=== PATIENT | female | born 1950 | race African-American/Black ===

== ENCOUNTER 2018-02-19 16:21 | Inpatient (IN) | payer BC, OTHER ==
[2018-02-19 16:30] VITALS: BMI 31.3
--- NOTE | 2018-02-19 16:30 | PDOC ---
Rapid Medical Evaluation Time Seen by Provider: 02/19/18 16:24 Medical Evaluation: Allergies Allergy/AdvReac Type Severity Reaction Status Date / Time iodine [Iodine] Allergy Rash Verified 08/25/15 17:39 adhesive tape AdvReac Severe Verified 08/25/15 17:39 oxycodone HCl [From Percocet] AdvReac Severe Vomiting Verified 08/25/15 17:39 margarine AdvReac Severe Difficulty Uncoded 08/28/15 22:51 Breathing 02/19/18 16:24 Pt c/o: acute weight loss, no appetite x3 years worsening in last 6 months, white mucosy diarrhea, hx cancer Pt on brief exam: vss Pt ordered for: labs, ua, ekg, mag, cxr pt to proceed to the ED Discharge Disposition - Diagnosis Weakness - Referrals - Patient Instructions - Post Discharge Activity
--- NOTE | 2018-02-19 17:27 | PDOC ---
History of Present Illness - General Chief Complaint: Weakness Stated Complaint: PCP SENT Time Seen by Provider: 02/19/18 16:24 - History of Present Illness Initial Comments: 02/19/18 17:27 Ms. Avery is a 67 yo female w/ pmh of HTN, anemia colon and bladder cancer, chronic RLE pain, left nephrectomy who presents on direction from PCP (Ever Johnson) for evaluation of several month history of worsening appetite, loss of weight, and diarrhea consisting of white mucous. She reports she has not been eating much and has likewise had increasing weakness to where she has difficulty standing (was previously going to gym 2x / week). The patient denies chest pain, shortness of breath, headache and dizziness. Denies fever, chills, nausea, vomit, and constipation. Denies dysuria, frequency , urgency and hematuria. Allergies: Iodine, oxycodone Past History - Past Medical History Allergies/Adverse Reactions: Allergies Allergy/AdvReac Type Severity Reaction Status Date / Time iodine [Iodine] Allergy Rash Verified 02/19/18 16:25 adhesive tape AdvReac Severe Verified 02/19/18 16:25 oxycodone HCl [From Percocet] AdvReac Severe Vomiting Verified 02/19/18 16:25 margarine AdvReac Severe Difficulty Uncoded 02/19/18 16:25 Breathing Home Medications: Ambulatory Orders Amlodipine Bes/Olmesartan Med [Mindi 5-20 mg Tablet] 1 each PO DAILY 08/26/15 Anemia: Yes Asthma: No Cancer: Yes (COLON, bladder) Cardiac Disorders: No CVA: No COPD: No CHF: No DVT: No Dementia: No Diabetes: No GI Disorders: No Disorders: Yes (LEFT nephrectomy) HTN: Yes Hypercholesterolemia: No Liver Disease: No Seizures: No Thyroid Disease: Yes (recent thyroid nodules) - Surgical History Abdominal Surgery: Yes (colon resectionx 2) Appendectomy: No Cardiac Surgery: No Cholecystectomy: No Lung Surgery: No Neurologic Surgery: No Orthopedic Surgery: Yes (SHOULDER SX - LEFT,rt wrist,rt knee,jennifer in right leg) - Suicide/Smoking/Psychosocial Hx Smoking Status: Yes Smoking History: Former smoker Have you smoked in the past 12 months: No Number of Cigarettes Smoked Daily: 1 If you are a former smoker, when did you quit?: 2 YRS Information on smoking cessation initiated: No Hx Alcohol Use: Yes (RARE) Drug/Substance Use Hx: No Substance Use Type: None Hx Substance Use Treatment: No Review of Systems - Review of Systems Comments:: 02/19/18 18:19 GENERAL/CONSTITUTIONAL: +Weakness and weightloss as described. No fever or chills. HEAD, EYES, EARS, NOSE AND THROAT: No change in vision. No ear pain or discharge. No sore throat. CARDIOVASCULAR: No chest pain or shortness of breath RESPIRATORY: No cough, wheezing, or hemoptysis. GASTROINTESTINAL: +Chronic white mucous diarrhea. No nausea, vomiting, or constipation. GENITOURINARY: No dysuria, frequency, or change in urination. MUSCULOSKELETAL: +RLE chronic pain SKIN: No rash NEUROLOGIC: No headache, vertigo, loss of consciousness, or change in strength/ sensation. ENDOCRINE: No increased thirst. No abnormal weight change HEMATOLOGIC/LYMPHATIC: No easy bleeding, or history of blood clots. ALLERGIC/IMMUNOLOGIC: No hives or skin allergy. *Physical Exam - Vital Signs Last Vital Signs Temp Pulse Resp BP Pulse Ox 99.2 F 103 H 18 139/61 100 02/19/18 16:25 02/19/18 16:25 02/19/18 16:25 02/19/18 16:25 02/19/18 16:25 - Physical Exam Comments: 02/19/18 18:19 GENERAL: Awake, alert, and fully oriented, in no acute distress HEAD: +Mucous membranes pale c/w anemia. No signs of trauma, normocephalic, atraumatic EYES: PERRLA, EOMI, sclera anicteric, conjunctiva clear ENT: Auricles normal inspection, hearing grossly normal, nares patent, oropharynx clear without exudates. Moist mucosa NECK: Normal ROM, supple, no lymphadenopathy, JVD, or masses LUNGS: No distress, speaks full sentences, clear to auscultation bilaterally HEART: Regular rate and rhythm, normal S1 and S2, no murmurs, rubs or gallops, peripheral pulses normal and equal bilaterally. ABDOMEN: Soft, nontender, normoactive bowel sounds. No guarding, no rebound. No masses EXTREMITIES: Normal inspection, Normal range of motion, no edema. No clubbing or cyanosis. NEUROLOGICAL: Cranial nerves II through XII grossly intact. Normal speech, normal gait, no focal sensorimotor deficits SKIN: Warm, Dry, normal turgor, no rashes or lesions noted. ED Treatment Course - LABORATORY CBC & Chemistry Diagram: 02/19/18 17:23 02/19/18 17:23 Medical Decision Making - Medical Decision Making 02/19/18 18:21 Ms. Avery is a 67 yo female w/ pmh as described who presents for evaluation of weakness and diarrhea in the setting of metastatic cancer. Patient sent by PCP for admission. Discussed with Dr. Medina who will admit for further evaluation. Patient noted to be anemic as below. 2 units PRBC's ordered for treatment. Will bring in patient to hospital for further evaluation. Laboratory Results - last 24 hr 02/19/18 02/19/18 02/19/18 17:23 17:23 18:30 WBC 16.2 H RBC 3.91 Hgb 6.3 L* Hct 22.0 L D MCV 56.1 L MCH 16.2 L D MCHC 28.8 L RDW 20.3 H Plt Count 724 H D MPV 8.7 D Absolute Neuts (auto) 12.5 Neutrophils % 77.1 Lymphocytes % 15.1 Monocytes % 7.3 Eosinophils % 0.1 Basophils % 0.4 Nucleated RBC % 0 Hypochromia 3+ Platelet Estimate Increased Platelet Comment No clumping noted Polychromasia 1+ Basophilic Stippling 1+ Anisocytosis 2+ Microcytosis 3+ Target Cells 2+ Ovalocytes 1+ Sodium 139 Potassium 4.8 Chloride 102 Carbon Dioxide 28 Anion Gap 9 BUN 14 Creatinine 0.7 Creat Clearance w eGFR > 60 Random Glucose 85 Calcium 12.1 H Magnesium 1.8 Total Bilirubin 0.4 AST 39 H ALT 28 Alkaline Phosphatase 146 H Creatine Kinase 95 Troponin I 0.05 Total Protein 6.7 Albumin 2.5 L Lipase 73 Crossmatch See Detail *DC/Admit/Observation/Transfer Diagnosis at time of Disposition: Weakness - Discharge Dispostion Decision to Admit order: Yes - Referrals Referrals: Ever Johnson MD [Primary Care Provider] - - Patient Instructions - Post Discharge Activity
[2018-02-19 17:38] LABS: MEAN CELL VOLUME 56.1 fl (80-96)
[2018-02-19] MEDS ORDERED: SODIUM CHLORIDE 1,000 ML IV STA (17:48)
[2018-02-19 17:56] LABS: BASO % 0.4 % (0-2.0); EOS % 0.1 % (0-4.5); LYMPH % 15.1 % (8-40); MCHC 28.8 g/dl (32.0-36.0); MEAN PLT VOLUME 8.7 fl (7.5-11.1); MONO % 7.3 % (3.8-10.2); NEUT % 77.1 % (42.8-82.8); PLATELET COUNT 724 K/MM3 (134-434); RBC 3.91 M/mm3 (3.60-5.2); RDW 20.3 % (11.6-15.6); WHITE BLOOD COUNT 16.2 K/mm3 (4.0-10.0)
[2018-02-19 18:01] LABS: MCH 16.2 pg (25.7-33.7)
[2018-02-19 18:02] LABS: HEMOGLOBIN 6.3 GM/dL (10.7-15.3)
[2018-02-19 18:03] LABS: ADD RBC MORPHOLOGY YES
[2018-02-19 18:04] LABS: ALBUMIN 2.5 g/dl (3.4-5.0); ANION GAP 9 (8-16); BLOOD UREA NITROGEN 14 mg/dL (7-18); CALCIUM 12.1 mg/dL (8.5-10.1); CHLORIDE 102 mmol/L (98-107); CO2 28 mmol/L (21-32); CREATININE 0.7 mg/dL (0.55-1.02); GLUCOSE,RANDOM 85 mg/dL (74-106); LIPASE 73 U/L (73-393); MAGNESIUM 1.8 mg/dL (1.8-2.4); POTASSIUM 4.8 mmol/L (3.5-5.1); SGOT/AST 39 U/L (15-37); SGPT/ALT 28 U/L (12-78); SODIUM 139 mmol/L (136-145)
--- NOTE | 2018-02-19 18:04 | PDOC ---
Attending Attestation - HPI HPI: The patient is a 67 year old female with a significant past medical history of hypertension, anemia, chronic RLE pain, left nephrectomy, and colon and bladder cancer, who presents to the emergency department for evaluation of a several month history of worsening appetite, weight loss, and diarrhea. She reports difficulty standing secondary to generalized weakness. The patient notes the diarrhea is streaked with white mucous. The patient denies chest pain, shortness of breath, headache and dizziness. Denies fever, chills, nausea, vomit, and constipation. Denies dysuria, frequency , urgency and hematuria. Allergies: Iodine, oxycodone Social History: Former smoker. Rare alcohol use. No reported drug use. Surgical History: Colon resection. PCP: Dr. Ever Johnson - Physicial Exam PE: Vitals: Triage Vital signs reviewed General Appearance: no acute distress, well nourished well developed, Head: Atraumatic, normocephalic Eyes: Pupils equal reactive round, extraocular movement intact Neck: Supple Chest Wall: Nontender Cardiac: Regular rate and rhythm, no murmurs, no rubs, no gallops, Lungs: Clear to auscultation bilateral, good air movement bilaterally, Abdomen: Soft, nondistended, nontender to palpation Extremities: Full range of motion to all extremities, no cyanosis, clubbing, or edema Skin: Warm and dry, no rashes or lesions, no petechiae Psych: normal mood, normal affect - Medical Decision Making The patient is a 67 year old female with a significant past medical history of hypertension, anemia, chronic RLE pain, left nephrectomy, and colon and bladder cancer, who presents to the emergency department for evaluation of a several month history of worsening appetite, weight loss, and diarrhea. Plan: CT of Abdomen and Pelvis Chest X-ray EKG Labs UA <Lisa Melvin - Last Filed: 02/19/18 19:03> - Resident Resident Name: Sen Antoine - ED Attending Attestation I have performed the following: I have examined & evaluated the patient, The case was reviewed & discussed with the resident, I agree w/resident's findings & plan, Exceptions are as noted - HPI HPI: 02/19/18 18:04 agree with hpi - Physicial Exam PE: 02/19/18 18:04 agree with PE - Medical Decision Making Patient sensitive emergency Department for CT abdomen pelvis and evaluation of anemia Laboratory analysis notable for elevated white blood cell count Apparent source of fever appears to be urine patient cover broad-spectrum antibiotics we'll admit to medicine for further management. <Zachary Neves - Last Filed: 02/19/18 19:41> Attestations - Attestations Documentation prepared by Lisa Melvin, acting as medical care administrator for Zachary Neves MD. <Lisa Melvin - Last Filed: 02/19/18 19:03>
[2018-02-19 18:08] LABS: ALK PHOS 146 U/L (45-117); BILIRUBIN,TOTAL 0.4 mg/dL (0.2-1.0); TOT PROT 6.7 g/dl (6.4-8.2)
[2018-02-19 18:23] LABS: ANISOCYTOSIS 2+; OVALOCYTE 1+; PLATELET ESTIMATE INCREASED; TARGET CELLS 2+
[2018-02-19] MEDS ORDERED: VANCOMYCIN 1,000 MG in DEXTROSE 5%-WATER - 250 ML IVPB ONE (18:59)
[2018-02-19] MEDS ORDERED: PIPERACILLIN/TAZOB 3.375 GM 3.375 GM in DEXTROSE 5%-WATER - 50 ML IVPB ONE (18:59)
[2018-02-19 19:19] LABS: URINE APPEARANCE SLCLOUDY; URINE COLOR AMBER; URINE GLUCOSE (UA) NEGATIVE (NEGATIVE); URINE KETONE TRACE (NEGATIVE); URINE LEUK ESTERASE TRACE (NEGATIVE); URINE NITRITE NEGATIVE (NEGATIVE); URINE PROTEIN 2+ (NEGATIVE)
[2018-02-19 19:24] LABS: CALCIUM OXALATE CRYSTALS FEW /hpf (NONE SEEN); EPI CELLS RARE /HPF (FEW); URINE BACTERIA RARE /hpf (NONE SEEN); URINE HYALINE CAST 41 /lpf; URINE MUCUS MODERATE
[2018-02-19] MEDS ORDERED: VANCOMYCIN 1 GRAM (PRE-DOCKED) 1,000 MG/250 ML BAG IVPB ONE (19:34)
[2018-02-19] MEDS ORDERED: PIPERACILLIN/TAZOB 3.375 GM 3.375 GM/50 ML BAG IVPB ONE (23:31)
[2018-02-20] MEDS: ACETAMINOPHEN 325 MG TABLET (FP) PO PRN ×2 (01:26→15:01)
--- NOTE | 2018-02-20 12:42 | EKG ---
Test Reason : Blood Pressure : / mmHG Vent. Rate : 093 BPM Atrial Rate : 093 BPM P-R Int : 134 ms QRS Dur : 074 ms QT Int : 318 ms P-R-T Axes : 046 010 046 degrees QTc Int : 395 ms NORMAL SINUS RHYTHM POSSIBLE LEFT ATRIAL ENLARGEMENT BORDERLINE ECG WHEN COMPARED WITH ECG OF 25-AUG-2015 22:18, NONSPECIFIC T WAVE ABNORMALITY NO LONGER EVIDENT IN INFERIOR LEADS NONSPECIFIC T WAVE ABNORMALITY, IMPROVED IN LATERAL LEADS Confirmed by PRISCA SANTORO, CHIQUITA ([id number]) on 02/20/2018 12:41:48 PM Referred By: Confirmed By:CHIQUITA COPE MD
--- NOTE | 2018-02-20 20:05 | CONSULT ---
Consult Consult Specialty:: Oncology Referred by:: Medicine Reason for Consultation:: History of bladder cancer / severe anemia - History of Present Illness Chief Complaint: Patient admitted with several months history of worsening fatigue, anorexia, and loss of weight. Found to be severely anemic. History of Present Illness: As above. History of bladder carcinoma, with known metastatic spread ( pathological fracture femur, known adrenal mets), last seen by oncology approximately 18 months ago, when chemotherapy was offered, but was refused by the patient. Since then has been doing reasonably well, until development of symptoms described above in the last several months. Denies blood in stools, or change in color of stool. Reports watery, clear, mucoid diarrhea, for last several months. Long-standing hematuria - 'blood tinged urine'. - History Source History Provided By: Patient, Medical Record Limitations to Obtaining History: No Limitations - Past Medical History Cardio/Vascular: Yes: HTN Gastrointestinal: Yes: Cancer (colon cancer x 2 resections) Hepatobiliary: Yes: Cholelithiasis Renal/: Yes: Cancer ...: No Musculoskeletal: Yes: Other (le fracture) - Past Surgical History Past Surgical History: Yes: Nephrectomy (left) - Alcohol/Substance Use Hx Alcohol Use: Yes (RARE) - Smoking History Smoking history: Former smoker Have you smoked in the past 12 months: No Aproximately how many cigarettes per day: 1 If you are a former smoker, when did you quit?: 2 YRS - Social History ADL: Support Services History of Recent Travel: No Home Medications - Allergies Allergies/Adverse Reactions: Allergies Allergy/AdvReac Type Severity Reaction Status Date / Time iodine [Iodine] Allergy Rash Verified 02/19/18 16:25 adhesive tape AdvReac Severe Verified 02/19/18 16:25 oxycodone HCl [From Percocet] AdvReac Severe Vomiting Verified 02/19/18 16:25 margarine AdvReac Severe Difficulty Uncoded 02/19/18 16:25 Breathing - Home Medications Home Medications: Ambulatory Orders Amlodipine Bes/Olmesartan Med [Mindi 5-20 mg Tablet] 1 each PO DAILY 08/26/15 Physical Exam Vital Signs: Vital Signs Temperature 97.7 F 02/20/18 15:18 Pulse Rate 84 02/20/18 15:18 Respiratory Rate 20 02/20/18 16:00 Blood Pressure 134/62 02/20/18 15:18 O2 Sat by Pulse Oximetry (%) 96 02/20/18 16:00 Labs: CBC, BMP 02/19/18 17:23 02/19/18 17:23 Assessment/Plan Patient with history of metastatic bladder cancer (transitional cell carcinoma) , with prior pathological fracture R femur, and known adrenal metastasis, last seen by oncology here (Dr Mckinney) in August 2016. At that time refused systemic chemotherapy and thereafter lost to follow up here. In addition, reported history of 2 colon resections for colon masses, both of which she believes were benign. Returns with severe microcytic anemia. (Assumed to be iron deficiency - would check iron panel to confirm) Expected progression of disease (now with liver metastasis, and large retroperitoneal mass) seen on CT scan, albeit progression is slower than expected, indicative of relatively indolent disease. Elevated Ca and ALP suggests active bone metastases also. Unclear etiology of iron deficiency (hematuria vs occult GI loss) Agree with transfusion, and would likely also benefit from IV iron while admitted. Consult GI re. ongoing GI symptoms (watery, mucoid diarrhea, and rule out occult GI bleeding). At this time still adamant that she does not want systemic chemotherapy, but may be convinced otherwise. If patient interested in some palliative measures then will require completion of staging - which may include PET and/or bone scan. If chemotherapy is contemplated then tissue confirmation may be required - to confirm primary - likely transitional as before, but noted question in prior notes of possible ?colon cancer, ?remote history of breast cancer also. Will consider bisphosphonate or denosumab, noting prior history of pathological fracture and index of suspicion for bone involvement presently.
--- NOTE | 2018-02-20 21:49 | HP ---
Admitting History and Physical - Admission History of Present Illness: Pt is a 67 yo female w/ PMH significant for HTN, anemia, colon and bladder cancer(metastatic dz to femur/adrenal mets), and chronic RLE pain. Pt for the past 1 month has just been deteriorating w/ decreasing appetite, loss of weight , and diarrhea consisting of white mucous. Pt is also feeling weak w/ difficulty standing (was previously going to gym 2x / week). - Past Medical History Cardiovascular: Yes: HTN Gastrointestinal: Yes: Cancer (colon cancer x 2 resections Bladder cancer w/ mets to bone(pathologic femur fx)) Hepatobiliary: Yes: Cholelithiasis Renal/: Yes: Cancer ...: No Heme/Onc: Yes: Anemia (colon and bladder), Cancer Musculoskeletal: Yes: Other (le fracture) - Past Surgical History Past Surgical History: Yes: Colectomy, Nephrectomy (left) - Smoking History Smoking history: Former smoker Have you smoked in the past 12 months: No Aproximately how many cigarettes per day: 1 If you are a former smoker, when did you quit?: 2 YRS - Alcohol/Substance Use Hx Alcohol Use: Yes (RARE) - Social History ADL: Support Services History of Recent Travel: No Home Medications - Allergies Allergies/Adverse Reactions: Allergies Allergy/AdvReac Type Severity Reaction Status Date / Time iodine [Iodine] Allergy Rash Verified 02/19/18 16:25 adhesive tape AdvReac Severe Verified 02/19/18 16:25 oxycodone HCl [From Percocet] AdvReac Severe Vomiting Verified 02/19/18 16:25 margarine AdvReac Severe Difficulty Uncoded 02/19/18 16:25 Breathing - Home Medications Home Medications: Ambulatory Orders Amlodipine Bes/Olmesartan Med [Mindi 5-20 mg Tablet] 1 each PO DAILY 08/26/15 Family Disease History - Family Disease History Family History: Unremarkable Review of Systems - Review of Systems Constitutional: reports: Lethargy, Loss of Appetite, Malaise, Weakness Eyes: reports: No Symptoms HENT: reports: No Symptoms Neck: reports: No Symptoms Cardiovascular: reports: No Symptoms Gastrointestinal: reports: Diarrhea Genitourinary: reports: Hematuria Physical Examination Vital Signs: Vital Signs Temperature 97.7 F 02/20/18 15:18 Pulse Rate 84 02/20/18 15:18 Respiratory Rate 20 02/20/18 16:00 Blood Pressure 134/62 02/20/18 15:18 O2 Sat by Pulse Oximetry (%) 96 02/20/18 16:00 Constitutional: Yes: Well Nourished HENT: Yes: WNL Neck: Yes: WNL, Supple Cardiovascular: Yes: WNL, Regular Rate and Rhythm Respiratory: Yes: WNL, Regular, CTA Bilaterally Gastrointestinal: Yes: WNL Musculoskeletal: Yes: WNL Extremities: Yes: WNL Edema: No Neurological: Yes: WNL, Alert, Oriented ...Motor Strength: WNL Labs: CBC, BMP 02/19/18 17:23 02/19/18 17:23 Problem List - Problems (1) Diarrhea Assessment/Plan: Check stool studies GI consult Code(s): R19.7 - DIARRHEA, UNSPECIFIED (2) Anemia Assessment/Plan: S/P transfusion 2 units PRBC's ?active GI bleed vs anemia of malignancy Monitor H/H Onco consult noted GI consult Monitor H/H IV venofer Code(s): D64.9 - ANEMIA, UNSPECIFIED (3) Weakness Code(s): R53.1 - WEAKNESS (4) Bladder cancer Assessment/Plan: Bladder CA w/ mets ot liver/bone and retroperitoneal mass Pt has refused chemotx in past At this point will d/w pt again about possibility of further management ?Palliative care Code(s): C67.9 - MALIGNANT NEOPLASM OF BLADDER, UNSPECIFIED (5) Colon cancer Code(s): C18.9 - MALIGNANT NEOPLASM OF COLON, UNSPECIFIED (6) HTN (hypertension) Assessment/Plan: BP stable Cont antihypertensives Code(s): I10 - ESSENTIAL (PRIMARY) HYPERTENSION
[2018-02-21] MEDS: IRON SUCROSE INJECTION 100 MG in SODIUM CHLORIDE 95 ML IVPB SCH ×2 (06:10→09:57)
[2018-02-21] MEDS: SODIUM CHLORIDE 1,000 ML IV SCH ×2 (06:10→22:34)
[2018-02-21 07:09] LABS: BASO % 0.4 % (0-2.0); EOS % 0.3 % (0-4.5); HEMATOCRIT 25.9 % (32.4-45.2); HEMOGLOBIN 7.9 GM/dL (10.7-15.3); LYMPH % 17.4 % (8-40); MCHC 30.4 g/dl (32.0-36.0); MEAN PLT VOLUME 8.4 fl (7.5-11.1); MONO % 6.5 % (3.8-10.2); NEUT % 75.4 % (42.8-82.8); PLATELET COUNT 708 K/MM3 (134-434); RBC 4.25 M/mm3 (3.60-5.2); RDW 26.1 % (11.6-15.6); WHITE BLOOD COUNT 16.8 K/mm3 (4.0-10.0)
[2018-02-21 07:22] LABS: MCH 18.6 pg (25.7-33.7)
[2018-02-21 08:04] LABS: ALBUMIN 2.4 g/dl (3.4-5.0); ANION GAP 8 (8-16); BLOOD UREA NITROGEN 8 mg/dL (7-18); CALCIUM 12.1 mg/dL (8.5-10.1); CHLORIDE 102 mmol/L (98-107); CO2 26 mmol/L (21-32); CREATININE 0.5 mg/dL (0.55-1.02); GLUCOSE,RANDOM 74 mg/dL (74-106); POTASSIUM 4.7 mmol/L (3.5-5.1); SGOT/AST 37 U/L (15-37); SGPT/ALT 30 U/L (12-78); SODIUM 136 mmol/L (136-145)
[2018-02-21 08:06] LABS: ALK PHOS 153 U/L (45-117); BILIRUBIN,TOTAL 0.6 mg/dL (0.2-1.0); TOT PROT 6.5 g/dl (6.4-8.2)
[2018-02-21] MEDS: amLODIPine BESYLATE 5 MG TABLET (FP) PO SCH (09:57)
[2018-02-21] MEDS: VALSARTAN 160 MG TABLET (UD) PO SCH (09:57)
[2018-02-21] MEDS ORDERED: PATIENT'S OWN MEDICATION (NON-FORMULARY) (Amlodipine Bes/Olmesartan Med [Azor 5-20 Mg Tabl PO SCH (10:00)
--- NOTE | 2018-02-21 18:49 | PN ---
Progress Note (short form) - Note Progress Note: Patient seen and examined Reports mucus discharge per rectum. Reports weakness,poor appetite Last Vital Signs Temp Pulse Resp BP Pulse Ox 98.1 F 84 18 124/57 96 02/21/18 17:43 02/21/18 17:43 02/21/18 17:43 02/21/18 17:43 02/21/18 09:00 Cor: RSR, No murmurs, No gallops Lungs: Clear to P&A Abd: Soft, Normal bowel sounds, No organomegaly Ext:No significant edema Abnormal Lab Results 02/21/18 02/21/18 06:00 06:00 WBC 16.8 H Hgb 7.9 L Hct 25.9 L D MCV 61.0 L D MCH 18.6 L D MCHC 30.4 L RDW 26.1 H Plt Count 708 H Creatinine 0.5 L Calcium 12.1 H Alkaline Phosphatase 153 H Albumin 2.4 L Active Medications Generic Name Dose Route Start Last Admin Trade Name Freq PRN Reason Stop Dose Admin Acetaminophen 650 mg 02/20/18 01:22 02/20/18 15:01 Tylenol - PO 650 mg Q6H PRN Administration FEVER Amlodipine Besylate 5 mg 02/21/18 10:00 02/21/18 09:57 Norvasc - PO 5 mg DAILY RON Administration Sodium Chloride 1,000 mls @ 100 mls/hr 02/20/18 23:15 02/21/18 06:10 Normal Saline - IV 100 mls/hr ASDIR RON Administration Iron Sucrose 100 mg/ Sodium 100 mls @ 200 mls/hr 02/21/18 01:41 02/21/18 09: 57 Chloride IVPB 200 mls/hr DAILY RON Administration Valsartan 160 mg 02/21/18 10:00 02/21/18 09:57 Diovan - PO 160 mg DAILY RON Administration A/P 67 y/o patient with metastatic bladder cancer (transitional cell carcinoma), with prior pathological fracture R femur, and known adrenal metastasis, last seen by me in August 2016. At that time adamantly refused systemic therapy and has been lost to follow up. she last had scans in 01/20 per patient. She had been going to the gym upuntil 12/21 Now with 2 months of worsening appetitie, wt. loss, decline in functional status In addition, reported history of 2 colon resections for colon masses, both of which she believes were benign. Returns with severe microcytic anemia. Expected progression of disease (now with liver metastasis, and large retroperitoneal mass) seen on CT scan, Elevated Ca and ALP suggests active bone metastases also. will check bone scan Will dose zometa given hypercalcemia continue IV hydation ID consult Biopsy of liver lesion via IR
[2018-02-21] MEDS ORDERED: ZOLPIDEM TARTRATE 5 MG TABLET PO PRN (22:33)
--- NOTE | 2018-02-21 23:50 | PN ---
Progress Note, Physician - Current Medication List Current Medications: Active Medications Acetaminophen (Tylenol -) 650 mg PO Q6H PRN PRN Reason: FEVER Last Admin: 02/20/18 15:01 Dose: 650 mg Amlodipine Besylate (Norvasc -) 5 mg PO DAILY [facility] Last Admin: 02/21/18 09:57 Dose: 5 mg Sodium Chloride (Normal Saline -) 1,000 mls @ 100 mls/hr IV ASDIR RON Last Admin: 02/21/18 22:34 Dose: 100 mls/hr Iron Sucrose 100 mg/ Sodium (Chloride) 100 mls @ 200 mls/hr IVPB DAILY RON Last Admin: 02/21/18 09:57 Dose: 200 mls/hr Zoledronic Acid 4 mg/ Sodium (Chloride) 105 mls @ 100 mls/hr IVPB ONCE ONE Stop: 02/22/18 11:32 Valsartan (Diovan -) 160 mg PO DAILY [facility] Last Admin: 02/21/18 09:57 Dose: 160 mg Zolpidem Tartrate (Ambien -) 5 mg PO HS PRN PRN Reason: INSOMNIA Last Admin: 02/21/18 23:06 Dose: 5 mg - Objective Vital Signs: Vital Signs Temperature 98.1 F 02/21/18 17:43 Pulse Rate 84 02/21/18 17:43 Respiratory Rate 18 02/21/18 20:18 Blood Pressure 124/57 02/21/18 17:43 O2 Sat by Pulse Oximetry (%) 96 02/21/18 20:18 Labs: CBC, BMP 02/21/18 06:00 02/21/18 06:00 Problem List - Problems (1) Diarrhea Code(s): R19.7 - DIARRHEA, UNSPECIFIED (2) Anemia Code(s): D64.9 - ANEMIA, UNSPECIFIED (3) Weakness Code(s): R53.1 - WEAKNESS (4) Bladder cancer Code(s): C67.9 - MALIGNANT NEOPLASM OF BLADDER, UNSPECIFIED (5) Colon cancer Code(s): C18.9 - MALIGNANT NEOPLASM OF COLON, UNSPECIFIED (6) HTN (hypertension) Code(s): I10 - ESSENTIAL (PRIMARY) HYPERTENSION
[2018-02-22] MEDS: SODIUM CHLORIDE 1,000 ML IV SCH ×2 (06:46→22:00)
[2018-02-22 08:48] LABS: BASO % 0.4 % (0-2.0); EOS % 0.5 % (0-4.5); HEMATOCRIT 24.3 % (32.4-45.2); HEMOGLOBIN 7.4 GM/dL (10.7-15.3); LYMPH % 16.6 % (8-40); MCHC 30.5 g/dl (32.0-36.0); MEAN CELL VOLUME 61.1 fl (80-96); MONO % 7.3 % (3.8-10.2); NEUT % 75.2 % (42.8-82.8); PLATELET COUNT 636 K/MM3 (134-434); RBC 3.98 M/mm3 (3.60-5.2); RDW 25.7 % (11.6-15.6); WHITE BLOOD COUNT 14.4 K/mm3 (4.0-10.0)
[2018-02-22 08:51] LABS: MCH 18.6 pg (25.7-33.7)
[2018-02-22 09:19] LABS: ALBUMIN 2.2 g/dl (3.4-5.0); ALK PHOS 143 U/L (45-117); ANION GAP 7 (8-16); BILIRUBIN,TOTAL 0.5 mg/dL (0.2-1.0); BLOOD UREA NITROGEN 7 mg/dL (7-18); CALCIUM 11.6 mg/dL (8.5-10.1); CHLORIDE 103 mmol/L (98-107); CO2 27 mmol/L (21-32); CREATININE 0.5 mg/dL (0.55-1.02); GLUCOSE,RANDOM 75 mg/dL (74-106); POTASSIUM 4.7 mmol/L (3.5-5.1); SGOT/AST 34 U/L (15-37); SGPT/ALT 28 U/L (12-78); SODIUM 137 mmol/L (136-145); TOT PROT 6.1 g/dl (6.4-8.2)
[2018-02-22 09:37] LABS: INR 1.35 (0.82-1.09); PROTHROMBIN TIME (PATIENT) 15.3 SEC (9.7-13.0)
[2018-02-22 09:40] LABS: ACTIVATED PTT 25.5 SECONDS (25.2-36.5)
[2018-02-22] MEDS ORDERED: ZOLEDRONIC ACID 4 MG in SODIUM CHLORIDE 100 ML IVPB ONE (10:30)
[2018-02-22] MEDS: VALSARTAN 160 MG TABLET (UD) PO SCH (10:48)
[2018-02-22] MEDS: IRON SUCROSE INJECTION 100 MG in SODIUM CHLORIDE 95 ML IVPB SCH (10:48)
[2018-02-22] MEDS: amLODIPine BESYLATE 5 MG TABLET (FP) PO SCH (10:48)
--- NOTE | 2018-02-22 15:13 | PN ---
Progress Note (short form) - Note Progress Note: Patient seen and examined Reports mucus discharge per rectum. Reports weakness,poor appetite Last Vital Signs Temp Pulse Resp BP Pulse Ox 98.2 F 93 H 18 116/50 96 02/22/18 18:03 02/22/18 18:03 02/22/18 18:03 02/22/18 18:03 02/22/18 09:00 Cor: RSR, No murmurs, No gallops Lungs: Clear to P&A Abd: Soft, Normal bowel sounds, No organomegaly Ext:No significant edema Abnormal Lab Results 02/22/18 02/22/18 02/22/18 08:07 08:07 08:07 WBC 14.4 H Hgb 7.4 L Hct 24.3 L MCV 61.1 L MCH 18.6 L MCHC 30.5 L RDW 25.7 H Plt Count 636 H MPV 7.0 L D PT with INR 15.30 H INR 1.35 H PTT (Actin FS) 25.5 L Anion Gap 7 L Creatinine 0.5 L Calcium 11.6 H Alkaline Phosphatase 143 H D Total Protein 6.1 L Albumin 2.2 L Active Medications Generic Name Dose Route Start Last Admin Trade Name Freq PRN Reason Stop Dose Admin Acetaminophen 650 mg 02/20/18 01:22 02/22/18 19:41 Tylenol - PO 650 mg Q6H PRN Administration FEVER Amlodipine Besylate 5 mg 02/21/18 10:00 02/22/18 10:48 Norvasc - PO 5 mg DAILY RON Administration Sodium Chloride 1,000 mls @ 100 mls/hr 02/20/18 23:15 02/22/18 06:46 Normal Saline - IV 100 mls/hr ASDIR RON Administration Iron Sucrose 100 mg/ Sodium 100 mls @ 200 mls/hr 02/21/18 01:41 02/22/18 10: 48 Chloride IVPB 200 mls/hr DAILY RON Administration Valsartan 160 mg 02/21/18 10:00 02/22/18 10:48 Diovan - PO 160 mg DAILY RON Administration Zolpidem Tartrate 5 mg 02/21/18 22:33 02/21/18 23:06 Ambien - PO 5 mg HS PRN Administration INSOMNIA A/P 67 y/o patient with metastatic bladder cancer (transitional cell carcinoma), with prior pathological fracture R femur, and known adrenal metastasis, last seen by me in August 2016. At that time adamantly refused systemic therapy and has been lost to follow up.Also h/o colon resection x2 . She had been going to the gym upuntil 12/21 Now with 2 months of worsening appetitie, wt. loss, decline in functional status , LLE pain/weakness Returns with severe microcytic anemia. Expected progression of disease (now with liver metastasis, and large retroperitoneal mass) seen on CT scan, Elevated Ca and ALP suggests active bone metastases also. f/u bone scan s/p zometa given for hypercalcemia today --02/22/18 decrease IV hydration ID consult Biopsy of liver lesion via IR
--- NOTE | 2018-02-22 15:59 | CON.GI ---
Consult Consult Specialty:: GI Referred by:: Dr Medina/ Ever Johnson - History of Present Illness History of Present Illness: 67 y/o F was with PMH of urinary bladder ca with metastases and history of colon cancer. I was asked to see the paetient for possible gi bleeding. She denies dysphagia, epigastric pain, rectal bleeding, melena and abdominal pain. At present she received PRBC and IV iron. She has microscopic hematuria. Staging including liver biopsy by IR is pending. - Past Medical History Cardio/Vascular: Yes: HTN Gastrointestinal: Yes: Cancer (colon cancer x 2 resections Bladder cancer w/ mets to bone(pathologic femur fx)) Hepatobiliary: Yes: Cholelithiasis Renal/: Yes: Cancer ...: No Musculoskeletal: Yes: Other (le fracture) - Past Surgical History Past Surgical History: Yes: Colectomy, Nephrectomy (left) - Alcohol/Substance Use Hx Alcohol Use: Yes (RARE) - Smoking History Smoking history: Former smoker Have you smoked in the past 12 months: No Aproximately how many cigarettes per day: 1 If you are a former smoker, when did you quit?: 2 YRS - Social History ADL: Support Services History of Recent Travel: No Home Medications - Allergies Allergies/Adverse Reactions: Allergies Allergy/AdvReac Type Severity Reaction Status Date / Time iodine [Iodine] Allergy Rash Verified 02/19/18 16:25 adhesive tape AdvReac Severe Verified 02/19/18 16:25 oxycodone HCl [From Percocet] AdvReac Severe Vomiting Verified 02/19/18 16:25 margarine AdvReac Severe Difficulty Uncoded 02/19/18 16:25 Breathing - Home Medications Home Medications: Ambulatory Orders Amlodipine Bes/Olmesartan Med [Mindi 5-20 mg Tablet] 1 each PO DAILY 08/26/15 Physical Exam-GI Vital Signs: Vital Signs Temperature 98.2 F 02/22/18 15:01 Pulse Rate 87 02/22/18 15:01 Respiratory Rate 20 02/22/18 15:01 Blood Pressure 131/55 02/22/18 15:01 O2 Sat by Pulse Oximetry (%) 96 02/22/18 09:00 Constitutional: Yes: Well Nourished Eyes: Yes: Conjunctiva Clear HENT: Yes: Atraumatic Neck: Yes: Supple Cardiovascular: Yes: Regular Rate and Rhythm Respiratory: Yes: CTA Bilaterally ...Palpate: Yes: Soft. No: Firm/Rigid, Guarding, Hepatomegaly, Mass, Pulsatile Mass, Splenomegaly, Tenderness, Tenderness, Epigastium Labs: CBC, BMP 02/22/18 08:07 02/22/18 08:07 INR, PTT INR 1.35 (0.82-1.09) H 02/22/18 08:07 Fibrinogen 442.0 mg/dL (238-498) 02/22/18 08:07 Problem List - Problems (1) Anemia Assessment/Plan: multifactorial including hematuria R> will hold off gi w/u at this time, staging bladder tumor is on going stool guaiac Code(s): D64.9 - ANEMIA, UNSPECIFIED
[2018-02-22] MEDS: ACETAMINOPHEN 325 MG TABLET (FP) PO PRN (19:41)
--- NOTE | 2018-02-23 05:13 | PN ---
Progress Note, Physician - Current Medication List Current Medications: Active Medications Acetaminophen (Tylenol -) 650 mg PO Q6H PRN PRN Reason: FEVER Last Admin: 02/22/18 19:41 Dose: 650 mg Amlodipine Besylate (Norvasc -) 5 mg PO DAILY [facility] Last Admin: 02/22/18 10:48 Dose: 5 mg Iron Sucrose 100 mg/ Sodium (Chloride) 100 mls @ 200 mls/hr IVPB DAILY [facility] Last Admin: 02/22/18 10:48 Dose: 200 mls/hr Sodium Chloride (Normal Saline -) 1,000 mls @ 60 mls/hr IV ASDIR [facility] Last Admin: 02/22/18 22:00 Dose: Not Given Valsartan (Diovan -) 160 mg PO DAILY [facility] Last Admin: 02/22/18 10:48 Dose: 160 mg Zolpidem Tartrate (Ambien -) 5 mg PO HS PRN PRN Reason: INSOMNIA Last Admin: 02/21/18 23:06 Dose: 5 mg - Objective Vital Signs: Vital Signs Temperature 98.4 F 02/22/18 22:00 Pulse Rate 80 02/22/18 22:00 Respiratory Rate 18 02/22/18 22:00 Blood Pressure 119/53 02/22/18 22:00 O2 Sat by Pulse Oximetry (%) 99 02/22/18 21:00 Labs: CBC, BMP 02/22/18 08:07 02/22/18 08:07 INR, PTT INR 1.35 (0.82-1.09) H 02/22/18 08:07 Fibrinogen 442.0 mg/dL (238-498) 02/22/18 08:07 Problem List - Problems (1) Diarrhea Code(s): R19.7 - DIARRHEA, UNSPECIFIED (2) Anemia Code(s): D64.9 - ANEMIA, UNSPECIFIED (3) Weakness Code(s): R53.1 - WEAKNESS (4) Bladder cancer Code(s): C67.9 - MALIGNANT NEOPLASM OF BLADDER, UNSPECIFIED (5) Colon cancer Code(s): C18.9 - MALIGNANT NEOPLASM OF COLON, UNSPECIFIED (6) HTN (hypertension) Code(s): I10 - ESSENTIAL (PRIMARY) HYPERTENSION
[2018-02-23 07:56] LABS: BASO % 0.4 % (0-2.0); EOS % 0.3 % (0-4.5); HEMATOCRIT 24.3 % (32.4-45.2); HEMOGLOBIN 7.3 GM/dL (10.7-15.3); LYMPH % 14.5 % (8-40); MEAN CELL VOLUME 62.3 fl (80-96); MEAN PLT VOLUME 8.3 fl (7.5-11.1); MONO % 6.7 % (3.8-10.2); NEUT % 78.1 % (42.8-82.8); PLATELET COUNT 643 K/MM3 (134-434); RDW 26.1 % (11.6-15.6); WHITE BLOOD COUNT 14.5 K/mm3 (4.0-10.0)
[2018-02-23 08:08] LABS: MCH 18.7 pg (25.7-33.7)
[2018-02-23 08:32] LABS: INR 1.39 (0.82-1.09); PROTHROMBIN TIME (PATIENT) 15.7 SEC (9.7-13.0)
[2018-02-23 08:35] LABS: ACTIVATED PTT 28.1 SECONDS (25.2-36.5)
[2018-02-23 09:21] LABS: CHLORIDE 104 mmol/L (98-107); POTASSIUM 4.5 mmol/L (3.5-5.1); SODIUM 138 mmol/L (136-145); TOT PROT 5.8 g/dl (6.4-8.2)
[2018-02-23] MEDS ORDERED: PT OWN MED DRAWER 7, Y5N ONE (09:22)
[2018-02-23 09:28] LABS: ALBUMIN 2.1 g/dl (3.4-5.0); ALK PHOS 130 U/L (45-117); ANION GAP 7 (8-16); BILIRUBIN,TOTAL 0.6 mg/dL (0.2-1.0); BLOOD UREA NITROGEN 6 mg/dL (7-18); CALCIUM 10.7 mg/dL (8.5-10.1); CO2 27 mmol/L (21-32); CREATININE 0.5 mg/dL (0.55-1.02); GLUCOSE,RANDOM 67 mg/dL (74-106); SGOT/AST 31 U/L (15-37); SGPT/ALT 22 U/L (12-78)
[2018-02-23] MEDS: amLODIPine BESYLATE 5 MG TABLET (FP) PO SCH (10:06)
[2018-02-23] MEDS: VALSARTAN 160 MG TABLET (UD) PO SCH (10:07)
--- NOTE | 2018-02-23 11:10 | PN ---
Progress Note (short form) - Note Progress Note: ONCOLOGY CONSULT NTOE : Patient seen and examined Doing ok, has pain though on movement Vital Signs Period Temp Pulse Resp BP Sys/Igbbs Pulse Ox Last 24 Hr 98.2 F-99.6 F 80-101 18-20 116-144/50-64 99 Cor: RSR, No murmurs, No gallops Lungs: Clear to P&A Abd: Soft, Normal bowel sounds, No organomegaly Ext:No significant edema CBC, BMP 02/23/18 06:50 02/23/18 06:50 Active Medications Generic Name Dose Route Start Last Admin Trade Name Freq PRN Reason Stop Dose Admin Acetaminophen 650 mg 02/20/18 01:22 02/22/18 19:41 Tylenol - PO 650 mg Q6H PRN Administration FEVER Amlodipine Besylate 5 mg 02/21/18 10:00 02/23/18 10:06 Norvasc - PO 5 mg DAILY [facility] Administration Iron Sucrose 100 mg/ Sodium 100 mls @ 200 mls/hr 02/21/18 01:41 02/22/18 10: 48 Chloride IVPB 200 mls/hr DAILY RON Administration Sodium Chloride 1,000 mls @ 60 mls/hr 02/22/18 20:29 02/22/18 22:00 Normal Saline - IV Not Given ASDIR RON Valsartan 160 mg 02/21/18 10:00 02/23/18 10:07 Diovan - PO 160 mg DAILY [facility]ON Administration Zolpidem Tartrate 5 mg 02/21/18 22:33 02/21/18 23:06 Ambien - PO 5 mg HS PRN Administration INSOMNIA A/P 67 y/o patient with metastatic bladder cancer (transitional cell carcinoma), with prior pathological fracture R femur, and known adrenal metastasis, last seen by me in August 2016. At that time declined systemic therapy and has been lost to follow up.Also h/o colon resection x2 . She had been going to the gym up until 12/21. Now with 2 months of worsening appetitie, wt. loss, decline in functional status, LLE pain/weakness Returns with severe microcytic anemia. Expected progression of disease (now with liver metastasis, and large retroperitoneal mass) seen on CT scan, Elevated Ca and ALP suggests active bone metastases also. bone scan - small focus at the site of prior surgery s/p zometa given for hypercalcemia today --02/22/18 decrease IV hydration ID consult Biopsy of liver lesion via IR ? renal US as bone scan suggests outlet obstruction
[2018-02-23 11:20] LABS: ANISOCYTOSIS 3+; MACROCYTOSIS 0; OVALOCYTE 1+; PLATELET ESTIMATE INCREASED
[2018-02-23] MEDS: IRON SUCROSE INJECTION 100 MG in SODIUM CHLORIDE 95 ML IVPB SCH (11:50)
[2018-02-23] MEDS: ACETAMINOPHEN 325 MG TABLET (FP) PO PRN ×2 (16:46→22:14)
--- NOTE | 2018-02-23 18:15 | PN ---
Progress Note, Physician - Current Medication List Current Medications: Active Medications Acetaminophen (Tylenol -) 650 mg PO Q6H PRN PRN Reason: FEVER Last Admin: 02/23/18 16:46 Dose: 650 mg Amlodipine Besylate (Norvasc -) 5 mg PO DAILY [facility] Last Admin: 02/23/18 10:06 Dose: 5 mg Iron Sucrose 100 mg/ Sodium (Chloride) 100 mls @ 200 mls/hr IVPB DAILY [facility] Last Admin: 02/23/18 11:50 Dose: 200 mls/hr Sodium Chloride (Normal Saline -) 1,000 mls @ 60 mls/hr IV ASDIR [facility] Last Admin: 02/22/18 22:00 Dose: Not Given Piperacillin Sod/Tazobactam (Sod 3.375 gm/ Dextrose) 50 mls @ 100 mls/hr IVPB Q8H-IV RON; Protocol Losartan Potassium (Cozaar -) 50 mg PO DAILY [facility] Zolpidem Tartrate (Ambien -) 5 mg PO HS PRN PRN Reason: INSOMNIA Last Admin: 02/21/18 23:06 Dose: 5 mg - Objective Vital Signs: Vital Signs Temperature 99.8 F H 02/23/18 13:29 Pulse Rate 96 H 02/23/18 13:29 Respiratory Rate 18 02/23/18 13:29 Blood Pressure 130/62 02/23/18 13:29 O2 Sat by Pulse Oximetry (%) 94 L 02/23/18 09:00 Labs: CBC, BMP 02/23/18 06:50 02/23/18 06:50 INR, PTT INR 1.39 (0.82-1.09) H 02/23/18 06:50 Fibrinogen 442.0 mg/dL (238-498) 02/22/18 08:07 Problem List - Problems (1) Diarrhea Code(s): R19.7 - DIARRHEA, UNSPECIFIED (2) Anemia Code(s): D64.9 - ANEMIA, UNSPECIFIED (3) Weakness Code(s): R53.1 - WEAKNESS (4) Bladder cancer Code(s): C67.9 - MALIGNANT NEOPLASM OF BLADDER, UNSPECIFIED (5) Colon cancer Code(s): C18.9 - MALIGNANT NEOPLASM OF COLON, UNSPECIFIED (6) HTN (hypertension) Code(s): I10 - ESSENTIAL (PRIMARY) HYPERTENSION
[2018-02-23] MEDS ORDERED: PIPERACILLIN/TAZOBACTAM 3.375 GM VIAL IVPB ONE (18:33)
[2018-02-23] MEDS ORDERED: DEXTROSE 5%-WATER - 50 ML IVPB ONE (18:34)
[2018-02-23] MEDS: PIPERACILLIN/TAZOB 3.375 GM 3.375 GM in DEXTROSE 5%-WATER - 50 ML IVPB SCH (18:45)
[2018-02-23] MEDS: SODIUM CHLORIDE 1,000 ML IV SCH (20:29)
[2018-02-24] MEDS ORDERED: DEXTROSE 5%-WATER - 50 ML IVPB ONE ×3 (02:50→17:26)
[2018-02-24] MEDS ORDERED: PIPERACILLIN/TAZOBACTAM 3.375 GM VIAL IVPB ONE ×3 (02:50→17:26)
[2018-02-24] MEDS: PIPERACILLIN/TAZOB 3.375 GM 3.375 GM in DEXTROSE 5%-WATER - 50 ML IVPB SCH ×3 (03:00→17:36)
[2018-02-24] MEDS: IRON SUCROSE INJECTION 100 MG in SODIUM CHLORIDE 95 ML IVPB SCH (11:00)
[2018-02-24] MEDS: LOSARTAN POTASSIUM 50 MG TABLET (FP) PO SCH (11:21)
[2018-02-24] MEDS: amLODIPine BESYLATE 5 MG TABLET (FP) PO SCH (11:21)
--- NOTE | 2018-02-24 12:41 | PN ---
Progress Note (short form) - Note Progress Note: ONCOLOGY CONSULT NTOE : Patient seen and examined Doing ok, has pain though on movement Vital Signs Period Temp Pulse Resp BP Sys/Gibbs Pulse Ox Last 24 Hr 98.3 F-99.8 F 86-96 18-20 119-130/51-62 97 Cor: RSR, No murmurs, No gallops Lungs: Clear to P&A Abd: Soft, Normal bowel sounds, No organomegaly Ext:No significant edema CBC, BMP 02/23/18 06:50 02/23/18 06:50 Active Medications Generic Name Dose Route Start Last Admin Trade Name Freq PRN Reason Stop Dose Admin Acetaminophen 650 mg 02/20/18 01:22 02/23/18 22:14 Tylenol - PO 650 mg Q6H PRN Administration FEVER Amlodipine Besylate 5 mg 02/21/18 10:00 02/24/18 11:21 Norvasc - PO 5 mg DAILY [facility] Administration Iron Sucrose 100 mg/ Sodium 100 mls @ 200 mls/hr 02/21/18 01:41 02/24/18 11: 00 Chloride IVPB 200 mls/hr DAILY [facility] Administration Sodium Chloride 1,000 mls @ 60 mls/hr 02/22/18 20:29 02/23/18 20:29 Normal Saline - IV Not Given ASDIR RON Piperacillin Sod/Tazobactam 50 mls @ 100 mls/hr 02/23/18 18:15 02/24/18 11:20 Sod 3.375 gm/ Dextrose IVPB 100 mls/hr Q8H-IV RON Administration Protocol Losartan Potassium 50 mg 02/24/18 10:00 02/24/18 11:21 Cozaar - PO 50 mg DAILY [facility] Administration Zolpidem Tartrate 5 mg 02/21/18 22:33 02/21/18 23:06 Ambien - PO 5 mg HS PRN Administration INSOMNIA A/P 67 y/o patient with metastatic bladder cancer (transitional cell carcinoma), with prior pathological fracture R femur, and known adrenal metastasis, last seen by me in August 2016. At that time declined systemic therapy and has been lost to follow up.Also h/o colon resection x2 . She had been going to the gym up until 12/21. Now with 2 months of worsening appetitie, wt. loss, decline in functional status, LLE pain/weakness bone scan - small focus at the site of prior surgery- no further imaging req. at this time a/w liver biopsy in AM s/p zometa decrease IV hydration ID consult renal US shows no signs of obstruction
--- NOTE | 2018-02-24 13:19 | CON.ID ---
Consult - History of Present Illness History of Present Illness: Asked to evaluate this 67 y.o. female with PMH of metastatic bladder CA, history of colon mass s/p resection, Lt nephrectomy, adrenal mass, and pathologic femoral fracture who refused systemic therapy during follow up with Oncology. She states has been having mucoid clear stools (sometimes "caramel" colored) for the past 5 wks along with fever (relieved with tylenol). She has been losing weight and reports poor appetite only tolerating 2 protein shakes per day and vague abdominal discomfort. Also states she has some shortness of breath with exertion but no cough/sputum production. Denies chest pain, dysuria , hematuria, headache, focal deficits. During this hospitalization she has been having low grade fevers and leukocytosis and generalized pain with movement. - History Source History Provided By: Patient Limitations to Obtaining History: No Limitations - Past Medical History Cardio/Vascular: Yes: HTN Gastrointestinal: Yes: Cancer (colon cancer x 2 resections Bladder cancer w/ mets to bone(pathologic femur fx)) Hepatobiliary: Yes: Cholelithiasis Renal/: Yes: Cancer (met. bladder transitional cell CA) ...: No Heme/Onc: Yes: Anemia Musculoskeletal: Yes: Other (le fracture) - Past Surgical History Past Surgical History: Yes: Colectomy, Nephrectomy (left) - Alcohol/Substance Use Hx Alcohol Use: Yes (RARE) - Smoking History Smoking history: Former smoker Have you smoked in the past 12 months: No Aproximately how many cigarettes per day: 1 If you are a former smoker, when did you quit?: 2 YRS - Social History ADL: Support Services History of Recent Travel: No Home Medications - Allergies Allergies/Adverse Reactions: Allergies Allergy/AdvReac Type Severity Reaction Status Date / Time iodine [Iodine] Allergy Rash Verified 02/19/18 16:25 adhesive tape AdvReac Severe Verified 02/19/18 16:25 oxycodone HCl [From Percocet] AdvReac Severe Vomiting Verified 02/19/18 16:25 margarine AdvReac Severe Difficulty Uncoded 02/19/18 16:25 Breathing - Home Medications Home Medications: Ambulatory Orders Amlodipine Bes/Olmesartan Med [Mindi 5-20 mg Tablet] 1 each PO DAILY 08/26/15 Review of Systems - Review of Systems Constitutional: reports: Chills, Fever, Unintentional Wgt. Loss Eyes: reports: No Symptoms HENT: reports: No Symptoms Neck: reports: No Symptoms Cardiovascular: reports: No Symptoms Respiratory: reports: SOB on Exertion Gastrointestinal: reports: Abdominal Pain, Other (mucoid clear stools) Genitourinary: reports: No Symptoms Breasts: reports: No Symptoms Reported Integumentary: reports: No Symptoms Neurological: reports: No Symptoms Endocrine: reports: Unexplained Weight Loss Psychiatric: reports: No Symptoms Physical Exam Vital Signs: Vital Signs Temperature 98.9 F 02/24/18 10:00 Pulse Rate 90 02/24/18 10:00 Respiratory Rate 20 02/24/18 10:00 Blood Pressure 124/53 02/24/18 10:00 O2 Sat by Pulse Oximetry (%) 97 02/23/18 21:00 Constitutional: Yes: No Distress, Calm Eyes: Yes: WNL HENT: Yes: WNL Neck: Yes: Supple Cardiovascular: Yes: Regular Rate and Rhythm Respiratory: Yes: CTA Bilaterally Gastrointestinal: Yes: Normal Bowel Sounds, Soft, Tenderness (generalized) Renal/: Yes: WNL Breast(s): Yes: WNL Musculoskeletal: Yes: WNL Extremities: Yes: WNL Integumentary: Yes: WNL Neurological: Yes: Alert, Oriented Labs: CBC, BMP 02/23/18 06:50 02/23/18 06:50 Microbiology 02/19/18 18:30 Blood - Peripheral Venous Blood Culture - Preliminary NO GROWTH OBTAINED AFTER 96 HOURS, INCUBATION TO CONTINUE FOR 1 DAYS. 02/19/18 18:50 Blood - Peripheral Venous Blood Culture - Preliminary NO GROWTH OBTAINED AFTER 96 HOURS, INCUBATION TO CONTINUE FOR 1 DAYS. 02/21/18 23:21 Stool Clostridium difficile Antigen (TENA) - Final 02/21/18 23:21 Stool Clostridium difficile Toxin Assay - Final 02/19/18 18:30 Urine - Urine Clean Catch Urine Culture - Final NO GROWTH OBTAINED Imaging - Results Cat Scan: Report Reviewed (Abd/Pelvis : Lt retroperitoneal mass with tumor necrosis possibly communicating with sigmoid colon, colon wall thickening and questionable mass, adrenal mass, Lt nephrectomy, colon resection, liver masses) Ultrasound: Report Reviewed (Renal US: Lt nephrectomy, 10 cm contiguous with Rt lobe liver) Problem List - Problems (1) Anemia Code(s): D64.9 - ANEMIA, UNSPECIFIED (2) Weakness Code(s): R53.1 - WEAKNESS (3) Bladder cancer Code(s): C67.9 - MALIGNANT NEOPLASM OF BLADDER, UNSPECIFIED (4) Cholelithiasis Code(s): K80.20 - CALCULUS OF GALLBLADDER W/O CHOLECYSTITIS W/O OBSTRUCTION (5) Colon cancer Code(s): C18.9 - MALIGNANT NEOPLASM OF COLON, UNSPECIFIED (6) HTN (hypertension) Code(s): I10 - ESSENTIAL (PRIMARY) HYPERTENSION (7) Hypertensive heart disease Code(s): I11.9 - HYPERTENSIVE HEART DISEASE WITHOUT HEART FAILURE (8) Intractable abdominal pain Code(s): R10.9 - UNSPECIFIED ABDOMINAL PAIN Assessment/Plan 67 y.o. female with PMH of metastatic bladder CA, history of colon mass s/p resection (benign?), Lt nephrectomy, adrenal mass, and pathologic femoral fracture who refused systemic therapy during follow up with Oncology presenting with low grade fevers, leukocytosis, mucoid stools for over 1 month, weight loss , and poor appetite. Metastatic Bladder CA Fever/Leukocytosis - r/o infectious etiology Colon wall thickening/possible mass and colitis Lt peritoneal mass/tumor necrosis with possible communication with Sigmoid colon Anemia Pathologic femoral fracture -- continue Zosyn empirically -- monitor wbc/temperatures for improvement, may be due to carcinoma -- blood and urine cultures negative, CXR negative, send stool cultures, stool O +P -- Oncology following, liver biopsy will f/u Thank you
[2018-02-24] MEDS ORDERED: INSULIN (NOVOLOG) ASPART 100 UNITS/ML 10ML VIAL ONE (18:35)
--- NOTE | 2018-02-24 19:38 | PN ---
Progress Note, Physician History of Present Illness: No new complaints - Current Medication List Current Medications: Active Medications Acetaminophen (Tylenol -) 650 mg PO Q6H PRN PRN Reason: FEVER Last Admin: 02/23/18 22:14 Dose: 650 mg Amlodipine Besylate (Norvasc -) 5 mg PO DAILY [facility] Last Admin: 02/24/18 11:21 Dose: 5 mg Iron Sucrose 100 mg/ Sodium (Chloride) 100 mls @ 200 mls/hr IVPB DAILY [facility] Last Admin: 02/24/18 11:00 Dose: 200 mls/hr Sodium Chloride (Normal Saline -) 1,000 mls @ 60 mls/hr IV ASDIR [facility] Last Admin: 02/23/18 20:29 Dose: Not Given Piperacillin Sod/Tazobactam (Sod 3.375 gm/ Dextrose) 50 mls @ 100 mls/hr IVPB Q8H-IV [facility]; Protocol Last Admin: 02/24/18 17:36 Dose: 100 mls/hr Losartan Potassium (Cozaar -) 50 mg PO DAILY [facility] Last Admin: 02/24/18 11:21 Dose: 50 mg Zolpidem Tartrate (Ambien -) 5 mg PO HS PRN PRN Reason: INSOMNIA Last Admin: 02/21/18 23:06 Dose: 5 mg - Objective Vital Signs: Vital Signs Temperature 99.6 F 02/24/18 13:32 Pulse Rate 86 02/24/18 13:32 Respiratory Rate 18 02/24/18 13:32 Blood Pressure 106/56 02/24/18 13:32 O2 Sat by Pulse Oximetry (%) 97 02/24/18 09:00 Neck: Yes: WNL, Supple Cardiovascular: Yes: WNL, Regular Rate and Rhythm Respiratory: Yes: WNL, Regular, CTA Bilaterally Gastrointestinal: Yes: WNL, Normal Bowel Sounds, Soft Labs: CBC, BMP 02/23/18 06:50 02/23/18 06:50 INR, PTT INR 1.39 (0.82-1.09) H 02/23/18 06:50 Fibrinogen 442.0 mg/dL (238-498) 02/22/18 08:07 Problem List - Problems (1) Leukocytosis Assessment/Plan: Cont IV zosyn Check WBC Code(s): D72.829 - ELEVATED WHITE BLOOD CELL COUNT, UNSPECIFIED (2) Anemia Assessment/Plan: S/P transfusion 2 units PRBC's Monitor H/H H/H has been stable Cont IV venofer Code(s): D64.9 - ANEMIA, UNSPECIFIED (3) Bladder cancer Assessment/Plan: Bladder CA w/ mets ot liver/bone and retroperitoneal mass Pt has refused chemotx in past Renal US showed liver mass Liver bx in am Bone scan unremarkable Code(s): C67.9 - MALIGNANT NEOPLASM OF BLADDER, UNSPECIFIED (4) Weakness Code(s): R53.1 - WEAKNESS (5) Colon cancer Code(s): C18.9 - MALIGNANT NEOPLASM OF COLON, UNSPECIFIED (6) HTN (hypertension) Assessment/Plan: BP stable Cont antihypertensives Code(s): I10 - ESSENTIAL (PRIMARY) HYPERTENSION (7) Diarrhea Assessment/Plan: Stool cultures have been negative Code(s): R19.7 - DIARRHEA, UNSPECIFIED
[2018-02-24] MEDS: ACETAMINOPHEN 325 MG TABLET (FP) PO PRN (21:07)
[2018-02-24] MEDS: SODIUM CHLORIDE 1,000 ML IV SCH (22:53)
[2018-02-25] MEDS ORDERED: PIPERACILLIN/TAZOBACTAM 3.375 GM VIAL IVPB ONE ×3 (03:20→18:37)
[2018-02-25] MEDS ORDERED: DEXTROSE 5%-WATER - 50 ML IVPB ONE ×3 (03:21→18:37)
[2018-02-25] MEDS: PIPERACILLIN/TAZOB 3.375 GM 3.375 GM in DEXTROSE 5%-WATER - 50 ML IVPB SCH ×3 (03:28→18:43)
[2018-02-25 07:30] LABS: BASO % 0.5 % (0-2.0); EOS % 0.4 % (0-4.5); HEMATOCRIT 22.8 % (32.4-45.2); LYMPH % 19.4 % (8-40); MCHC 30.4 g/dl (32.0-36.0); MEAN CELL VOLUME 61.8 fl (80-96); MEAN PLT VOLUME 8.4 fl (7.5-11.1); MONO % 7.9 % (3.8-10.2); NEUT % 71.8 % (42.8-82.8); PLATELET COUNT 620 K/MM3 (134-434); RBC 3.69 M/mm3 (3.60-5.2); RDW 27.9 % (11.6-15.6); WHITE BLOOD COUNT 13.5 K/mm3 (4.0-10.0)
[2018-02-25 07:37] LABS: MCH 18.8 pg (25.7-33.7)
[2018-02-25 07:39] LABS: HEMOGLOBIN 6.9 GM/dL (10.7-15.3)
[2018-02-25 07:53] LABS: ANION GAP 7 (8-16); BILIRUBIN,TOTAL 0.3 mg/dL (0.2-1.0); BLOOD UREA NITROGEN 10 mg/dL (7-18); CALCIUM 8.9 mg/dL (8.5-10.1); CHLORIDE 101 mmol/L (98-107); CO2 27 mmol/L (21-32); CREATININE 0.5 mg/dL (0.55-1.02); GLUCOSE,RANDOM 65 mg/dL (74-106); POTASSIUM 3.9 mmol/L (3.5-5.1); SGOT/AST 34 U/L (15-37); SGPT/ALT 23 U/L (12-78); SODIUM 135 mmol/L (136-145); TOT PROT 5.6 g/dl (6.4-8.2)
[2018-02-25 07:54] LABS: ALK PHOS 133 U/L (45-117)
[2018-02-25] MEDS: LOSARTAN POTASSIUM 50 MG TABLET (FP) PO SCH (11:12)
[2018-02-25] MEDS: amLODIPine BESYLATE 5 MG TABLET (FP) PO SCH (11:12)
--- NOTE | 2018-02-25 12:56 | PN ---
Progress Note, Physician History of Present Illness: patient feeling tired coming back from biopsy - Current Medication List Current Medications: Active Medications Acetaminophen (Tylenol -) 650 mg PO Q6H PRN PRN Reason: FEVER Last Admin: 02/24/18 21:07 Dose: 650 mg Amlodipine Besylate (Norvasc -) 5 mg PO DAILY [facility] Last Admin: 02/25/18 11:12 Dose: 5 mg Iron Sucrose 100 mg/ Sodium (Chloride) 100 mls @ 200 mls/hr IVPB DAILY [facility] Last Admin: 02/24/18 11:00 Dose: 200 mls/hr Sodium Chloride (Normal Saline -) 1,000 mls @ 60 mls/hr IV ASDIR [facility] Last Admin: 02/24/18 22:53 Dose: Not Given Piperacillin Sod/Tazobactam (Sod 3.375 gm/ Dextrose) 50 mls @ 100 mls/hr IVPB Q8H-IV [facility]; Protocol Last Admin: 02/25/18 03:28 Dose: 100 mls/hr Losartan Potassium (Cozaar -) 50 mg PO DAILY [facility] Last Admin: 02/25/18 11:12 Dose: 50 mg - Objective Vital Signs: Vital Signs Temperature 99.5 F 02/25/18 06:00 Pulse Rate 88 02/25/18 06:00 Respiratory Rate 20 02/25/18 06:00 Blood Pressure 125/53 02/25/18 06:00 O2 Sat by Pulse Oximetry (%) 97 02/24/18 21:00 Constitutional: Yes: Calm, Mild Distress, Obese Cardiovascular: Yes: Regular Rate and Rhythm Respiratory: Yes: Regular, CTA Bilaterally Gastrointestinal: Yes: Normal Bowel Sounds, Soft Extremities: Yes: WNL Neurological: Yes: Alert, Oriented Psychiatric: Yes: Alert, Oriented Labs: CBC, BMP 02/25/18 06:00 02/25/18 06:00 INR, PTT INR 1.39 (0.82-1.09) H 02/23/18 06:50 Fibrinogen 442.0 mg/dL (238-498) 02/22/18 08:07 Assessment/Plan Problem List - Problems (1) Anemia Code(s): D64.9 - ANEMIA, UNSPECIFIED (2) Weakness Code(s): R53.1 - WEAKNESS (3) Bladder cancer Code(s): C67.9 - MALIGNANT NEOPLASM OF BLADDER, UNSPECIFIED (4) Cholelithiasis Code(s): K80.20 - CALCULUS OF GALLBLADDER W/O CHOLECYSTITIS W/O OBSTRUCTION (5) Colon cancer Code(s): C18.9 - MALIGNANT NEOPLASM OF COLON, UNSPECIFIED (6) HTN (hypertension) Code(s): I10 - ESSENTIAL (PRIMARY) HYPERTENSION (7) Hypertensive heart disease Code(s): I11.9 - HYPERTENSIVE HEART DISEASE WITHOUT HEART FAILURE (8) Intractable abdominal pain Code(s): R10.9 - UNSPECIFIED ABDOMINAL PAIN Assessment/Plan 67 y.o. female with PMH of metastatic bladder CA, history of colon mass s/p resection (benign?), Lt nephrectomy, adrenal mass, and pathologic femoral fracture who refused systemic therapy during follow up with Oncology presenting with low grade fevers, leukocytosis, mucoid stools for over 1 month, weight loss , and poor appetite. 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
[2018-02-25] MEDS: IRON SUCROSE INJECTION 100 MG in SODIUM CHLORIDE 95 ML IVPB SCH (16:04)
--- NOTE | 2018-02-25 16:41 | PN ---
Progress Note (short form) - Note Progress Note: Patient seen and examined s/p liver biopsy today feels weak, tired Last Vital Signs Temp Pulse Resp BP Pulse Ox 99.3 F 82 16 136/78 100 02/25/18 14:50 02/25/18 15:19 02/25/18 15:19 02/25/18 15:19 02/25/18 15:19 Cor: RSR, No murmurs, No gallops Lungs: Clear to P&A Abd: Soft, Normal bowel sounds, No organomegaly Ext:No significant edema Abnormal Lab Results 02/25/18 02/25/18 06:00 06:00 WBC 13.5 H Hgb 6.9 L* Hct 22.8 L MCV 61.8 L MCH 18.8 L MCHC 30.4 L RDW 27.9 H Plt Count 620 H Sodium 135 L Anion Gap 7 L Creatinine 0.5 L Random Glucose 65 L Alkaline Phosphatase 133 H Total Protein 5.6 L Albumin 2.0 L Active Medications Generic Name Dose Route Start Last Admin Trade Name Freq PRN Reason Stop Dose Admin Acetaminophen 650 mg 02/20/18 01:22 02/25/18 17:03 Tylenol - PO 650 mg Q6H PRN Administration FEVER Amlodipine Besylate 5 mg 02/21/18 10:00 02/25/18 11:12 Norvasc - PO 5 mg DAILY [facility] Administration Iron Sucrose 100 mg/ Sodium 100 mls @ 200 mls/hr 02/21/18 01:41 02/25/18 16: 04 Chloride IVPB 200 mls/hr DAILY [facility]ON Administration Sodium Chloride 1,000 mls @ 60 mls/hr 02/22/18 20:29 02/24/18 22:53 Normal Saline - IV Not Given ASDIR RON Piperacillin Sod/Tazobactam 50 mls @ 100 mls/hr 02/23/18 18:15 02/25/18 16:05 Sod 3.375 gm/ Dextrose IVPB Not Given Q8H-IV RON Protocol Losartan Potassium 50 mg 02/24/18 10:00 02/25/18 11:12 Cozaar - PO 50 mg DAILY [facility] Administration A/P 67 y/o patient with metastatic bladder cancer (transitional cell carcinoma), with prior pathological fracture R femur, and known adrenal metastasis, last seen by me in August 2016. At that time adamantly refused systemic therapy and has been lost to follow up.Also h/o colon resection x2 . Now with 2 months of worsening appetitie, wt. loss, decline in functional status , LLE pain/weakness Returns with severe microcytic anemia. Progression of disease (now with liver metastasis, and large retroperitoneal mass) seen on CT scan, Elevated Ca and ALKP s/p zometa given for hypercalcemia --02/22/18 On hydration/antibiotics Biopsy of liver lesion via IR done today For 2 units PRBC transfusion Await biopsy and to consider immunotherapy with pembrolizumab as outpatient
[2018-02-25] MEDS: ACETAMINOPHEN 325 MG TABLET (FP) PO PRN ×2 (17:03→23:32)
--- NOTE | 2018-02-25 19:27 | PN ---
Progress Note, Physician - Current Medication List Current Medications: Active Medications Acetaminophen (Tylenol -) 650 mg PO Q6H PRN PRN Reason: FEVER Last Admin: 02/25/18 17:03 Dose: 650 mg Amlodipine Besylate (Norvasc -) 5 mg PO DAILY RON Last Admin: 02/25/18 11:12 Dose: 5 mg Iron Sucrose 100 mg/ Sodium (Chloride) 100 mls @ 200 mls/hr IVPB DAILY RON Last Admin: 02/25/18 16:04 Dose: 200 mls/hr Sodium Chloride (Normal Saline -) 1,000 mls @ 60 mls/hr IV ASDIR RON Last Admin: 02/24/18 22:53 Dose: Not Given Piperacillin Sod/Tazobactam (Sod 3.375 gm/ Dextrose) 50 mls @ 100 mls/hr IVPB Q8H-IV RON; Protocol Last Admin: 02/25/18 18:43 Dose: 100 mls/hr Losartan Potassium (Cozaar -) 50 mg PO DAILY RON Last Admin: 02/25/18 11:12 Dose: 50 mg - Objective Vital Signs: Vital Signs Temperature 99.3 F 02/25/18 14:50 Pulse Rate 82 02/25/18 15:19 Respiratory Rate 16 02/25/18 15:19 Blood Pressure 136/78 02/25/18 15:19 O2 Sat by Pulse Oximetry (%) 100 02/25/18 15:19 Labs: CBC, BMP 02/25/18 06:00 02/25/18 06:00 INR, PTT INR 1.39 (0.82-1.09) H 02/23/18 06:50 Fibrinogen 442.0 mg/dL (238-498) 02/22/18 08:07 Problem List - Problems (1) Leukocytosis Code(s): D72.829 - ELEVATED WHITE BLOOD CELL COUNT, UNSPECIFIED (2) Anemia Code(s): D64.9 - ANEMIA, UNSPECIFIED (3) Bladder cancer Code(s): C67.9 - MALIGNANT NEOPLASM OF BLADDER, UNSPECIFIED (4) Weakness Code(s): R53.1 - WEAKNESS (5) Colon cancer Code(s): C18.9 - MALIGNANT NEOPLASM OF COLON, UNSPECIFIED (6) HTN (hypertension) Code(s): I10 - ESSENTIAL (PRIMARY) HYPERTENSION (7) Diarrhea Code(s): R19.7 - DIARRHEA, UNSPECIFIED
[2018-02-25] MEDS ORDERED: diphenhydrAMINE HCL 25 MG CAPSULE (FP) PO PRN (22:12)
[2018-02-25] MEDS: SODIUM CHLORIDE 1,000 ML IV SCH (22:38)
[2018-02-26] MEDS: PIPERACILLIN/TAZOB 3.375 GM 3.375 GM in DEXTROSE 5%-WATER - 50 ML IVPB SCH ×3 (01:00→18:31)
[2018-02-26] MEDS ORDERED: PIPERACILLIN/TAZOBACTAM 3.375 GM VIAL IVPB ONE ×3 (01:35→16:34)
[2018-02-26] MEDS ORDERED: DEXTROSE 5%-WATER - 50 ML IVPB ONE ×3 (01:35→16:35)
[2018-02-26] MEDS: ACETAMINOPHEN 325 MG TABLET (FP) PO PRN (06:35)
[2018-02-26] MEDS: SODIUM CHLORIDE 1,000 ML IV SCH (06:37)
[2018-02-26 08:57] LABS: ANION GAP 9 (8-16); BILIRUBIN,TOTAL 0.8 mg/dL (0.2-1.0); BLOOD UREA NITROGEN 8 mg/dL (7-18); CALCIUM 8.5 mg/dL (8.5-10.1); CHLORIDE 105 mmol/L (98-107); CO2 24 mmol/L (21-32); CREATININE 0.4 mg/dL (0.55-1.02); GLUCOSE,RANDOM 77 mg/dL (74-106); POTASSIUM 3.6 mmol/L (3.5-5.1); SGOT/AST 33 U/L (15-37); SGPT/ALT 19 U/L (12-78); SODIUM 138 mmol/L (136-145); TOT PROT 5.5 g/dl (6.4-8.2)
[2018-02-26 08:58] LABS: ALK PHOS 142 U/L (45-117)
[2018-02-26 08:59] LABS: BASO % 0.2 % (0-2.0); EOS % 0.4 % (0-4.5); HEMOGLOBIN 8.8 GM/dL (10.7-15.3); LYMPH % 17.1 % (8-40); MCH 20.6 pg (25.7-33.7); MCHC 31.3 g/dl (32.0-36.0); MEAN PLT VOLUME 8.3 fl (7.5-11.1); MONO % 8.7 % (3.8-10.2); NEUT % 73.6 % (42.8-82.8); PLATELET COUNT 603 K/MM3 (134-434); RBC 4.25 M/mm3 (3.60-5.2); RDW 31.1 % (11.6-15.6); WHITE BLOOD COUNT 14.3 K/mm3 (4.0-10.0)
[2018-02-26 09:39] LABS: ADD RBC MORPHOLOGY YES
[2018-02-26] MEDS: IRON SUCROSE INJECTION 100 MG in SODIUM CHLORIDE 95 ML IVPB SCH (10:16)
[2018-02-26] MEDS: LOSARTAN POTASSIUM 50 MG TABLET (FP) PO SCH (10:21)
[2018-02-26] MEDS: amLODIPine BESYLATE 5 MG TABLET (FP) PO SCH (10:21)
[2018-02-26 11:11] LABS: ANISOCYTOSIS 3+
[2018-02-26 11:12] LABS: OVALOCYTE 1+; PLATELET ESTIMATE INCREASED; TARGET CELLS 1+
--- NOTE | 2018-02-26 13:26 | PN ---
Progress Note, Physician History of Present Illness: stable doing well pain at the biopsy site awaiting for the reports - Current Medication List Current Medications: Active Medications Acetaminophen (Tylenol -) 650 mg PO Q6H PRN PRN Reason: FEVER Last Admin: 02/26/18 06:35 Dose: 650 mg Amlodipine Besylate (Norvasc -) 5 mg PO DAILY RON Last Admin: 02/26/18 10:21 Dose: 5 mg Diphenhydramine HCl (Benadryl -) 25 mg PO HS PRN PRN Reason: INSOMNIA Last Admin: 02/25/18 22:37 Dose: 25 mg Iron Sucrose 100 mg/ Sodium (Chloride) 100 mls @ 200 mls/hr IVPB DAILY RON Last Admin: 02/26/18 10:16 Dose: 200 mls/hr Sodium Chloride (Normal Saline -) 1,000 mls @ 60 mls/hr IV ASDIR RON Last Admin: 02/26/18 06:37 Dose: 60 mls/hr Piperacillin Sod/Tazobactam (Sod 3.375 gm/ Dextrose) 50 mls @ 100 mls/hr IVPB Q8H-IV RON; Protocol Last Admin: 02/26/18 10:21 Dose: 100 mls/hr Losartan Potassium (Cozaar -) 50 mg PO DAILY RON Last Admin: 02/26/18 10:21 Dose: 50 mg - Objective Vital Signs: Vital Signs Temperature 98.3 F 02/26/18 07:12 Pulse Rate 86 02/26/18 07:12 Respiratory Rate 20 02/26/18 07:12 Blood Pressure 129/59 02/26/18 07:12 O2 Sat by Pulse Oximetry (%) 98 02/25/18 21:00 Constitutional: Yes: Calm, Mild Distress, Obese Cardiovascular: Yes: Regular Rate and Rhythm Respiratory: Yes: Regular, CTA Bilaterally Gastrointestinal: Yes: Normal Bowel Sounds, Soft Musculoskeletal: Yes: WNL Extremities: Yes: WNL Wound/Incision: Yes: Clean/Dry Neurological: Yes: Alert, Oriented Psychiatric: Yes: Alert, Oriented Labs: CBC, BMP 02/26/18 08:21 02/26/18 08:21 INR, PTT INR 1.39 (0.82-1.09) H 02/23/18 06:50 Fibrinogen 442.0 mg/dL (238-498) 02/22/18 08:07 Assessment/Plan Problem List - Problems (1) Anemia Code(s): D64.9 - ANEMIA, UNSPECIFIED (2) Weakness Code(s): R53.1 - WEAKNESS (3) Bladder cancer Code(s): C67.9 - MALIGNANT NEOPLASM OF BLADDER, UNSPECIFIED (4) Cholelithiasis Code(s): K80.20 - CALCULUS OF GALLBLADDER W/O CHOLECYSTITIS W/O OBSTRUCTION (5) Colon cancer Code(s): C18.9 - MALIGNANT NEOPLASM OF COLON, UNSPECIFIED (6) HTN (hypertension) Code(s): I10 - ESSENTIAL (PRIMARY) HYPERTENSION (7) Hypertensive heart disease Code(s): I11.9 - HYPERTENSIVE HEART DISEASE WITHOUT HEART FAILURE (8) Intractable abdominal pain Code(s): R10.9 - UNSPECIFIED ABDOMINAL PAIN Assessment/Plan 67 y.o. female with PMH of metastatic bladder CA, history of colon mass s/p resection (benign?), Lt nephrectomy, adrenal mass, and pathologic femoral fracture who refused systemic therapy during follow up with Oncology presenting with low grade fevers, leukocytosis, mucoid stools for over 1 month, weight loss , and poor appetite. Metastatic Bladder CA Fever/Leukocytosis Colon wall thickening/possible mass and colitis Lt peritoneal mass/tumor necrosis with possible communication with Sigmoid colon Anemia Pathologic femoral fracture continue abx await for final cx report rest as per onco final plan needs to be made
--- NOTE | 2018-02-26 18:20 | PN ---
Progress Note (short form) - Note Progress Note: Patient seen and examined Complains of pain on deep inspiration s/p liver biopsy Complains of diarrhea Complains of pain s/p IV induced superficial thrombosis of cephalic vein Last Vital Signs Temp Pulse Resp BP Pulse Ox 98.2 F 89 20 127/61 98 02/26/18 15:09 02/26/18 15:09 02/26/18 15:09 02/26/18 15:09 02/26/18 09:00 Lungs- crackles and some diminished breath sounds Right base Cor- RSR Abdomen - soft- some tenderness RUQ ( patient states at site of sonogrma pressing), no masses, normal bowl sounds Ext- no significant edema CBC, BMP 02/26/18 08:21 02/26/18 08:21 Current Medications Generic Name Dose Route Start Last Admin Trade Name Freq PRN Reason Stop Dose Admin Acetaminophen 650 mg 02/20/18 01:22 02/26/18 06:35 Tylenol - PO 650 mg Q6H PRN Administration FEVER Amlodipine Besylate 5 mg 02/21/18 10:00 02/26/18 10:21 Norvasc - PO 5 mg DAILY RON Administration Diphenhydramine HCl 25 mg 02/25/18 22:12 02/25/18 22:37 Benadryl - PO 25 mg HS PRN Administration INSOMNIA Iron Sucrose 100 mg/ Sodium 100 mls @ 200 mls/hr 02/21/18 01:41 02/26/18 10: 16 Chloride IVPB 200 mls/hr DAILY RON Administration Sodium Chloride 1,000 mls @ 60 mls/hr 02/22/18 20:29 02/26/18 06:37 Normal Saline - IV 60 mls/hr ASDIR RON Administration Piperacillin Sod/Tazobactam 50 mls @ 100 mls/hr 02/23/18 18:15 02/26/18 10:21 Sod 3.375 gm/ Dextrose IVPB 100 mls/hr Q8H-IV RON Administration Protocol Losartan Potassium 50 mg 02/24/18 10:00 02/26/18 10:21 Cozaar - PO 50 mg DAILY RON Administration Microbiology 02/24/18 23:15 Stool Salmonella/Shigella Culture - Preliminary NO ENTERIC PATHOGENS, 24 HOURS, ON PRIMARY PLATES 02/24/18 23:15 Stool Yersinia Culture - Preliminary NO ENTERIC PATHOGENS, 24 HOURS, ON PRIMARY PLATES 02/24/18 23:15 Stool Vibrio Culture - Final NO GROWTH OF VIBRIO SPECIES OBTAINED 02/24/18 23:15 Stool Escherichia coli 0157 Culture - Final NO GROWTH OF E COLI 0157 OBTAINED Impression: S/P liver biopsy Diarrhea Anemia 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 To await biopsy results
--- NOTE | 2018-02-26 19:41 | PN ---
Progress Note, Physician History of Present Illness: Pt still having diarrhea Hospitalists will cover me from 02/27 until Sun03/04/18 - Current Medication List Current Medications: Active Medications Acetaminophen (Tylenol -) 650 mg PO Q6H PRN PRN Reason: FEVER Last Admin: 02/26/18 06:35 Dose: 650 mg Amlodipine Besylate (Norvasc -) 5 mg PO DAILY RON Last Admin: 02/26/18 10:21 Dose: 5 mg Diphenhydramine HCl (Benadryl -) 25 mg PO HS PRN PRN Reason: INSOMNIA Last Admin: 02/25/18 22:37 Dose: 25 mg Iron Sucrose 100 mg/ Sodium (Chloride) 100 mls @ 200 mls/hr IVPB DAILY RON Last Admin: 02/26/18 10:16 Dose: 200 mls/hr Sodium Chloride (Normal Saline -) 1,000 mls @ 60 mls/hr IV ASDIR RON Last Admin: 02/26/18 06:37 Dose: 60 mls/hr Piperacillin Sod/Tazobactam (Sod 3.375 gm/ Dextrose) 50 mls @ 100 mls/hr IVPB Q8H-IV RON; Protocol Last Admin: 02/26/18 18:31 Dose: 100 mls/hr Losartan Potassium (Cozaar -) 50 mg PO DAILY RON Last Admin: 02/26/18 10:21 Dose: 50 mg - Objective Vital Signs: Vital Signs Temperature 98.2 F 02/26/18 15:09 Pulse Rate 89 02/26/18 15:09 Respiratory Rate 20 02/26/18 15:09 Blood Pressure 127/61 02/26/18 15:09 O2 Sat by Pulse Oximetry (%) 98 02/26/18 09:00 HENT: Yes: WNL Neck: Yes: WNL, Supple Cardiovascular: Yes: WNL, Regular Rate and Rhythm Respiratory: Yes: WNL, Regular, CTA Bilaterally Gastrointestinal: Yes: WNL, Normal Bowel Sounds, Soft Labs: CBC, BMP 02/26/18 08:21 02/26/18 08:21 INR, PTT INR 1.39 (0.82-1.09) H 02/23/18 06:50 Fibrinogen 442.0 mg/dL (238-498) 02/22/18 08:07 Problem List - Problems (1) Leukocytosis Assessment/Plan: Cont IV zosyn Check WBC Code(s): D72.829 - ELEVATED WHITE BLOOD CELL COUNT, UNSPECIFIED (2) Anemia Assessment/Plan: S/P transfusion 3 units PRBC's Monitor H/H Code(s): D64.9 - ANEMIA, UNSPECIFIED (3) Bladder cancer Assessment/Plan: Bladder CA w/ mets ot liver/bone and retroperitoneal mass Pt has refused chemotx in past Renal US showed liver mass Liver bx Awaiting liver biopsy results Bone scan unremarkable Code(s): C67.9 - MALIGNANT NEOPLASM OF BLADDER, UNSPECIFIED (4) Weakness Code(s): R53.1 - WEAKNESS (5) Colon cancer Code(s): C18.9 - MALIGNANT NEOPLASM OF COLON, UNSPECIFIED (6) HTN (hypertension) Code(s): I10 - ESSENTIAL (PRIMARY) HYPERTENSION (7) Diarrhea Assessment/Plan: Stool cultures have been negative Repeat stool cultures Code(s): R19.7 - DIARRHEA, UNSPECIFIED
[2018-02-27] MEDS ORDERED: PIPERACILLIN/TAZOBACTAM 3.375 GM VIAL IVPB ONE ×3 (00:31→17:16)
[2018-02-27] MEDS ORDERED: DEXTROSE 5%-WATER - 50 ML IVPB ONE ×3 (00:32→17:16)
[2018-02-27] MEDS: PIPERACILLIN/TAZOB 3.375 GM 3.375 GM in DEXTROSE 5%-WATER - 50 ML IVPB SCH ×3 (02:09→17:35)
[2018-02-27] MEDS: SODIUM CHLORIDE 1,000 ML IV SCH ×2 (09:15→22:42)
[2018-02-27] MEDS ORDERED: PT OWN MED DRAWER 7, Y5N ONE (09:43)
[2018-02-27] MEDS: amLODIPine BESYLATE 5 MG TABLET (FP) PO SCH (09:49)
[2018-02-27] MEDS: IRON SUCROSE INJECTION 100 MG in SODIUM CHLORIDE 95 ML IVPB SCH (09:49)
[2018-02-27] MEDS: LOSARTAN POTASSIUM 50 MG TABLET (FP) PO SCH (09:49)
--- NOTE | 2018-02-27 11:59 | PN ---
Progress Note, Physician History of Present Illness: stable doing well pain at the biopsy site awaiting for the reports - Current Medication List Current Medications: Active Medications Acetaminophen (Tylenol -) 650 mg PO Q6H PRN PRN Reason: FEVER Last Admin: 02/26/18 06:35 Dose: 650 mg Amlodipine Besylate (Norvasc -) 5 mg PO DAILY RON Last Admin: 02/27/18 09:49 Dose: 5 mg Diphenhydramine HCl (Benadryl -) 25 mg PO HS PRN PRN Reason: INSOMNIA Last Admin: 02/25/18 22:37 Dose: 25 mg Iron Sucrose 100 mg/ Sodium (Chloride) 100 mls @ 200 mls/hr IVPB DAILY RON Last Admin: 02/27/18 09:49 Dose: 200 mls/hr Sodium Chloride (Normal Saline -) 1,000 mls @ 60 mls/hr IV ASDIR RON Last Admin: 02/27/18 09:15 Dose: 60 mls/hr Piperacillin Sod/Tazobactam (Sod 3.375 gm/ Dextrose) 50 mls @ 100 mls/hr IVPB Q8H-IV RON; Protocol Last Admin: 02/27/18 09:48 Dose: 100 mls/hr Losartan Potassium (Cozaar -) 50 mg PO DAILY RON Last Admin: 02/27/18 09:49 Dose: 50 mg - Objective Vital Signs: Vital Signs Temperature 98.5 F 02/27/18 06:00 Pulse Rate 86 02/27/18 06:00 Respiratory Rate 18 02/27/18 06:00 Blood Pressure 125/53 02/27/18 06:00 O2 Sat by Pulse Oximetry (%) 99 02/26/18 23:00 Constitutional: Yes: No Distress, Calm, Obese Cardiovascular: Yes: Regular Rate and Rhythm Respiratory: Yes: Regular, CTA Bilaterally Gastrointestinal: Yes: Normal Bowel Sounds, Soft Musculoskeletal: Yes: WNL Extremities: Yes: WNL Neurological: Yes: Alert, Oriented Psychiatric: Yes: Alert, Oriented Labs: CBC, BMP 02/26/18 08:21 02/26/18 08:21 INR, PTT INR 1.39 (0.82-1.09) H 02/23/18 06:50 Fibrinogen 442.0 mg/dL (238-498) 02/22/18 08:07 Assessment/Plan Problem List - Problems (1) Anemia Code(s): D64.9 - ANEMIA, UNSPECIFIED (2) Weakness Code(s): R53.1 - WEAKNESS (3) Bladder cancer Code(s): C67.9 - MALIGNANT NEOPLASM OF BLADDER, UNSPECIFIED (4) Cholelithiasis Code(s): K80.20 - CALCULUS OF GALLBLADDER W/O CHOLECYSTITIS W/O OBSTRUCTION (5) Colon cancer Code(s): C18.9 - MALIGNANT NEOPLASM OF COLON, UNSPECIFIED (6) HTN (hypertension) Code(s): I10 - ESSENTIAL (PRIMARY) HYPERTENSION (7) Hypertensive heart disease Code(s): I11.9 - HYPERTENSIVE HEART DISEASE WITHOUT HEART FAILURE (8) Intractable abdominal pain Code(s): R10.9 - UNSPECIFIED ABDOMINAL PAIN Assessment/Plan 67 y.o. female with PMH of metastatic bladder CA, history of colon mass s/p resection (benign?), Lt nephrectomy, adrenal mass, and pathologic femoral fracture who refused systemic therapy during follow up with Oncology presenting with low grade fevers, leukocytosis, mucoid stools for over 1 month, weight loss , and poor appetite. Metastatic Bladder CA Fever/Leukocytosis Colon wall thickening/possible mass and colitis Lt peritoneal mass/tumor necrosis with possible communication with Sigmoid colon Anemia Pathologic femoral fracture continue abx await for final cx report rest as per onco final plan needs to be made will consider switching to oral
--- NOTE | 2018-02-27 15:38 | PN ---
Physical Exam: SUBJECTIVE: Patient seen and examined. attempts to sit in bed and ambulate with cane around room. c.o pain around incision site and continued mucous diarrhea. appetite is poor. denies chest pain, abdominal pain, sob, fever. OBJECTIVE: Vital Signs Period Temp Pulse Resp BP Sys/Gibbs Pulse Ox Last 24 Hr 98.5 F-98.8 F 80-91 18-22 120-134/53-67 99 GENERAL: The patient is awake, alert, in no acute distress. HEAD: Normal with no signs of trauma. NECK: Trachea midline, goiter on right LUNGS: Breath sounds equal, clear to auscultation bilaterally, no wheezes, no crackles, no accessory muscle use. HEART: Regular rate and rhythm, S1, S2 with PILI ABDOMEN: Soft, nontender, nondistended, normoactive bowel sounds, no guarding, right lower back with CDI at incision site of biopsy without surrounding erythema, mild tenderness to palpation EXTREMITIES: 2+ dp and radial pulses, warm, well-perfused, no edema. NEUROLOGICAL: Normal speech, facial symmetry Active Medications Generic Name Dose Route Start Last Admin Trade Name Freq PRN Reason Stop Dose Admin Acetaminophen 650 mg 02/20/18 01:22 02/26/18 06:35 Tylenol - PO 650 mg Q6H PRN Administration FEVER Amlodipine Besylate 5 mg 02/21/18 10:00 02/27/18 09:49 Norvasc - PO 5 mg DAILY RON Administration Diphenhydramine HCl 25 mg 02/25/18 22:12 02/25/18 22:37 Benadryl - PO 25 mg HS PRN Administration INSOMNIA Iron Sucrose 100 mg/ Sodium 100 mls @ 200 mls/hr 02/21/18 01:41 02/27/18 09: 49 Chloride IVPB 200 mls/hr DAILY RON Administration Sodium Chloride 1,000 mls @ 60 mls/hr 02/22/18 20:29 02/27/18 09:15 Normal Saline - IV 60 mls/hr ASDIR RON Administration Piperacillin Sod/Tazobactam 50 mls @ 100 mls/hr 02/23/18 18:15 02/27/18 09:48 Sod 3.375 gm/ Dextrose IVPB 100 mls/hr Q8H-IV RON Administration Protocol Losartan Potassium 50 mg 02/24/18 10:00 02/27/18 09:49 Cozaar - PO 50 mg DAILY RON Administration ASSESSMENT/PLAN: 67 yr old woman with HTN, metastatic transitional cell bladder carcinoma ( pathological fracture femur, known adrenal mets), history of colon mass s/p resection, Lt nephrectomy admitted for evaluation of fatigue, fevers, weightloss , diarrhea and anemia. Found to have leucocytosis and severe microcytic anemia. #Metastatic carcinoma - Expected progression of disease (now with liver metastasis, and large retroperitoneal mass) seen on CT scan. Elevated Ca and ALP suggests active bone metastases also. - GOC to be discussed, as per chart review pt has declined systemic chemo in the past. Liver mass biopsy taken on Sunday, pending results to decide on treatment #Diarrhea - possible colitis vs colonic fistula - initial cultures negative, repeat cultures ordered - continue Zosyn 3.375gm q8hr - started 02/23 - GI consult: Dr. Alba #Anemia - improved with prbc's, h/h stable - iron sucrose ivb - started 02/21 #Hypercalcemia - improved with zometa, given--02/22/18 #HTN - Continue Keshav Barriga Visit type - Emergency Visit Emergency Visit: No - New Patient This patient is new to me today: Yes Date on this admission: 03/01/18 - Critical Care Critical Care patient: No
--- NOTE | 2018-02-27 16:21 | PN ---
Progress Note (short form) - Note Progress Note: Patient seen and examined No significant pains Minimal pain on deep inspiration Persistent diarrhea S/P biopsy Last Vital Signs Temp Pulse Resp BP Pulse Ox 98.8 F 80 18 120/65 93 L 02/27/18 13:43 02/27/18 13:43 02/27/18 13:43 02/27/18 13:43 02/27/18 09:00 HEENT: PINO, EOM Intact Oropharynx: No thrush, No mucositis Neck: Supple Cor: RSR, No murmurs, No gallops Lungs: Clear to P&A Abd: Soft, Normal bowel sounds, No organomegaly Ext:No significant edema Skin: No rashes, Integument intact CBC, BMP 02/26/18 08:21 02/26/18 08:21 Current Medications Generic Name Dose Route Start Last Admin Trade Name Freq PRN Reason Stop Dose Admin Acetaminophen 650 mg 02/20/18 01:22 02/26/18 06:35 Tylenol - PO 650 mg Q6H PRN Administration FEVER Amlodipine Besylate 5 mg 02/21/18 10:00 02/27/18 09:49 Norvasc - PO 5 mg DAILY RON Administration Diphenhydramine HCl 25 mg 02/25/18 22:12 02/25/18 22:37 Benadryl - PO 25 mg HS PRN Administration INSOMNIA Iron Sucrose 100 mg/ Sodium 100 mls @ 200 mls/hr 02/21/18 01:41 02/27/18 09: 49 Chloride IVPB 200 mls/hr DAILY RON Administration Sodium Chloride 1,000 mls @ 60 mls/hr 02/22/18 20:29 02/27/18 09:15 Normal Saline - IV 60 mls/hr ASDIR RON Administration Piperacillin Sod/Tazobactam 50 mls @ 100 mls/hr 02/23/18 18:15 02/27/18 09:48 Sod 3.375 gm/ Dextrose IVPB 100 mls/hr Q8H-IV RON Administration Protocol Losartan Potassium 50 mg 02/24/18 10:00 02/27/18 09:49 Cozaar - PO 50 mg DAILY RON Administration Microbiology 02/24/18 23:15 Stool Salmonella/Shigella Culture - Final NO GROWTH OF SALMONELLA OR SHIGELLA SPECIES OBTAINED 02/24/18 23:15 Stool Campylobacter Culture - Final NO GROWTH OF CAMPYLOBACTER SPECIES OBTAINED 02/24/18 23:15 Stool Yersinia Culture - Final NO GROWTH OF YERSINIA SPECIES OBTAINED 02/24/18 23:15 Stool Vibrio Culture - Final NO GROWTH OF VIBRIO SPECIES OBTAINED 02/24/18 23:15 Stool Escherichia coli 0157 Culture - Final NO GROWTH OF E COLI 0157 OBTAINED Impression: History of metastatic bladder ca Hx of colon ca Awaiting biopsy.
[2018-02-27] MEDS ORDERED: DIPHENOXYLATE 2.5/ATROPINE.025 1 COMBO TABLET PO ONE ×2 (17:30→18:45)
--- NOTE | 2018-02-27 18:26 | PN ---
Teaching Attending Note Name of Resident: Emory Tiwari ATTENDING PHYSICIAN STATEMENT I saw and evaluated the patient. I reviewed the resident's note and discussed the case with the resident. I agree with the resident's findings and plan as documented. SUBJECTIVE: Patient continues to have diarrhea. Appetite is poor. OBJECTIVE: Vital Signs Period Temp Pulse Resp BP Sys/Gibbs Pulse Ox Last 24 Hr 98.5 F-98.8 F 80-91 18-22 120-134/53-67 93-99 HEART: S1S2, RRR, (+) 2/6 SM LUNGS: Clear ABDOMEN: Soft, non-tender, non-distended, normal BS EXTREMITIES: No edema Current Medications Generic Name Dose Route Start Last Admin Trade Name Freq PRN Reason Stop Dose Admin Acetaminophen 650 mg 02/20/18 01:22 02/26/18 06:35 Tylenol - PO 650 mg Q6H PRN Administration FEVER Amlodipine Besylate 5 mg 02/21/18 10:00 02/27/18 09:49 Norvasc - PO 5 mg DAILY RON Administration Diphenhydramine HCl 25 mg 02/25/18 22:12 02/25/18 22:37 Benadryl - PO 25 mg HS PRN Administration INSOMNIA Iron Sucrose 100 mg/ Sodium 100 mls @ 200 mls/hr 02/21/18 01:41 02/27/18 09: 49 Chloride IVPB 200 mls/hr DAILY RON Administration Sodium Chloride 1,000 mls @ 60 mls/hr 02/22/18 20:29 02/27/18 09:15 Normal Saline - IV 60 mls/hr ASDIR RON Administration Piperacillin Sod/Tazobactam 50 mls @ 100 mls/hr 02/23/18 18:15 02/27/18 17:35 Sod 3.375 gm/ Dextrose IVPB 100 mls/hr Q8H-IV RON Administration Protocol Losartan Potassium 50 mg 02/24/18 10:00 02/27/18 09:49 Cozaar - PO 50 mg DAILY RON Administration Metronidazole 250 mg 02/27/18 22:00 Flagyl - PO TID RON ASSESSMENT AND PLAN: 1. Diarrhea, possible colitis - Continue Zosyn, Flagyl 2. Possible colonic fistula 3. Anemia - Transfused 2 units PRBCs - Currently receiving iron sucrose 4. Hypercalcemia - Improved with Zometa, IV fluid 5. Metastatic bladder cancer - s/p biopsy of liver lesion 02/25 - pathology pending 6. History of colon cancer 7. HTN - Continue Keshav Barriga
[2018-02-27] MEDS: metroNIDAZOLE 250 MG TABLET PO SCH (22:42)
[2018-02-28] MEDS: SODIUM CHLORIDE 1,000 ML IV SCH ×2 (04:31→22:27)
[2018-02-28] MEDS: metroNIDAZOLE 250 MG TABLET PO SCH ×3 (06:20→22:27)
[2018-02-28] MEDS: LOSARTAN POTASSIUM 50 MG TABLET (FP) PO SCH (10:18)
[2018-02-28] MEDS: IRON SUCROSE INJECTION 100 MG in SODIUM CHLORIDE 95 ML IVPB SCH (10:18)
[2018-02-28] MEDS: amLODIPine BESYLATE 5 MG TABLET (FP) PO SCH (10:18)
[2018-02-28 13:30] LABS: INR 1.35 (0.82-1.09); PROTHROMBIN TIME (PATIENT) 15.3 SEC (9.7-13.0)
[2018-02-28 13:32] LABS: ACTIVATED PTT 34.2 SECONDS (25.2-36.5)
--- NOTE | 2018-02-28 14:50 | PN ---
Progress Note, Physician History of Present Illness: patient feeling tired no new issues says she is doing well pain still at the biopsy site gi started on flagyl - Current Medication List Current Medications: Active Medications Acetaminophen (Tylenol -) 650 mg PO Q6H PRN PRN Reason: FEVER Last Admin: 02/26/18 06:35 Dose: 650 mg Amlodipine Besylate (Norvasc -) 5 mg PO DAILY [facility] Last Admin: 02/28/18 10:18 Dose: 5 mg Diphenhydramine HCl (Benadryl -) 25 mg PO HS PRN PRN Reason: INSOMNIA Last Admin: 02/25/18 22:37 Dose: 25 mg Iron Sucrose 100 mg/ Sodium (Chloride) 100 mls @ 200 mls/hr IVPB DAILY [facility] Last Admin: 02/28/18 10:18 Dose: 200 mls/hr Sodium Chloride (Normal Saline -) 1,000 mls @ 60 mls/hr IV ASDIR [facility] Last Admin: 02/28/18 04:31 Dose: 60 mls/hr Losartan Potassium (Cozaar -) 50 mg PO DAILY [facility] Last Admin: 02/28/18 10:18 Dose: 50 mg Metronidazole (Flagyl -) 250 mg PO TID [facility] Last Admin: 02/28/18 14:21 Dose: 250 mg - Objective Vital Signs: Vital Signs Temperature 98.3 F 02/28/18 13:08 Pulse Rate 78 02/28/18 13:08 Respiratory Rate 16 02/28/18 13:08 Blood Pressure 114/75 02/28/18 13:08 O2 Sat by Pulse Oximetry (%) 98 02/28/18 09:00 Constitutional: Yes: No Distress, Calm Cardiovascular: Yes: Regular Rate and Rhythm Respiratory: Yes: Regular, CTA Bilaterally Gastrointestinal: Yes: Normal Bowel Sounds, Soft Musculoskeletal: Yes: WNL Extremities: Yes: WNL Neurological: Yes: Alert, Oriented Psychiatric: Yes: Alert, Oriented Labs: CBC, BMP 02/26/18 08:21 02/26/18 08:21 INR, PTT INR 1.35 (0.82-1.09) H 02/28/18 13:10 Fibrinogen 442.0 mg/dL (238-498) 02/22/18 08:07 Assessment/Plan Problem List - Problems (1) Anemia Code(s): D64.9 - ANEMIA, UNSPECIFIED (2) Weakness Code(s): R53.1 - WEAKNESS (3) Bladder cancer Code(s): C67.9 - MALIGNANT NEOPLASM OF BLADDER, UNSPECIFIED (4) Cholelithiasis Code(s): K80.20 - CALCULUS OF GALLBLADDER W/O CHOLECYSTITIS W/O OBSTRUCTION (5) Colon cancer Code(s): C18.9 - MALIGNANT NEOPLASM OF COLON, UNSPECIFIED (6) HTN (hypertension) Code(s): I10 - ESSENTIAL (PRIMARY) HYPERTENSION (7) Hypertensive heart disease Code(s): I11.9 - HYPERTENSIVE HEART DISEASE WITHOUT HEART FAILURE (8) Intractable abdominal pain Code(s): R10.9 - UNSPECIFIED ABDOMINAL PAIN Assessment/Plan 67 y.o. female with PMH of metastatic bladder CA, history of colon mass s/p resection (benign?), Lt nephrectomy, adrenal mass, and pathologic femoral fracture who refused systemic therapy during follow up with Oncology presenting with low grade fevers, leukocytosis, mucoid stools for over 1 month, weight loss , and poor appetite. Metastatic Bladder CA Fever/Leukocytosis Colon wall thickening/possible mass and colitis Lt peritoneal mass/tumor necrosis with possible communication with Sigmoid colon Anemia Pathologic femoral fracture continue abx will have to decide what to do down the line rest as per the team await for final reports
--- NOTE | 2018-02-28 15:56 | PN ---
Teaching Attending Note Name of Resident: Emory Tiwari ATTENDING PHYSICIAN STATEMENT I saw and evaluated the patient. I reviewed the resident's note and discussed the case with the resident. I agree with the resident's findings and plan as documented. SUBJECTIVE: Diarrhea is improved with Lomotil. No new complaints. OBJECTIVE: Vital Signs Period Temp Pulse Resp BP Sys/Gibbs Pulse Ox Last 24 Hr 98.1 F-99.4 F 78-96 16-20 114-133/56-75 96-98 HEART: S1S2, RRR, (+) 2/6 SM LUNGS: Clear ABDOMEN: Soft, non-tender, non-distended, normal BS EXTREMITIES: No edema Laboratory Results - last 24 hr 02/28/18 13:10 PT with INR 15.30 H* INR 1.35 H PTT (Actin FS) 34.2 Current Medications Generic Name Dose Route Start Last Admin Trade Name Freq PRN Reason Stop Dose Admin Acetaminophen 650 mg 02/20/18 01:22 02/26/18 06:35 Tylenol - PO 650 mg Q6H PRN Administration FEVER Amlodipine Besylate 5 mg 02/21/18 10:00 02/28/18 10:18 Norvasc - PO 5 mg DAILY RON Administration Diphenhydramine HCl 25 mg 02/25/18 22:12 02/25/18 22:37 Benadryl - PO 25 mg HS PRN Administration INSOMNIA Iron Sucrose 100 mg/ Sodium 100 mls @ 200 mls/hr 02/21/18 01:41 02/28/18 10: 18 Chloride IVPB 200 mls/hr DAILY RON Administration Sodium Chloride 1,000 mls @ 60 mls/hr 02/22/18 20:29 02/28/18 04:31 Normal Saline - IV 60 mls/hr ASDIR RON Administration Losartan Potassium 50 mg 02/24/18 10:00 02/28/18 10:18 Cozaar - PO 50 mg DAILY RON Administration Metronidazole 250 mg 02/27/18 22:00 02/28/18 14:21 Flagyl - PO 250 mg TID RON Administration ASSESSMENT AND PLAN: 1. Diarrhea, possible colitis - Continue Zosyn, Flagyl - Given Lomotil with resolution of diarrhea 2. Possible colonic fistula 3. Right cephalic vein thrombosis 4. Anemia, microcytic - Transfused 2 units PRBCs - Continue iron sucrose 5. Hypercalcemia - Improved with Zometa, IV fluid 6. Metastatic bladder cancer - s/p biopsy of liver lesion 02/25 - pathology pending 7. History of colon cancer 8. HTN - Continue Keshav Barriga
--- NOTE | 2018-02-28 16:58 | PN ---
Physical Exam: SUBJECTIVE: Patient seen and examined was given lomital last night and started on flagyl last night diarrhea improved with lomital OBJECTIVE: Vital Signs Period Temp Pulse Resp BP Sys/Gibbs Pulse Ox Last 24 Hr 98.1 F-99.4 F 78-96 16-20 114-133/56-75 96-98 GENERAL: The patient is awake, alert, in no acute distress. NECK: Trachea midline, goiter on right LUNGS: Breath sounds equal, clear to auscultation bilaterally, no wheezes, no crackles, no accessory muscle use. HEART: Regular rate and rhythm, S1, S2 with PILI ABDOMEN: Soft, nontender, nondistended, normoactive bowel sounds, no guarding, EXTREMITIES: 2+ dp and radial pulses, warm, well-perfused, no edema. NEUROLOGICAL: Normal speech, facial symmetry Laboratory Results - last 24 hr 02/28/18 13:10 PT with INR 15.30 H* INR 1.35 H PTT (Actin FS) 34.2 Active Medications Generic Name Dose Route Start Last Admin Trade Name Freq PRN Reason Stop Dose Admin Acetaminophen 650 mg 02/20/18 01:22 02/26/18 06:35 Tylenol - PO 650 mg Q6H PRN Administration FEVER Amlodipine Besylate 5 mg 02/21/18 10:00 02/28/18 10:18 Norvasc - PO 5 mg DAILY RON Administration Diphenhydramine HCl 25 mg 02/25/18 22:12 02/25/18 22:37 Benadryl - PO 25 mg HS PRN Administration INSOMNIA Iron Sucrose 100 mg/ Sodium 100 mls @ 200 mls/hr 02/21/18 01:41 02/28/18 10: 18 Chloride IVPB 200 mls/hr DAILY RON Administration Sodium Chloride 1,000 mls @ 60 mls/hr 02/22/18 20:29 02/28/18 04:31 Normal Saline - IV 60 mls/hr ASDIR RON Administration Losartan Potassium 50 mg 02/24/18 10:00 02/28/18 10:18 Cozaar - PO 50 mg DAILY RON Administration Metronidazole 250 mg 02/27/18 22:00 02/28/18 14:21 Flagyl - PO 250 mg TID RON Administration ASSESSMENT/PLAN: 67 yr old woman with HTN, metastatic transitional cell bladder carcinoma ( pathological fracture femur, known adrenal mets), history of colon mass s/p resection, Lt nephrectomy admitted for evaluation of fatigue, fevers, weightloss , diarrhea and anemia. Found to have leucocytosis and severe microcytic anemia. #Metastatic carcinoma - Expected progression of disease (now with liver metastasis, and large retroperitoneal mass) seen on CT scan. Elevated Ca and ALP suggests active bone metastases also. - GOC to be discussed, as per chart review pt has declined systemic chemo in the past. Liver mass biopsy taken on Sunday, pending results to decide on treatment #Diarrhea - possible colitis vs colonic fistula - initial cultures negative, repeat cultures ordered - will start banatrol to help with diarrhea - flagyl q8hr iv started 02/27 - continue Zosyn 3.375gm q8hr - started 02/23 - GI consult: Dr. Alba #right arm cephalic vein thrombosis - will discuss with hematology about coagulation #Anemia - improved with prbc's, h/h stable - iron sucrose ivb - started 02/21 - stopped 02/28 #Hypercalcemia - improved with zometa, given--02/22/18 #HTN - Continue Keshav Barriga Visit type - Emergency Visit Emergency Visit: No - New Patient This patient is new to me today: No - Critical Care Critical Care patient: No
--- NOTE | 2018-02-28 17:00 | PATH ---
Surgical Pathology Report Patient Name: CK MUSTAFA Med. Rec. #: [id number] /Age/Gender: 1950 (Age: 67) / F Account: [id number] Location: [facility] MED/SURG Taken: 02/25/2018 Received: 02/26/2018 Reported: 02/28/2018 Physicians: Deepak Alfred M.D. Jonnathan Cleaning M.D. Specimen(s) Received LIVER BIOPSY Clinical History 67-year-old female with history of bladder and colon cancer, now with large left pelvic mass Final Diagnosis LIVER, BIOPSY: CARCINOMA WITH EXTENSIVE NECROSIS. SEE COMMENT. Comment: Immunohistochemical stains performed and interpreted at [facility] show the tumor is positive for AE1/3, CK-7, CK-20 (patchy), and P63. Additional immunohistochemical stains performed at [place], [place] ([id number]) and interpreted at [facility] show the tumor is positive THOM-3, thrombomodulin (CD141, weak patchy); while negative for SATB2, CDX-2, and uroplakin. Histomorphology and immunophenotype is consistent with known history of urothelial carcinoma (bladder origin). Prior materials are noted. Findings discussed with Dr. Allison. Electronically Signed Clemencia Chandler M.D. Gross Description Received in formalin labeled "liver tissue," are 3 noonan, cylindrical portions of soft tissue ranging from 0.6-1.4 cm in length and averaging 0.1 cm diameter. The specimens are submitted in toto in one cassette. 02/26/201802/26/2018
--- NOTE | 2018-02-28 21:30 | PN ---
Progress Note (short form) - Note Progress Note: Patient seen and examined s/p liver biopsy today feels weak, tired Last Vital Signs Temp Pulse Resp BP Pulse Ox 98.3 F 87 18 138/55 98 02/28/18 18:00 02/28/18 18:00 02/28/18 18:00 02/28/18 18:00 02/28/18 09:00 Cor: RSR, No murmurs, No gallops Lungs: Clear to P&A Abd: Soft, Normal bowel sounds, No organomegaly Ext:No significant edema Abnormal Lab Results 02/25/18 02/28/18 17:20 13:10 PT with INR 15.30 H* INR 1.35 H Crossmatch See Detail Active Medications Generic Name Dose Route Start Last Admin Trade Name Freq PRN Reason Stop Dose Admin Acetaminophen 650 mg 02/20/18 01:22 02/26/18 06:35 Tylenol - PO 650 mg Q6H PRN Administration FEVER Amlodipine Besylate 5 mg 02/21/18 10:00 02/28/18 10:18 Norvasc - PO 5 mg DAILY RON Administration Diphenhydramine HCl 25 mg 02/25/18 22:12 02/25/18 22:37 Benadryl - PO 25 mg HS PRN Administration INSOMNIA Iron Sucrose 100 mg/ Sodium 100 mls @ 200 mls/hr 02/21/18 01:41 02/28/18 10: 18 Chloride IVPB 200 mls/hr DAILY RNO Administration Sodium Chloride 1,000 mls @ 60 mls/hr 02/22/18 20:29 02/28/18 04:31 Normal Saline - IV 60 mls/hr ASDIR RON Administration Losartan Potassium 50 mg 02/24/18 10:00 02/28/18 10:18 Cozaar - PO 50 mg DAILY RON Administration Metronidazole 250 mg 02/27/18 22:00 02/28/18 14:21 Flagyl - PO 250 mg TID RON Administration A/P 67 y/o patient with metastatic bladder cancer (transitional cell carcinoma), with prior pathological fracture R femur, and known adrenal metastasis, last seen by me in August 2016. At that time adamantly refused systemic therapy and has been lost to follow up.Also h/o colon resection x2 . Now with 2 months of worsening appetitie, wt. loss, decline in functional status , LLE pain/weakness Returns with severe microcytic anemia. Progression of disease (now with liver metastasis, and large retroperitoneal mass) seen on CT scan, Elevated Ca and ALKP s/p zometa given for hypercalcemia --02/22/18 On hydration/antibiotics Biopsy of liver lesion c/w poorly differentiated carcinoma immunostains s/o bladder primary To consider Keytruda as outpatient. Discussed indications/complications superficial thrombosis of right cephalic vein -- supportive care plus eliquis 2.5mg bid ( as patietn hypercoagulable form cancer) for 45 days She is refusing lovenox injections 40mg SC daily
[2018-02-28] MEDS: BANATROL PLUS POWDER PACKET PO SCH ×2 (22:27→23:25)
[2018-02-28] MEDS: APIXABAN 2.5 MG TABLET PO SCH (23:24)
[2018-03-01] MEDS: metroNIDAZOLE 250 MG TABLET PO SCH ×3 (05:56→22:47)
--- NOTE | 2018-03-01 08:52 | PN ---
Physical Exam: SUBJECTIVE: Patient seen and examined. feels that her stools have more form to them, 4 BM's yesterday, improved from admission. did not like the banatrol. does not want the recommended lactose free low residue diet, requests regular diet to help with her appetite ambulating with physical therapy able to walk 50ft with cane. OBJECTIVE: Vital Signs Period Temp Pulse Resp BP Sys/Igbbs Pulse Ox Last 24 Hr 98.1 F-99.2 F 78-96 16-20 114-138/55-75 98-98 GENERAL: The patient is awake, alert, in no acute distress. NECK: Trachea midline, goiter on right LUNGS: Breath sounds equal, clear to auscultation bilaterally, no wheezes, no crackles, no accessory muscle use. HEART: Regular rate and rhythm, S1, S2 with PILI ABDOMEN: Soft, nontender, nondistended, normoactive bowel sounds, no guarding, EXTREMITIES: 2+ dp and radial pulses, warm, well-perfused, no edema. NEUROLOGICAL: Normal speech, facial symmetry Laboratory Results - last 24 hr 02/25/18 02/28/18 17:20 13:10 PT with INR 15.30 H* INR 1.35 H PTT (Actin FS) 34.2 Blood Type B POSITIVE Antibody Screen Negative Crossmatch See Detail Active Medications Generic Name Dose Route Start Last Admin Trade Name Freq PRN Reason Stop Dose Admin Acetaminophen 650 mg 02/20/18 01:22 02/26/18 06:35 Tylenol - PO 650 mg Q6H PRN Administration FEVER Amlodipine Besylate 5 mg 02/21/18 10:00 02/28/18 10:18 Norvasc - PO 5 mg DAILY RON Administration Apixaban 2.5 mg 02/28/18 22:30 02/28/18 23:24 Eliquis - PO 2.5 mg BID RON Administration Diphenhydramine HCl 25 mg 02/25/18 22:12 02/25/18 22:37 Benadryl - PO 25 mg HS PRN Administration INSOMNIA Sodium Chloride 1,000 mls @ 60 mls/hr 02/22/18 20:29 02/28/18 22:27 Normal Saline - IV Not Given ASDIR RON Lactobacillus Acidophilus 1 tab 03/01/18 10:00 Bacid - PO DAILY RON Losartan Potassium 50 mg 02/24/18 10:00 02/28/18 10:18 Cozaar - PO 50 mg DAILY RON Administration Metronidazole 250 mg 02/27/18 22:00 03/01/18 05:56 Flagyl - PO 250 mg TID RON Administration ASSESSMENT/PLAN: 67 yr old woman with HTN, metastatic transitional cell bladder carcinoma ( pathological fracture femur, known adrenal mets), history of colon mass s/p resection, Lt nephrectomy admitted for evaluation of fatigue, fevers, weightloss , diarrhea and anemia. Found to have leucocytosis and severe microcytic anemia. #Metastatic carcinoma - Expected progression of disease (now with liver metastasis, and large retroperitoneal mass) seen on CT scan. Elevated Ca and ALP suggests active bone metastases also. - GOC to be discussed, as per chart review pt has declined systemic chemo in the past. - Liver mass biopsy pathology consistent with metastatic urothelial carcinoma, heme/onc has provided pt with information about treatment, pt is considering her options #Diarrhea - possible colitis vs colonic fistula - initial cultures negative, repeat cultures ordered - will start banatrol to help with diarrhea, pt did not like banatrol. will add bacid to see it will provide some help - flagyl q8hr iv started 02/27 - continue Zosyn 3.375gm q8hr - started 02/23 - GI consult: Dr. Alba - pt can be discharged with augmentin and flagyl for 5 days po to complete abx course #right arm cephalic vein thrombosis - started on eliquis 2.5mg po bid for 45 days, started 02/28 pm to end Sunday #Anemia - improved with prbc's, h/h stable - iron sucrose ivb - started 02/21 - stopped 02/28 #Hypercalcemia - improved with zometa, given--02/22/18 #HTN - Continue Norvasc Cozaar Visit type - Emergency Visit Emergency Visit: No - New Patient This patient is new to me today: No - Critical Care Critical Care patient: No - Discharge Referral Referred to [facility] Med P.C.: No
[2018-03-01 09:15] LABS: BASO % 0.3 % (0-2.0); EOS % 0.4 % (0-4.5); HEMATOCRIT 28.3 % (32.4-45.2); HEMOGLOBIN 8.7 GM/dL (10.7-15.3); LYMPH % 14.8 % (8-40); MCH 20.1 pg (25.7-33.7); MCHC 30.6 g/dl (32.0-36.0); MEAN CELL VOLUME 65.8 fl (80-96); MEAN PLT VOLUME 8.4 fl (7.5-11.1); MONO % 8.3 % (3.8-10.2); NEUT % 76.2 % (42.8-82.8); PLATELET COUNT 709 K/MM3 (134-434); RDW 31.9 % (11.6-15.6); WHITE BLOOD COUNT 13.3 K/mm3 (4.0-10.0)
[2018-03-01] MEDS ORDERED: PT OWN MED DRAWER 7, Y5N ONE ×3 (09:38→20:53)
[2018-03-01] MEDS: amLODIPine BESYLATE 5 MG TABLET (FP) PO SCH (09:53)
[2018-03-01] MEDS: LOSARTAN POTASSIUM 50 MG TABLET (FP) PO SCH (09:53)
[2018-03-01] MEDS: APIXABAN 2.5 MG TABLET PO SCH ×2 (09:53→22:47)
[2018-03-01] MEDS: BANATROL PLUS POWDER PACKET PO SCH ×2 (09:54→22:47)
[2018-03-01 10:05] LABS: ANION GAP 10 (8-16); BILIRUBIN,TOTAL 0.4 mg/dL (0.2-1.0); BLOOD UREA NITROGEN 6 mg/dL (7-18); CALCIUM 8.2 mg/dL (8.5-10.1); CHLORIDE 106 mmol/L (98-107); CO2 25 mmol/L (21-32); CREATININE 0.4 mg/dL (0.55-1.02); GLUCOSE,RANDOM 82 mg/dL (74-106); POTASSIUM 3.8 mmol/L (3.5-5.1); SGOT/AST 25 U/L (15-37); SGPT/ALT 16 U/L (12-78); SODIUM 141 mmol/L (136-145); TOT PROT 5.4 g/dl (6.4-8.2)
[2018-03-01 10:06] LABS: ALK PHOS 136 U/L (45-117)
[2018-03-01] MEDS: LACTOBACILLUS ACIDOPHILUS 1 TABLET PO SCH (11:28)
--- NOTE | 2018-03-01 11:28 | PN ---
Progress Note, Physician History of Present Illness: stable doing well pain at the biopsy site reports noted malignant cells - Current Medication List Current Medications: Active Medications Acetaminophen (Tylenol -) 650 mg PO Q6H PRN PRN Reason: FEVER Last Admin: 02/26/18 06:35 Dose: 650 mg Amlodipine Besylate (Norvasc -) 5 mg PO DAILY [facility] Last Admin: 03/01/18 09:53 Dose: 5 mg Apixaban (Eliquis -) 2.5 mg PO BID [facility] Last Admin: 03/01/18 09:53 Dose: 2.5 mg Diphenhydramine HCl (Benadryl -) 25 mg PO HS PRN PRN Reason: INSOMNIA Last Admin: 02/25/18 22:37 Dose: 25 mg Sodium Chloride (Normal Saline -) 1,000 mls @ 60 mls/hr IV ASDIR [facility] Last Admin: 02/28/18 22:27 Dose: Not Given Lactobacillus Acidophilus (Bacid -) 1 tab PO DAILY [facility] Losartan Potassium (Cozaar -) 50 mg PO DAILY [facility] Last Admin: 03/01/18 09:53 Dose: 50 mg Metronidazole (Flagyl -) 250 mg PO TID [facility] Last Admin: 03/01/18 05:56 Dose: 250 mg - Objective Vital Signs: Vital Signs Temperature 98.9 F 03/01/18 06:00 Pulse Rate 90 03/01/18 06:00 Respiratory Rate 20 03/01/18 09:00 Blood Pressure 127/71 03/01/18 06:00 O2 Sat by Pulse Oximetry (%) 94 L 03/01/18 09:00 Constitutional: Yes: No Distress, Calm Cardiovascular: Yes: Regular Rate and Rhythm Respiratory: Yes: Regular, CTA Bilaterally Gastrointestinal: Yes: Normal Bowel Sounds Musculoskeletal: Yes: WNL Extremities: Yes: WNL Neurological: Yes: Alert, Oriented Psychiatric: Yes: Alert, Oriented Labs: CBC, BMP 03/01/18 08:55 03/01/18 08:55 INR, PTT INR 1.35 (0.82-1.09) H 02/28/18 13:10 Fibrinogen 442.0 mg/dL (238-498) 02/22/18 08:07 Assessment/Plan Problem List - Problems (1) Anemia Code(s): D64.9 - ANEMIA, UNSPECIFIED (2) Weakness Code(s): R53.1 - WEAKNESS (3) Bladder cancer Code(s): C67.9 - MALIGNANT NEOPLASM OF BLADDER, UNSPECIFIED (4) Cholelithiasis Code(s): K80.20 - CALCULUS OF GALLBLADDER W/O CHOLECYSTITIS W/O OBSTRUCTION (5) Colon cancer Code(s): C18.9 - MALIGNANT NEOPLASM OF COLON, UNSPECIFIED (6) HTN (hypertension) Code(s): I10 - ESSENTIAL (PRIMARY) HYPERTENSION (7) Hypertensive heart disease Code(s): I11.9 - HYPERTENSIVE HEART DISEASE WITHOUT HEART FAILURE (8) Intractable abdominal pain Code(s): R10.9 - UNSPECIFIED ABDOMINAL PAIN Assessment/Plan 67 y.o. female with PMH of metastatic bladder CA, history of colon mass s/p resection (benign?), Lt nephrectomy, adrenal mass, and pathologic femoral fracture who refused systemic therapy during follow up with Oncology presenting with low grade fevers, leukocytosis, mucoid stools for over 1 month, weight loss , and poor appetite. Metastatic Bladder CA Fever/Leukocytosis Colon wall thickening/possible mass and colitis Lt peritoneal mass/tumor necrosis with possible communication with Sigmoid colon Anemia Pathologic femoral fracture continue abx if patient is discharged then send patient on oral augmentin and flagyl for another 5 days monitor for fevers close watch
[2018-03-01 14:01] LABS: ANISOCYTOSIS 1+; PLATELET ESTIMATE INCREASED
--- NOTE | 2018-03-01 15:23 | PN ---
Teaching Attending Note Name of Resident: Emory Tiwari ATTENDING PHYSICIAN STATEMENT I saw and evaluated the patient. I reviewed the resident's note and discussed the case with the resident. I agree with the resident's findings and plan as documented. SUBJECTIVE: No complaints. OBJECTIVE: Vital Signs Period Temp Pulse Resp BP Sys/Gibbs Pulse Ox Last 24 Hr 98.1 F-99.2 F 84-96 18-20 115-138/55-71 94-98 HEART: S1S2, RRR, (+) 2/6 SM LUNGS: Clear ABDOMEN: Soft, non-tender, non-distended, normal BS EXTREMITIES: No edema Laboratory Results - last 24 hr 02/25/18 02/26/18 03/01/18 17:20 19:00 08:55 WBC 13.3 H RBC 4.30 Hgb 8.7 L Hct 28.3 L MCV 65.8 L MCH 20.1 L MCHC 30.6 L RDW 31.9 H Plt Count 709 H MPV 8.4 Absolute Neuts (auto) 10.1 Neutrophils % 76.2 Lymphocytes % 14.8 Monocytes % 8.3 Eosinophils % 0.4 Basophils % 0.3 Nucleated RBC % 0 Hypochromia 2+ Platelet Estimate Increased Anisocytosis 1+ Microcytosis 1+ Sodium Potassium Chloride Carbon Dioxide Anion Gap BUN Creatinine Creat Clearance w eGFR Random Glucose Calcium Total Bilirubin AST ALT Alkaline Phosphatase Total Protein Albumin Stool O & P Wet Mount Cancelled O & P Permanent Slide Cancelled Blood Type B POSITIVE Antibody Screen Negative Crossmatch See Detail 03/01/18 08:55 WBC RBC Hgb Hct MCV MCH MCHC RDW Plt Count MPV Absolute Neuts (auto) Neutrophils % Lymphocytes % Monocytes % Eosinophils % Basophils % Nucleated RBC % Hypochromia Platelet Estimate Anisocytosis Microcytosis Sodium 141 Potassium 3.8 Chloride 106 Carbon Dioxide 25 Anion Gap 10 BUN 6 L Creatinine 0.4 L Creat Clearance w eGFR > 60 Random Glucose 82 Calcium 8.2 L Total Bilirubin 0.4 AST 25 ALT 16 Alkaline Phosphatase 136 H Total Protein 5.4 L Albumin 2.0 L Stool O & P Wet [place] O & P Permanent Slide Blood Type Antibody Screen Crossmatch Current Medications Generic Name Dose Route Start Last Admin Trade Name Freq PRN Reason Stop Dose Admin Acetaminophen 650 mg 02/20/18 01:22 02/26/18 06:35 Tylenol - PO 650 mg Q6H PRN Administration FEVER Amlodipine Besylate 5 mg 02/21/18 10:00 03/01/18 09:53 Norvasc - PO 5 mg DAILY RON Administration Apixaban 2.5 mg 02/28/18 22:30 03/01/18 09:53 Eliquis - PO 2.5 mg BID RON Administration Diphenhydramine HCl 25 mg 02/25/18 22:12 02/25/18 22:37 Benadryl - PO 25 mg HS PRN Administration INSOMNIA Sodium Chloride 1,000 mls @ 60 mls/hr 02/22/18 20:29 02/28/18 22:27 Normal Saline - IV Not Given ASDIR RON Lactobacillus Acidophilus 1 tab 03/01/18 11:15 03/01/18 11:28 Bacid - PO 1 tab DAILY RON Administration Losartan Potassium 50 mg 02/24/18 10:00 03/01/18 09:53 Cozaar - PO 50 mg DAILY RON Administration Metronidazole 250 mg 02/27/18 22:00 03/01/18 13:52 Flagyl - PO 250 mg TID RON Administration ASSESSMENT AND PLAN: 1. Diarrhea, possible colitis - Continue Zosyn, Flagyl - if discharged today/tomorrow, will discharge on Augmentin and Flagyl x 5 more days - Given Lomotil with resolution of diarrhea 2. Left retroperitoneal mass with possible necrosis and possible colonic fistula 3. Right cephalic vein thrombosis - Elevate arm - Warm compresses - Patient refused Lovenox - Eliquis started 4. Anemia, microcytic - Transfused 2 units PRBCs - Completed course of iron sucrose 5. Hypercalcemia - Improved with Zometa, IV fluid 6. Metastatic bladder cancer - s/p biopsy of liver lesion 02/25 - pathology consistent with metastatic urothelial carcinoma 7. History of colon cancer 8. HTN - Continue Norvasc, Cozaar
[2018-03-01] MEDS: SODIUM CHLORIDE 1,000 ML IV SCH (22:49)
[2018-03-02] MEDS: metroNIDAZOLE 250 MG TABLET PO SCH ×3 (06:25→21:44)
[2018-03-02 08:35] LABS: BASO % 0.3 % (0-2.0); EOS % 0.5 % (0-4.5); HEMATOCRIT 29.4 % (32.4-45.2); HEMOGLOBIN 9.3 GM/dL (10.7-15.3); MCH 20.9 pg (25.7-33.7); MCHC 31.6 g/dl (32.0-36.0); MEAN CELL VOLUME 66.1 fl (80-96); MEAN PLT VOLUME 6.1 fl (7.5-11.1); MONO % 6.6 % (3.8-10.2); NEUT % 76.6 % (42.8-82.8); PLATELET COUNT 726 K/MM3 (134-434); RBC 4.45 M/mm3 (3.60-5.2); RDW 32.4 % (11.6-15.6); WHITE BLOOD COUNT 14.7 K/mm3 (4.0-10.0)
[2018-03-02] MEDS: BANATROL PLUS POWDER PACKET PO SCH ×2 (09:38→21:47)
[2018-03-02] MEDS: LACTOBACILLUS ACIDOPHILUS 1 TABLET PO SCH (09:38)
[2018-03-02] MEDS: APIXABAN 2.5 MG TABLET PO SCH ×2 (09:38→21:44)
[2018-03-02] MEDS: amLODIPine BESYLATE 5 MG TABLET (FP) PO SCH (09:38)
[2018-03-02] MEDS: LOSARTAN POTASSIUM 50 MG TABLET (FP) PO SCH (09:38)
--- NOTE | 2018-03-02 10:31 | PN ---
Physical Exam: SUBJECTIVE: Patient seen and examined at the bedside. Denies any pain or discomfort. OBJECTIVE: Vital Signs Period Temp Pulse Resp BP Sys/Gibbs Pulse Ox Last 24 Hr 98.8 F-99.6 F 84-97 20-20 113-127/50-66 96 GENERAL: The patient is awake, alert, and fully oriented, in no acute distress. HEAD: Normal with no signs of trauma. EYES: PERRL, extraocular movements intact, sclera anicteric, conjunctiva clear. No ptosis. ENT: Ears normal, nares patent, oropharynx clear without exudates, moist mucous membranes. NECK: Trachea midline, full range of motion, supple. LUNGS: Breath sounds equal, clear to auscultation bilaterally, no wheezes HEART: Regular rate and rhythm ABDOMEN: Soft, nontender, nondistended, normoactive bowel sounds, no guarding EXTREMITIES: no edema. NEUROLOGICAL: Normal speech, gait not observed. PSYCH: Normal mood, normal affect. SKIN: Warm, dry, normal turgor, no rashes or lesions noted Laboratory Results - last 24 hr 03/01/18 03/02/18 08:55 08:24 WBC 14.7 H RBC 4.45 Hgb 9.3 L Hct 29.4 L MCV 66.1 L MCH 20.9 L MCHC 31.6 L RDW 32.4 H Plt Count 726 H MPV 6.1 L D Absolute Neuts (auto) 11.3 Neutrophils % 76.6 Lymphocytes % 16.0 Monocytes % 6.6 Eosinophils % 0.5 Basophils % 0.3 Nucleated RBC % 0 Hypochromia 2+ Platelet Estimate Increased Anisocytosis 1+ Microcytosis 1+ Active Medications Generic Name Dose Route Start Last Admin Trade Name Alexandruq PRN Reason Stop Dose Admin Acetaminophen 650 mg 02/20/18 01:22 02/26/18 06:35 Tylenol - PO 650 mg Q6H PRN Administration FEVER Amlodipine Besylate 5 mg 02/21/18 10:00 03/02/18 09:38 Norvasc - PO 5 mg DAILY RON Administration Apixaban 2.5 mg 02/28/18 22:30 03/02/18 09:38 Eliquis - PO 2.5 mg BID RON Administration Diphenhydramine HCl 25 mg 02/25/18 22:12 02/25/18 22:37 Benadryl - PO 25 mg HS PRN Administration INSOMNIA Sodium Chloride 1,000 mls @ 60 mls/hr 02/22/18 20:29 03/01/18 22:49 Normal Saline - IV 60 mls/hr ASDIR RON Administration Lactobacillus Acidophilus 1 tab 03/01/18 11:15 03/02/18 09:38 Bacid - PO 1 tab DAILY RON Administration Losartan Potassium 50 mg 02/24/18 10:00 03/02/18 09:38 Cozaar - PO 50 mg DAILY RON Administration Metronidazole 250 mg 02/27/18 22:00 03/02/18 06:25 Flagyl - PO 250 mg TID RON Administration ASSESSMENT/PLAN: Patient is a 67 year old female with a significant past medical history of hypertension, anemia, transitional cell bladder cancer, colon mass s/p resection and left nephrectomy. Patient presents to the ED on 02/19/2018 for 1 month of decreasing appetite, weight loss, weakness, diarrhea and anemia. She was found to have leukocytosis on admission. GI: Diarrhea: possible colitis: stool studies negative for c diff. On Bacid, as pt refused Banatrol. On Flagyl and Augmentin x 5 more days per ID. Hematology/Oncology: Anemia/microcytic anemia Colon Cancer history s/p resection Bladder cancer with mets to liver, bone and retroperitoneal mass. s/p liver biopsy on 02/26 which is consistent with carcinoma with extensive necrosis. Patient to start on Keytruda per oncology. s/p 2 units of prbcs and venofer. Leukocytosis: trending down since admission. monitor vitals signs. blood and urine cultures negative. ID following: On Augmentin and Flagyl. Vascular Right arm cephalic vein thrombosis: on Eliquis 2.5mg BID x 45 days (started ) MS Weakness, improving Ambulated 150 feet with PT. Patient has assistive devices at home. Continue daily PT. fall risk. Card: Hypertension, chronic/controlled: On Norvasc and Cozaar Other: Decreasing appetite/weight loss/weakness: likely secondary to metastatic cancer. Dietary following. Oral intake improving since hospitalization. fen tolerating PO/on NS @ 60cc/hr monitor electrolytes: given zometa on 02/22/18 for hypercalcemia dietary following prophy: eliquis 2.5 mg BID full code Visit type - Emergency Visit Emergency Visit: Yes ED Registration Date: 02/19/18 Care time: The patient presented to the Emergency Department on the above date and was hospitalized for further evaluation of their emergent condition. - New Patient This patient is new to me today: Yes Date on this admission: 03/02/18 - Critical Care Critical Care patient: No - Discharge Referral Referred to [facility] No
--- NOTE | 2018-03-02 15:23 | PN ---
Progress Note, Physician History of Present Illness: stable doing well pain better at the biopsy site - Current Medication List Current Medications: Active Medications Acetaminophen (Tylenol -) 650 mg PO Q6H PRN PRN Reason: FEVER Last Admin: 02/26/18 06:35 Dose: 650 mg Amlodipine Besylate (Norvasc -) 5 mg PO DAILY [facility] Last Admin: 03/02/18 09:38 Dose: 5 mg Amoxicillin/Clavulanate Potassium (Augmentin - 500mg Tablet) 1 tab PO BID@0800, 1730 [facility] Apixaban (Eliquis -) 2.5 mg PO BID [facility] Last Admin: 03/02/18 09:38 Dose: 2.5 mg Diphenhydramine HCl (Benadryl -) 25 mg PO HS PRN PRN Reason: INSOMNIA Last Admin: 02/25/18 22:37 Dose: 25 mg Sodium Chloride (Normal Saline -) 1,000 mls @ 60 mls/hr IV ASDIR [facility] Last Admin: 03/01/18 22:49 Dose: 60 mls/hr Lactobacillus Acidophilus (Bacid -) 1 tab PO DAILY [facility] Last Admin: 03/02/18 09:38 Dose: 1 tab Losartan Potassium (Cozaar -) 50 mg PO DAILY [facility] Last Admin: 03/02/18 09:38 Dose: 50 mg Metronidazole (Flagyl -) 250 mg PO TID [facility] Last Admin: 03/02/18 14:44 Dose: 250 mg - Objective Vital Signs: Vital Signs Temperature 98.1 F 03/02/18 14:14 Pulse Rate 85 03/02/18 14:14 Respiratory Rate 20 03/02/18 14:14 Blood Pressure 124/63 03/02/18 14:14 O2 Sat by Pulse Oximetry (%) 96 03/01/18 21:00 Constitutional: Yes: No Distress, Calm, Obese Cardiovascular: Yes: Regular Rate and Rhythm Respiratory: Yes: Regular, CTA Bilaterally Gastrointestinal: Yes: Normal Bowel Sounds, Soft Musculoskeletal: Yes: WNL Extremities: Yes: WNL Neurological: Yes: Alert, Oriented Psychiatric: Yes: Alert, Oriented Labs: CBC, BMP 03/02/18 08:24 03/01/18 08:55 INR, PTT INR 1.35 (0.82-1.09) H 02/28/18 13:10 Fibrinogen 442.0 mg/dL (238-498) 02/22/18 08:07 Assessment/Plan Problem List - Problems (1) Anemia Code(s): D64.9 - ANEMIA, UNSPECIFIED (2) Weakness Code(s): R53.1 - WEAKNESS (3) Bladder cancer Code(s): C67.9 - MALIGNANT NEOPLASM OF BLADDER, UNSPECIFIED (4) Cholelithiasis Code(s): K80.20 - CALCULUS OF GALLBLADDER W/O CHOLECYSTITIS W/O OBSTRUCTION (5) Colon cancer Code(s): C18.9 - MALIGNANT NEOPLASM OF COLON, UNSPECIFIED (6) HTN (hypertension) Code(s): I10 - ESSENTIAL (PRIMARY) HYPERTENSION (7) Hypertensive heart disease Code(s): I11.9 - HYPERTENSIVE HEART DISEASE WITHOUT HEART FAILURE (8) Intractable abdominal pain Code(s): R10.9 - UNSPECIFIED ABDOMINAL PAIN Assessment/Plan 67 y.o. female with PMH of metastatic bladder CA, history of colon mass s/p resection (benign?), Lt nephrectomy, adrenal mass, and pathologic femoral fracture who refused systemic therapy during follow up with Oncology presenting with low grade fevers, leukocytosis, mucoid stools for over 1 month, weight loss , and poor appetite. Metastatic Bladder CA Fever/Leukocytosis Colon wall thickening/possible mass and colitis Lt peritoneal mass/tumor necrosis with possible communication with Sigmoid colon Anemia Pathologic femoral fracture continue abx final cx report noted rest as per onco final plan needs to be made oral abx started
[2018-03-02] MEDS: AMOX TR/POT CLAV 500MG/125MG TABLETS (FP) PO SCH (17:38)
--- NOTE | 2018-03-02 19:30 | PN ---
Progress Note (short form) - Note Progress Note: Patient seen and examined 03/01 and 03/02/18 s/p liver biopsy today feels weak, tired Last Vital Signs Temp Pulse Resp BP Pulse Ox 98.7 F 80 20 125/58 96 03/02/18 19:17 03/02/18 19:17 03/02/18 19:17 03/02/18 19:17 03/02/18 09:00 Cor: RSR, No murmurs, No gallops Lungs: Clear to P&A Abd: Soft, Normal bowel sounds, No organomegaly Ext:No significant edema Abnormal Lab Results 03/02/18 08:24 WBC 14.7 H Hgb 9.3 L Hct 29.4 L MCV 66.1 L MCH 20.9 L MCHC 31.6 L RDW 32.4 H Plt Count 726 H MPV 6.1 L D Active Medications Generic Name Dose Route Start Last Admin Trade Name Freq PRN Reason Stop Dose Admin Acetaminophen 650 mg 02/20/18 01:22 02/26/18 06:35 Tylenol - PO 650 mg Q6H PRN Administration FEVER Amlodipine Besylate 5 mg 02/21/18 10:00 03/02/18 09:38 Norvasc - PO 5 mg DAILY RON Administration Amoxicillin/Clavulanate Potassium 1 tab 03/02/18 17:30 03/02/18 17:38 Augmentin - 500mg Tablet PO 1 tab BID@0800,1730 RON Administration Apixaban 2.5 mg 02/28/18 22:30 03/02/18 09:38 Eliquis - PO 2.5 mg BID RON Administration Diphenhydramine HCl 25 mg 02/25/18 22:12 02/25/18 22:37 Benadryl - PO 25 mg HS PRN Administration INSOMNIA Sodium Chloride 1,000 mls @ 60 mls/hr 02/22/18 20:29 03/01/18 22:49 Normal Saline - IV 60 mls/hr ASDIR RON Administration Lactobacillus Acidophilus 1 tab 03/01/18 11:15 03/02/18 09:38 Bacid - PO 1 tab DAILY RON Administration Losartan Potassium 50 mg 02/24/18 10:00 03/02/18 09:38 Cozaar - PO 50 mg DAILY RON Administration Metronidazole 250 mg 02/27/18 22:00 03/02/18 14:44 Flagyl - PO 250 mg TID RON Administration A/P 67 y/o patient with metastatic bladder cancer (transitional cell carcinoma), with prior pathological fracture R femur, and known adrenal metastasis, last seen by me in August 2016. At that time adamantly refused systemic therapy and has been lost to follow up.Also h/o colon resection x2 . Now with 2 months of worsening appetitie, wt. loss, decline in functional status , LLE pain/weakness Returns with severe microcytic anemia. Progression of disease (now with liver metastasis, and large retroperitoneal mass) seen on CT scan, Elevated Ca and ALKP s/p zometa given for hypercalcemia --02/22/18 On hydration/antibiotics Biopsy of liver lesion c/w poorly differentiated carcinoma immunostains s/o bladder primary To consider Keytruda as outpatient. Discussed indications/complications-- inflammation --dermatitis, colitis, hepatitis, pneumonitis , hypophysitis superficial thrombosis of right cephalic vein -- supportive care plus eliquis 2.5mg bid ( as patient hypercoagulable form cancer) for 45 days She is refusing lovenox injections 40mg SC daily d/c planning---home with services on sunday. social media assistant consult for wheel chair, supples, etc. PT recommendations prior to d/c To /u on to start immunotherpay Rediscussed side effects of immunotherapy
[2018-03-02] MEDS ORDERED: PT OWN MED DRAWER 7, Y5N ONE (21:08)
[2018-03-02] MEDS: SODIUM CHLORIDE 1,000 ML IV SCH (21:47)
[2018-03-03] MEDS: metroNIDAZOLE 250 MG TABLET PO SCH ×3 (06:38→21:14)
[2018-03-03 07:28] LABS: BASO % 0.4 % (0-2.0); EOS % 0.4 % (0-4.5); HEMATOCRIT 27.7 % (32.4-45.2); HEMOGLOBIN 8.8 GM/dL (10.7-15.3); LYMPH % 17.3 % (8-40); MCHC 31.7 g/dl (32.0-36.0); MEAN CELL VOLUME 66.2 fl (80-96); MEAN PLT VOLUME 6.8 fl (7.5-11.1); MONO % 6.7 % (3.8-10.2); NEUT % 75.2 % (42.8-82.8); PLATELET COUNT 695 K/MM3 (134-434); RBC 4.18 M/mm3 (3.60-5.2); RDW 32.3 % (11.6-15.6)
[2018-03-03 07:43] LABS: ADD RBC MORPHOLOGY YES
[2018-03-03 07:55] LABS: ANION GAP 6 (8-16); BLOOD UREA NITROGEN 5 mg/dL (7-18); CALCIUM 8.4 mg/dL (8.5-10.1); CHLORIDE 103 mmol/L (98-107); CO2 27 mmol/L (21-32); GLUCOSE,RANDOM 77 mg/dL (74-106); MAGNESIUM 1.9 mg/dL (1.8-2.4); SODIUM 136 mmol/L (136-145)
[2018-03-03 08:00] LABS: ALK PHOS 122 U/L (45-117); BILIRUBIN,TOTAL 0.4 mg/dL (0.2-1.0); CREATININE 0.4 mg/dL (0.55-1.02); SGOT/AST 26 U/L (15-37); SGPT/ALT 17 U/L (12-78); TOT PROT 5.6 g/dl (6.4-8.2)
[2018-03-03] MEDS ORDERED: PT OWN MED DRAWER 7, Y5N ONE ×2 (08:53→20:50)
[2018-03-03] MEDS: AMOX TR/POT CLAV 500MG/125MG TABLETS (FP) PO SCH (09:14)
[2018-03-03] MEDS: LACTOBACILLUS ACIDOPHILUS 1 TABLET PO SCH (09:14)
[2018-03-03] MEDS: amLODIPine BESYLATE 5 MG TABLET (FP) PO SCH (09:14)
[2018-03-03] MEDS: BANATROL PLUS POWDER PACKET PO SCH ×2 (09:14→21:17)
[2018-03-03] MEDS: APIXABAN 2.5 MG TABLET PO SCH ×2 (09:14→21:14)
[2018-03-03] MEDS: LOSARTAN POTASSIUM 50 MG TABLET (FP) PO SCH (09:14)
--- NOTE | 2018-03-03 09:59 | PN ---
Progress Note, Physician History of Present Illness: doing well says she could not tolerate augmentin - Current Medication List Current Medications: Active Medications Acetaminophen (Tylenol -) 650 mg PO Q6H PRN PRN Reason: FEVER Last Admin: 02/26/18 06:35 Dose: 650 mg Amlodipine Besylate (Norvasc -) 5 mg PO DAILY [facility] Last Admin: 03/03/18 09:14 Dose: 5 mg Apixaban (Eliquis -) 2.5 mg PO BID [facility] Last Admin: 03/03/18 09:14 Dose: 2.5 mg Diphenhydramine HCl (Benadryl -) 25 mg PO HS PRN PRN Reason: INSOMNIA Last Admin: 02/25/18 22:37 Dose: 25 mg Sodium Chloride (Normal Saline -) 1,000 mls @ 60 mls/hr IV ASDIR [facility] Last Admin: 03/02/18 21:47 Dose: Not Given Lactobacillus Acidophilus (Bacid -) 1 tab PO DAILY [facility] Last Admin: 03/03/18 09:14 Dose: 1 tab Levofloxacin (Levaquin) 750 mg PO DAILY [facility] Losartan Potassium (Cozaar -) 50 mg PO DAILY [facility] Last Admin: 03/03/18 09:14 Dose: 50 mg Metronidazole (Flagyl -) 250 mg PO TID [facility] Last Admin: 03/03/18 06:38 Dose: 250 mg - Objective Vital Signs: Vital Signs Temperature 99.4 F 03/03/18 06:00 Pulse Rate 95 H 03/03/18 06:00 Respiratory Rate 18 03/03/18 06:00 Blood Pressure 132/74 03/03/18 06:00 O2 Sat by Pulse Oximetry (%) 96 03/02/18 21:00 Constitutional: Yes: No Distress, Calm Cardiovascular: Yes: Regular Rate and Rhythm Respiratory: Yes: Regular, CTA Bilaterally Gastrointestinal: Yes: Normal Bowel Sounds, Soft Musculoskeletal: Yes: WNL Extremities: Yes: WNL Neurological: Yes: Alert, Oriented Psychiatric: Yes: Alert, Oriented Labs: CBC, BMP 03/03/18 06:00 03/03/18 06:00 INR, PTT INR 1.35 (0.82-1.09) H 02/28/18 13:10 Fibrinogen 442.0 mg/dL (238-498) 02/22/18 08:07 Assessment/Plan Problem List - Problems (1) Anemia Code(s): D64.9 - ANEMIA, UNSPECIFIED (2) Weakness Code(s): R53.1 - WEAKNESS (3) Bladder cancer Code(s): C67.9 - MALIGNANT NEOPLASM OF BLADDER, UNSPECIFIED (4) Cholelithiasis Code(s): K80.20 - CALCULUS OF GALLBLADDER W/O CHOLECYSTITIS W/O OBSTRUCTION (5) Colon cancer Code(s): C18.9 - MALIGNANT NEOPLASM OF COLON, UNSPECIFIED (6) HTN (hypertension) Code(s): I10 - ESSENTIAL (PRIMARY) HYPERTENSION (7) Hypertensive heart disease Code(s): I11.9 - HYPERTENSIVE HEART DISEASE WITHOUT HEART FAILURE (8) Intractable abdominal pain Code(s): R10.9 - UNSPECIFIED ABDOMINAL PAIN Assessment/Plan 67 y.o. female with PMH of metastatic bladder CA, history of colon mass s/p resection (benign?), Lt nephrectomy, adrenal mass, and pathologic femoral fracture who refused systemic therapy during follow up with Oncology presenting with low grade fevers, leukocytosis, mucoid stools for over 1 month, weight loss , and poor appetite. Metastatic Bladder CA Fever/Leukocytosis Colon wall thickening/possible mass and colitis Lt peritoneal mass/tumor necrosis with possible communication with Sigmoid colon Anemia Pathologic femoral fracture will change abx to oral levaquin to take for another 5 days with flagyl then stop them rest continue current mgmt
--- NOTE | 2018-03-03 12:08 | PN ---
Physical Exam: SUBJECTIVE: Patient seen and examined. Feels well, in no acute distress. States her appetite is improving. Denies pain. OBJECTIVE: Vital Signs Period Temp Pulse Resp BP Sys/Gibbs Pulse Ox Last 24 Hr 98.1 F-99.4 F 80-96 18-20 124-137/58-74 96 GENERAL: The patient is awake, alert, and fully oriented, in no acute distress. HEAD: Normal with no signs of trauma. EYES: PERRL, extraocular movements intact, sclera anicteric, conjunctiva clear. No ptosis. ENT: Ears normal, nares patent, oropharynx clear without exudates, moist mucous membranes. NECK: Trachea midline, full range of motion, supple. LUNGS: Breath sounds equal, clear to auscultation bilaterally, no wheezes HEART: Regular rate and rhythm ABDOMEN: Soft, nontender, nondistended, normoactive bowel sounds, no guarding EXTREMITIES: no edema. NEUROLOGICAL: Normal speech, gait not observed. PSYCH: Normal mood, normal affect. SKIN: Warm, dry, normal turgor, no rashes or lesions noted Laboratory Results - last 24 hr 03/03/18 03/03/18 06:00 06:00 WBC 14.0 H RBC 4.18 Hgb 8.8 L Hct 27.7 L MCV 66.2 L MCH 21.0 L MCHC 31.7 L RDW 32.3 H Plt Count 695 H MPV 6.8 L D Absolute Neuts (auto) 10.5 Neutrophils % 75.2 Lymphocytes % 17.3 Monocytes % 6.7 Eosinophils % 0.4 Basophils % 0.4 Nucleated RBC % 0 Sodium 136 Potassium 4.0 Chloride 103 Carbon Dioxide 27 Anion Gap 6 L BUN 5 L Creatinine 0.4 L Creat Clearance w eGFR > 60 Random Glucose 77 Calcium 8.4 L Magnesium 1.9 Total Bilirubin 0.4 AST 26 ALT 17 Alkaline Phosphatase 122 H D Total Protein 5.6 L Albumin 2.0 L Active Medications Generic Name Dose Route Start Last Admin Trade Name Freq PRN Reason Stop Dose Admin Acetaminophen 650 mg 02/20/18 01:22 02/26/18 06:35 Tylenol - PO 650 mg Q6H PRN Administration FEVER Amlodipine Besylate 5 mg 02/21/18 10:00 03/03/18 09:14 Norvasc - PO 5 mg DAILY RON Administration Apixaban 2.5 mg 07/26/18 22:30 03/03/18 09:14 Eliquis - PO 2.5 mg BID RON Administration Diphenhydramine HCl 25 mg 02/25/18 22:12 02/25/18 22:37 Benadryl - PO 25 mg HS PRN Administration INSOMNIA Sodium Chloride 1,000 mls @ 60 mls/hr 02/22/18 20:29 03/02/18 21:47 Normal Saline - IV Not Given ASDIR RON Lactobacillus Acidophilus 1 tab 03/01/18 11:15 03/03/18 09:14 Bacid - PO 1 tab DAILY RON Administration Levofloxacin 750 mg 03/03/18 10:00 Levaquin - PO DAILY RON Losartan Potassium 50 mg 02/24/18 10:00 03/03/18 09:14 Cozaar - PO 50 mg DAILY RON Administration Metronidazole 250 mg 02/27/18 22:00 03/03/18 06:38 Flagyl - PO 250 mg TID RON Administration ASSESSMENT/PLAN: Patient is a 67 year old female with a significant past medical history of hypertension, anemia, transitional cell bladder cancer, colon mass s/p resection and left nephrectomy. Patient presents to the ED on 02/19/2018 for 1 month of decreasing appetite, weight loss, weakness, diarrhea and anemia. She was found to have leukocytosis on admission. GI: Diarrhea: possible colitis: stool studies negative for c diff. On Bacid, as pt refused Banatrol. On Flagyl and Levaquin x 5 more days per ID. Hematology/Oncology: Anemia/microcytic anemia Colon Cancer history s/p resection Bladder cancer with mets to liver, bone and retroperitoneal mass. s/p liver biopsy on 02/26 which is consistent with carcinoma with extensive necrosis. Patient to start on Keytruda per oncology. s/p 2 units of prbcs and venofer. Leukocytosis: trending down since admission. monitor vitals signs. blood and urine cultures negative. ID following Vascular Right arm cephalic vein thrombosis: on Eliquis 2.5mg BID x 45 days (started ) MS Weakness, improving Ambulated 150 feet with PT. Patient has assistive devices at home. Continue daily PT. fall risk. Card: Hypertension, chronic/controlled: On Norvasc and Cozaar Other: Decreasing appetite/weight loss/weakness: likely secondary to metastatic cancer. Dietary following. Oral intake improving since hospitalization. fen tolerating PO monitor electrolytes: given zometa on 02/22/18 for hypercalcemia dietary following prophy: eliquis 2.5 mg BID full code Visit type - Emergency Visit Emergency Visit: Yes ED Registration Date: 02/19/18 Care time: The patient presented to the Emergency Department on the above date and was hospitalized for further evaluation of their emergent condition. - New Patient This patient is new to me today: No - Critical Care Critical Care patient: No - Discharge Referral Referred to [facility] Med P.C.: No
[2018-03-03] MEDS: SODIUM CHLORIDE 1,000 ML IV SCH (21:16)
[2018-03-04] MEDS: metroNIDAZOLE 250 MG TABLET PO SCH ×2 (06:25→13:33)
[2018-03-04] MEDS: LACTOBACILLUS ACIDOPHILUS 1 TABLET PO SCH (09:22)
[2018-03-04] MEDS: amLODIPine BESYLATE 5 MG TABLET (FP) PO SCH (09:23)
[2018-03-04] MEDS: LOSARTAN POTASSIUM 50 MG TABLET (FP) PO SCH (09:23)
[2018-03-04] MEDS ORDERED: PT OWN MED DRAWER 7, Y5N ONE (09:26)
[2018-03-04] MEDS: APIXABAN 2.5 MG TABLET PO SCH (09:27)
[2018-03-04 09:33] VITALS: BP 113/57; PULSE 96; TEMP 98.9
[2018-03-04] MEDS: BANATROL PLUS POWDER PACKET PO SCH (11:00)
--- NOTE | 2018-03-04 11:19 | PN ---
Progress Note, Physician History of Present Illness: stable no issues - Current Medication List Current Medications: Active Medications Acetaminophen (Tylenol -) 650 mg PO Q6H PRN PRN Reason: FEVER Last Admin: 02/26/18 06:35 Dose: 650 mg Amlodipine Besylate (Norvasc -) 5 mg PO DAILY [facility] Last Admin: 03/04/18 09:23 Dose: 5 mg Apixaban (Eliquis -) 2.5 mg PO BID [facility] Last Admin: 03/04/18 09:27 Dose: 2.5 mg Diphenhydramine HCl (Benadryl -) 25 mg PO HS PRN PRN Reason: INSOMNIA Last Admin: 02/25/18 22:37 Dose: 25 mg Sodium Chloride (Normal Saline -) 1,000 mls @ 60 mls/hr IV ASDIR [facility] Last Admin: 03/03/18 21:16 Dose: Not Given Lactobacillus Acidophilus (Bacid -) 1 tab PO DAILY [facility] Last Admin: 03/04/18 09:22 Dose: 1 tab Levofloxacin (Levaquin -) 750 mg PO DAILY [facility] Last Admin: 03/04/18 09:22 Dose: 750 mg Losartan Potassium (Cozaar -) 50 mg PO DAILY [facility] Last Admin: 03/04/18 09:23 Dose: 50 mg Metronidazole (Flagyl -) 250 mg PO TID [facility] Last Admin: 03/04/18 06:25 Dose: 250 mg - Objective Vital Signs: Vital Signs Temperature 98.9 F 03/04/18 09:32 Pulse Rate 96 H 03/04/18 09:32 Respiratory Rate 18 03/04/18 09:32 Blood Pressure 113/57 03/04/18 09:32 O2 Sat by Pulse Oximetry (%) 96 03/03/18 09:00 Constitutional: Yes: No Distress, Calm, Obese Cardiovascular: Yes: Regular Rate and Rhythm Respiratory: Yes: Regular, CTA Bilaterally Gastrointestinal: Yes: Normal Bowel Sounds, Soft Musculoskeletal: Yes: WNL Extremities: Yes: WNL Neurological: Yes: Alert, Oriented Psychiatric: Yes: Alert, Oriented Labs: CBC, BMP 03/03/18 06:00 03/03/18 06:00 INR, PTT INR 1.35 (0.82-1.09) H 02/28/18 13:10 Fibrinogen 442.0 mg/dL (238-498) 02/22/18 08:07 Assessment/Plan Problem List - Problems (1) Anemia Code(s): D64.9 - ANEMIA, UNSPECIFIED (2) Weakness Code(s): R53.1 - WEAKNESS (3) Bladder cancer Code(s): C67.9 - MALIGNANT NEOPLASM OF BLADDER, UNSPECIFIED (4) Cholelithiasis Code(s): K80.20 - CALCULUS OF GALLBLADDER W/O CHOLECYSTITIS W/O OBSTRUCTION (5) Colon cancer Code(s): C18.9 - MALIGNANT NEOPLASM OF COLON, UNSPECIFIED (6) HTN (hypertension) Code(s): I10 - ESSENTIAL (PRIMARY) HYPERTENSION (7) Hypertensive heart disease Code(s): I11.9 - HYPERTENSIVE HEART DISEASE WITHOUT HEART FAILURE (8) Intractable abdominal pain Code(s): R10.9 - UNSPECIFIED ABDOMINAL PAIN Assessment/Plan 67 y.o. female with PMH of metastatic bladder CA, history of colon mass s/p resection (benign?), Lt nephrectomy, adrenal mass, and pathologic femoral fracture who refused systemic therapy during follow up with Oncology presenting with low grade fevers, leukocytosis, mucoid stools for over 1 month, weight loss , and poor appetite. Metastatic Bladder CA Fever/Leukocytosis Colon wall thickening/possible mass and colitis Lt peritoneal mass/tumor necrosis with possible communication with Sigmoid colon Anemia Pathologic femoral fracture continue current oral abx as planned stop all abx after another 4 days
--- NOTE | 2018-03-04 16:32 | DS ---
Physical Examination Vital Signs: Vital Signs Temperature 98.9 F 03/04/18 09:32 Pulse Rate 96 H 03/04/18 09:32 Respiratory Rate 18 03/04/18 09:32 Blood Pressure 113/57 03/04/18 09:32 O2 Sat by Pulse Oximetry (%) 99 03/04/18 09:00 Labs: CBC, BMP 03/03/18 06:00 03/03/18 06:00 Discharge Summary Reason For Visit: MALIGNANT NEOPLASOM OF COLON/WEAKNESS Current Active Problems Anemia (Acute) Bladder carcinoma metastatic to liver (Acute) Diarrhea (Acute) Leukocytosis (Acute) Weakness (Acute) Condition: Stable - Instructions Diet, Activity, Other Instructions: You were evaluated for your diarrhea, weakness and fevers and found to have metastatic disease of your cancer. You were also found to have a clot in one of the veins in your right arm. Please follow-up with Dr. Campos in her office within one week to discuss your treatment plan for your cancer. Please follow-up with Dr. Alba and Dr. Gallego within one week for post- hospital evaluation. See Dr Ever Johnson in 1 week You are being started on a blood thinner, Eliquis 2.5mg 1 tablet twice daily, for 45 days total as treatment for the blood clot. The last dose will be taken on April 14. Do not miss any doses of this medication. Complete your antibiotics: Flagyl 1 tablet every 8 hours for 5 days and Augmentin 1 tablet twice daily for 5 days. If you develop chest pain, high fevers, worsening swelling in your right arm, trouble breathing, note blood in your stools, or any other new symptom please return to the hospital. Referrals: Kailey Gallego MD [Staff Physician] - Ervin Alba MD [Staff Physician] - Faye Allison MD [Staff Physician] - Ever Johnson MD [Primary Care Provider] - Disposition: HOME - Home Medications Comprehensive Discharge Medication List: Ambulatory Orders Amlodipine Bes/Olmesartan Med [Mindi 5-20 mg Tablet] 1 each PO DAILY 08/26/15 Amox-Tr/K Cl [Augmentin 500-125mg Tablet -] 1 tab PO BID@0800,1730 #10 tablet Apixaban [Eliquis -] 2.5 mg PO BID tablet 03/04/18 Lactobacillus Acidophilus [Bacid -] 1 tab PO DAILY #5 tab 03/04/18 metroNIDAZOLE [Flagyl -] 250 mg PO TID #15 tablet 03/04/18
--- NOTE | 2018-03-04 17:21 | PN ---
Progress Note (short form) - Note Progress Note: Patient seen and examined feels better anxious to go home Last Vital Signs Temp Pulse Resp BP Pulse Ox 98.9 F 96 H 18 113/57 99 03/04/18 09:32 03/04/18 09:32 03/04/18 09:32 03/04/18 09:32 03/04/18 09:00 Cor: RSR, No murmurs, No gallops Lungs: Clear to P&A Abd: Soft, Normal bowel sounds, No organomegaly Ext:No significant edema Active Medications Generic Name Dose Route Start Last Admin Trade Name Freq PRN Reason Stop Dose Admin Acetaminophen 650 mg 02/20/18 01:22 02/26/18 06:35 Tylenol - PO 650 mg Q6H PRN Administration FEVER Amlodipine Besylate 5 mg 02/21/18 10:00 03/04/18 09:23 Norvasc - PO 5 mg DAILY RON Administration Apixaban 2.5 mg 02/28/18 22:30 03/04/18 09:27 Eliquis - PO 2.5 mg BID RON Administration Diphenhydramine HCl 25 mg 02/25/18 22:12 02/25/18 22:37 Benadryl - PO 25 mg HS PRN Administration INSOMNIA Sodium Chloride 1,000 mls @ 60 mls/hr 02/22/18 20:29 03/03/18 21:16 Normal Saline - IV Not Given ASDIR RON Lactobacillus Acidophilus 1 tab 03/01/18 11:15 03/04/18 09:22 Bacid - PO 1 tab DAILY RON Administration Levofloxacin 750 mg 03/03/18 10:00 03/04/18 09:22 Levaquin - PO 750 mg DAILY RON Administration Losartan Potassium 50 mg 02/24/18 10:00 03/04/18 09:23 Cozaar - PO 50 mg DAILY RON Administration Metronidazole 250 mg 02/27/18 22:00 03/04/18 13:33 Flagyl - PO 250 mg TID RON Administration A/P 67 y/o patient with metastatic bladder cancer (transitional cell carcinoma), with prior pathological fracture R femur, and known adrenal metastasis, last seen by me in August 2016. At that time adamantly refused systemic therapy and has been lost to follow up.Also h/o colon resection x2 . Now with 2 months of worsening appetitie, wt. loss, decline in functional status , LLE pain/weakness Returns with severe microcytic anemia. Progression of disease (now with liver metastasis, and large retroperitoneal mass) seen on CT scan, Elevated Ca and ALKP s/p zometa given for hypercalcemia --02/22/18 Biopsy of liver lesion c/w poorly differentiated carcinoma immunostains s/o bladder primary To consider Keytruda on 03/07. Discussed indications/complications--inflammation - -dermatitis, colitis, hepatitis, pneumonitis , hypophysitis Patient with no h/o autoimmune disease discussed with patient and family superficial thrombosis of right cephalic vein -- supportive care plus eliquis 2.5mg bid ( as patient hypercoagulable form cancer) for 45 days d/c planning---home with services. aids social worker consult for wheel chair, supples, etc. PT recommendations prior to d/c To /u on to start immunotherpay Rediscussed side effects of immunotherapy disharged on flagyl/cipro/diflucan/eliquis and home meds
== END 2018-03-04 18:27 | disposition home or self-care (01) | DRG 436 ==
LOC: JER 16:21 → JERBED 17:57 → J7W 02-20 00:42
PROVIDERS: ADMIT Internal Medicine; ATTEND Internal Medicine
PROC: 30233N1 Transfusion of Nonautologous Red Blood Cells into Peripheral Vein, Percutaneous Approach (ICD-10-PCS; 2018-02-20)
PROC: 0F903ZX Drainage of Liver, Percutaneous Approach, Diagnostic (ICD-10-PCS; principal; 2018-02-25)
DX: C78.7 Secondary malignant neoplasm of liver and intrahepatic bile duct (principal); K63.2 Fistula of intestine; C79.51 Secondary malignant neoplasm of bone; C79.70 Secondary malignant neoplasm of unspecified adrenal gland; I82.611 Acute embolism and thrombosis of superficial veins of right upper extremity; D48.3 Neoplasm of uncertain behavior of retroperitoneum; K52.9 Noninfective gastroenteritis and colitis, unspecified; D48.4 Neoplasm of uncertain behavior of peritoneum; C67.9 Malignant neoplasm of bladder, unspecified; D63.8 Anemia in other chronic diseases classified elsewhere; D50.0 Iron deficiency anemia secondary to blood loss (chronic); R19.7 Diarrhea, unspecified; R31.9 Hematuria, unspecified; R53.1 Weakness; E83.52 Hypercalcemia; D72.829 Elevated white blood cell count, unspecified; I10 Essential (primary) hypertension
CPT/HCPCS: 36415; 36430; 36511; 71045-TC-FY; 74176-TC; 76775-TC; 76942-TC; 78306-TC; 80053; 81003; 81015; 82272; 82550; 83605; 83690; 83735; 84484; 85025; 85384; 85610; 85730; 86850; 86900; 86901; 86922; 87040; 87045; 87046; 87086; 87177; 87205; 87209; 87324; 87449; 87899; 88305-TC; 88341-TC; 93005; 93010; 93971; 97116-GP; 97161-GP; 99284-25; A9503; J1756; J3489; J7030; P9038; P9058

== ENCOUNTER 2018-03-28 07:26 | Day surgery (SDC) | payer BC ==
[2018-03-28] MEDS ORDERED: ACETAMINOPHEN 325 MG TABLET (FP) PO ONE (10:00)
[2018-03-28] MEDS ORDERED: DIPHENHYDRAMINE 25 MG, DEXAMETHASONE INJECTION 20 MG in SODIUM CHLORIDE 100 ML IVPB ONE (10:00)
[2018-03-28] MEDS ORDERED: PEMBROLIZUMAB 200 MG in SODIUM CHLORIDE 50 ML IV ONE (10:30)
[2018-03-28] MEDS ORDERED: SODIUM CHLORIDE 500 ML IV ONE (11:00)
[2018-03-28 11:27] LABS: ALBUMIN 2.3 g/dl (3.4-5.0); ANION GAP 9 MMOL/L (8-16); BILIRUBIN,DIRECT 0.2 mg/dL (0.0-0.2); BLOOD UREA NITROGEN 13 mg/dL (7-18); CALCIUM 9.1 mg/dL (8.5-10.1); CHLORIDE 111 mmol/L (98-107); CO2 23 mmol/L (21-32); GLUCOSE,RANDOM 70 mg/dL (74-106); MAGNESIUM 2.2 mg/dL (1.8-2.4); POTASSIUM 4.5 mmol/L (3.5-5.1); SODIUM 143 mmol/L (136-145)
[2018-03-28 11:30] LABS: ALK PHOS 224 U/L (45-117); BILIRUBIN,TOTAL 0.5 mg/dL (0.2-1.0); CREATININE 0.5 mg/dL (0.55-1.02); SGOT/AST 29 U/L (15-37); SGPT/ALT 25 U/L (12-78); TOT PROT 6.4 g/dl (6.4-8.2)
[2018-03-28 12:09] LABS: BASO % 0.7 % (0-2.0); EOS % 0.8 % (0-4.5); HEMATOCRIT 23.4 % (32.4-45.2); HEMOGLOBIN 7.4 GM/dL (10.7-15.3); MCH 20.8 pg (25.7-33.7); MCHC 31.6 g/dl (32.0-36.0); MEAN CELL VOLUME 65.9 fl (80-96); MEAN PLT VOLUME 6.7 fl (7.5-11.1); MONO % 10.2 % (3.8-10.2); NEUT % 61.3 % (42.8-82.8); PLATELET COUNT 711 K/MM3 (134-434); RBC 3.55 M/mm3 (3.60-5.2); RDW 30.1 % (11.6-15.6); WHITE BLOOD COUNT 7.9 K/mm3 (4.0-10.0)
[2018-03-28 14:48] LABS: ANISOCYTOSIS 2+; MACROCYTOSIS 0; OVALOCYTE 1+; PLATELET ESTIMATE INCREASED; TARGET CELLS 1+
[2018-03-28 16:22] VITALS: TEMP 98.1
[2018-03-28] MEDS ORDERED: SODIUM CHLORIDE 250 ML IV ONE (17:00)
[2018-03-28 18:25] VITALS: BP 124/72; PULSE 82
== END 2018-03-28 18:26 | disposition home or self-care (01) ==
LOC: JONCCHEMO 07:26 → J7W 12:00 → JONCCHEMO 18:26
PROVIDERS: ATTEND Internal Medicine Hematology & Oncology
DX: Z51.11 Encounter for antineoplastic chemotherapy (principal); C67.5 Malignant neoplasm of bladder neck; C79.51 Secondary malignant neoplasm of bone; C78.7 Secondary malignant neoplasm of liver and intrahepatic bile duct
CPT/HCPCS: 36415; 80048; 80053; 80076; 83735; 85025; 96361; 96367; 96375; 96413; J1100; J9271

== ENCOUNTER 2018-03-29 09:51 | Day surgery (SDC) | payer BC ==
--- NOTE | 2018-03-29 13:36 | HP ---
Satellite H - Chief Complaint Chief Complaint: Here for elective blood transfusion. Denies any complaints History Source: Patient - Past Medical History Allergies/Adverse Reactions: Allergies Allergy/AdvReac Type Severity Reaction Status Date / Time iodine [Iodine] Allergy Rash Verified 02/19/18 16:25 adhesive tape AdvReac Severe Verified 02/19/18 16:25 oxycodone HCl [From Percocet] AdvReac Severe Vomiting Verified 02/19/18 16:25 margarine AdvReac Severe Difficulty Uncoded 02/19/18 16:25 Breathing Cardiovascular: Yes: HTN Gastrointestinal: Yes: Cancer (colon cancer x 2 resections Bladder cancer w/ mets to bone(pathologic femur fx)) Hepatobiliary: Yes: Cholelithiasis Renal/: Yes: Cancer (met. bladder transitional cell CA) Heme/Onc: Yes: Anemia Musculoskeletal: Yes: Other (le fracture) - Current Medications Current Medications: Home Medications Medication Instructions Recorded Amlodipine Bes/Olmesartan Med 1 each PO DAILY 08/26/15 [Mindi 5-20 mg Tablet] Amox-Tr/K Cl [Augmentin 500-125mg 1 tab PO BID@0800,1730 #10 tablet 03/04/18 Tablet -] Apixaban [Eliquis -] 2.5 mg PO BID tablet 03/04/18 Lactobacillus Acidophilus [Bacid -] 1 tab PO DAILY #5 tab 03/04/18 metroNIDAZOLE [Flagyl -] 250 mg PO TID #15 tablet 03/04/18 Satellite Physical Exam - Physical Examination General Appearance: Alert & Oriented x3 Lung: Clear to auscultation, Normal air movement Heart: Regular rate & rhythm, Normal S1, Normal S2 Abdomen: Soft, No tenderness, Normal bowel sounds Extremities: No edema Neurological: Intact Satellite Impression/Plan - Impression/Plan Impression: 67 y/o patient with metastatic bladder cancer, here for elective blood transfusion
[2018-03-29 17:34] VITALS: BP 135/66; PULSE 85; TEMP 98.1
== END 2018-03-29 22:39 | disposition home or self-care (01) ==
LOC: JONCBLOOD 09:51 → J7W 10:20 → JONCBLOOD 22:39
PROVIDERS: ATTEND Internal Medicine Hematology & Oncology
PROC: 30243N1 Transfusion of Nonautologous Red Blood Cells into Central Vein, Percutaneous Approach (ICD-10-PCS; principal; 2018-03-29)
DX: D64.9 Anemia, unspecified (principal); C67.5 Malignant neoplasm of bladder neck; C79.51 Secondary malignant neoplasm of bone; C78.7 Secondary malignant neoplasm of liver and intrahepatic bile duct
CPT/HCPCS: 36430; 86850; 86900; 86901; 86922; P9038; P9058

== ENCOUNTER 2018-04-16 10:09 | Day surgery (SDC) | payer BC ==
[2018-04-15 10:28] VITALS: BMI 30.2
[2018-04-16] MEDS ORDERED: PORTA CATH FLUSH 10 ML IVPUSH PRN (11:09)
[2018-04-16 12:27] LABS: BASO % 0.9 % (0-2.0); EOS % 0.9 % (0-4.5); HEMATOCRIT 33.2 % (32.4-45.2); HEMOGLOBIN 9.9 GM/dL (10.7-15.3); LYMPH % 29.5 % (8-40); MCH 21.8 pg (25.7-33.7); MCHC 29.9 g/dl (32.0-36.0); MEAN CELL VOLUME 72.9 fl (80-96); MEAN PLT VOLUME 8.3 fl (7.5-11.1); MONO % 8.1 % (3.8-10.2); NEUT % 60.6 % (42.8-82.8); PLATELET COUNT 522 K/MM3 (134-434); RBC 4.55 M/mm3 (3.60-5.2); RDW 30.8 % (11.6-15.6); WHITE BLOOD COUNT 7.5 K/mm3 (4.0-10.0)
[2018-04-16 12:35] LABS: INR 1.06 (0.83-1.09)
[2018-04-16 13:40] LABS: ANISOCYTOSIS 1+; MACROCYTOSIS 1+
[2018-04-16] MEDS: MIDAZOLAM HCL 2 MG/2 ML SINGLE DOSE VIAL IVPUSH SCH ×2 (14:20→14:30)
[2018-04-16] MEDS ORDERED: ACETAMINOPHEN 325 MG TABLET (FP) ONE (15:49)
[2018-04-16] MEDS ORDERED: ACETAMINOPHEN 325 MG TABLET (FP) PO ONE (15:50)
[2018-04-16 17:10] VITALS: BP 140/69; PULSE 88; TEMP 98.4
== END 2018-04-16 17:30 | disposition home or self-care (01) ==
LOC: JRADIR 10:09
PROVIDERS: ATTEND Internal Medicine Hematology & Oncology
PROC: 05HM33Z Insertion of Infusion Device into Right Internal Jugular Vein, Percutaneous Approach (ICD-10-PCS; principal; 2018-04-16)
PROC: B513ZZA Fluoroscopy of Right Jugular Veins, Guidance (ICD-10-PCS; 2018-04-16)
DX: C67.9 Malignant neoplasm of bladder, unspecified (principal)
CPT/HCPCS: 36561; C1751; 36415; 77001-TC-FY; 85025; 85610; C1788

== ENCOUNTER 2018-04-18 07:33 | Day surgery (SDC) | payer BC ==
[2018-04-18] MEDS ORDERED: ACETAMINOPHEN 325 MG TABLET (FP) PO ONE (08:00)
[2018-04-18] MEDS ORDERED: DEXAMETHASONE INJECTION 20 MG, DIPHENHYDRAMINE 25 MG in SODIUM CHLORIDE 100 ML IVPB ONE (08:00)
[2018-04-18] MEDS ORDERED: PEMBROLIZUMAB 200 MG in SODIUM CHLORIDE 50 ML IV ONE (08:30)
[2018-04-18] MEDS ORDERED: SODIUM CHLORIDE 500 ML IV ONE (09:00)
[2018-04-18 11:29] LABS: BASO % 0.8 % (0-2.0); EOS % 1.3 % (0-4.5); HEMATOCRIT 32.6 % (32.4-45.2); HEMOGLOBIN 9.9 GM/dL (10.7-15.3); MCH 22.4 pg (25.7-33.7); MCHC 30.4 g/dl (32.0-36.0); MEAN CELL VOLUME 73.6 fl (80-96); MEAN PLT VOLUME 8.6 fl (7.5-11.1); MONO % 8.5 % (3.8-10.2); NEUT % 56.4 % (42.8-82.8); PLATELET COUNT 496 K/MM3 (134-434); RBC 4.43 M/mm3 (3.60-5.2); WHITE BLOOD COUNT 6.2 K/mm3 (4.0-10.0)
[2018-04-18 12:02] LABS: ALBUMIN 3.2 g/dl (3.4-5.0); BILIRUBIN,DIRECT < 0.2 mg/dL (0.0-0.2); BILIRUBIN,TOTAL 0.4 mg/dL (0.2-1.0); MAGNESIUM 2.2 mg/dL (1.8-2.4); SGOT/AST 17 U/L (15-37); SGPT/ALT 17 U/L (13-61)
[2018-04-18 12:03] LABS: ALBUMIN 3.2 g/dl (3.4-5.0); ANION GAP 8 MMOL/L (8-16); BLOOD UREA NITROGEN 14 mg/dL (7-18); CALCIUM 9.7 mg/dL (8.5-10.1); CHLORIDE 113 mmol/L (98-107); CO2 22 mmol/L (21-32); GLUCOSE,RANDOM 91 mg/dL (74-106); POTASSIUM 4.8 mmol/L (3.5-5.1); SODIUM 143 mmol/L (136-145)
[2018-04-18 12:04] LABS: ALK PHOS 178 U/L (45-117)
[2018-04-18 12:07] LABS: ALK PHOS 175 U/L (45-117); BILIRUBIN,TOTAL 0.4 mg/dL (0.2-1.0); CREATININE 0.6 mg/dL (0.55-1.02); SGOT/AST 19 U/L (15-37); SGPT/ALT 17 U/L (13-61)
[2018-04-18] MEDS ORDERED: amLODIPine BESYLATE 5 MG TABLET (FP) PO ONE ×2 (13:30→14:15)
[2018-04-18 17:01] VITALS: TEMP 97.9
[2018-04-18 17:35] VITALS: BP 159/85; PULSE 87
[2018-04-18] MEDS ORDERED: PORTA CATH FLUSH 10 ML IVPUSH ONE (17:35)
== END 2018-04-18 16:45 | disposition home or self-care (01) ==
LOC: JONCCHEMO 07:33 → J7W 12:44 → JONCCHEMO 16:45
PROVIDERS: ATTEND Internal Medicine Hematology & Oncology
DX: Z51.11 Encounter for antineoplastic chemotherapy (principal); C67.9 Malignant neoplasm of bladder, unspecified
CPT/HCPCS: 36415; 80053; 80076; 83735; 85025; 96361; 96367; 96375; 96413; J1100; J9271

== ENCOUNTER 2018-05-09 07:33 | Day surgery (SDC) | payer BC ==
[2018-05-09] MEDS ORDERED: DIPHENHYDRAMINE 25 MG, DEXAMETHASONE INJECTION 20 MG in SODIUM CHLORIDE 100 ML IVPB ONE (10:00)
[2018-05-09] MEDS ORDERED: ACETAMINOPHEN 325 MG TABLET (FP) PO ONE ×2 (10:00→13:00)
[2018-05-09] MEDS ORDERED: SODIUM CHLORIDE 500 ML IV ONE (10:00)
[2018-05-09] MEDS ORDERED: PEMBROLIZUMAB 200 MG in SODIUM CHLORIDE 50 ML IV ONE (10:30)
[2018-05-09 11:40] LABS: BASO % 1.1 % (0-2.0); EOS % 2.4 % (0-4.5); HEMATOCRIT 36.9 % (32.4-45.2); HEMOGLOBIN 11.3 GM/dL (10.7-15.3); LYMPH % 32.5 % (8-40); MCH 23.9 pg (25.7-33.7); MCHC 30.6 g/dl (32.0-36.0); MEAN CELL VOLUME 78.2 fl (80-96); MONO % 8.7 % (3.8-10.2); NEUT % 55.3 % (42.8-82.8); PLATELET COUNT 337 K/MM3 (134-434); RBC 4.71 M/mm3 (3.60-5.2); RDW 20.9 % (11.6-15.6); WHITE BLOOD COUNT 5.5 K/mm3 (4.0-10.0)
[2018-05-09 12:00] LABS: ALBUMIN 3.3 g/dl (3.4-5.0); ALK PHOS 124 U/L (45-117); BILIRUBIN,DIRECT < 0.2 mg/dL (0.0-0.2); BILIRUBIN,TOTAL 0.3 mg/dL (0.2-1); MAGNESIUM 2.1 mg/dL (1.8-2.4); SGOT/AST 24 U/L (15-37); SGPT/ALT 18 U/L (13-61); TOT PROT 6.9 g/dl (6.4-8.2)
[2018-05-09 12:01] LABS: ALBUMIN 3.3 g/dl (3.4-5.0); ALK PHOS 123 U/L (45-117); ANION GAP 6 MMOL/L (8-16); BILIRUBIN,TOTAL 0.2 mg/dL (0.2-1); BLOOD UREA NITROGEN 13 mg/dL (7-18); CALCIUM 9.5 mg/dL (8.5-10.1); CHLORIDE 109 mmol/L (98-107); CO2 27 mmol/L (21-32); CREATININE 0.6 mg/dL (0.55-1.3); GLUCOSE,RANDOM 84 mg/dL (74-106); POTASSIUM 4.2 mmol/L (3.5-5.1); SGOT/AST 24 U/L (15-37); SGPT/ALT 18 U/L (13-61); SODIUM 142 mmol/L (136-145)
[2018-05-09] MEDS ORDERED: DEXAMETHASONE SOD PHOSPHATE 20 MG/5 ML VIAL IVPB ONE (12:01)
[2018-05-09] MEDS ORDERED: DEXAMETHASONE SOD PHOSPHATE 10 MG/1 ML VIAL ONE (13:22)
[2018-05-09 16:28] VITALS: TEMP 98.3
[2018-05-09] MEDS ORDERED: PORTA CATH FLUSH 10 ML IVPUSH ONE (16:28)
[2018-05-09 17:33] VITALS: BP 142/70; PULSE 78
== END 2018-05-09 17:15 | disposition home or self-care (01) ==
LOC: JONCCHEMO 07:33 → J7W 12:41 → JONCCHEMO 17:15
PROVIDERS: ATTEND Internal Medicine Hematology & Oncology
DX: Z51.11 Encounter for antineoplastic chemotherapy (principal); C67.9 Malignant neoplasm of bladder, unspecified
CPT/HCPCS: 36415; 80053; 80076; 83735; 85025; 96361; 96367; 96375; 96413; J1100; J9271

== ENCOUNTER 2018-05-30 07:19 | Day surgery (SDC) | payer BC ==
[2018-05-30] MEDS ORDERED: DEXAMETHASONE INJECTION 20 MG, DIPHENHYDRAMINE 25 MG in SODIUM CHLORIDE 100 ML IVPB ONE (10:00)
[2018-05-30] MEDS ORDERED: ACETAMINOPHEN 325 MG TABLET (FP) PO ONE (10:00)
[2018-05-30] MEDS ORDERED: PEMBROLIZUMAB 200 MG in SODIUM CHLORIDE 50 ML IV ONE (10:30)
[2018-05-30] MEDS ORDERED: SODIUM CHLORIDE 500 ML IV ONE (11:00)
[2018-05-30 11:21] LABS: BASO % 0.7 % (0-2.0); EOS % 1.4 % (0-4.5); HEMATOCRIT 40.2 % (32.4-45.2); HEMOGLOBIN 12.5 GM/dL (10.7-15.3); LYMPH % 33.9 % (8-40); MCH 24.5 pg (25.7-33.7); MCHC 31.1 g/dl (32.0-36.0); MEAN CELL VOLUME 78.7 fl (80-96); MEAN PLT VOLUME 7.1 fl (7.5-11.1); MONO % 7.7 % (3.8-10.2); NEUT % 56.3 % (42.8-82.8); PLATELET COUNT 294 K/MM3 (134-434); RBC 5.11 M/mm3 (3.60-5.2); RDW 16.7 % (11.6-15.6)
[2018-05-30 11:55] LABS: ALBUMIN 3.6 g/dl (3.4-5.0); ALK PHOS 129 U/L (45-117); ANION GAP 9 MMOL/L (8-16); BILIRUBIN,DIRECT 0.1 mg/dL (0.0-0.2); BILIRUBIN,TOTAL 0.3 mg/dL (0.2-1); BLOOD UREA NITROGEN 17 mg/dL (7-18); CALCIUM 9.5 mg/dL (8.5-10.1); CHLORIDE 108 mmol/L (98-107); CO2 27 mmol/L (21-32); CREATININE 0.5 mg/dL (0.55-1.3); GLUCOSE,RANDOM 83 mg/dL (74-106); MAGNESIUM 2.1 mg/dL (1.8-2.4); POTASSIUM 4.4 mmol/L (3.5-5.1); SGOT/AST 35 U/L (15-37); SGPT/ALT 28 U/L (13-61); SODIUM 143 mmol/L (136-145); TOT PROT 7.3 g/dl (6.4-8.2)
[2018-05-30] MEDS ORDERED: DEXAMETHASONE SOD PHOSPHATE 4 MG/1 ML VIAL IVPB ONE (13:00)
[2018-05-30 15:22] VITALS: TEMP 98.1
[2018-05-30 17:29] VITALS: BP 161/81; PULSE 80
[2018-05-30] MEDS ORDERED: DEXAMETHASONE SOD PHOSPHATE 4 MG/1 ML VIAL IVPUSH SCH (18:00)
== END 2018-05-30 17:30 | disposition home or self-care (01) ==
LOC: JONCCHEMO 07:19 → J7W 13:29 → JONCCHEMO 17:30
PROVIDERS: ATTEND Internal Medicine Hematology & Oncology
DX: Z51.11 Encounter for antineoplastic chemotherapy (principal); C67.9 Malignant neoplasm of bladder, unspecified
CPT/HCPCS: 36415; 80053; 80076; 83735; 84439; 84443; 85025; 96361; 96367; 96375; 96413; J9271

== ENCOUNTER 2018-06-20 07:17 | Day surgery (SDC) | payer BC ==
[2018-06-20] MEDS ORDERED: DEXAMETHASONE INJECTION 20 MG, DIPHENHYDRAMINE 25 MG in SODIUM CHLORIDE 100 ML IVPB ONE (08:00)
[2018-06-20] MEDS ORDERED: ACETAMINOPHEN 325 MG TABLET (FP) PO ONE (08:00)
[2018-06-20] MEDS ORDERED: PEMBROLIZUMAB 200 MG in SODIUM CHLORIDE 50 ML IV ONE (08:30)
[2018-06-20] MEDS ORDERED: SODIUM CHLORIDE 500 ML IV ONE (09:00)
[2018-06-20 10:38] VITALS: TEMP 98.4
[2018-06-20 11:20] LABS: BASO % 0.9 % (0-2.0); EOS % 1.5 % (0-4.5); HEMATOCRIT 40.6 % (32.4-45.2); HEMOGLOBIN 12.6 GM/dL (10.7-15.3); LYMPH % 30.3 % (8-40); MCH 24.4 pg (25.7-33.7); MCHC 30.9 g/dl (32.0-36.0); MEAN PLT VOLUME 7.2 fl (7.5-11.1); MONO % 8.4 % (3.8-10.2); NEUT % 58.9 % (42.8-82.8); PLATELET COUNT 287 K/MM3 (134-434); RBC 5.14 M/mm3 (3.60-5.2); RDW 15.1 % (11.6-15.6); WHITE BLOOD COUNT 6.1 K/mm3 (4.0-10.0)
[2018-06-20 12:05] LABS: ALBUMIN 3.5 g/dl (3.4-5.0); BILIRUBIN,DIRECT 0.1 mg/dL (0.0-0.2); BILIRUBIN,TOTAL 0.3 mg/dL (0.2-1); MAGNESIUM 2.1 mg/dL (1.8-2.4); TOT PROT 6.9 g/dl (6.4-8.2)
[2018-06-20 12:14] LABS: ALBUMIN 3.4 g/dl (3.4-5.0); ALK PHOS 115 U/L (45-117); ANION GAP 3 MMOL/L (8-16); BILIRUBIN,TOTAL 0.2 mg/dL (0.2-1); BLOOD UREA NITROGEN 14 mg/dL (7-18); CALCIUM 9.5 mg/dL (8.5-10.1); CHLORIDE 106 mmol/L (98-107); CO2 30 mmol/L (21-32); CREATININE 0.5 mg/dL (0.55-1.3); GLUCOSE,RANDOM 78 mg/dL (74-106); POTASSIUM 4.8 mmol/L (3.5-5.1); SGOT/AST 59 U/L (15-37); SGPT/ALT 46 U/L (13-61); SODIUM 140 mmol/L (136-145); TOT PROT 6.8 g/dl (6.4-8.2); URIC ACID 6.5 mg/dL (2.6-7.2)
[2018-06-20 17:59] VITALS: BP 149/69; PULSE 70
[2018-06-20] MEDS ORDERED: PORTA CATH FLUSH 10 ML IVPUSH ONE (17:59)
== END 2018-06-20 17:30 | disposition home or self-care (01) ==
LOC: JONCCHEMO 07:17 → J7W 13:19 → JONCCHEMO 17:30
PROVIDERS: ATTEND Internal Medicine Hematology & Oncology
DX: Z51.11 Encounter for antineoplastic chemotherapy (principal); C67.9 Malignant neoplasm of bladder, unspecified
CPT/HCPCS: 36415; 80053; 80076; 83735; 84439; 84443; 84550; 85025; 96361; 96367; 96375; 96413; J9271

== ENCOUNTER 2018-07-11 07:30 | Day surgery (SDC) | payer BC ==
[2018-07-11] MEDS ORDERED: DIPHENHYDRAMINE 25 MG in SODIUM CHLORIDE 50 ML IVPB ONE (10:00)
[2018-07-11] MEDS ORDERED: PEMBROLIZUMAB 200 MG in SODIUM CHLORIDE 50 ML IV ONE (10:30)
[2018-07-11] MEDS ORDERED: SODIUM CHLORIDE 500 ML IV ONE (11:00)
[2018-07-11 11:16] LABS: BASO % 0.6 % (0-2.0); EOS % 1.2 % (0-4.5); HEMATOCRIT 41.4 % (32.4-45.2); HEMOGLOBIN 13.6 GM/dL (10.7-15.3); LYMPH % 26.9 % (8-40); MCH 25.4 pg (25.7-33.7); MCHC 32.9 g/dl (32.0-36.0); MEAN CELL VOLUME 77.3 fl (80-96); MEAN PLT VOLUME 7.5 fl (7.5-11.1); MONO % 7.6 % (3.8-10.2); NEUT % 63.7 % (42.8-82.8); PLATELET COUNT 336 K/MM3 (134-434); RBC 5.36 M/mm3 (3.60-5.2); RDW 14.5 % (11.6-15.6); WHITE BLOOD COUNT 7.7 K/mm3 (4.0-10.0)
[2018-07-11 12:08] LABS: ALBUMIN 3.8 g/dl (3.4-5.0); ALK PHOS 114 U/L (45-117); ANION GAP 8 MMOL/L (8-16); BILIRUBIN,DIRECT 0.1 mg/dL (0.0-0.2); BILIRUBIN,TOTAL 0.3 mg/dL (0.2-1); BLOOD UREA NITROGEN 15 mg/dL (7-18); CALCIUM 10.1 mg/dL (8.5-10.1); CHLORIDE 104 mmol/L (98-107); CO2 30 mmol/L (21-32); CREATININE 0.7 mg/dL (0.55-1.3); GLUCOSE,RANDOM 109 mg/dL (74-106); MAGNESIUM 2.1 mg/dL (1.8-2.4); POTASSIUM 4.9 mmol/L (3.5-5.1); SGOT/AST 88 U/L (15-37); SGPT/ALT 76 U/L (13-61); SODIUM 141 mmol/L (136-145); TOT PROT 7.3 g/dl (6.4-8.2)
[2018-07-11] MEDS ORDERED: DEXAMETHASONE SOD PHOSPHATE 20 MG/5 ML VIAL IVPB ONE (12:27)
[2018-07-11] MEDS ORDERED: SODIUM CHLORIDE 1,000 ML IV ONE (13:15)
[2018-07-11] MEDS ORDERED: DEXAMETHASONE SOD PHOSPHATE 10 MG/1 ML VIAL ONE (13:30)
[2018-07-11 18:07] VITALS: BP 157/81; PULSE 86; TEMP 98.3
[2018-07-11] MEDS ORDERED: PORTA CATH FLUSH 10 ML IVPUSH ONE (18:07)
== END 2018-07-11 18:12 | disposition home or self-care (01) ==
LOC: JONCCHEMO 07:30 → J7W 12:57 → JONCCHEMO 18:12
PROVIDERS: ATTEND Internal Medicine Hematology & Oncology
DX: Z51.11 Encounter for antineoplastic chemotherapy (principal); C67.9 Malignant neoplasm of bladder, unspecified
CPT/HCPCS: 36415; 80053; 80076; 83735; 85025; 96361; 96367; 96375; 96413; J1100; J7030; J9271

== ENCOUNTER 2018-08-02 10:15 | Inpatient (IN) | payer BC ==
--- NOTE | 2018-08-02 10:25 | PDOC ---
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 HEAD: Normal EYES: PERRLA, EOMI, sclera anicteric, conjunctiva clear. ENT: Ears normal, nares patent, oropharynx clear without exudates. Moist mucous membranes. NECK: Normal range of motion, supple LUNGS: Breath sounds equal, clear to auscultation bilaterally. No wheezes, and no crackles. HEART:Regular rate and rhythm, normal S1 and S2 without murmur . ABDOMEN: Soft, nontender, normoactive bowel sounds. No guarding, no rebound. EXTREMITIES: Normal range of motion, no edema. NEUROLOGICAL: Cranial nerves II through XII grossly intact. Normal speech. No focal neurological deficits. SKIN: Warm, Dry, normal turgor, no rashes or lesions noted. 08/02/18 11:41 - Medical Decision Making 08/02/18 11:29 Laboratory Tests 08/02/18 10:54 Influenza A (Rapid) Negative Influenza B (Rapid) Negative Labs have hemolyzed Laboratory Tests 08/02/18 13:00 WBC 13.0 H Hgb 12.7 Hct 41.9 Plt Count 282 08/02/18 11:42 EKG - NSR rate of 102 bpm, axis nml, intervals nml, no st elevation or depression Labs repeatedly hemolyzed Dr Mckinney requesting pt be sent upstairs CMP not completed Tech again sent to the ER to bring patient upstairs Call placed to Dr Medina Case reviewed by Dr Saenz with Dr Medina *DC/Admit/Observation/Transfer Diagnosis at time of Disposition: Weakness - Discharge Dispostion Condition at time of disposition: Fair Decision to Admit order: Yes - Referrals - Patient Instructions - Post Discharge Activity
--- NOTE | 2018-08-02 10:29 | PDOC ---
History of Present Illness - General Chief Complaint: Weakness Stated Complaint: Weakness Time Seen by Provider: 08/02/18 10:23 - History of Present Illness Initial Comments: 08/02/18 10:29 68 y.o. female with PMH of metastatic bladder CA, history of colon mass s/p resection, Lt nephrectomy, adrenal mass, and pathologic femoral fracture currently on immunotherapy, overseen by Dr. Mckinney. She is presenting with worsening weakness over the past week, as well as shortness of breath. She hasn't been eating or drinking much due to the weakness. Is scheduled to received her therapy in room [address] Mckinney Past History - Past Medical History Allergies/Adverse Reactions: Allergies Allergy/AdvReac Type Severity Reaction Status Date / Time iodine [Iodine] Allergy Rash Verified 08/02/18 10:50 adhesive tape AdvReac Severe Verified 08/02/18 10:50 oxycodone HCl [From Percocet] AdvReac Severe Vomiting Verified 08/02/18 10:50 margarine AdvReac Severe Difficulty Uncoded 08/02/18 10:50 Breathing Home Medications: Ambulatory Orders Amlodipine Besylate 2.5 mg PO DAILY 04/15/18 Losartan Potassium 25 mg PO DAILY 04/15/18 Anemia: Yes Asthma: No Cancer: Yes (COLON, bladder) Cardiac Disorders: No CVA: No COPD: No CHF: No DVT: No Dementia: No Diabetes: No GI Disorders: No Disorders: Yes (LEFT nephrectomy) HTN: Yes Hypercholesterolemia: No Liver Disease: No Seizures: No Thyroid Disease: Yes (recent thyroid nodules) - Surgical History Abdominal Surgery: Yes (colon resectionx 2) Appendectomy: No Cardiac Surgery: No Cholecystectomy: No Lung Surgery: No Neurologic Surgery: No Orthopedic Surgery: Yes (SHOULDER SX - LEFT,rt wrist,rt knee,jennifer in right leg) - Suicide/Smoking/Psychosocial Hx Smoking Status: Yes Smoking History: Former smoker Have you smoked in the past 12 months: No Number of Cigarettes Smoked Daily: 1 If you are a former smoker, when did you quit?: 2 YRS Hx Alcohol Use: Yes (RARE) Drug/Substance Use Hx: No Substance Use Type: None Hx Substance Use Treatment: No *Physical Exam - Physical Exam General Appearance: Yes: Nourished, Appropriately Dressed, Mild Distress HEENT: positive: EOMI, KATINA, Normal ENT Inspection Respiratory/Chest: positive: Lungs Clear, Normal Breath Sounds. negative: Chest Tender, Respiratory Distress Cardiovascular: positive: Regular Rhythm, Regular Rate, S1, S2 Gastrointestinal/Abdominal: positive: Normal Bowel Sounds, Flat, Soft. negative : Tender Musculoskeletal: positive: Normal Inspection. negative: CVA Tenderness Extremity: positive: Normal Capillary Refill, Normal Inspection, Normal Range of Motion Integumentary: positive: Normal Color, Dry, Warm Neurologic: positive: Fully Oriented, Alert, Depressed Affect ED Treatment Course - LABORATORY CBC & Chemistry Diagram: 08/02/18 10:42 08/02/18 10:42 Medical Decision Making - Medical Decision Making 08/02/18 13:20 Infection (flu, pna, UA) vs anemia vs failure to thrive due to cancer. Spoke to Dr. Mckinney who will see the patient upstairs for her treatment room 718. All labs sent for workup, Multiple redraws necessary as blood deemd "contaminated" by the lab) Spoke to Dr. Medina who accepted the patient's admission to [facility] *DC/Admit/Observation/Transfer Diagnosis at time of Disposition: Weakness - Discharge Dispostion Condition at time of disposition: Fair Decision to Admit order: Yes - Referrals - Patient Instructions - Post Discharge Activity
[2018-08-02] MEDS ORDERED: SODIUM CHLORIDE 1,000 ML IV STA ×3 (10:46→15:20)
[2018-08-02 11:54] LABS: URINE APPEARANCE CLEAR; URINE BILIRUBIN NEGATIVE (<2.0 mg/dL); URINE COLOR STRAW; URINE GLUCOSE (UA) 3+ (NEGATIVE); URINE KETONE 2+ (NEGATIVE); URINE LEUK ESTERASE TRACE (NEGATIVE); URINE NITRITE NEGATIVE (NEGATIVE); URINE PROTEIN NEGATIVE (NEGATIVE); URINE UROBILINOGEN NEGATIVE mg/dL (0.2-1.0)
[2018-08-02 12:01] LABS: EPI CELLS RARE /HPF (FEW); URINE BACTERIA RARE /hpf (NONE SEEN); URINE MUCUS RARE
[2018-08-02 12:05] LABS: INR 0.88 (0.83-1.09); PROTHROMBIN TIME (PATIENT) 10.4 SEC (9.7-13.0)
[2018-08-02 13:16] LABS: BASO % 1.2 % (0-2.0); EOS % 0.1 % (0-4.5); HEMATOCRIT 41.9 % (32.4-45.2); HEMOGLOBIN 12.7 GM/dL (10.7-15.3); LYMPH % 12.2 % (8-40); MCHC 30.3 g/dl (32.0-36.0); MEAN CELL VOLUME 85.7 fl (80-96); MEAN PLT VOLUME 9.3 fl (7.5-11.1); MONO % 5.6 % (3.8-10.2); NEUT % 80.9 % (42.8-82.8); PLATELET COUNT 282 K/MM3 (134-434); RBC 4.88 M/mm3 (3.60-5.2); RDW 15.4 % (11.6-15.6)
[2018-08-02 14:27] LABS: ALBUMIN 3.6 g/dl (3.4-5.0); ALK PHOS 110 U/L (45-117); ANION GAP 30 MMOL/L (8-16); BILIRUBIN,TOTAL 0.5 mg/dL (0.2-1); BLOOD UREA NITROGEN 44 mg/dL (7-18); CALCIUM 10.1 mg/dL (8.5-10.1); CHLORIDE 92 mmol/L (98-107); CO2 6 mmol/L (21-32); CREATININE 1.9 mg/dL (0.55-1.3); POTASSIUM 5.9 mmol/L (3.5-5.1); SGOT/AST 28 U/L (15-37); SGPT/ALT 67 U/L (13-61); SODIUM 128 mmol/L (136-145); TOT PROT 6.6 g/dl (6.4-8.2)
[2018-08-02 14:30] LABS: GLUCOSE,RANDOM 990 mg/dL (74-106)
[2018-08-02] MEDS ORDERED: SODIUM CHLORIDE 1,000 ML IV SCH (15:00)
[2018-08-02] MEDS ORDERED: INSULIN REGULAR 100 UNITS in SODIUM CHLORIDE 99 ML IVPB SCH (15:00)
--- NOTE | 2018-08-02 15:27 | CONSULT ---
Consultation: REQUESTING PROVIDER: Gregoria Medina CONSULT REQUEST: We have been asked to medically evaluate this patient for diabetic ketoacidosis. HISTORY OF PRESENT ILLNESS: Patient is a 68 y/o F with PMHx bladder Ca w/ mets to bone and pathologic femur Fx, colon Ca s/p resection x 2, L nephrectomy, adrenal mass, p/w weakness, anorexia, SOB x 1 week, found to be in DKA w/ glucose 990, AG 30. REVIEW OF SYSTEMS: As per HPI PHYSICAL EXAMINATION Vital Signs - 24 hr 08/02/18 08/02/18 10:15 13:56 Temperature 98.7 F Pulse Rate 100 H Pulse Rate [ 101 H Apical] Respiratory 16 20 Rate Blood Pressure 164/67 Blood Pressure 139/62 [Right Arm] O2 Sat by Pulse 100 97 Oximetry (%) GENERAL: Lethargic, oriented x 3, in distress, giving off ketone odor HEAD: NC/AT EYES: PERRLA EARS, NOSE, THROAT: dry mucous membranes NECK: supple without lymphadenopathy LUNGS: CTA b/l HEART: tachycardic, harsh holosystolic murmur ABDOMEN: bs distant, soft, mild diffuse tenderness UPPER EXTREMITIES: 2+ pulses, warm, well-perfused. No cyanosis. No clubbing. Cap refill <2 seconds. No peripheral edema. LOWER EXTREMITIES: 2+ pulses, warm, well-perfused. No calf tenderness. No peripheral edema. NEUROLOGICAL: die designer, motor, sensory systems without focal deficit PSYCHIATRIC: Cooperative. Good eye contact. Appropriate mood and affect. SKIN: Warm, dry, normal turgor, no rashes or lesions noted. Laboratory Results - last 24 hr 08/02/18 08/02/18 08/02/18 10:42 10:42 10:42 WBC Cancelled Corrected WBC (auto) Cancelled RBC Cancelled Hgb Cancelled Hct Cancelled MCV Cancelled MCH Cancelled MCHC Cancelled RDW Cancelled Plt Count Cancelled MPV Cancelled Absolute Neuts (auto) Cancelled Absolute Lymphs (auto) Cancelled Absolute Monos (auto) Cancelled Absolute Eos (auto) Cancelled Absolute Basos (auto) Cancelled Add Manual Diff Cancelled Neutrophils % Cancelled Lymphocytes % Cancelled Monocytes % Cancelled Eosinophils % Cancelled Basophils % Cancelled Nucleated RBC % Cancelled Platelet Estimate Cancelled Platelet Comment Cancelled Normal RBC Morphology Cancelled PT with INR 10.40 INR 0.88 Sodium Cancelled Potassium Cancelled Chloride Cancelled Carbon Dioxide Cancelled Anion Gap Cancelled BUN Cancelled Creatinine Cancelled Creat Clearance w eGFR Cancelled Random Glucose Cancelled Calcium Cancelled Magnesium Cancelled Total Bilirubin Cancelled AST Cancelled ALT Cancelled Alkaline Phosphatase Cancelled Creatine Kinase Cancelled CK-MB (CK-2) Troponin I Cancelled Total Protein Cancelled Albumin Cancelled TSH Urine Color Urine Appearance Urine pH Ur Specific Renner Urine Protein Urine Glucose (UA) Urine Ketones Urine Blood Urine Nitrite Urine Bilirubin Urine Urobilinogen Ur Leukocyte Esterase Urine WBC (Auto) Urine RBC (Auto) Ur Epithelial Cells Urine Bacteria Urine Mucus Influenza A (Rapid) Influenza B (Rapid) 08/02/18 08/02/18 08/02/18 10:47 10:47 10:47 WBC Cancelled Corrected WBC (auto) Cancelled RBC Cancelled Hgb Cancelled Hct Cancelled MCV Cancelled MCH Cancelled MCHC Cancelled RDW Cancelled Plt Count Cancelled MPV Cancelled Absolute Neuts (auto) Cancelled Absolute Lymphs (auto) Absolute Monos (auto) Absolute Eos (auto) Absolute Basos (auto) Add Manual Diff Neutrophils % Cancelled Lymphocytes % Cancelled Monocytes % Cancelled Eosinophils % Cancelled Basophils % Cancelled Nucleated RBC % Cancelled Platelet Estimate Cancelled Platelet Comment Cancelled Normal RBC Morphology PT with INR INR Sodium Potassium Chloride Carbon Dioxide Anion Gap BUN Creatinine Creat Clearance w eGFR Random Glucose Calcium Magnesium Total Bilirubin AST ALT Alkaline Phosphatase Creatine Kinase CK-MB (CK-2) Troponin I Total Protein Albumin TSH 1.83 Urine Color Straw Urine Appearance Clear Urine pH 5.0 Ur Specific Renner 1.018 Urine Protein Negative Urine Glucose (UA) 3+ H Urine Ketones 2+ H Urine Blood 2+ H Urine Nitrite Negative Urine Bilirubin Negative Urine Urobilinogen Negative Ur Leukocyte Esterase Trace Urine WBC (Auto) 8 Urine RBC (Auto) 2 Ur Epithelial Cells Rare Urine Bacteria Rare Urine Mucus Rare Influenza A (Rapid) Influenza B (Rapid) 08/02/18 08/02/18 08/02/18 10:54 13:00 13:00 WBC 13.0 H Corrected WBC (auto) RBC 4.88 Hgb 12.7 Hct 41.9 MCV 85.7 D MCH 26.0 MCHC 30.3 L RDW 15.4 Plt Count 282 MPV 9.3 D Absolute Neuts (auto) 10.5 H Absolute Lymphs (auto) Absolute Monos (auto) Absolute Eos (auto) Absolute Basos (auto) Add Manual Diff Neutrophils % 80.9 D Lymphocytes % 12.2 D Monocytes % 5.6 Eosinophils % 0.1 D Basophils % 1.2 Nucleated RBC % 0 Platelet Estimate Platelet Comment Normal RBC Morphology PT with INR INR Sodium 128 L Potassium 5.9 H Chloride 92 L Carbon Dioxide 6 L Anion Gap 30 H BUN 44 H Creatinine 1.9 H Creat Clearance w eGFR 26.37 Random Glucose 990 H* Calcium 10.1 Magnesium Total Bilirubin 0.5 AST 28 ALT 67 H Alkaline Phosphatase 110 Creatine Kinase 933 H CK-MB (CK-2) 188.7 H Troponin I 0.05 Total Protein 6.6 Albumin 3.6 TSH Urine Color Urine Appearance Urine pH Ur Specific Renner Urine Protein Urine Glucose (UA) Urine Ketones Urine Blood Urine Nitrite Urine Bilirubin Urine Urobilinogen Ur Leukocyte Esterase Urine WBC (Auto) Urine RBC (Auto) Ur Epithelial Cells Urine Bacteria Urine Mucus Influenza A (Rapid) Negative Influenza B (Rapid) Negative Active Medications Generic Name Dose Route Start Last Admin Trade Name Freq PRN Reason Stop Dose Admin Chlorhexidine Gluconate 1 applic 08/02/18 22:00 Hibiclens For Decolonization - TP HS [facility] Heparin Sodium (Porcine) 5,000 unit 08/02/18 22:00 Heparin - SQ TID [facility] Insulin Human Regular 100 100 mls @ 8.84 mls/hr 08/02/18 15:00 units/ Sodium Chloride IVPB TITR [facility] Protocol 0.1 UNITS/KG/HR Sodium Chloride 1,000 mls @ 200 mls/hr 08/02/18 15:00 Normal Saline - IV ASDIR [facility] Mupirocin 1 applic 08/02/18 22:00 Bactroban Ointment (For Decolonization) - NS 08/07/18 21:59 BID [facility] ASSESSMENT/PLAN: 68 y/o F with PMHx metastatic bladder Ca, extensive oncologic Hx, in DKA -NS@200 -bolus 1L -insulin gtt per protocol -no need for K-containing IVF at this time as initial K is 5.9 -ABG stat -BGM q1h -BMP q4h -endocrinology consult -oncology consult -NPO at present -bridge to basal insulin and sliding scale when gap closes, restart PO -switch to D51/2NS when glucose <250 -add potassium to fluid if K<4.5 -DVT PPx w/ heparin subq -will consider infectious trigger, UA negative, UCx and BCx pending -likely etiology is undiagnosed DM -significant MATTEO (Cr 1.9 vs baseline 0.5), likely 2/2 volume depletion -WBC 13 likely reactive, no need for ABx at this time, will follow cultures Dispo: We will continue to follow the patient in the ICU. Thank you for this consultative opportunity. Visit type - Emergency Visit Emergency Visit: Yes ED Registration Date: 08/02/18 Care time: The patient presented to the Emergency Department on the above date and was hospitalized for further evaluation of their emergent condition. - New Patient This patient is new to me today: Yes Date on this admission: 08/02/18 - Critical Care Critical Care patient: Yes Total Critical Care Time (in minutes): 40 Critical Care Statement: The care of this patient involved high complexity decision making to prevent further life threatening deterioration of the patient 's condition and/or to evaluate & treat vital organ system(s) failure or risk of failure.
[2018-08-02 15:41] LABS: ARTERIAL BLD GAS O2 SATURATION 96.9 % (90-98.9); ARTERIAL BLOOD GAS BASE EXCESS -23.4 meq/l (-2-2)
[2018-08-02 15:43] LABS: ALLENS TEST POSITIVE
[2018-08-02 15:44] LABS: ARTERIAL BLOOD GAS PCO2 17.8 mmHg (35-45)
[2018-08-02 15:48] LABS: MAGNESIUM 2.5 mg/dL (1.8-2.4); PHOSPHOROUS 4.9 mg/dL (2.5-4.9)
--- NOTE | 2018-08-02 15:54 | CONSULT ---
Consult Consult Specialty:: HEMATOLOGY-ONCOLOGY Referred by:: ICU Reason for Consultation:: Active immunotherapy - History of Present Illness Chief Complaint: weakness, poor appetite History of Present Illness: 68 yr old woman with HTN, metastatic transitional cell bladder carcinoma ( pathological fracture femur, known adrenal mets), history of colon mass s/p resection, hx of Lt nephrectomy admitted for weakness, lethargy and immunotherapy found to have DKA. Pt was transferred to ICU for further management. - Past Medical History Cardio/Vascular: Yes: HTN Gastrointestinal: Yes: Cancer (colon cancer x 2 resections Bladder cancer w/ mets to bone(pathologic femur fx)) Hepatobiliary: Yes: Cholelithiasis Renal/: Yes: Cancer (met. bladder transitional cell CA) ...LMP: 04/15/05 ...: No Musculoskeletal: Yes: Other (le fracture) - Past Surgical History Past Surgical History: Yes: Colectomy, Nephrectomy (left) - Alcohol/Substance Use Hx Alcohol Use: Yes (RARE) - Smoking History Smoking history: Former smoker Have you smoked in the past 12 months: No Aproximately how many cigarettes per day: 1 If you are a former smoker, when did you quit?: 2 YRS - Social History ADL: Support Services History of Recent Travel: No Home Medications - Allergies Allergies/Adverse Reactions: Allergies Allergy/AdvReac Type Severity Reaction Status Date / Time iodine [Iodine] Allergy Rash Verified 08/02/18 10:50 adhesive tape AdvReac Severe Verified 08/02/18 10:50 oxycodone HCl [From Percocet] AdvReac Severe Vomiting Verified 08/02/18 10:50 margarine AdvReac Severe Difficulty Uncoded 08/02/18 10:50 Breathing - Home Medications Home Medications: Ambulatory Orders Amlodipine Besylate 2.5 mg PO DAILY 04/15/18 Losartan Potassium 25 mg PO DAILY 04/15/18 Review of Systems - Review of Systems Constitutional: reports: Loss of Appetite, Weakness HENT: denies: Difficult Swallowing, Throat Pain Respiratory: reports: SOB Gastrointestinal: reports: No Symptoms Neurological: reports: No Symptoms Hematology/Lymphatic: reports: No Symptoms Physical Exam Vital Signs: Vital Signs Temperature 97.5 F L 08/02/18 15:06 Pulse Rate 101 H 08/02/18 15:06 Respiratory Rate 20 08/02/18 15:06 Blood Pressure 141/78 08/02/18 15:06 O2 Sat by Pulse Oximetry (%) 97 08/02/18 15:06 Constitutional: Yes: Calm Eyes: Yes: PERRL HENT: Yes: Atraumatic, Normocephalic Neck: Yes: Supple, Trachea Midline Cardiovascular: Yes: Regular Rate and Rhythm, Murmur (PILI) Respiratory: Yes: Diminished Gastrointestinal: Yes: Normal Bowel Sounds, Soft Edema: No Peripheral Pulses WNL: Yes Integumentary: Yes: WNL Neurological: Yes: Alert, Oriented Labs: CBC, BMP 08/02/18 13:00 08/02/18 13:00 Assessment/Plan 68 yr old woman with HTN, metastatic transitional cell bladder carcinoma ( pathological fracture femur, known adrenal mets), history of colon mass s/p resection, Lft nephrectomy admitted to ICU for DKA. Problem List: DKA MATTEO metastatic transitional cell bladder carcinoma s/p left nephrectomy A/P DKA likely rare side effect of keytruda, DKA to be managed as per ICU team r/o infections in immunocompromised pt keytruda to be held
[2018-08-02 16:34] LABS: ANISOCYTOSIS 1+; MACROCYTOSIS 0; PLATELET ESTIMATE NORMAL
--- NOTE | 2018-08-02 19:07 | EKG ---
Test Reason : Blood Pressure : / mmHG Vent. Rate : 102 BPM Atrial Rate : 102 BPM P-R Int : 148 ms QRS Dur : 078 ms QT Int : 320 ms P-R-T Axes : 050 001 015 degrees QTc Int : 417 ms SINUS TACHYCARDIA MINIMAL VOLTAGE CRITERIA FOR LVH, MAY BE NORMAL VARIANT NONSPECIFIC T WAVE ABNORMALITY ABNORMAL ECG WHEN COMPARED WITH ECG OF 19-FEB-2018 18:38, NONSPECIFIC T WAVE ABNORMALITY NOW EVIDENT IN INFERIOR LEADS Confirmed by PRISCA SANTORO, CHIQUITA ([id number]) on 08/02/2018 7:06:42 PM Referred By: Confirmed By:CHIQUITA COPE MD
[2018-08-02] MEDS ORDERED: HEMOQUE TEST 1 EACH EACH ONE (19:23)
[2018-08-02 19:33] LABS: ANION GAP 24 MMOL/L (8-16); BLOOD UREA NITROGEN 45 mg/dL (7-18); CHLORIDE 97 mmol/L (98-107); CO2 9 mmol/L (21-32); CREATININE 1.9 mg/dL (0.55-1.3); POTASSIUM 4.9 mmol/L (3.5-5.1); SODIUM 131 mmol/L (136-145)
[2018-08-02 19:39] LABS: GLUCOSE,RANDOM 765 mg/dL (74-106)
[2018-08-02] MEDS: HEPARIN NA (PORCINE) 5,000 UNITS/ML 1ML VIAL SQ SCH (21:51)
[2018-08-02] MEDS: CHLORHEXIDINE GLUCONATE 4% CLEANSER FOR DECOLONIZATION TP SCH (21:51)
[2018-08-02] MEDS: MUPIROCIN 2% TOPICAL OINTMENT FOR DECOLONIZATION NS SCH (21:51)
--- NOTE | 2018-08-02 23:12 | PN ---
Teaching Attending Note Name of Resident: Emory Tiwari ATTENDING PHYSICIAN STATEMENT I saw and evaluated the patient. I reviewed the resident's note and discussed the case with the resident. I agree with the resident's findings and plan as documented. 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 , TMB high. Patienthad been on pembrolizumab. adamantly refused chemotherapy HAd been doing very well on pembrolizumab with stab;e CT scans Last spoke to patient on 07/29/18 when she reported thrush and wt. loss. She had an appointment for treatment on 08/02. Daughter called saying she was being brought to the ER for severe weakness, not able to ambulate. 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
[2018-08-02] MEDS ORDERED: SODIUM CHLORIDE 0.9%/KCL 20 MEQ/1,000 ML INFUS.BAG IV SCH (23:45)
[2018-08-02 23:50] LABS: ANION GAP 10 MMOL/L (8-16); BLOOD UREA NITROGEN 42 mg/dL (7-18); CALCIUM 9.7 mg/dL (8.5-10.1); CHLORIDE 103 mmol/L (98-107); CO2 20 mmol/L (21-32); CREATININE 1.8 mg/dL (0.55-1.3); POTASSIUM 4.4 mmol/L (3.5-5.1); SODIUM 133 mmol/L (136-145)
[2018-08-02 23:51] LABS: GLUCOSE,RANDOM 493 mg/dL (74-106)
[2018-08-03] MEDS ORDERED: INSULIN (LEVEMIR) 100 UNITS/ML UNITS SQ ONE ×2 (00:01→15:49)
[2018-08-03 02:41] LABS: ANION GAP 5 MMOL/L (8-16); BLOOD UREA NITROGEN 39 mg/dL (7-18); CALCIUM 9.7 mg/dL (8.5-10.1); CHLORIDE 108 mmol/L (98-107); CO2 23 mmol/L (21-32); CREATININE 1.6 mg/dL (0.55-1.3); POTASSIUM 4.4 mmol/L (3.5-5.1); SODIUM 137 mmol/L (136-145)
[2018-08-03 02:42] LABS: GLUCOSE,RANDOM 319 mg/dL (74-106)
[2018-08-03] MEDS: HEPARIN NA (PORCINE) 5,000 UNITS/ML 1ML VIAL SQ SCH ×3 (05:27→21:19)
[2018-08-03 06:21] LABS: ALBUMIN 2.9 g/dl (3.4-5.0); ALK PHOS 84 U/L (45-117); ANION GAP 7 MMOL/L (8-16); BILIRUBIN,TOTAL 0.4 mg/dL (0.2-1); BLOOD UREA NITROGEN 38 mg/dL (7-18); CALCIUM 9.7 mg/dL (8.5-10.1); CHLORIDE 108 mmol/L (98-107); CO2 23 mmol/L (21-32); CREATININE 1.3 mg/dL (0.55-1.3); GLUCOSE,RANDOM 217 mg/dL (74-106); MAGNESIUM 2.2 mg/dL (1.8-2.4); PHOSPHOROUS 1.7 mg/dL (2.5-4.9); POTASSIUM 4.8 mmol/L (3.5-5.1); SGOT/AST 17 U/L (15-37); SGPT/ALT 46 U/L (13-61); SODIUM 137 mmol/L (136-145); TOT PROT 5.4 g/dl (6.4-8.2)
[2018-08-03 06:50] LABS: BASO % 0.5 % (0-2.0); EOS % 2.9 % (0-4.5); HEMATOCRIT 34.7 % (32.4-45.2); HEMOGLOBIN 11.7 GM/dL (10.7-15.3); LYMPH % 21.9 % (8-40); MCH 25.9 pg (25.7-33.7); MCHC 33.7 g/dl (32.0-36.0); MEAN PLT VOLUME 9.3 fl (7.5-11.1); MONO % 10.8 % (3.8-10.2); NEUT % 63.9 % (42.8-82.8); PLATELET COUNT 250 K/MM3 (134-434); RBC 4.51 M/mm3 (3.60-5.2); RDW 14.3 % (11.6-15.6); WHITE BLOOD COUNT 7.8 K/mm3 (4.0-10.0)
[2018-08-03 06:57] LABS: MEAN CELL VOLUME 76.8 fl (80-96)
[2018-08-03] MEDS ORDERED: DEXTROSE 5%-0.45% SALINE 1,000 ML IV SCH (07:15)
[2018-08-03] MEDS: INSULIN SLIDING SCALE (NOVOLOG) 1 VIAL SQ SCH ×3 (08:30→17:23)
[2018-08-03] MEDS: MUPIROCIN 2% TOPICAL OINTMENT FOR DECOLONIZATION NS SCH ×2 (09:23→21:20)
--- NOTE | 2018-08-03 15:45 | HP ---
Admitting History and Physical - Past Medical History Cardiovascular: Yes: HTN Gastrointestinal: Yes: Cancer (colon cancer x 2 resections Bladder cancer w/ mets to bone(pathologic femur fx)) Hepatobiliary: Yes: Cholelithiasis Renal/: Yes: Cancer (met. bladder transitional cell CA) ...LMP: 04/15/05 ...: No Heme/Onc: Yes: Anemia Musculoskeletal: Yes: Other (le fracture) - Past Surgical History Past Surgical History: Yes: Colectomy, Nephrectomy (left) - Smoking History Smoking history: Former smoker Have you smoked in the past 12 months: No Aproximately how many cigarettes per day: 1 If you are a former smoker, when did you quit?: 2 YRS - Alcohol/Substance Use Hx Alcohol Use: Yes (RARE) - Social History ADL: Support Services History of Recent Travel: No Home Medications - Allergies Allergies/Adverse Reactions: Allergies Allergy/AdvReac Type Severity Reaction Status Date / Time iodine [Iodine] Allergy Rash Verified 08/02/18 10:50 adhesive tape AdvReac Severe Verified 08/02/18 10:50 oxycodone HCl [From Percocet] AdvReac Severe Vomiting Verified 08/02/18 10:50 margarine AdvReac Severe Difficulty Uncoded 08/02/18 10:50 Breathing - Home Medications Home Medications: Ambulatory Orders Amlodipine Besylate 2.5 mg PO DAILY 04/15/18 Losartan Potassium 25 mg PO DAILY 04/15/18 Physical Examination Vital Signs: Vital Signs Temperature 98 F 08/03/18 10:00 Pulse Rate 79 08/03/18 12:00 Respiratory Rate 18 08/03/18 12:00 Blood Pressure 143/71 08/03/18 12:00 O2 Sat by Pulse Oximetry (%) 97 08/03/18 09:00 Labs: CBC, BMP 08/03/18 05:30 08/03/18 05:30
--- NOTE | 2018-08-03 15:46 | CONSULT ---
Consult Consult Specialty:: Endocrinology Referred by:: Kareem Sneed MD Reason for Consultation:: DKA - History of Present Illness Chief Complaint: Nausea, weakness History of Present Illness: This is a 68 y/o F with metastatic bladder cancer with liver mets, h/o colon cancer , bx of liver mets c/w urothelial cancer, adrenal mets who had been on pembrolizumab who was admitted with c/o nausea and weakness for about a week and wt loss of about 10 lbs in last 4 weeks. Pt found to be in DKA and transferred to ICU and treated with IV hydration and IV Insulin with resolution of DKA. Pt currently off Insulin drip since 4 AM as per ICU staff. Pt c/o polyuria, polydipsia. No visual symptoms. No family h/o DM. Pt's apetite is still poor. Denies any personal or family h/o DM. - History Source History Provided By: Patient, Medical Record - Past Medical History Cardio/Vascular: Yes: HTN Gastrointestinal: Yes: Cancer (colon cancer x 2 resections Bladder cancer w/ mets to bone(pathologic femur fx)) Hepatobiliary: Yes: Cholelithiasis Renal/: Yes: Cancer (met. bladder transitional cell CA) ...LMP: 04/15/05 ...: No Musculoskeletal: Yes: Other (le fracture) - Past Surgical History Past Surgical History: Yes: Colectomy, Nephrectomy (left) - Alcohol/Substance Use Hx Alcohol Use: Yes (RARE) - Smoking History Smoking history: Former smoker Have you smoked in the past 12 months: No Aproximately how many cigarettes per day: 1 If you are a former smoker, when did you quit?: 2 YRS - Social History ADL: Support Services History of Recent Travel: No Home Medications - Allergies Allergies/Adverse Reactions: Allergies Allergy/AdvReac Type Severity Reaction Status Date / Time iodine [Iodine] Allergy Rash Verified 08/02/18 10:50 adhesive tape AdvReac Severe Verified 08/02/18 10:50 oxycodone HCl [From Percocet] AdvReac Severe Vomiting Verified 08/02/18 10:50 margarine AdvReac Severe Difficulty Uncoded 08/02/18 10:50 Breathing - Home Medications Home Medications: Ambulatory Orders Amlodipine Besylate 2.5 mg PO DAILY 04/15/18 Losartan Potassium 25 mg PO DAILY 04/15/18 Family Disease History - Family Disease History Other Family History: No family h/o DM Review of Systems - Review of Systems Constitutional: reports: Loss of Appetite, Malaise, Weakness Eyes: reports: No Symptoms HENT: reports: No Symptoms Neck: reports: No Symptoms Cardiovascular: reports: No Symptoms Respiratory: reports: No Symptoms Gastrointestinal: reports: Nausea Genitourinary: reports: Other (Polyuria, polydipsia) Musculoskeletal: reports: No Symptoms Neurological: reports: No Symptoms Endocrine: reports: No Symptoms Hematology/Lymphatic: reports: No Symptoms Physical Exam Vital Signs: Vital Signs Temperature 98 F 08/03/18 10:00 Pulse Rate 79 08/03/18 12:00 Respiratory Rate 18 08/03/18 12:00 Blood Pressure 143/71 08/03/18 12:00 O2 Sat by Pulse Oximetry (%) 97 08/03/18 09:00 Constitutional: Yes: No Distress, Calm Eyes: Yes: Conjunctiva Clear, EOM Intact HENT: Yes: Atraumatic, Normocephalic Neck: Yes: Supple, Trachea Midline Cardiovascular: Yes: Regular Rate and Rhythm Respiratory: Yes: Regular, CTA Bilaterally Gastrointestinal: Yes: Normal Bowel Sounds, Soft Musculoskeletal: Yes: WNL Extremities: Yes: WNL Edema: No Neurological: Yes: Alert, Oriented Labs: CBC, BMP 08/03/18 05:30 08/03/18 05:30 Assessment/Plan AP; 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 Aic 9.3 Levemir 10 units stat, got 10 units around midnight levemir 15 units daily in morning starting tomorrow BGM Q ACHS and 3 AM Novolog SS coverage Continue D5 1/2 NS at 75 ml/hr Electrolyte replacement as necessary Labs for c peptide, MIRYAM and Islet cell Ab, will try to get authorization or will do it as outpt. Diabtes education done All questions answered. Nutirtion consult Metastatic Bladder Ca Will f/u
--- NOTE | 2018-08-03 18:01 | PN ---
Progress Note (short form) - Note Progress Note: CCM Seen and examined in ICU 24HR; Gap closed, eating, on levamir Endocrine to see in for floor bed Vital Signs Temp 98 F 08/03/18 10:00 Pulse 75 08/03/18 16:00 Resp 22 H 08/03/18 16:00 BP 142/54 L 08/03/18 16:00 Pulse Ox 97 08/03/18 09:00 Intake & Output 08/02/18 08/03/18 08/03/18 23:59 11:59 23:59 Intake Total 2471.2 1444 Output Total 700 400 450 Balance 1771.2 1044 -450 Weight 90.889 kg 90.718 kg Intake: IV 2471.2 1444 NOVOLIN R VIAL *For 71.2 44 IVPUSH or IV DRIP Only* 100 UNITS In Normal Saline - 99 ml @ 0.1 UNITS/KG/HR 8.84 mls/hr IVPB TITR RON Rx#: [id number] NS+20 MEQ KCL - 20 meq In 1400 1,000 ml @ 200 mls/hr IV ASDIR RON Rx#: [id number] Normal Saline - 1,000 ml 1000 @ 1000 mls/hr IV ASDIR STA Rx#:[id number] Normal Saline - 1,000 ml 1400 @ 200 mls/hr IV ASDIR RON Rx#:[id number] Output: Urine 700 400 450 Mckoy 700 400 450 Other: Voiding Method Indwelling Catheter Indwelling Catheter Bowel Movement No No Height 5 ft 8 in 5 ft 8 in Body Mass Index (BMI) 30.4 Weight Measurement Method Built in [facility] CBC, BMP 08/03/18 05:30 08/03/18 05:30 Active Medications Chlorhexidine Gluconate (Hibiclens For Decolonization -) 1 applic TP HS RON Last Admin: 08/02/18 21:51 Dose: 1 applic Heparin Sodium (Porcine) (Heparin -) 5,000 unit SQ TID RON Last Admin: 08/03/18 13:57 Dose: 5,000 unit Dextrose/Sodium Chloride (D5-1/2ns -) 1,000 mls @ 75 mls/hr IV ASDIR RON Last Admin: 08/03/18 07:30 Dose: 75 mls/hr Insulin Aspart (Novolog Vial Sliding Scale -) 1 vial SQ HS RON; Protocol Insulin Aspart (Novolog Vial Sliding Scale -) 1 vial SQ TIDAC [facility]; Protocol Last Admin: 08/03/18 17:23 Dose: 10 units Insulin Detemir (Levemir Vial) 15 units SQ DAILY@0700 [facility] Mupirocin (Bactroban Ointment (For Decolonization) -) 1 applic NS BID RON Stop: 08/07/18 21:59 Last Admin: 08/03/18 09:23 Dose: 1 applic PE: Gen; non-toxic well appearin HEENT: NCAT PULM: clear CV: no m/r/g appreciated, normal s1s2 ABD: mildly distended, +BS EXT: w/w/p no edema Neuro: non focal A/ 68 y/o fem with new onset IDDM c/b DKA possibly drug related to keytruda, workup likely as outpt now with closed AGMA P/ -Low acting with sliding scale as per ENDO -OOB -diabetic diet -DVT proph SQH, no GI indication -ok for floor [place] ACNP
--- NOTE | 2018-08-03 18:29 | CONSULT ---
Consult Consult Specialty:: Nephrology Reason for Consultation:: MATTEO - History of Present Illness Chief Complaint: weakness History of Present Illness: Pt is a 68 year old female with pmhx of metastatic bladder cancer, left nephroctomy, CKD, and femoral fracture who presents with worsening weakness and fatigue. She was found to be in DKA. Pt was found to be in MATTEO and I was called to evaluate her. She denies having renal failure after the nephrectomy. She denies dysuria or hematuria. 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 She is on an insulin drip. Her renal function is improving. - History Source History Provided By: Medical Record, Caregiver - Past Medical History Cardio/Vascular: Yes: HTN Gastrointestinal: Yes: Cancer (colon cancer x 2 resections Bladder cancer w/ mets to bone(pathologic femur fx)) Hepatobiliary: Yes: Cholelithiasis Renal/: Yes: Cancer (met. bladder transitional cell CA) ...LMP: 04/15/05 ...: No Musculoskeletal: Yes: Other (le fracture) - Past Surgical History Past Surgical History: Yes: Colectomy, Nephrectomy (left) - Alcohol/Substance Use Hx Alcohol Use: Yes (RARE) - Smoking History Smoking history: Former smoker Have you smoked in the past 12 months: No Aproximately how many cigarettes per day: 1 If you are a former smoker, when did you quit?: 2 YRS - Social History ADL: Support Services History of Recent Travel: No Home Medications - Allergies Allergies/Adverse Reactions: Allergies Allergy/AdvReac Type Severity Reaction Status Date / Time iodine [Iodine] Allergy Rash Verified 08/02/18 10:50 adhesive tape AdvReac Severe Verified 08/02/18 10:50 oxycodone HCl [From Percocet] AdvReac Severe Vomiting Verified 08/02/18 10:50 margarine AdvReac Severe Difficulty Uncoded 08/02/18 10:50 Breathing - Home Medications Home Medications: Ambulatory Orders Amlodipine Besylate 2.5 mg PO DAILY 04/15/18 Losartan Potassium 25 mg PO DAILY 04/15/18 Family Disease History - Family Disease History Other Family History: No family h/o DM Review of Systems - Review of Systems Constitutional: reports: Malaise. denies: Chills, Fever Eyes: reports: No Symptoms HENT: reports: No Symptoms Neck: reports: No Symptoms Cardiovascular: reports: No Symptoms Respiratory: reports: No Symptoms Gastrointestinal: reports: No Symptoms Genitourinary: reports: No Symptoms Musculoskeletal: reports: Muscle Weakness Endocrine: reports: No Symptoms Psychiatric: reports: No Symptoms Physical Exam Vital Signs: Vital Signs Temperature 98.4 F 08/03/18 18:00 Pulse Rate 73 08/03/18 18:00 Respiratory Rate 18 08/03/18 18:00 Blood Pressure 159/73 08/03/18 18:00 O2 Sat by Pulse Oximetry (%) 97 08/03/18 09:00 Constitutional: Yes: Calm Eyes: Yes: Conjunctiva Clear HENT: Yes: Atraumatic Neck: Yes: Supple Cardiovascular: Yes: S1, S2 Respiratory: Yes: CTA Bilaterally Gastrointestinal: Yes: Soft Renal/: Yes: WNL Musculoskeletal: Yes: WNL Edema: No Neurological: Yes: Oriented Psychiatric: Yes: Oriented Labs: CBC, BMP 08/03/18 05:30 08/03/18 05:30 Laboratory Tests 06/20/18 07/11/18 08/02/18 10:40 10:52 10:47 BUN Creatinine 0.5 L 0.7 Urine Protein Negative Urine Ketones 2+ H Urine Blood 2+ H 08/02/18 08/02/18 08/02/18 13:00 18:00 22:30 BUN Creatinine 1.9 H 1.9 H 1.8 H Urine Protein Urine Ketones Urine Blood 08/03/18 08/03/18 01:45 05:30 BUN 38 H Creatinine 1.6 H 1.3 Urine Protein Urine Ketones Urine Blood Imaging - Results Chest X-ray: Report Reviewed Problem List - Problems (1) DKA (diabetic ketoacidoses) Code(s): E13.10 - OTH DIABETES MELLITUS WITH KETOACIDOSIS WITHOUT COMA (2) MATTEO (acute kidney injury) Code(s): N17.9 - ACUTE KIDNEY FAILURE, UNSPECIFIED (3) Weakness Code(s): R53.1 - WEAKNESS (4) Anemia Code(s): D64.9 - ANEMIA, UNSPECIFIED (5) Leukocytosis Code(s): D72.829 - ELEVATED WHITE BLOOD CELL COUNT, UNSPECIFIED (6) HTN (hypertension) Code(s): I10 - ESSENTIAL (PRIMARY) HYPERTENSION Assessment/Plan Current Medications Generic Name Dose Route Start Last Admin Trade Name Freq PRN Reason Stop Dose Admin Chlorhexidine Gluconate 1 applic 08/02/18 22:00 08/02/18 21:51 Hibiclens For Decolonization - TP 1 applic HS RON Administration Heparin Sodium (Porcine) 5,000 unit 08/02/18 22:00 08/03/18 13:57 Heparin - SQ 5,000 unit TID RON Administration Dextrose/Sodium Chloride 1,000 mls @ 75 mls/hr 08/03/18 07:15 08/03/18 07:30 D5-1/2ns - IV 75 mls/hr ASDIR RON Administration Insulin Aspart 1 vial 08/03/18 22:00 Novolog Vial Sliding Scale - SQ HS RON Protocol Insulin Aspart 1 vial 08/03/18 16:30 08/03/18 17:23 Novolog Vial Sliding Scale - SQ 10 units TIDAC RON Administration Protocol Insulin Detemir 15 units 08/04/18 07:00 Levemir Vial SQ DAILY@0700 RON Mupirocin 1 applic 08/02/18 22:00 08/03/18 09:23 Bactroban Ointment (For Decolonization) - NS 08/07/18 21:59 1 applic BID RON Administration Impression 1. MATTEO 2. dehydration 3. DKA 4. bladder cancer 5. hx of nephrectomy Plan - renal function is improving - matteo likely from dka causing dehydration - follow anion gap - cont fluids - replace lytes - repeat labs in am - keep in ICU Dr Conti
[2018-08-03 19:37] LABS: PHOSPHOROUS 1.9 mg/dL (2.5-4.9)
[2018-08-03] MEDS: CHLORHEXIDINE GLUCONATE 4% CLEANSER FOR DECOLONIZATION TP SCH (21:20)
[2018-08-03] MEDS ORDERED: INSULIN SLIDING SCALE (NOVOLOG) 1 VIAL SQ SCH ×3 (22:00→22:37)
--- NOTE | 2018-08-03 22:14 | PN ---
Progress Note (short form) - Note Progress Note: Patient seen in follow up. No new complaints. Inpatient Meds reviewed. Current Medications Generic Name Dose Route Start Last Admin Trade Name Sebastien PRN Reason Stop Dose Admin Chlorhexidine Gluconate 1 applic 08/02/18 22:00 08/03/18 21:20 Hibiclens For Decolonization - TP 1 applic HS RON Administration Heparin Sodium (Porcine) 5,000 unit 08/02/18 22:00 08/03/18 21:19 Heparin - SQ 5,000 unit TID RON Administration Dextrose/Sodium Chloride 1,000 mls @ 75 mls/hr 08/03/18 07:15 08/03/18 07:30 D5-1/2ns - IV 75 mls/hr ASDIR RON Administration Insulin Aspart 1 vial 08/03/18 22:00 Novolog Vial Sliding Scale - SQ HS RON Protocol Insulin Aspart 1 vial 08/03/18 16:30 08/03/18 17:23 Novolog Vial Sliding Scale - SQ 10 units TIDAC RON Administration Protocol Insulin Detemir 15 units 08/04/18 07:00 Levemir Vial SQ DAILY@0700 RON Mupirocin 1 applic 08/02/18 22:00 08/03/18 21:20 Bactroban Ointment (For Decolonization) - NS 08/07/18 21:59 1 applic BID RON Administration On Examination: Last Vital Signs Temp Pulse Resp BP Pulse Ox 98.4 F 80 18 158/70 97 08/03/18 18:00 08/03/18 19:00 08/03/18 19:00 08/03/18 19:00 08/03/18 19:00 General: In no acute distress, lying comfortably in bed. Extremities: No pallor or icterus. No pedal edema. No palpable lymphadenopathy. Chest: breathing comfortably Abdomen: Non-distended, non-tender, no palpable organomegaly. Neuro: alert and oriented, non-focal Labs: CBC, BMP 08/03/18 05:30 08/03/18 21:18 Assessment. Metastatic bladder cancer with liver mets, h/o colon cancer , bx of liver mets c /w urothelial cancer, MSI H, PDL1 neg. Managed presently with pembrolizumab, (refused chemotherapy), and now admitted with DKA, attributed to immunotherapy. Doing well now - gap closed, HCO3 normal. Hypergylcemic still - on D51/2NS (?) and insulin. Endocrine following Pembrolizumab held for now.
[2018-08-03 22:17] LABS: ANION GAP 9 MMOL/L (8-16); BLOOD UREA NITROGEN 25 mg/dL (7-18); CALCIUM 9.6 mg/dL (8.5-10.1); CHLORIDE 106 mmol/L (98-107); CO2 21 mmol/L (21-32); POTASSIUM 4.3 mmol/L (3.5-5.1); SODIUM 137 mmol/L (136-145)
[2018-08-03 22:20] LABS: GLUCOSE,RANDOM 438 mg/dL (74-106)
[2018-08-03] MEDS ORDERED: INSULIN (NOVOLOG) ASPART 100 UNITS/ML 10ML VIAL SQ ONE (22:26)
[2018-08-04] MEDS: HEPARIN NA (PORCINE) 5,000 UNITS/ML 1ML VIAL SQ SCH ×3 (05:38→22:10)
[2018-08-04 05:43] LABS: EOS % 3.6 % (0-4.5); HEMATOCRIT 36.1 % (32.4-45.2); HEMOGLOBIN 11.3 GM/dL (10.7-15.3); LYMPH % 30.3 % (8-40); MCH 24.5 pg (25.7-33.7); MCHC 31.4 g/dl (32.0-36.0); MEAN PLT VOLUME 8.5 fl (7.5-11.1); MONO % 6.7 % (3.8-10.2); NEUT % 58.4 % (42.8-82.8); PLATELET COUNT 203 K/MM3 (134-434); RBC 4.62 M/mm3 (3.60-5.2); RDW 14.4 % (11.6-15.6)
[2018-08-04] MEDS: INSULIN SLIDING SCALE (NOVOLOG) 1 VIAL SQ SCH ×3 (06:14→17:25)
[2018-08-04] MEDS ORDERED: INSULIN (LEVEMIR) 100 UNITS/ML UNITS SQ SCH (07:00)
[2018-08-04 07:26] LABS: ALBUMIN 2.6 g/dl (3.4-5.0); ALK PHOS 78 U/L (45-117); ANION GAP 7 MMOL/L (8-16); BILIRUBIN,TOTAL 0.5 mg/dL (0.2-1); BLOOD UREA NITROGEN 20 mg/dL (7-18); CHLORIDE 106 mmol/L (98-107); CO2 24 mmol/L (21-32); CREATININE 0.9 mg/dL (0.55-1.3); POTASSIUM 4.4 mmol/L (3.5-5.1); SGOT/AST 22 U/L (15-37); SGPT/ALT 46 U/L (13-61); SODIUM 137 mmol/L (136-145); TOT PROT 5.2 g/dl (6.4-8.2)
[2018-08-04 07:42] LABS: GLUCOSE,RANDOM 351 mg/dL (74-106)
--- NOTE | 2018-08-04 08:13 | PN ---
Progress Note (short form) - Note Progress Note: CCM Seen and examined in ICU 24HR; Gap remains closed seen by endocrine sugar remains high, will likely need more long acting Vital Signs Temp 98.4 F 08/04/18 07:28 Pulse 74 08/04/18 07:28 Resp 15 08/04/18 07:28 BP 152/72 08/04/18 07:28 Pulse Ox 97 08/03/18 19:00 Intake & Output 08/03/18 08/03/18 08/04/18 11:59 23:59 11:59 Intake Total 1444 900 100 Output Total 400 650 900 Balance 1044 250 -800 Weight 90.889 kg 90.718 kg 91.626 kg Intake: IV 1444 900 D5-1/2Ns - 1,000 ml @ 75 900 mls/hr IV ASDIR RON Rx#: [id number] NOVOLIN R VIAL *For 44 IVPUSH or IV DRIP Only* 100 UNITS In Normal Saline - 99 ml @ 0.1 UNITS/KG/HR 8.84 mls/hr IVPB TITR RON Rx#: [id number] NS+20 MEQ KCL - 20 meq In 1400 1,000 ml @ 200 mls/hr IV ASDIR RON Rx#: [id number] Oral 100 Output: Urine 400 650 900 Mckoy 400 650 900 Other: Voiding Method Indwelling Catheter Indwelling Catheter Bowel Movement No No Height 5 ft 8 in Body Mass Index (BMI) 30.4 Weight Measurement Method Built in [facility] Built in [facility] CBC, BMP 08/04/18 05:30 08/04/18 05:30 Active Medications Chlorhexidine Gluconate (Hibiclens For Decolonization -) 1 applic TP HS [facility] Last Admin: 08/03/18 21:20 Dose: 1 applic Heparin Sodium (Porcine) (Heparin -) 5,000 unit SQ TID [facility] Last Admin: 08/04/18 05:38 Dose: 5,000 unit Insulin Aspart (Novolog Vial Sliding Scale -) 1 vial SQ TIDAC RON; Protocol Last Admin: 08/04/18 06:14 Dose: 10 units Insulin Aspart (Novolog Vial Sliding Scale -) 1 vial SQ HS [facility]; Protocol Insulin Detemir (Levemir Vial) 15 units SQ DAILY@0700 [facility] Last Admin: 08/04/18 06:15 Dose: 15 units Mupirocin (Bactroban Ointment (For Decolonization) -) 1 applic NS BID RON Stop: 08/07/18 21:59 Last Admin: 08/03/18 21:20 Dose: 1 applic PE: Gen; non-toxic well appearing, eating breakfast HEENT: NCAT PULM: clear CV: no m/r/g appreciated, normal s1s2 ABD: mildly distended, +BS EXT: w/w/p no edema Neuro: non focal, Alert and oriented A/ 68 y/o fem with new onset IDDM c/b DKA possibly drug related to keytruda, workup likely as outpt now with closed AGMA P/ -Long acting insulin with sliding scale -DM workup as outpt -OOB -diabetic diet -DVT proph SQH, no GI indication -ok for floor [place] ACNP
[2018-08-04] MEDS: MUPIROCIN 2% TOPICAL OINTMENT FOR DECOLONIZATION NS SCH ×2 (09:33→22:10)
--- NOTE | 2018-08-04 13:12 | PN ---
Progress Note (short form) - Note Progress Note: Feels better Denies any complaints Vital Signs Period Temp Pulse Resp BP Sys/Gibbs Pulse Ox Last 24 Hr 98.2 F-98.6 F 71-94 15-22 111-159/54-79 97-99 PE: AOx3 Neck: supple, No JVD HEENT: EOMI Lungs: CTA CVS: S1S2 ABd: Benign EXt: No edema Neuro: No focal deficit CMP Sodium 137 mmol/L (136-145) 08/04/18 05:30 Potassium 4.4 mmol/L (3.5-5.1) 08/04/18 05:30 Chloride 106 mmol/L (98-107) 08/04/18 05:30 Carbon Dioxide 24 mmol/L (21-32) 08/04/18 05:30 Anion Gap 7 MMOL/L (8-16) L 08/04/18 05:30 BUN 20 mg/dL (7-18) H 08/04/18 05:30 Creatinine 0.9 mg/dL (0.55-1.3) 08/04/18 05:30 Creat Clearance w eGFR > 60 (>60) 08/04/18 05:30 POC Glucometer 380.58545 UNITS (80-120) 08/03/18 17:20 Random Glucose 351 mg/dL (74-106) H* 08/04/18 05:30 Hemoglobin A1c % 9.3 % (4.2-6.3) H 08/02/18 13:00 Calcium 10.0 mg/dL (8.5-10.1) 08/04/18 05:30 Phosphorus 1.9 mg/dL (2.5-4.9) L 08/03/18 17:50 Magnesium 2.0 mg/dL (1.8-2.4) 08/03/18 17:50 Total Bilirubin 0.5 mg/dL (0.2-1) 08/04/18 05:30 AST 22 U/L (15-37) 08/04/18 05:30 ALT 46 U/L (13-61) 08/04/18 05:30 Alkaline Phosphatase 78 U/L (45-117) 08/04/18 05:30 Creatine Kinase 404 IU/L (26-192) H 08/03/18 01:45 Creatine Kinase Index 18.9 % (0.0-5.0) H* 08/03/18 01:45 CK-MB (CK-2) 76.6 ng/mL (0.5-3.6) H 08/03/18 01:45 Troponin I 0.09 ng/ml (0.00-0.05) H 08/03/18 01:45 Total Protein 5.2 g/dl (6.4-8.2) L 08/04/18 05:30 Albumin 2.6 g/dl (3.4-5.0) L 08/04/18 05:30 TSH 1.83 uIU/ml (0.358-3.74) 08/02/18 10:47 Cortisol AM Sample 26.4 ug/dL (.) 08/02/18 10:47 Current Medications Generic Name Dose Route Start Last Admin Trade Name Freq PRN Reason Stop Dose Admin Chlorhexidine Gluconate 1 applic 08/02/18 22:00 08/03/18 21:20 Hibiclens For Decolonization - TP 1 applic HS RON Administration Heparin Sodium (Porcine) 5,000 unit 08/02/18 22:00 08/04/18 05:38 Heparin - SQ 5,000 unit TID RON Administration Insulin Aspart 1 vial 08/03/18 22:37 Novolog Vial Sliding Scale - SQ HS RON Protocol Insulin Aspart 1 vial 08/04/18 13:06 Novolog Vial Sliding Scale - SQ TIDAC RON Protocol Insulin Detemir 15 units 08/04/18 22:00 Levemir Vial SQ BID RON Mupirocin 1 applic 08/02/18 22:00 08/04/18 09:33 Bactroban Ointment (For Decolonization) - NS 08/07/18 21:59 1 applic BID RON Administration AP; 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 Aic 9.3 Levemir 15 BID BGM Q ACHS and 3 AM Increase Novolog SS coverage Off D5 1/2 NS at 75 ml/hr Electrolyte replacement as necessary Labs for c peptide, MIRYAM and Islet cell Ab, will try to get authorization or will do it as outpt. Diabtes education done All questions answered. Nutirtion consult Teach pt to self monitor blood sugar and self inject Insulin all questions answered Metastatic Bladder Ca Will f/u
--- NOTE | 2018-08-04 14:33 | PN ---
Progress Note, Physician History of Present Illness: Pt seen and examined at bedside. She is awake and alert. She denies dysuria. - Current Medication List Current Medications: Active Medications Chlorhexidine Gluconate (Hibiclens For Decolonization -) 1 applic TP HS RON Last Admin: 08/03/18 21:20 Dose: 1 applic Heparin Sodium (Porcine) (Heparin -) 5,000 unit SQ TID RON Last Admin: 08/04/18 05:38 Dose: 5,000 unit Insulin Aspart (Novolog Vial Sliding Scale -) 1 vial SQ HS RON; Protocol Insulin Aspart (Novolog Vial Sliding Scale -) 1 vial SQ TIDAC RON; Protocol Insulin Detemir (Levemir Vial) 15 units SQ BID RON Mupirocin (Bactroban Ointment (For Decolonization) -) 1 applic NS BID RON Stop: 08/07/18 21:59 Last Admin: 08/04/18 09:33 Dose: 1 applic - Objective Vital Signs: Vital Signs Temperature 98.6 F 08/04/18 13:00 Pulse Rate 86 08/04/18 13:00 Respiratory Rate 15 08/04/18 12:05 Blood Pressure 138/80 08/04/18 13:00 O2 Sat by Pulse Oximetry (%) 99 08/04/18 08:12 Constitutional: Yes: Calm Eyes: Yes: Conjunctiva Clear HENT: Yes: Atraumatic Neck: Yes: Supple Cardiovascular: Yes: S1, S2 Respiratory: Yes: CTA Bilaterally Gastrointestinal: Yes: Soft Genitourinary: Yes: WNL Musculoskeletal: Yes: WNL Edema: No Neurological: Yes: Oriented Psychiatric: Yes: Oriented Labs: CBC, BMP 08/04/18 05:30 08/04/18 05:30 INR, PTT INR 0.88 (0.83-1.09) 08/02/18 10:42 Problem List - Problems (1) DKA (diabetic ketoacidoses) Code(s): E13.10 - OTH DIABETES MELLITUS WITH KETOACIDOSIS WITHOUT COMA (2) MATTEO (acute kidney injury) Code(s): N17.9 - ACUTE KIDNEY FAILURE, UNSPECIFIED (3) Weakness Code(s): R53.1 - WEAKNESS (4) Anemia Code(s): D64.9 - ANEMIA, UNSPECIFIED (5) Leukocytosis Code(s): D72.829 - ELEVATED WHITE BLOOD CELL COUNT, UNSPECIFIED (6) HTN (hypertension) Code(s): I10 - ESSENTIAL (PRIMARY) HYPERTENSION Assessment/Plan Current Medications Generic Name Dose Route Start Last Admin Trade Name Sebastien PRN Reason Stop Dose Admin Chlorhexidine Gluconate 1 applic 08/02/18 22:00 08/03/18 21:20 Hibiclens For Decolonization - TP 1 applic HS RON Administration Heparin Sodium (Porcine) 5,000 unit 08/02/18 22:00 08/04/18 05:38 Heparin - SQ 5,000 unit TID RON Administration Insulin Aspart 1 vial 08/03/18 22:37 Novolog Vial Sliding Scale - SQ HS RON Protocol Insulin Aspart 1 vial 08/04/18 13:06 Novolog Vial Sliding Scale - SQ TIDAC RON Protocol Insulin Detemir 15 units 08/04/18 22:00 Levemir Vial SQ BID RON Mupirocin 1 applic 08/02/18 22:00 08/04/18 09:33 Bactroban Ointment (For Decolonization) - NS 08/07/18 21:59 1 applic BID RON Administration Impression 1. MATTEO 2. dehydration 3. DKA 4. bladder cancer 5. hx of nephrectomy Plan - cont to monitor renal function - follow up renal ultrasound - cont fluids - will follow - MATTEO likely from dehydration Dr Conti
[2018-08-04] MEDS ORDERED: amLODIPine BESYLATE 2.5 MG TABLET (FP) PO ONE (18:48)
--- NOTE | 2018-08-04 19:41 | PN ---
Progress Note, Physician - Current Medication List Current Medications: Active Medications Chlorhexidine Gluconate (Hibiclens For Decolonization -) 1 applic TP HS RON Last Admin: 08/03/18 21:20 Dose: 1 applic Heparin Sodium (Porcine) (Heparin -) 5,000 unit SQ TID RON Last Admin: 08/04/18 15:14 Dose: 5,000 unit Insulin Aspart (Novolog Vial Sliding Scale -) 1 vial SQ HS RON; Protocol Insulin Aspart (Novolog Vial Sliding Scale -) 1 vial SQ TIDAC RON; Protocol Last Admin: 08/04/18 17:25 Dose: 8 units Insulin Detemir (Levemir Vial) 15 units SQ 0700,2200 RON Losartan Potassium (Cozaar -) 25 mg PO DAILY RON Mupirocin (Bactroban Ointment (For Decolonization) -) 1 applic NS BID RON Stop: 08/07/18 21:59 Last Admin: 08/04/18 09:33 Dose: 1 applic - Objective Vital Signs: Vital Signs Temperature 98.6 F 08/04/18 18:00 Pulse Rate 72 08/04/18 18:00 Respiratory Rate 18 08/04/18 18:00 Blood Pressure 145/76 08/04/18 18:00 O2 Sat by Pulse Oximetry (%) 99 08/04/18 08:12 Constitutional: Yes: Well Nourished Neck: Yes: WNL, Supple Cardiovascular: Yes: WNL, Regular Rate and Rhythm Respiratory: Yes: WNL, Regular, CTA Bilaterally Gastrointestinal: Yes: WNL, Normal Bowel Sounds, Soft Labs: CBC, BMP 08/04/18 05:30 08/04/18 05:30 INR, PTT INR 0.88 (0.83-1.09) 08/02/18 10:42 Problem List - Problems (1) DKA (diabetic ketoacidoses) Assessment/Plan: Cont IVF Cont levemir Cont sliding scale w/ coverage Code(s): E13.10 - OTH DIABETES MELLITUS WITH KETOACIDOSIS WITHOUT COMA (2) MATTEO (acute kidney injury) Assessment/Plan: Cont IV hydration Code(s): N17.9 - ACUTE KIDNEY FAILURE, UNSPECIFIED (3) Bladder carcinoma metastatic to liver Assessment/Plan: As per onco Chemo as per onco Code(s): C67.9 - MALIGNANT NEOPLASM OF BLADDER, UNSPECIFIED; C78.7 - SECONDARY MALIG NEOPLASM OF LIVER AND INTRAHEPATIC BILE DUCT (4) HTN (hypertension) Assessment/Plan: Cont losartan Code(s): I10 - ESSENTIAL (PRIMARY) HYPERTENSION
[2018-08-04] MEDS: CHLORHEXIDINE GLUCONATE 4% CLEANSER FOR DECOLONIZATION TP SCH (22:10)
[2018-08-04] MEDS: INSULIN (LEVEMIR) 100 UNITS/ML UNITS SQ SCH (22:11)
[2018-08-05 05:35] LABS: BASO % 1.2 % (0-2.0); EOS % 5.6 % (0-4.5); HEMOGLOBIN 11.3 GM/dL (10.7-15.3); LYMPH % 37.8 % (8-40); MCH 24.5 pg (25.7-33.7); MCHC 31.4 g/dl (32.0-36.0); MEAN CELL VOLUME 78.3 fl (80-96); MEAN PLT VOLUME 8.1 fl (7.5-11.1); MONO % 7.2 % (3.8-10.2); NEUT % 48.2 % (42.8-82.8); PLATELET COUNT 200 K/MM3 (134-434); RDW 14.8 % (11.6-15.6); WHITE BLOOD COUNT 5.4 K/mm3 (4.0-10.0)
[2018-08-05] MEDS: INSULIN (LEVEMIR) 100 UNITS/ML UNITS SQ SCH ×2 (06:19→21:50)
[2018-08-05] MEDS: HEPARIN NA (PORCINE) 5,000 UNITS/ML 1ML VIAL SQ SCH ×3 (06:19→21:49)
[2018-08-05] MEDS: INSULIN SLIDING SCALE (NOVOLOG) 1 VIAL SQ SCH ×4 (06:20→21:50)
[2018-08-05 06:21] LABS: ALBUMIN 2.7 g/dl (3.4-5.0); ALK PHOS 81 U/L (45-117); ANION GAP 4 MMOL/L (8-16); BILIRUBIN,TOTAL 0.4 mg/dL (0.2-1); BLOOD UREA NITROGEN 13 mg/dL (7-18); CALCIUM 9.6 mg/dL (8.5-10.1); CHLORIDE 106 mmol/L (98-107); CO2 26 mmol/L (21-32); CREATININE 0.7 mg/dL (0.55-1.3); POTASSIUM 4.4 mmol/L (3.5-5.1); SGOT/AST 28 U/L (15-37); SGPT/ALT 44 U/L (13-61); SODIUM 136 mmol/L (136-145); TOT PROT 5.3 g/dl (6.4-8.2)
[2018-08-05 06:27] LABS: GLUCOSE,RANDOM 372 mg/dL (74-106)
[2018-08-05] MEDS ORDERED: LOSARTAN POTASSIUM 25 MG TABLET PO SCH (10:00)
[2018-08-05] MEDS ORDERED: PT OWN MED DRAWER 7, Y5N ONE ×3 (10:03→10:40)
[2018-08-05] MEDS: MUPIROCIN 2% TOPICAL OINTMENT FOR DECOLONIZATION NS SCH (10:38)
--- NOTE | 2018-08-05 11:47 | PN ---
Physical Exam: SUBJECTIVE: Patient seen and examined at bedside. No events overnight, no acute complaints. OBJECTIVE: Vital Signs Period Temp Pulse Resp BP Sys/Gibbs Pulse Ox Last 24 Hr 98.2 F-98.6 F 65-90 14-18 137-170/67-84 99-100 GENERAL: A&Ox3, NAD HEAD: NC/AT EYES: PERRLA, EOMI EARS, NOSE, THROAT: MMM NECK: supple without lymphadenopathy LUNGS: CTA b/l HEART: RRR, harsh holosystolic murmur ABDOMEN: +bs, soft, NT, ND UPPER EXTREMITIES: 2+ pulses, warm, well-perfused. No cyanosis. No clubbing. Cap refill <2 seconds. No peripheral edema. LOWER EXTREMITIES: 2+ pulses, warm, well-perfused. No calf tenderness. No peripheral edema. 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 Good eye contact. Appropriate mood and affect. SKIN: Warm, dry, normal turgor, no rashes or lesions noted. Laboratory Results - last 24 hr 08/02/18 08/02/18 08/02/18 14:33 16:25 17:31 WBC RBC Hgb Hct MCV MCH MCHC RDW Plt Count MPV Absolute Neuts (auto) Neutrophils % Lymphocytes % Monocytes % Eosinophils % Basophils % Nucleated RBC % Sodium Potassium Chloride Carbon Dioxide Anion Gap BUN Creatinine Creat Clearance w eGFR POC Glucometer > 600 > 400 > 400 Random Glucose Calcium Total Bilirubin AST ALT Alkaline Phosphatase Total Protein Albumin 08/02/18 08/02/18 08/02/18 22:19 22:31 23:21 WBC RBC Hgb Hct MCV MCH MCHC RDW Plt Count MPV Absolute Neuts (auto) Neutrophils % Lymphocytes % Monocytes % Eosinophils % Basophils % Nucleated RBC % Sodium Potassium Chloride Carbon Dioxide Anion Gap BUN Creatinine Creat Clearance w eGFR POC Glucometer > 400 > 400 > 400 Random Glucose Calcium Total Bilirubin AST ALT Alkaline Phosphatase Total Protein Albumin 08/03/18 08/04/18 08/04/18 20:55 02:02 05:20 WBC RBC Hgb Hct MCV MCH MCHC RDW Plt Count MPV Absolute Neuts (auto) Neutrophils % Lymphocytes % Monocytes % Eosinophils % Basophils % Nucleated RBC % Sodium Potassium Chloride Carbon Dioxide Anion Gap BUN Creatinine Creat Clearance w eGFR POC Glucometer > 400 273.30961 373.13091 Random Glucose Calcium Total Bilirubin AST ALT Alkaline Phosphatase Total Protein Albumin 08/04/18 08/04/18 08/04/18 07:52 11:38 17:21 WBC RBC Hgb Hct MCV MCH MCHC RDW Plt Count MPV Absolute Neuts (auto) Neutrophils % Lymphocytes % Monocytes % Eosinophils % Basophils % Nucleated RBC % Sodium Potassium Chloride Carbon Dioxide Anion Gap BUN Creatinine Creat Clearance w eGFR POC Glucometer 303.32585 373.67479 211.74003 Random Glucose Calcium Total Bilirubin AST ALT Alkaline Phosphatase Total Protein Albumin 08/05/18 08/05/18 06:00 06:00 WBC 5.4 RBC 4.60 Hgb 11.3 Hct 36.0 MCV 78.3 L MCH 24.5 L MCHC 31.4 L RDW 14.8 Plt Count 200 MPV 8.1 Absolute Neuts (auto) 2.6 Neutrophils % 48.2 Lymphocytes % 37.8 D Monocytes % 7.2 Eosinophils % 5.6 H Basophils % 1.2 Nucleated RBC % 0 Sodium 136 Potassium 4.4 Chloride 106 Carbon Dioxide 26 Anion Gap 4 L BUN 13 Creatinine 0.7 Creat Clearance w eGFR > 60 POC Glucometer Random Glucose 372 H* Calcium 9.6 Total Bilirubin 0.4 AST 28 ALT 44 Alkaline Phosphatase 81 Total Protein 5.3 L Albumin 2.7 L Active Medications Generic Name Dose Route Start Last Admin Trade Name Sebastien PRN Reason Stop Dose Admin Chlorhexidine Gluconate 1 applic 08/02/18 22:00 08/04/18 22:10 Hibiclens For Decolonization - TP 1 applic HS RON Administration Heparin Sodium (Porcine) 5,000 unit 08/02/18 22:00 08/05/18 06:19 Heparin - SQ 5,000 unit TID RON Administration Insulin Aspart 1 vial 08/03/18 22:37 08/04/18 22:10 Novolog Vial Sliding Scale - SQ Not Given HS RON Protocol Insulin Aspart 1 vial 08/04/18 16:30 08/05/18 06:20 Novolog Vial Sliding Scale - SQ 14 units TIDAC RON Administration Protocol Insulin Detemir 15 units 08/04/18 22:00 08/05/18 06:19 Levemir Vial SQ 15 units 0700,2200 RON Administration Losartan Potassium 25 mg 08/05/18 10:00 08/05/18 10:37 Cozaar - PO 25 mg DAILY RON Administration Mupirocin 1 applic 08/02/18 22:00 08/05/18 10:38 Bactroban Ointment (For Decolonization) - NS 08/07/18 21:59 1 applic BID RON Administration ASSESSMENT/PLAN: 68 y/o F with PMHx metastatic bladder Ca, extensive oncologic Hx, 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 -DKA resolved -oncology and endocrinology consulted -BGM, SSI with accelerated titration, basal insulin as per endocrinology -diabetic diet -no further IVF -MATTEO resolved -WBCs normalized -heparin DVT PPx -GI PPx not indicated -full code #dispo -transfer to oncology floor Visit type - Emergency Visit Emergency Visit: No - New Patient This patient is new to me today: No - Critical Care Critical Care patient: Yes Total Critical Care Time (in minutes): 40 Critical Care Statement: The care of this patient involved high complexity decision making to prevent further life threatening deterioration of the patient 's condition and/or to evaluate & treat vital organ system(s) failure or risk of failure.
--- NOTE | 2018-08-05 11:55 | PN ---
Teaching Attending Note Name of Resident: Kareem Sneed ATTENDING PHYSICIAN STATEMENT I saw and evaluated the patient. I reviewed the resident's note and discussed the case with the resident. I agree with the resident's findings and plan as documented. SUBJECTIVE: Patient seen and examined in the ICU. No events overnight. AG closed. Still with elevated blood sugars. OBJECTIVE: Intake & Output 08/02/18 08/03/18 08/04/18 08/05/18 23:59 23:59 23:59 23:59 Intake Total 2471.2 2344 300 100 Output Total 700 1050 1500 Balance 1771.2 1294 -1200 100 Weight 195 lb 200 lb 202 lb 202 lb Last Vital Signs Temp Pulse Resp BP Pulse Ox 98.6 F 82 14 146/76 100 08/05/18 08:00 08/05/18 10:00 08/05/18 10:00 08/05/18 10:00 08/05/18 09:00 Active Medications Chlorhexidine Gluconate (Hibiclens For Decolonization -) 1 applic TP HS [facility] Last Admin: 08/04/18 22:10 Dose: 1 applic Heparin Sodium (Porcine) (Heparin -) 5,000 unit SQ TID [facility] Last Admin: 08/05/18 06:19 Dose: 5,000 unit Insulin Aspart (Novolog Vial Sliding Scale -) 1 vial SQ HS [facility]; Protocol Last Admin: 08/04/18 22:10 Dose: Not Given Insulin Aspart (Novolog Vial Sliding Scale -) 1 vial SQ TIDAC [facility]; Protocol Last Admin: 08/05/18 06:20 Dose: 14 units Insulin Detemir (Levemir Vial) 15 units SQ 0700,2200 [facility] Last Admin: 08/05/18 06:19 Dose: 15 units Losartan Potassium (Cozaar -) 25 mg PO DAILY [facility] Last Admin: 08/05/18 10:37 Dose: 25 mg Mupirocin (Bactroban Ointment (For Decolonization) -) 1 applic NS BID [facility] Stop: 08/07/18 21:59 Last Admin: 08/05/18 10:38 Dose: 1 applic GENERAL: A&Ox3, NAD HEAD: NC/AT EYES: PERRLA, EOMI EARS, NOSE, THROAT: MMM NECK: supple without lymphadenopathy LUNGS: CTA b/l HEART: RRR, harsh holosystolic murmur ABDOMEN: +bs, soft, NT, ND UPPER EXTREMITIES: 2+ pulses, warm, well-perfused. No cyanosis. No clubbing. Cap refill <2 seconds. No peripheral edema. LOWER EXTREMITIES: 2+ pulses, warm, well-perfused. No calf tenderness. No peripheral edema. NEUROLOGICAL: Non-focal PSYCHIATRIC: Cooperative. Good eye contact. Appropriate mood and affect. SKIN: Warm, dry, normal turgor, no rashes or lesions noted. Laboratory Results - last 24 hr 08/02/18 08/02/18 08/02/18 14:33 16:25 17:31 WBC RBC Hgb Hct MCV MCH MCHC RDW Plt Count MPV Absolute Neuts (auto) Neutrophils % Lymphocytes % Monocytes % Eosinophils % Basophils % Nucleated RBC % Sodium Potassium Chloride Carbon Dioxide Anion Gap BUN Creatinine Creat Clearance w eGFR POC Glucometer > 600 > 400 > 400 Random Glucose Calcium Total Bilirubin AST ALT Alkaline Phosphatase Total Protein Albumin 08/02/18 08/02/18 08/02/18 22:19 22:31 23:21 WBC RBC Hgb Hct MCV MCH MCHC RDW Plt Count MPV Absolute Neuts (auto) Neutrophils % Lymphocytes % Monocytes % Eosinophils % Basophils % Nucleated RBC % Sodium Potassium Chloride Carbon Dioxide Anion Gap BUN Creatinine Creat Clearance w eGFR POC Glucometer > 400 > 400 > 400 Random Glucose Calcium Total Bilirubin AST ALT Alkaline Phosphatase Total Protein Albumin 08/03/18 08/04/18 08/04/18 20:55 02:02 05:20 WBC RBC Hgb Hct MCV MCH MCHC RDW Plt Count MPV Absolute Neuts (auto) Neutrophils % Lymphocytes % Monocytes % Eosinophils % Basophils % Nucleated RBC % Sodium Potassium Chloride Carbon Dioxide Anion Gap BUN Creatinine Creat Clearance w eGFR POC Glucometer > 400 273.57248 373.56854 Random Glucose Calcium Total Bilirubin AST ALT Alkaline Phosphatase Total Protein Albumin 08/04/18 08/04/18 08/04/18 07:52 11:38 17:21 WBC RBC Hgb Hct MCV MCH MCHC RDW Plt Count MPV Absolute Neuts (auto) Neutrophils % Lymphocytes % Monocytes % Eosinophils % Basophils % Nucleated RBC % Sodium Potassium Chloride Carbon Dioxide Anion Gap BUN Creatinine Creat Clearance w eGFR POC Glucometer 303.28862 373.34388 211.27070 Random Glucose Calcium Total Bilirubin AST ALT Alkaline Phosphatase Total Protein Albumin 08/05/18 08/05/18 06:00 06:00 WBC 5.4 RBC 4.60 Hgb 11.3 Hct 36.0 MCV 78.3 L MCH 24.5 L MCHC 31.4 L RDW 14.8 Plt Count 200 MPV 8.1 Absolute Neuts (auto) 2.6 Neutrophils % 48.2 Lymphocytes % 37.8 D Monocytes % 7.2 Eosinophils % 5.6 H Basophils % 1.2 Nucleated RBC % 0 Sodium 136 Potassium 4.4 Chloride 106 Carbon Dioxide 26 Anion Gap 4 L BUN 13 Creatinine 0.7 Creat Clearance w eGFR > 60 POC Glucometer Random Glucose 372 H* Calcium 9.6 Total Bilirubin 0.4 AST 28 ALT 44 Alkaline Phosphatase 81 Total Protein 5.3 L Albumin 2.7 L ASSESSMENT/PLAN: 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
--- NOTE | 2018-08-05 14:27 | PN ---
Progress Note (short form) - Note Progress Note: PROGRESS NOTE: HEMATOLOGY-ONCOLOGY feeling better today. eating well not yet ambulating, encouraged to oob, said she will work with PT today denies chest pain, sob, fevers, abdominal pain Last Vital Signs Temp Pulse Resp BP Pulse Ox 98.6 F 86 18 154/81 100 08/05/18 12:00 08/05/18 12:00 08/05/18 12:00 08/05/18 12:00 08/05/18 09:00 PE: NAD, resting comfortably in bed, awake, alert tenderness near left side of port insertion, site is clean, dry without erythema , skin is intact CTAB s1, s2, abd not distended LE: no edema CBCD WBC 5.4 K/mm3 (4.0-10.0) 08/05/18 06:00 RBC 4.60 M/mm3 (3.60-5.2) 08/05/18 06:00 Hgb 11.3 GM/dL (10.7-15.3) 08/05/18 06:00 Hct 36.0 % (32.4-45.2) 08/05/18 06:00 MCV 78.3 fl (80-96) L 08/05/18 06:00 MCHC 31.4 g/dl (32.0-36.0) L 08/05/18 06:00 RDW 14.8 % (11.6-15.6) 08/05/18 06:00 Plt Count 200 K/MM3 (134-434) 08/05/18 06:00 MPV 8.1 fl (7.5-11.1) 08/05/18 06:00 CMP Sodium 136 mmol/L (136-145) 08/05/18 06:00 Potassium 4.4 mmol/L (3.5-5.1) 08/05/18 06:00 Chloride 106 mmol/L (98-107) 08/05/18 06:00 Carbon Dioxide 26 mmol/L (21-32) 08/05/18 06:00 Anion Gap 4 MMOL/L (8-16) L 08/05/18 06:00 BUN 13 mg/dL (7-18) 08/05/18 06:00 Creatinine 0.7 mg/dL (0.55-1.3) 08/05/18 06:00 Creat Clearance w eGFR > 60 (>60) 08/05/18 06:00 Calcium 9.6 mg/dL (8.5-10.1) 08/05/18 06:00 Total Bilirubin 0.4 mg/dL (0.2-1) 08/05/18 06:00 AST 28 U/L (15-37) 08/05/18 06:00 ALT 44 U/L (13-61) 08/05/18 06:00 Alkaline Phosphatase 81 U/L (45-117) 08/05/18 06:00 Total Protein 5.3 g/dl (6.4-8.2) L 08/05/18 06:00 Albumin 2.7 g/dl (3.4-5.0) L 08/05/18 06:00 Active Medications Chlorhexidine Gluconate (Hibiclens For Decolonization -) 1 applic TP HS [facility] Last Admin: 08/04/18 22:10 Dose: 1 applic Heparin Sodium (Porcine) (Heparin -) 5,000 unit SQ TID [facility] Last Admin: 08/05/18 13:47 Dose: 5,000 unit Insulin Aspart (Novolog Vial Sliding Scale -) 1 vial SQ HS [facility]; Protocol Last Admin: 08/04/18 22:10 Dose: Not Given Insulin Aspart (Novolog Vial Sliding Scale -) 1 vial SQ TIDAC [facility]; Protocol Last Admin: 08/05/18 12:28 Dose: 8 units Insulin Detemir (Levemir Vial) 15 units SQ 0700,2200 [facility] Last Admin: 08/05/18 06:19 Dose: 15 units Losartan Potassium (Cozaar -) 25 mg PO DAILY [facility] Last Admin: 08/05/18 10:37 Dose: 25 mg Mupirocin (Bactroban Ointment (For Decolonization) -) 1 applic NS BID [facility] Stop: 08/07/18 21:59 Last Admin: 08/05/18 10:38 Dose: 1 applic 68 yr old woman with HTN, metastatic transitional cell bladder carcinoma (hx of pathological fracture femur- now stable, known adrenal mets), history of colon mass s/p resection, Lft nephrectomy admitted to ICU for DKA. Problem List: DKA - resolved MATTEO - resolved metastatic transitional cell bladder carcinoma s/p left nephrectomy A/P DKA likely rare side effect of keytruda, keytruda to be held until blood glucose is better managed. current A1c 9.3 outpatient f/u to further evaluate re-initiation of keytruda pending further diabetes eval by endo, recommend diabetic teaching recommend PT daily to mobilize patient
--- NOTE | 2018-08-05 15:51 | PN ---
Progress Note (short form) - Note Progress Note: Feels better Denies any complaints Blood sugar still suboptimal Denies eating during the night Vital Signs Period Temp Pulse Resp BP Sys/Gibbs Pulse Ox Last 24 Hr 98.2 F-98.6 F 65-90 14-18 143-170/70-84 99-100 PE: AOx3 Neck: supple, No JVD HEENT: EOMI Lungs: CTA CVS: S1S2 ABd: Benign EXt: No edema Neuro: No focal deficit CMP Sodium 136 mmol/L (136-145) 08/05/18 06:00 Potassium 4.4 mmol/L (3.5-5.1) 08/05/18 06:00 Chloride 106 mmol/L (98-107) 08/05/18 06:00 Carbon Dioxide 26 mmol/L (21-32) 08/05/18 06:00 Anion Gap 4 MMOL/L (8-16) L 08/05/18 06:00 BUN 13 mg/dL (7-18) 08/05/18 06:00 Creatinine 0.7 mg/dL (0.55-1.3) 08/05/18 06:00 Creat Clearance w eGFR > 60 (>60) 08/05/18 06:00 POC Glucometer 211.61462 UNITS (80-120) 08/05/18 12:06 Random Glucose 372 mg/dL (74-106) H* 08/05/18 06:00 Hemoglobin A1c % 9.3 % (4.2-6.3) H 08/02/18 13:00 Calcium 9.6 mg/dL (8.5-10.1) 08/05/18 06:00 Phosphorus 1.9 mg/dL (2.5-4.9) L 08/03/18 17:50 Magnesium 2.0 mg/dL (1.8-2.4) 08/03/18 17:50 Total Bilirubin 0.4 mg/dL (0.2-1) 08/05/18 06:00 AST 28 U/L (15-37) 08/05/18 06:00 ALT 44 U/L (13-61) 08/05/18 06:00 Alkaline Phosphatase 81 U/L (45-117) 08/05/18 06:00 Creatine Kinase 404 IU/L (26-192) H 08/03/18 01:45 Creatine Kinase Index 18.9 % (0.0-5.0) H* 08/03/18 01:45 CK-MB (CK-2) 76.6 ng/mL (0.5-3.6) H 08/03/18 01:45 Troponin I 0.09 ng/ml (0.00-0.05) H 08/03/18 01:45 Total Protein 5.3 g/dl (6.4-8.2) L 08/05/18 06:00 Albumin 2.7 g/dl (3.4-5.0) L 08/05/18 06:00 TSH 1.83 uIU/ml (0.358-3.74) 08/02/18 10:47 Cortisol AM Sample 26.4 ug/dL (.) 08/02/18 10:47 Current Medications Generic Name Dose Route Start Last Admin Trade Name Freq PRN Reason Stop Dose Admin Chlorhexidine Gluconate 1 applic 08/02/18 22:00 08/04/18 22:10 Hibiclens For Decolonization - TP 1 applic HS RON Administration Heparin Sodium (Porcine) 5,000 unit 08/02/18 22:00 08/05/18 13:47 Heparin - SQ 5,000 unit TID RON Administration Insulin Aspart 1 vial 08/03/18 22:37 08/04/18 22:10 Novolog Vial Sliding Scale - SQ Not Given HS RON Protocol Insulin Aspart 1 vial 08/04/18 16:30 08/05/18 12:28 Novolog Vial Sliding Scale - SQ 8 units TIDAC RON Administration Protocol Insulin Detemir 15 units 08/04/18 22:00 08/05/18 06:19 Levemir Vial SQ 15 units 0700,2200 RON Administration Losartan Potassium 25 mg 08/05/18 10:00 08/05/18 10:37 Cozaar - PO 25 mg DAILY RON Administration Mupirocin 1 applic 08/02/18 22:00 08/05/18 10:38 Bactroban Ointment (For Decolonization) - NS 08/07/18 21:59 1 applic BID RON Administration AP; 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 Aic 9.3 Increase Levemir 18 BID BGM Q ACHS and 3 AM Increase Novolog SS coverage S/s of hypoglycemia discussed with pt. To report any symptom to hospital staff. Electrolyte replacement as necessary Labs for c peptide, MIRYAM and Islet cell Ab,. MIRYAM Ab ordered. will get C peptide as outpt. Diabtes education done All questions answered. Nutirtion consult Teach pt to self monitor blood sugar and self inject Insulin all questions answered Metastatic Bladder Ca Will f/u
--- NOTE | 2018-08-05 16:49 | PN ---
Progress Note, Physician History of Present Illness: Pt seen and examined at bedside. She is awake and alert. She denies shortness of breath. - Current Medication List Current Medications: Active Medications Chlorhexidine Gluconate (Hibiclens For Decolonization -) 1 applic TP HS [facility] Last Admin: 08/04/18 22:10 Dose: 1 applic Heparin Sodium (Porcine) (Heparin -) 5,000 unit SQ TID [facility] Last Admin: 08/05/18 13:47 Dose: 5,000 unit Insulin Aspart (Novolog Vial Sliding Scale -) 1 vial SQ HS [facility]; Protocol Last Admin: 08/04/18 22:10 Dose: Not Given Insulin Aspart (Novolog Vial Sliding Scale -) 1 vial SQ TIDAC [facility]; Protocol Insulin Detemir (Levemir Vial) 18 units SQ DAILY@0700,2200 [facility] Losartan Potassium (Cozaar -) 25 mg PO DAILY [facility] Last Admin: 08/05/18 10:37 Dose: 25 mg Mupirocin (Bactroban Ointment (For Decolonization) -) 1 applic NS BID [facility] Stop: 08/07/18 21:59 Last Admin: 08/05/18 10:38 Dose: 1 applic - Objective Vital Signs: Vital Signs Temperature 98.2 F 08/05/18 14:00 Pulse Rate 78 08/05/18 16:00 Respiratory Rate 20 08/05/18 16:00 Blood Pressure 146/82 08/05/18 16:00 O2 Sat by Pulse Oximetry (%) 100 08/05/18 09:00 Constitutional: Yes: Calm Eyes: Yes: Conjunctiva Clear HENT: Yes: Atraumatic Cardiovascular: Yes: S1, S2 Respiratory: Yes: CTA Bilaterally Gastrointestinal: Yes: Soft Genitourinary: Yes: WNL Musculoskeletal: Yes: WNL Edema: No Neurological: Yes: Oriented Psychiatric: Yes: Oriented Labs: CBC, BMP 08/05/18 06:00 08/05/18 06:00 INR, PTT INR 0.88 (0.83-1.09) 08/02/18 10:42 Problem List - Problems (1) DKA (diabetic ketoacidoses) Code(s): E13.10 - OTH DIABETES MELLITUS WITH KETOACIDOSIS WITHOUT COMA (2) MATTEO (acute kidney injury) Code(s): N17.9 - ACUTE KIDNEY FAILURE, UNSPECIFIED (3) Weakness Code(s): R53.1 - WEAKNESS (4) Anemia Code(s): D64.9 - ANEMIA, UNSPECIFIED (5) Leukocytosis Code(s): D72.829 - ELEVATED WHITE BLOOD CELL COUNT, UNSPECIFIED (6) HTN (hypertension) Code(s): I10 - ESSENTIAL (PRIMARY) HYPERTENSION Assessment/Plan Current Medications Generic Name Dose Route Start Last Admin Trade Name Freq PRN Reason Stop Dose Admin Chlorhexidine Gluconate 1 applic 08/02/18 22:00 08/04/18 22:10 Hibiclens For Decolonization - TP 1 applic HS [facility]ON Administration Heparin Sodium (Porcine) 5,000 unit 08/02/18 22:00 08/05/18 13:47 Heparin - SQ 5,000 unit TID RON Administration Insulin Aspart 1 vial 08/03/18 22:37 08/04/18 22:10 Novolog Vial Sliding Scale - SQ Not Given HS [facility] Protocol Insulin Aspart 1 vial 08/05/18 15:49 Novolog Vial Sliding Scale - SQ TIDAC [facility] Protocol Insulin Detemir 18 units 08/05/18 22:00 Levemir Vial SQ DAILY@0700,2200 [facility] Losartan Potassium 25 mg 08/05/18 10:00 08/05/18 10:37 Cozaar - PO 25 mg DAILY [facility]ON Administration Mupirocin 1 applic 08/02/18 22:00 08/05/18 10:38 Bactroban Ointment (For Decolonization) - NS 08/07/18 21:59 1 applic BID RON Administration Impression 1. MATTEO 2. dehydration 3. DKA 4. bladder cancer 5. hx of nephrectomy Plan - renal function stable - follow kidney ultrasound - monitor blood sugar - will follow - MATTEO likely from dehydration Dr Conti
--- NOTE | 2018-08-05 18:05 | PN ---
Progress Note, Physician History of Present Illness: No new complaints - Current Medication List Current Medications: Active Medications Chlorhexidine Gluconate (Hibiclens For Decolonization -) 1 applic TP HS [facility] Last Admin: 08/04/18 22:10 Dose: 1 applic Heparin Sodium (Porcine) (Heparin -) 5,000 unit SQ TID [facility] Last Admin: 08/05/18 13:47 Dose: 5,000 unit Insulin Aspart (Novolog Vial Sliding Scale -) 1 vial SQ HS [facility]; Protocol Last Admin: 08/04/18 22:10 Dose: Not Given Insulin Aspart (Novolog Vial Sliding Scale -) 1 vial SQ TIDAC [facility]; Protocol Last Admin: 08/05/18 18:02 Dose: Not Given Insulin Detemir (Levemir Vial) 18 units SQ DAILY@0700,2200 [facility] Losartan Potassium (Cozaar -) 25 mg PO DAILY [facility] Last Admin: 08/05/18 10:37 Dose: 25 mg Mupirocin (Bactroban Ointment (For Decolonization) -) 1 applic NS BID [facility] Stop: 08/07/18 21:59 Last Admin: 08/05/18 10:38 Dose: 1 applic - Objective Vital Signs: Vital Signs Temperature 98.2 F 08/05/18 14:00 Pulse Rate 78 08/05/18 16:00 Respiratory Rate 20 08/05/18 16:00 Blood Pressure 146/82 08/05/18 16:00 O2 Sat by Pulse Oximetry (%) 100 08/05/18 09:00 Constitutional: Yes: Well Nourished Neck: Yes: WNL, Supple Cardiovascular: Yes: WNL, Regular Rate and Rhythm Respiratory: Yes: WNL, Regular, CTA Bilaterally Gastrointestinal: Yes: WNL, Normal Bowel Sounds, Soft Labs: CBC, BMP 08/05/18 06:00 08/05/18 06:00 INR, PTT INR 0.88 (0.83-1.09) 08/02/18 10:42 Problem List - Problems (1) MATTEO (acute kidney injury) Assessment/Plan: Cont IV hydration Code(s): N17.9 - ACUTE KIDNEY FAILURE, UNSPECIFIED (2) Anemia Assessment/Plan: Due to chronic dz/cancer/chemotx Code(s): D64.9 - ANEMIA, UNSPECIFIED (3) Bladder carcinoma metastatic to liver Assessment/Plan: As per onco Chemo as per onco Code(s): C67.9 - MALIGNANT NEOPLASM OF BLADDER, UNSPECIFIED; C78.7 - SECONDARY MALIG NEOPLASM OF LIVER AND INTRAHEPATIC BILE DUCT (4) DKA (diabetic ketoacidoses) Assessment/Plan: Cont IVF Cont levemir Cont sliding scale w/ coverage Code(s): E13.10 - OTH DIABETES MELLITUS WITH KETOACIDOSIS WITHOUT COMA (5) HTN (hypertension) Code(s): I10 - ESSENTIAL (PRIMARY) HYPERTENSION
--- NOTE | 2018-08-05 18:12 | PN ---
Teaching Attending Note Name of Resident: Emory Tiwari ATTENDING PHYSICIAN STATEMENT I saw and evaluated the patient. I reviewed the resident's note and discussed the case with the resident. I agree with the resident's findings and plan as documented. 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 , TMB high. Patienthad been on pembrolizumab. adamantly refused chemotherapy HAd been doing very well on pembrolizumab with stable CT scans Last spoke to patient on 07/29/18 when she reported thrush and wt. loss. She had an appointment for treatment on 08/02. Daughter called saying she was being brought to the ER for severe weakness, not able to ambulate. 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
--- NOTE | 2018-08-05 18:24 | PN ---
Progress Note (short form) - Note Progress Note: Patient seen in follow up. No new complaints. Inpatient Meds reviewed. On Examination: Vital Signs Period Temp Pulse Resp BP Sys/Gibbs Pulse Ox Last 24 Hr 98.2 F-98.6 F 71-94 15-22 111-159/54-79 97-99 General: In no acute distress, lying comfortably in bed. Extremities: No pallor or icterus. No pedal edema. No palpable lymphadenopathy. Chest: breathing comfortably Abdomen: Non-distended, non-tender, no palpable organomegaly. Neuro: alert and oriented, non-focal Labs: Reviewed - stable. Hyperglycemia - was still receiving D5. Assessment. Metastatic bladder cancer with liver mets, h/o colon cancer , bx of liver mets c /w urothelial cancer, MSI H, PDL1 neg. Managed presently with pembrolizumab, (refused chemotherapy), and now admitted with DKA, attributed to immunotherapy. Doing well now - gap closed, HCO3 normal. Hypergylcemic still - on D51/2NS (?) and insulin. Endocrine following Pembrolizumab held for now.
[2018-08-05] MEDS ORDERED: INSULIN (NOVOLOG) ASPART 100 UNITS/ML 10ML VIAL ONE (20:54)
[2018-08-05] MEDS ORDERED: MUPIROCIN 2% TOPICAL OINTMENT FOR DECOLONIZATION NS SCH (22:00)
[2018-08-05] MEDS ORDERED: CHLORHEXIDINE GLUCONATE 4% CLEANSER FOR DECOLONIZATION TP SCH (22:00)
[2018-08-06] MEDS ORDERED: PORTA CATH FLUSH 10 ML IVPUSH PRN (06:42)
[2018-08-06] MEDS: INSULIN SLIDING SCALE (NOVOLOG) 1 VIAL SQ SCH ×4 (06:46→22:03)
[2018-08-06] MEDS: INSULIN (LEVEMIR) 100 UNITS/ML UNITS SQ SCH ×2 (06:47→22:03)
[2018-08-06] MEDS: HEPARIN NA (PORCINE) 5,000 UNITS/ML 1ML VIAL SQ SCH ×3 (06:49→22:03)
[2018-08-06 07:25] LABS: BASO % 1.3 % (0-2.0); EOS % 6.7 % (0-4.5); HEMATOCRIT 36.7 % (32.4-45.2); HEMOGLOBIN 11.3 GM/dL (10.7-15.3); LYMPH % 36.6 % (8-40); MCH 24.2 pg (25.7-33.7); MCHC 30.8 g/dl (32.0-36.0); MEAN CELL VOLUME 78.5 fl (80-96); MEAN PLT VOLUME 8.7 fl (7.5-11.1); MONO % 8.2 % (3.8-10.2); NEUT % 47.2 % (42.8-82.8); PLATELET COUNT 216 K/MM3 (134-434); RBC 4.68 M/mm3 (3.60-5.2); RDW 14.4 % (11.6-15.6)
[2018-08-06 08:09] LABS: ANION GAP 6 MMOL/L (8-16); BLOOD UREA NITROGEN 13 mg/dL (7-18); CALCIUM 9.7 mg/dL (8.5-10.1); CHLORIDE 104 mmol/L (98-107); CO2 28 mmol/L (21-32); CREATININE 0.6 mg/dL (0.55-1.3); GLUCOSE,RANDOM 228 mg/dL (74-106); MAGNESIUM 1.7 mg/dL (1.8-2.4); PHOSPHOROUS 2.6 mg/dL (2.5-4.9); POTASSIUM 4.2 mmol/L (3.5-5.1); SODIUM 138 mmol/L (136-145)
[2018-08-06] MEDS: LOSARTAN POTASSIUM 25 MG TABLET PO SCH (10:03)
--- NOTE | 2018-08-06 11:58 | PN ---
Progress Note (short form) - Note Progress Note: Feels better Denies any complaints Blood sugar improving No Hypos Vital Signs Period Temp Pulse Resp BP Sys/Gibbs Pulse Ox Last 24 Hr 98.2 F-98.9 F 71-86 18-23 138-154/72-86 100 PE: AOx3 Neck: supple, No JVD HEENT: EOMI Lungs: CTA CVS: S1S2 ABd: Benign EXt: No edema Neuro: No focal deficit CMP Sodium 138 mmol/L (136-145) 08/06/18 06:35 Potassium 4.2 mmol/L (3.5-5.1) 08/06/18 06:35 Chloride 104 mmol/L (98-107) 08/06/18 06:35 Carbon Dioxide 28 mmol/L (21-32) 08/06/18 06:35 Anion Gap 6 MMOL/L (8-16) L 08/06/18 06:35 BUN 13 mg/dL (7-18) 08/06/18 06:35 Creatinine 0.6 mg/dL (0.55-1.3) 08/06/18 06:35 Creat Clearance w eGFR > 60 (>60) 08/06/18 06:35 POC Glucometer 223 UNITS (80-120) 08/06/18 06:43 Random Glucose 228 mg/dL (74-106) H 08/06/18 06:35 Hemoglobin A1c % 9.3 % (4.2-6.3) H 08/02/18 13:00 Calcium 9.7 mg/dL (8.5-10.1) 08/06/18 06:35 Phosphorus 2.6 mg/dL (2.5-4.9) 08/06/18 06:35 Magnesium 1.7 mg/dL (1.8-2.4) L 08/06/18 06:35 Total Bilirubin 0.4 mg/dL (0.2-1) 08/05/18 06:00 AST 28 U/L (15-37) 08/05/18 06:00 ALT 44 U/L (13-61) 08/05/18 06:00 Alkaline Phosphatase 81 U/L (45-117) 08/05/18 06:00 Creatine Kinase 404 IU/L (26-192) H 08/03/18 01:45 Creatine Kinase Index 18.9 % (0.0-5.0) H* 08/03/18 01:45 CK-MB (CK-2) 76.6 ng/mL (0.5-3.6) H 08/03/18 01:45 Troponin I 0.09 ng/ml (0.00-0.05) H 08/03/18 01:45 Total Protein 5.3 g/dl (6.4-8.2) L 08/05/18 06:00 Albumin 2.7 g/dl (3.4-5.0) L 08/05/18 06:00 TSH 1.83 uIU/ml (0.358-3.74) 08/02/18 10:47 Cortisol AM Sample 26.4 ug/dL (.) 08/02/18 10:47 Current Medications Generic Name Dose Route Start Last Admin Trade Name Freq PRN Reason Stop Dose Admin Heparin Sodium (Porcine) 5,000 unit 08/05/18 22:00 08/06/18 06:49 Heparin - SQ Not Given TID RON IV Flush 10 ml 08/06/18 06:42 Janis-Cath Flush IVPUSH PRN PRN maintain patency, protocol Insulin Aspart 1 vial 08/05/18 15:49 08/06/18 06:46 Novolog Vial Sliding Scale - SQ 10 units TIDAC RON Administration Protocol Insulin Aspart 1 vial 08/05/18 22:00 08/05/18 21:50 Novolog Vial Sliding Scale - SQ Not Given HS RON Protocol Insulin Detemir 18 units 08/05/18 22:00 08/06/18 06:47 Levemir Vial SQ 18 units DAILY@0700,2200 RON Administration Losartan Potassium 25 mg 08/06/18 10:00 08/06/18 10:03 Cozaar - PO 25 mg DAILY RON Administration AP; 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 Aic 9.3 Continue Levemir 18 BID BGM Q ACHS and 3 AM Novolog SS coverage S/s of hypoglycemia discussed with pt again. To report any symptom to hospital staff. Electrolyte replacement as necessary Labs for c peptide, MIRYAM and Islet cell Ab,. MIRYAM Ab ordered. will get C peptide as outpt. Diabtes education done All questions answered. Nutirtion consult Teach pt to self monitor blood sugar and self inject Insulin Metastatic Bladder Ca Will f/u
[2018-08-06] MEDS ORDERED: MAGNESIUM OXIDE 400 MG TABLET (FP) PO ONE (12:36)
[2018-08-06] MEDS ORDERED: FLUCONAZOLE 150 MG TABLET PO STA (12:37)
--- NOTE | 2018-08-06 12:38 | PN ---
Progress Note, Physician History of Present Illness: Pt seen and examined at bedside. She is now in the medical alonso. She denies shortness of breath. She is awake and alert. - Current Medication List Current Medications: Active Medications Fluconazole (Fluconazole) 150 mg PO ONCE STA Stop: 08/06/18 12:34 Heparin Sodium (Porcine) (Heparin -) 5,000 unit SQ TID [facility] Last Admin: 08/06/18 06:49 Dose: Not Given IV Flush (Janis-Cath Flush) 10 ml IVPUSH PRN PRN PRN Reason: maintain patency, protocol Insulin Aspart (Novolog Vial Sliding Scale -) 1 vial SQ TIDAC [facility]; Protocol Last Admin: 08/06/18 06:46 Dose: 10 units Insulin Aspart (Novolog Vial Sliding Scale -) 1 vial SQ HS [facility]; Protocol Last Admin: 08/05/18 21:50 Dose: Not Given Insulin Detemir (Levemir Vial) 18 units SQ DAILY@0700,2200 [facility] Last Admin: 08/06/18 06:47 Dose: 18 units Losartan Potassium (Cozaar -) 25 mg PO DAILY [facility] Last Admin: 08/06/18 10:03 Dose: 25 mg - Objective Vital Signs: Vital Signs Temperature 98.7 F 08/06/18 05:00 Pulse Rate 76 08/06/18 05:00 Respiratory Rate 20 08/06/18 05:00 Blood Pressure 142/81 08/06/18 05:00 O2 Sat by Pulse Oximetry (%) 100 08/05/18 21:00 Constitutional: Yes: Calm Eyes: Yes: Conjunctiva Clear HENT: Yes: Atraumatic Cardiovascular: Yes: S1, S2 Respiratory: Yes: CTA Bilaterally Gastrointestinal: Yes: Soft Genitourinary: Yes: Mckoy Present Musculoskeletal: Yes: WNL Edema: No Neurological: Yes: Oriented Psychiatric: Yes: Oriented Labs: CBC, BMP 08/06/18 06:35 08/06/18 06:35 INR, PTT INR 0.88 (0.83-1.09) 08/02/18 10:42 Problem List - Problems (1) DKA (diabetic ketoacidoses) Code(s): E13.10 - OTH DIABETES MELLITUS WITH KETOACIDOSIS WITHOUT COMA (2) MATTEO (acute kidney injury) Code(s): N17.9 - ACUTE KIDNEY FAILURE, UNSPECIFIED (3) Weakness Code(s): R53.1 - WEAKNESS (4) Anemia Code(s): D64.9 - ANEMIA, UNSPECIFIED (5) Leukocytosis Code(s): D72.829 - ELEVATED WHITE BLOOD CELL COUNT, UNSPECIFIED (6) HTN (hypertension) Code(s): I10 - ESSENTIAL (PRIMARY) HYPERTENSION Assessment/Plan Current Medications Generic Name Dose Route Start Last Admin Trade Name Freq PRN Reason Stop Dose Admin Fluconazole 150 mg 08/06/18 12:33 Fluconazole PO 08/06/18 12:34 ONCE STA Heparin Sodium (Porcine) 5,000 unit 08/05/18 22:00 08/06/18 06:49 Heparin - SQ Not Given TID RON IV Flush 10 ml 08/06/18 06:42 Janis-Cath Flush IVPUSH PRN PRN maintain patency, protocol Insulin Aspart 1 vial 08/05/18 15:49 08/06/18 06:46 Novolog Vial Sliding Scale - SQ 10 units TIDAC RON Administration Protocol Insulin Aspart 1 vial 08/05/18 22:00 08/05/18 21:50 Novolog Vial Sliding Scale - SQ Not Given HS RON Protocol Insulin Detemir 18 units 08/05/18 22:00 08/06/18 06:47 Levemir Vial SQ 18 units DAILY@0700,2200 RON Administration Losartan Potassium 25 mg 08/06/18 10:00 08/06/18 10:03 Cozaar - PO 25 mg DAILY RON Administration Magnesium Oxide 800 mg 08/06/18 12:36 Mag-Ox - PO 08/06/18 12:37 ONCE ONE Impression 1. MATTEO 2. dehydration 3. DKA 4. bladder cancer 5. hx of nephrectomy Plan - renal function improved - reviewed renal ultrasound - replace mag - monitor lytes - will follow PRN - MATTEO likely from dehydration Dr Conti
--- NOTE | 2018-08-06 18:04 | PN ---
Progress Note (short form) - Note Progress Note: Patient seen in follow up. Now on general medical floor. Complaining of white vaginal discharge with pruritus. Inpatient Meds reviewed. Current Medications Generic Name Dose Route Start Last Admin Trade Name Sebastien PRN Reason Stop Dose Admin Heparin Sodium (Porcine) 5,000 unit 08/05/18 22:00 08/06/18 14:22 Heparin - SQ 5,000 unit TID RON Administration IV Flush 10 ml 08/06/18 06:42 Janis-Cath Flush IVPUSH PRN PRN maintain patency, protocol Insulin Aspart 1 vial 08/05/18 15:49 08/06/18 16:56 Novolog Vial Sliding Scale - SQ 10 units TIDAC RON Administration Protocol Insulin Aspart 1 vial 08/05/18 22:00 08/05/18 21:50 Novolog Vial Sliding Scale - SQ Not Given HS RON Protocol Insulin Detemir 18 units 08/05/18 22:00 08/06/18 06:47 Levemir Vial SQ 18 units DAILY@0700,2200 RON Administration Losartan Potassium 25 mg 08/06/18 10:00 08/06/18 10:03 Cozaar - PO 25 mg DAILY RON Administration On Examination: Last Vital Signs Temp Pulse Resp BP Pulse Ox 98.6 F 83 20 137/74 99 08/06/18 14:54 08/06/18 14:54 08/06/18 14:54 08/06/18 14:54 08/06/18 09:00 General: In no acute distress, sitting up in bed. Extremities: No pallor or icterus. No pedal edema. No palpable lymphadenopathy. Chest: breathing comfortably Abdomen: Non-distended, non-tender, no palpable organomegaly. Neuro: alert and oriented, non-focal Labs: CBC, BMP 08/06/18 06:35 08/06/18 06:35 Assessment. Metastatic bladder cancer with liver mets, h/o colon cancer , bx of liver mets c /w urothelial cancer, MSI H, PDL1 neg. Managed presently with pembrolizumab, (refused chemotherapy), and now admitted with DKA, attributed to immunotherapy. Doing well now - glucose better controlled. Endocrine following. Likely vaginal candidiasis - dose of Diflucan ordered. Pembrolizumab held for now.
[2018-08-06] MEDS ORDERED: INSULIN (NOVOLOG) ASPART 100 UNITS/ML 10ML VIAL ONE (20:38)
--- NOTE | 2018-08-06 22:57 | PN ---
Progress Note, Physician - Current Medication List Current Medications: Active Medications Heparin Sodium (Porcine) (Heparin -) 5,000 unit SQ TID [facility] Last Admin: 08/06/18 22:03 Dose: 5,000 unit IV Flush (Janis-Cath Flush) 10 ml IVPUSH PRN PRN PRN Reason: maintain patency, protocol Insulin Aspart (Novolog Vial Sliding Scale -) 1 vial SQ TIDAC [facility]; Protocol Last Admin: 08/06/18 16:56 Dose: 10 units Insulin Aspart (Novolog Vial Sliding Scale -) 1 vial SQ HS [facility]; Protocol Last Admin: 08/06/18 22:03 Dose: Not Given Insulin Detemir (Levemir Vial) 18 units SQ DAILY@0700,2200 [facility] Last Admin: 08/06/18 22:03 Dose: 18 units Losartan Potassium (Cozaar -) 25 mg PO DAILY [facility] Last Admin: 08/06/18 10:03 Dose: 25 mg - Objective Vital Signs: Vital Signs Temperature 98.2 F 08/06/18 18:10 Pulse Rate 74 08/06/18 18:10 Respiratory Rate 18 08/06/18 18:10 Blood Pressure 143/73 08/06/18 18:10 O2 Sat by Pulse Oximetry (%) 99 08/06/18 09:00 Constitutional: Yes: Well Nourished Neck: Yes: WNL, Supple Cardiovascular: Yes: WNL, Regular Rate and Rhythm Respiratory: Yes: WNL, Regular, CTA Bilaterally Gastrointestinal: Yes: WNL, Normal Bowel Sounds, Soft Labs: CBC, BMP 08/06/18 06:35 08/06/18 06:35 INR, PTT INR 0.88 (0.83-1.09) 08/02/18 10:42
[2018-08-07] MEDS: INSULIN SLIDING SCALE (NOVOLOG) 1 VIAL SQ SCH ×4 (06:17→22:00)
[2018-08-07] MEDS: INSULIN (LEVEMIR) 100 UNITS/ML UNITS SQ SCH ×2 (06:17→21:59)
[2018-08-07] MEDS: HEPARIN NA (PORCINE) 5,000 UNITS/ML 1ML VIAL SQ SCH ×3 (06:23→21:59)
[2018-08-07] MEDS: LOSARTAN POTASSIUM 25 MG TABLET PO SCH (10:28)
[2018-08-07] MEDS ORDERED: INSULIN (NOVOLOG) ASPART 100 UNITS/ML 10ML VIAL ONE (11:57)
[2018-08-07 12:48] VITALS: BMI 30.7
--- NOTE | 2018-08-07 17:31 | PN ---
Progress Note (short form) - Note Progress Note: Feels better Denies any complaints Blood sugar improving No Hypos Vital Signs Period Temp Pulse Resp BP Sys/Gibbs Pulse Ox Last 24 Hr 98 F-98.8 F 67-79 18-20 128-158/73-87 99-99 PE: AOx3 Neck: supple, No JVD HEENT: EOMI Lungs: CTA CVS: S1S2 ABd: Benign EXt: No edema Neuro: No focal deficit CMP Sodium 138 mmol/L (136-145) 08/06/18 06:35 Potassium 4.2 mmol/L (3.5-5.1) 08/06/18 06:35 Chloride 104 mmol/L (98-107) 08/06/18 06:35 Carbon Dioxide 28 mmol/L (21-32) 08/06/18 06:35 Anion Gap 6 MMOL/L (8-16) L 08/06/18 06:35 BUN 13 mg/dL (7-18) 08/06/18 06:35 Creatinine 0.6 mg/dL (0.55-1.3) 08/06/18 06:35 Creat Clearance w eGFR > 60 (>60) 08/06/18 06:35 POC Glucometer 217 UNITS (80-120) 08/07/18 11:51 Random Glucose 228 mg/dL (74-106) H 08/06/18 06:35 Hemoglobin A1c % 9.3 % (4.2-6.3) H 08/02/18 13:00 Calcium 9.7 mg/dL (8.5-10.1) 08/06/18 06:35 Phosphorus 2.6 mg/dL (2.5-4.9) 08/06/18 06:35 Magnesium 1.7 mg/dL (1.8-2.4) L 08/06/18 06:35 Total Bilirubin 0.4 mg/dL (0.2-1) 08/05/18 06:00 AST 28 U/L (15-37) 08/05/18 06:00 ALT 44 U/L (13-61) 08/05/18 06:00 Alkaline Phosphatase 81 U/L (45-117) 08/05/18 06:00 Creatine Kinase 404 IU/L (26-192) H 08/03/18 01:45 Creatine Kinase Index 18.9 % (0.0-5.0) H* 08/03/18 01:45 CK-MB (CK-2) 76.6 ng/mL (0.5-3.6) H 08/03/18 01:45 Troponin I 0.09 ng/ml (0.00-0.05) H 08/03/18 01:45 Total Protein 5.3 g/dl (6.4-8.2) L 08/05/18 06:00 Albumin 2.7 g/dl (3.4-5.0) L 08/05/18 06:00 TSH 1.83 uIU/ml (0.358-3.74) 08/02/18 10:47 Cortisol AM Sample 26.4 ug/dL (.) 08/02/18 10:47 Current Medications Generic Name Dose Route Start Last Admin Trade Name Freq PRN Reason Stop Dose Admin Heparin Sodium (Porcine) 5,000 unit 08/05/18 22:00 08/07/18 06:23 Heparin - SQ Not Given TID RON IV Flush 10 ml 08/06/18 06:42 Janis-Cath Flush IVPUSH PRN PRN maintain patency, protocol Insulin Aspart 1 vial 08/05/18 15:49 08/07/18 11:58 Novolog Vial Sliding Scale - SQ 10 units TIDAC RON Administration Protocol Insulin Aspart 1 vial 08/05/18 22:00 08/06/18 22:03 Novolog Vial Sliding Scale - SQ Not Given HS RON Protocol Insulin Detemir 18 units 08/05/18 22:00 08/07/18 06:17 Levemir Vial SQ 18 units DAILY@0700,2200 RON Administration Losartan Potassium 25 mg 08/06/18 10:00 08/07/18 10:28 Cozaar - PO 25 mg DAILY RON Administration AP; 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 Aic 9.3 Continue Levemir 18 BID for today, will change dose tomorrow if necessary BGM Q ACHS and 3 AM Novolog SS coverage S/s of hypoglycemia discussed with pt again. To report any symptom to hospital staff. Electrolyte replacement as necessary Labs for c peptide, MIRYAM and Islet cell Ab,. MIRYAM Ab ordered. will get C peptide as outpt. Diabtes education done All questions answered. Nutirtion consult noted Teach pt to self monitor blood sugar and self inject Insulin Metastatic Bladder Ca Will f/u
--- NOTE | 2018-08-07 20:26 | PN ---
Progress Note (short form) - Note Progress Note: Patient seen and examined Blood sugars coming under control and patient learning insulin management Can consider Keytruda in future if blood sugars are tightly managed
--- NOTE | 2018-08-07 22:03 | PN ---
Progress Note, Physician - Current Medication List Current Medications: Active Medications Heparin Sodium (Porcine) (Heparin -) 5,000 unit SQ TID [facility] Last Admin: 08/07/18 17:51 Dose: Not Given IV Flush (Janis-Cath Flush) 10 ml IVPUSH PRN PRN PRN Reason: maintain patency, protocol Insulin Aspart (Novolog Vial Sliding Scale -) 1 vial SQ TIDAC [facility]; Protocol Last Admin: 08/07/18 17:52 Dose: 4 units Insulin Aspart (Novolog Vial Sliding Scale -) 1 vial SQ HS [facility]; Protocol Last Admin: 08/06/18 22:03 Dose: Not Given Insulin Detemir (Levemir Vial) 18 units SQ DAILY@0700,2200 [facility] Last Admin: 08/07/18 06:17 Dose: 18 units Losartan Potassium (Cozaar -) 25 mg PO DAILY [facility] Last Admin: 08/07/18 10:28 Dose: 25 mg - Objective Vital Signs: Vital Signs Temperature 98.2 F 08/07/18 17:00 Pulse Rate 71 08/07/18 17:00 Respiratory Rate 20 08/07/18 17:00 Blood Pressure 131/70 08/07/18 17:00 O2 Sat by Pulse Oximetry (%) 99 08/07/18 09:00 Constitutional: Yes: No Distress Neck: Yes: WNL, Supple Cardiovascular: Yes: WNL, Regular Rate and Rhythm Respiratory: Yes: WNL, Regular, CTA Bilaterally, Other ((+) janis cath ant chest wall) Gastrointestinal: Yes: WNL, Normal Bowel Sounds, Soft Labs: CBC, BMP 08/06/18 06:35 08/06/18 06:35 INR, PTT INR 0.88 (0.83-1.09) 08/02/18 10:42 Problem List - Problems (1) DKA (diabetic ketoacidoses) Assessment/Plan: Glucose better controlled Cont present regimen Pt to learn how to administer insulin Code(s): E13.10 - OTH DIABETES MELLITUS WITH KETOACIDOSIS WITHOUT COMA (2) MATTEO (acute kidney injury) Assessment/Plan: Resolved after IV hydration Code(s): N17.9 - ACUTE KIDNEY FAILURE, UNSPECIFIED (3) Anemia Assessment/Plan: Due to chronic dz/cancer/chemotx Code(s): D64.9 - ANEMIA, UNSPECIFIED (4) Bladder carcinoma metastatic to liver Assessment/Plan: As per onco Chemo as per onco Code(s): C67.9 - MALIGNANT NEOPLASM OF BLADDER, UNSPECIFIED; C78.7 - SECONDARY MALIG NEOPLASM OF LIVER AND INTRAHEPATIC BILE DUCT (5) HTN (hypertension) Assessment/Plan: Cont losartan Code(s): I10 - ESSENTIAL (PRIMARY) HYPERTENSION
[2018-08-08 06:29] LABS: BASO % 0.7 % (0-2.0); HEMATOCRIT 34.1 % (32.4-45.2); HEMOGLOBIN 10.7 GM/dL (10.7-15.3); LYMPH % 32.5 % (8-40); MCH 24.5 pg (25.7-33.7); MCHC 31.4 g/dl (32.0-36.0); MEAN CELL VOLUME 77.9 fl (80-96); MEAN PLT VOLUME 8.9 fl (7.5-11.1); MONO % 8.5 % (3.8-10.2); NEUT % 51.3 % (42.8-82.8); PLATELET COUNT 252 K/MM3 (134-434); RBC 4.38 M/mm3 (3.60-5.2); RDW 14.4 % (11.6-15.6); WHITE BLOOD COUNT 6.3 K/mm3 (4.0-10.0)
[2018-08-08] MEDS: HEPARIN NA (PORCINE) 5,000 UNITS/ML 1ML VIAL SQ SCH ×3 (06:34→21:50)
[2018-08-08] MEDS: INSULIN (LEVEMIR) 100 UNITS/ML UNITS SQ SCH ×2 (06:35→21:54)
[2018-08-08] MEDS: INSULIN SLIDING SCALE (NOVOLOG) 1 VIAL SQ SCH ×4 (06:35→21:55)
[2018-08-08 06:49] LABS: ALBUMIN 2.8 g/dl (3.4-5.0); ALK PHOS 71 U/L (45-117); ANION GAP 6 MMOL/L (8-16); BILIRUBIN,TOTAL 0.3 mg/dL (0.2-1); BLOOD UREA NITROGEN 12 mg/dL (7-18); CALCIUM 9.6 mg/dL (8.5-10.1); CHLORIDE 104 mmol/L (98-107); CO2 30 mmol/L (21-32); CREATININE 0.5 mg/dL (0.55-1.3); GLUCOSE,RANDOM 164 mg/dL (74-106); POTASSIUM 4.1 mmol/L (3.5-5.1); SGOT/AST 56 U/L (15-37); SGPT/ALT 51 U/L (13-61); SODIUM 140 mmol/L (136-145); TOT PROT 5.6 g/dl (6.4-8.2)
[2018-08-08] MEDS: LOSARTAN POTASSIUM 25 MG TABLET PO SCH (09:35)
--- NOTE | 2018-08-08 14:30 | PN ---
Progress Note (short form) - Note Progress Note: Feels better Denies any complaints Blood sugar improving No Hypos Vital Signs Period Temp Pulse Resp BP Sys/Gibbs Pulse Ox Last 24 Hr 98.0 F-98.6 F 69-78 18-20 129-148/66-77 97-99 PE: AOx3 Neck: supple, No JVD HEENT: EOMI Lungs: CTA CVS: S1S2 ABd: Benign EXt: No edema Neuro: No focal deficit CMP Sodium 140 mmol/L (136-145) 08/08/18 05:00 Potassium 4.1 mmol/L (3.5-5.1) 08/08/18 05:00 Chloride 104 mmol/L (98-107) 08/08/18 05:00 Carbon Dioxide 30 mmol/L (21-32) 08/08/18 05:00 Anion Gap 6 MMOL/L (8-16) L 08/08/18 05:00 BUN 12 mg/dL (7-18) 08/08/18 05:00 Creatinine 0.5 mg/dL (0.55-1.3) L 08/08/18 05:00 Creat Clearance w eGFR > 60 (>60) 08/08/18 05:00 POC Glucometer 103 UNITS (80-120) 08/08/18 11:42 Random Glucose 164 mg/dL (74-106) H 08/08/18 05:00 Hemoglobin A1c % 9.3 % (4.2-6.3) H 08/02/18 13:00 Calcium 9.6 mg/dL (8.5-10.1) 08/08/18 05:00 Phosphorus 2.6 mg/dL (2.5-4.9) 08/06/18 06:35 Magnesium 1.7 mg/dL (1.8-2.4) L 08/06/18 06:35 Total Bilirubin 0.3 mg/dL (0.2-1) 08/08/18 05:00 AST 56 U/L (15-37) H 08/08/18 05:00 ALT 51 U/L (13-61) 08/08/18 05:00 Alkaline Phosphatase 71 U/L (45-117) 08/08/18 05:00 Creatine Kinase 404 IU/L (26-192) H 08/03/18 01:45 Creatine Kinase Index 18.9 % (0.0-5.0) H* 08/03/18 01:45 CK-MB (CK-2) 76.6 ng/mL (0.5-3.6) H 08/03/18 01:45 Troponin I 0.09 ng/ml (0.00-0.05) H 08/03/18 01:45 Total Protein 5.6 g/dl (6.4-8.2) L 08/08/18 05:00 Albumin 2.8 g/dl (3.4-5.0) L 08/08/18 05:00 TSH 1.83 uIU/ml (0.358-3.74) 08/02/18 10:47 Cortisol AM Sample 26.4 ug/dL (.) 08/02/18 10:47 Current Medications Generic Name Dose Route Start Last Admin Trade Name Freq PRN Reason Stop Dose Admin Heparin Sodium (Porcine) 5,000 unit 08/05/18 22:00 08/08/18 13:41 Heparin - SQ Not Given TID RON IV Flush 10 ml 08/06/18 06:42 Janis-Cath Flush IVPUSH PRN PRN maintain patency, protocol Insulin Aspart 1 vial 08/05/18 15:49 08/08/18 11:46 Novolog Vial Sliding Scale - SQ 4 units TIDAC RON Administration Protocol Insulin Aspart 1 vial 08/05/18 22:00 08/07/18 22:00 Novolog Vial Sliding Scale - SQ 2 units HS RON Administration Protocol Insulin Detemir 18 units 08/05/18 22:00 08/08/18 06:35 Levemir Vial SQ 18 units DAILY@0700,2200 RON Administration Losartan Potassium 25 mg 08/06/18 10:00 08/08/18 09:35 Cozaar - PO 25 mg DAILY RON Administration AP; 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 Aic 9.3 , Blood sugar normal in the hospital a month ago Continue Levemir 18 BID BGM Q ACHS and 3 AM Novolog SS coverage Labs for c peptide, MIRYAM and Islet cell Ab,. MIRYAM Ab ordered. will get C peptide as outpt. Diabtes education done All questions answered. Teach pt to self monitor blood sugar and self inject Insulin Metastatic Bladder Ca Will f/u
[2018-08-08] MEDS ORDERED: INSULIN (NOVOLOG) ASPART 100 UNITS/ML 10ML VIAL ONE (16:56)
--- NOTE | 2018-08-08 19:12 | PN ---
Teaching Attending Note Name of Resident: Emory Tiwari ATTENDING PHYSICIAN STATEMENT I saw and evaluated the patient. I reviewed the resident's note and discussed the case with the resident. I agree with the resident's findings and plan as documented. ASSESSMENT AND PLAN: 68 y/o with metastatic renal cell cancer, on keytruda, now with DKA Clinically much improved Appreciate endocrine recommendations Diabetic teaching d/c planning
--- NOTE | 2018-08-08 23:41 | PN ---
Progress Note, Physician History of Present Illness: No new complaints - Current Medication List Current Medications: Active Medications Heparin Sodium (Porcine) (Heparin -) 5,000 unit SQ TID [facility] Last Admin: 08/08/18 21:50 Dose: Not Given IV Flush (Janis-Cath Flush) 10 ml IVPUSH PRN PRN PRN Reason: maintain patency, protocol Insulin Aspart (Novolog Vial Sliding Scale -) 1 vial SQ TIDAC [facility]; Protocol Last Admin: 08/08/18 17:12 Dose: 4 units Insulin Aspart (Novolog Vial Sliding Scale -) 1 vial SQ HS [facility]; Protocol Last Admin: 08/08/18 21:55 Dose: Not Given Insulin Detemir (Levemir Vial) 18 units SQ DAILY@0700,2200 [facility] Last Admin: 08/08/18 21:54 Dose: 18 units Losartan Potassium (Cozaar -) 25 mg PO DAILY [facility] Last Admin: 08/08/18 09:35 Dose: 25 mg - Objective Vital Signs: Vital Signs Temperature 97.3 F L 08/08/18 17:22 Pulse Rate 69 08/08/18 17:22 Respiratory Rate 20 08/08/18 17:22 Blood Pressure 160/87 08/08/18 17:22 O2 Sat by Pulse Oximetry (%) 97 08/08/18 09:00 Neck: Yes: WNL, Supple Cardiovascular: Yes: WNL, Regular Rate and Rhythm Respiratory: Yes: WNL, Regular, CTA Bilaterally Gastrointestinal: Yes: WNL, Normal Bowel Sounds Labs: CBC, BMP 08/08/18 05:00 08/08/18 05:00 INR, PTT INR 0.88 (0.83-1.09) 08/02/18 10:42 Problem List - Problems (1) DKA (diabetic ketoacidoses) Code(s): E13.10 - OTH DIABETES MELLITUS WITH KETOACIDOSIS WITHOUT COMA (2) MATTEO (acute kidney injury) Code(s): N17.9 - ACUTE KIDNEY FAILURE, UNSPECIFIED (3) Anemia Code(s): D64.9 - ANEMIA, UNSPECIFIED (4) Bladder carcinoma metastatic to liver Code(s): C67.9 - MALIGNANT NEOPLASM OF BLADDER, UNSPECIFIED; C78.7 - SECONDARY MALIG NEOPLASM OF LIVER AND INTRAHEPATIC BILE DUCT (5) HTN (hypertension) Code(s): I10 - ESSENTIAL (PRIMARY) HYPERTENSION
[2018-08-09] MEDS: HEPARIN NA (PORCINE) 5,000 UNITS/ML 1ML VIAL SQ SCH ×2 (05:31→13:09)
[2018-08-09] MEDS: INSULIN (LEVEMIR) 100 UNITS/ML UNITS SQ SCH (06:33)
[2018-08-09] MEDS: INSULIN SLIDING SCALE (NOVOLOG) 1 VIAL SQ SCH ×2 (06:33→11:53)
[2018-08-09] MEDS: LOSARTAN POTASSIUM 25 MG TABLET PO SCH (09:47)
[2018-08-09 10:07] VITALS: BP 155/73; PULSE 79; TEMP 99
--- NOTE | 2018-08-09 12:11 | PN ---
Progress Note (short form) - Note Progress Note: Feels good Denies any complaints Blood sugar acceptable No Hypos Vital Signs Period Temp Pulse Resp BP Sys/Gibbs Pulse Ox Last 24 Hr 97.3 F-99.0 F 68-79 20-20 126-160/53-87 95-96 PE: AOx3 Neck: supple, No JVD HEENT: EOMI Lungs: CTA CVS: S1S2 ABd: Benign EXt: No edema Neuro: No focal deficit CMP Sodium 140 mmol/L (136-145) 08/08/18 05:00 Potassium 4.1 mmol/L (3.5-5.1) 08/08/18 05:00 Chloride 104 mmol/L (98-107) 08/08/18 05:00 Carbon Dioxide 30 mmol/L (21-32) 08/08/18 05:00 Anion Gap 6 MMOL/L (8-16) L 08/08/18 05:00 BUN 12 mg/dL (7-18) 08/08/18 05:00 Creatinine 0.5 mg/dL (0.55-1.3) L 08/08/18 05:00 Creat Clearance w eGFR > 60 (>60) 08/08/18 05:00 POC Glucometer 178 UNITS (80-120) 08/09/18 11:33 Random Glucose 164 mg/dL (74-106) H 08/08/18 05:00 Hemoglobin A1c % 9.3 % (4.2-6.3) H 08/02/18 13:00 Calcium 9.6 mg/dL (8.5-10.1) 08/08/18 05:00 Phosphorus 2.6 mg/dL (2.5-4.9) 08/06/18 06:35 Magnesium 1.7 mg/dL (1.8-2.4) L 08/06/18 06:35 Total Bilirubin 0.3 mg/dL (0.2-1) 08/08/18 05:00 AST 56 U/L (15-37) H 08/08/18 05:00 ALT 51 U/L (13-61) 08/08/18 05:00 Alkaline Phosphatase 71 U/L (45-117) 08/08/18 05:00 Creatine Kinase 404 IU/L (26-192) H 08/03/18 01:45 Creatine Kinase Index 18.9 % (0.0-5.0) H* 08/03/18 01:45 CK-MB (CK-2) 76.6 ng/mL (0.5-3.6) H 08/03/18 01:45 Troponin I 0.09 ng/ml (0.00-0.05) H 08/03/18 01:45 Total Protein 5.6 g/dl (6.4-8.2) L 08/08/18 05:00 Albumin 2.8 g/dl (3.4-5.0) L 08/08/18 05:00 TSH 1.83 uIU/ml (0.358-3.74) 08/02/18 10:47 Cortisol AM Sample 26.4 ug/dL (.) 08/02/18 10:47 Current Medications Generic Name Dose Route Start Last Admin Trade Name Freq PRN Reason Stop Dose Admin Heparin Sodium (Porcine) 5,000 unit 08/05/18 22:00 08/09/18 05:31 Heparin - SQ Not Given TID RON IV Flush 10 ml 08/06/18 06:42 Janis-Cath Flush IVPUSH PRN PRN maintain patency, protocol Insulin Aspart 1 vial 08/05/18 15:49 08/09/18 11:53 Novolog Vial Sliding Scale - SQ 6 units TIDAC RON Administration Protocol Insulin Aspart 1 vial 08/05/18 22:00 08/08/18 21:55 Novolog Vial Sliding Scale - SQ Not Given HS RON Protocol Insulin Detemir 18 units 08/05/18 22:00 08/09/18 06:33 Levemir Vial SQ 18 units DAILY@0700,2200 RON Administration Losartan Potassium 25 mg 08/06/18 10:00 08/09/18 09:47 Cozaar - PO 25 mg DAILY RON Administration AP; 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 Aic 9.3 , Blood sugar normal in the hospital a month ago Continue Levemir 18 BID BGM Q ACHS and 3 AM Novolog SS coverage TID premeals at home as per sliding scale used in the hospital Pt to call me at [phone] with any questions or if FS starts to drop to less than 100 F/u in office in 2 weeks MIRYAM Ab negative. Will get C peptide and Islet cell Ab as outpt. All questions answered. Pt able to self monitor blood sugar and self inject Insulin Metastatic Bladder Ca Will f/u
--- NOTE | 2018-08-09 12:39 | PN ---
Progress Note (short form) - Note Progress Note: Patient seen Discussed with endocrinology Offers no complaints Last Vital Signs Temp Pulse Resp BP Pulse Ox 99.0 F 79 20 155/73 96 08/09/18 10:00 08/09/18 10:00 08/09/18 10:00 08/09/18 10:00 08/09/18 09:00 Lungs - clear Cor-RSR Abd- soft Ext-neg CBC, BMP 08/08/18 05:00 08/08/18 05:00 Current Medications Generic Name Dose Route Start Last Admin Trade Name Freq PRN Reason Stop Dose Admin Heparin Sodium (Porcine) 5,000 unit 08/05/18 22:00 08/09/18 05:31 Heparin - SQ Not Given TID RON IV Flush 10 ml 08/06/18 06:42 Janis-Cath Flush IVPUSH PRN PRN maintain patency, protocol Insulin Aspart 1 vial 08/05/18 15:49 08/09/18 11:53 Novolog Vial Sliding Scale - SQ 6 units TIDAC RON Administration Protocol Insulin Aspart 1 vial 08/05/18 22:00 08/08/18 21:55 Novolog Vial Sliding Scale - SQ Not Given HS RON Protocol Insulin Detemir 18 units 08/05/18 22:00 08/09/18 06:33 Levemir Vial SQ 18 units DAILY@0700,2200 RON Administration Losartan Potassium 25 mg 08/06/18 10:00 08/09/18 09:47 Cozaar - PO 25 mg DAILY RON Administration Impression: Bladder ca Mets DKA Pembrolizumab therapy Plan: Mild elevations in blood sugars Patient seems able to self administer insulin and will be discharged with follow up for outpatient Keytruda will be re-resumed with careful monitoring of blood sugars.
== END 2018-08-09 17:50 | disposition home health service (06) | DRG 638 ==
LOC: JER 10:15 → JERBED 12:22 → J7W 14:15 → JICU 15:27 → J7W 08-05 19:12
PROVIDERS: ADMIT Internal Medicine; ATTEND Internal Medicine
DX: E11.10 Type 2 diabetes mellitus with ketoacidosis without coma (principal); C78.7 Secondary malignant neoplasm of liver and intrahepatic bile duct; C79.70 Secondary malignant neoplasm of unspecified adrenal gland; C79.51 Secondary malignant neoplasm of bone; N17.9 Acute kidney failure, unspecified; C67.9 Malignant neoplasm of bladder, unspecified; E86.9 Volume depletion, unspecified; I10 Essential (primary) hypertension; Z85.038 Personal history of other malignant neoplasm of large intestine; D64.9 Anemia, unspecified; D72.829 Elevated white blood cell count, unspecified; L29.9 Pruritus, unspecified; N89.8 Other specified noninflammatory disorders of vagina; B37.3 Candidiasis of vulva and vagina
CPT/HCPCS: 36415; 36600; 71045-TC-FY; 76775-TC; 80048; 80053; 81003; 81015; 82533; 82550; 82553; 82803; 82962; 83036; 83735; 84100; 84443; 84484; 85025; 85610; 86341; 87040; 87086; 87804; 93005; 93010; 97116-GP; 97161-GP; 99283-25; J1644; J7030

== ENCOUNTER 2018-08-16 05:40 | Day surgery (SDC) | payer BC, OTHER ==
[2018-08-16] MEDS ORDERED: DIPHENHYDRAMINE 25 MG in SODIUM CHLORIDE 50 ML IVPB ONE (08:00)
[2018-08-16] MEDS ORDERED: PEMBROLIZUMAB 200 MG in SODIUM CHLORIDE 50 ML IV ONE (08:30)
[2018-08-16] MEDS ORDERED: SODIUM CHLORIDE 500 ML IV ONE (09:00)
[2018-08-16] MEDS ORDERED: SODIUM CHLORIDE 1,000 ML IV SCH (12:00)
[2018-08-16 12:32] LABS: HEMATOCRIT 35.2 % (32.4-45.2); HEMOGLOBIN 11.9 GM/dL (10.7-15.3); MCH 26.2 pg (25.7-33.7); MCHC 33.7 g/dl (32.0-36.0); MEAN CELL VOLUME 77.7 fl (80-96); MEAN PLT VOLUME 8.3 fl (7.5-11.1); PLATELET COUNT 348 K/MM3 (134-434); RBC 4.52 M/mm3 (3.60-5.2); RDW 15.3 % (11.6-15.6); WHITE BLOOD COUNT 8.9 K/mm3 (4.0-10.0)
[2018-08-16] MEDS ORDERED: ACETAMINOPHEN 325 MG TABLET (FP) PO ONE (13:00)
[2018-08-16 13:05] LABS: ALBUMIN 3.3 g/dl (3.4-5.0); ALK PHOS 87 U/L (45-117); ANION GAP 6 MMOL/L (8-16); BILIRUBIN,TOTAL 0.4 mg/dL (0.2-1); BLOOD UREA NITROGEN 8 mg/dL (7-18); CALCIUM 9.6 mg/dL (8.5-10.1); CHLORIDE 106 mmol/L (98-107); CO2 28 mmol/L (21-32); CREATININE 0.6 mg/dL (0.55-1.3); GLUCOSE,RANDOM 92 mg/dL (74-106); POTASSIUM 3.9 mmol/L (3.5-5.1); SGOT/AST 64 U/L (15-37); SGPT/ALT 63 U/L (13-61); SODIUM 140 mmol/L (136-145); TOT PROT 6.7 g/dl (6.4-8.2)
[2018-08-16 15:03] VITALS: TEMP 97.8
[2018-08-16] MEDS ORDERED: PORTA CATH FLUSH 10 ML IVPUSH ONE (15:09)
[2018-08-16 17:04] VITALS: BP 159/74; PULSE 73
[2018-08-16 19:58] LABS: PLATELET ESTIMATE ADEQUATE
== END 2018-08-16 16:00 | disposition home or self-care (01) ==
LOC: JONCCHEMO 05:40 → J7W 11:41 → JONCCHEMO 16:00
PROVIDERS: ATTEND Internal Medicine Hematology & Oncology
DX: Z51.11 Encounter for antineoplastic chemotherapy (principal); C67.9 Malignant neoplasm of bladder, unspecified
CPT/HCPCS: 36415; 80053; 82962; 85027; 86850; 86870; 86900; 86901; 86902; 96361; 96375; 96413; J9271

== ENCOUNTER 2018-09-06 07:15 | Day surgery (SDC) | payer BC ==
[2018-09-06] MEDS ORDERED: DIPHENHYDRAMINE 25 MG in SODIUM CHLORIDE 50 ML IVPB ONE (10:00)
[2018-09-06] MEDS ORDERED: PEMBROLIZUMAB 200 MG in SODIUM CHLORIDE 50 ML IV ONE (10:30)
[2018-09-06] MEDS ORDERED: SODIUM CHLORIDE 500 ML IV ONE (11:00)
[2018-09-06] MEDS ORDERED: ACETAMINOPHEN 325 MG TABLET (FP) PO ONE (12:15)
[2018-09-06 14:33] LABS: BASO % 0.7 % (0-2.0); EOS % 20.4 % (0-4.5); HEMATOCRIT 35.3 % (32.4-45.2); HEMOGLOBIN 11.7 GM/dL (10.7-15.3); LYMPH % 22.6 % (8-40); MCH 26.7 pg (25.7-33.7); MCHC 33.1 g/dl (32.0-36.0); MEAN CELL VOLUME 80.9 fl (80-96); MEAN PLT VOLUME 8.3 fl (7.5-11.1); MONO % 7.5 % (3.8-10.2); NEUT % 48.8 % (42.8-82.8); PLATELET COUNT 342 K/MM3 (134-434); RBC 4.37 M/mm3 (3.60-5.2); RDW 16.5 % (11.6-15.6); WHITE BLOOD COUNT 8.7 K/mm3 (4.0-10.0)
[2018-09-06 15:02] LABS: ANISOCYTOSIS 1+; PLATELET ESTIMATE ADEQUATE
[2018-09-06 15:20] LABS: ERYTHROCYTE SEDIMENTATION RATE 20 mm/hr (0-30)
[2018-09-06 15:21] LABS: ALBUMIN 3.5 g/dl (3.4-5.0); ALK PHOS 83 U/L (45-117); ANION GAP 6 MMOL/L (8-16); BILIRUBIN,TOTAL 0.3 mg/dL (0.2-1); BLOOD UREA NITROGEN 16 mg/dL (7-18); CALCIUM 9.8 mg/dL (8.5-10.1); CHLORIDE 105 mmol/L (98-107); CO2 29 mmol/L (21-32); CREATININE 0.6 mg/dL (0.55-1.3); GLUCOSE,RANDOM 188 mg/dL (74-106); LDH 567 U/L (84-246); MAGNESIUM 1.9 mg/dL (1.8-2.4); POTASSIUM 4.2 mmol/L (3.5-5.1); SGOT/AST 59 U/L (15-37); SGPT/ALT 50 U/L (13-61); SODIUM 140 mmol/L (136-145); TOT PROT 6.6 g/dl (6.4-8.2)
[2018-09-06] MEDS ORDERED: SODIUM CHLORIDE 500 ML IV STA (15:55)
[2018-09-06 17:29] VITALS: TEMP 97.9
[2018-09-06] MEDS ORDERED: PORTA CATH FLUSH 10 ML IVPUSH ONE (17:29)
[2018-09-06 18:45] VITALS: BP 171/69; PULSE 62
== END 2018-09-06 19:01 | disposition home or self-care (01) ==
LOC: JONCCHEMO 07:15 → J7W 13:14 → JONCCHEMO 19:01
PROVIDERS: ATTEND Internal Medicine Hematology & Oncology
DX: Z51.11 Encounter for antineoplastic chemotherapy (principal); C67.9 Malignant neoplasm of bladder, unspecified
CPT/HCPCS: 36415; 80053; 82550; 82553; 83615; 83735; 84439; 84443; 85025; 85651; 86140; 96361; 96367; 96375; 96413; J9271

== ENCOUNTER 2018-09-27 23:15 | Emergency (ER) | payer BC ==
[2018-09-27 23:21] VITALS: PULSE 82; TEMP 97.9; BMI 29.9
--- NOTE | 2018-09-27 23:41 | PDOC ---
Attending Attestation - HPI HPI: 09/27/18 23:58 The patient is a 68 year old female, with a significant PMH of medication induced DM, metastatic bladder CA, history of colon mass s/p resection, Lt nephrectomy, adrenal mass, and pathologic femoral fracture who presents to the emergency department with concern of high blood sugar. Patient states that she doesnt feel real and that she is in a dream. She is having a hard time keeping her eyes open. Patient notes when she was first diagnosed with DM she had this same feeling. Patient only has one kidney. The patient denies chest pain, shortness of breath, headache and dizziness. Denies fever, nausea, vomit, diarrhea and constipation. Denies dysuria, frequency, urgency and hematuria. Allergies: iodine, adhesive tape, oxycodone PCP: Dr. Johnson - Physicial Exam PE: 09/27/18 23:58 GENERAL: Awake, alert, and fully oriented, in no acute distress HEAD: No signs of trauma EYES: PERRLA, EOMI, sclera anicteric, conjunctiva clear ENT: Auricles normal inspection, hearing grossly normal, nares patent, oropharynx clear without exudates. Moist mucosa NECK: Normal ROM, supple, no lymphadenopathy, JVD, or masses LUNGS: Breath sounds equal, clear to auscultation bilaterally. No wheezes, and no crackles HEART: Regular rate and rhythm, normal S1 and S2, no murmurs, rubs or gallops ABDOMEN: Soft, nontender, normoactive bowel sounds. No guarding, no rebound. No masses EXTREMITIES: Normal range of motion, no edema. No clubbing or cyanosis. No cords, erythema, or tenderness NEUROLOGICAL: Cranial nerves II through XII grossly intact. Normal speech, normal gait SKIN: Warm, Dry, normal turgor, no rashes or lesions noted. <Jackie Tovar - Last Filed: 09/27/18 23:58> - Resident Resident Name: Bryce Pavon - ED Attending Attestation I have performed the following: The case was reviewed & discussed with the resident, I agree w/resident's findings & plan - Medical Decision Making 09/28/18 00:26 Pt comes with high blood glucose. She states that her sugars ran this high only once when she was initially diagnosed with diabetes (iatrogenic - chemo medication induced diabetes). Pt is careful with diet and is complaint with her meds. She is concerned that her blood glc is 490s. In the ER with NSS her blood sugar is 347. 09/28/18 03:29 Pt wants to sign AMA and she is unwilling to be worked up or to stay in the hospital. <Kenyatta Boucher - Last Filed: 09/28/18 05:30> Attestations - Attestations 09/27/18 23:59 Documentation prepared by Jackie Tovar, acting as biomedical technician for Kenyatta Boucher MD. <Jackie Tovar - Last Filed: 09/27/18 23:58>
--- NOTE | 2018-09-27 23:41 | PDOC ---
History of Present Illness - General Chief Complaint: Weakness Stated Complaint: HIGH BLOOD PRESURE Time Seen by Provider: 09/27/18 23:40 History Source: Patient Exam Limitations: No Limitations - History of Present Illness Initial Comments: 68 yo F w a pmh of HTN, colon cancer x 2 resections Bladder cancer w/ mets to bone (pathologic femur fx)(met. bladder transitional cell CA), anemia, cholelithiasis, new onset diabetes at age 68 secondary to her chemotherapy presents to the ER with an elevated blood glucose and extremely high blood pressure. She states she is not experiencing any pain, lightheadedness, chest pain, back pain, flank pain, shortness of breath or difficulty breathing. She does state that she feels like she is in a dream and things don't seem real. She says she has never felt this way in the past. She denies recent fevers, chills, or infections. Denies dysuria, frequency, or urgency. denieas having a headache, blurry vision, or neck pain. PSH: colectomy, nephrectomy Allergies: Iodine, adhesive tape, oxycodone PCP: Ever Ambrosio Hx: 15 year smoking history Past History - Past Medical History Allergies/Adverse Reactions: Allergies Allergy/AdvReac Type Severity Reaction Status Date / Time iodine [Iodine] Allergy Rash Verified 09/27/18 23:18 adhesive tape AdvReac Severe Verified 09/27/18 23:18 oxycodone HCl [From Percocet] AdvReac Severe Vomiting Verified 09/27/18 23:18 margarine AdvReac Severe Difficulty Uncoded 09/27/18 23:18 Breathing Home Medications: Ambulatory Orders Insulin (Levemir) [Levemir Vial] 18 units SQ DAILY@0700,2200 #1 pkg 08/08/18 Insulin Sliding Scale [Novolog Vial Sliding Scale -] 1 vial SQ TIDAC #1 vial 10/22 Losartan Potassium [Cozaar -] 25 mg PO DAILY tablet 08/08/18 Anemia: Yes Asthma: No Cancer: Yes (COLON, bladder) Cardiac Disorders: No CVA: No COPD: No CHF: No DVT: No Dementia: No Diabetes: Yes GI Disorders: No Disorders: Yes (LEFT nephrectomy) HTN: Yes Hypercholesterolemia: No Liver Disease: No Seizures: No Thyroid Disease: Yes (recent thyroid nodules) - Surgical History Abdominal Surgery: Yes (colon resectionx 2) Appendectomy: No Cardiac Surgery: No Cholecystectomy: No Lung Surgery: No Neurologic Surgery: No Orthopedic Surgery: Yes (SHOULDER SX - LEFT,rt wrist,rt knee,jennifer in right leg) - Suicide/Smoking/Psychosocial Hx Smoking Status: Yes Smoking History: Former smoker Have you smoked in the past 12 months: No Number of Cigarettes Smoked Daily: 1 If you are a former smoker, when did you quit?: 2 YRS Information on smoking cessation initiated: No Hx Alcohol Use: Yes (RARE) Drug/Substance Use Hx: No Substance Use Type: None Hx Substance Use Treatment: No Review of Systems - Review of Systems Able to Perform ROS?: Yes Comments:: CONSTITUTIONAL: Absent: fever, no chills, no fatigue EYES: Absent: visual changes ENT: Absent: ear pain, no sore throat CARDIOVASCULAR: Absent: chest pain, no palpitations RESPIRATORY: Absent: cough, no SOB GI: Absent: abdominal pain, no nausea, no vomiting, no constipation, no diarrhea GENITOURINARY: Absent: dysuria, no frequency, no hematuria MUSKULOSKELETAL: Absent: back pain, no arthralgia, no myalgia SKIN: Absent: rash NEURO: Absent: headache *Physical Exam - Vital Signs Last Vital Signs Temp Pulse Resp BP Pulse Ox 97.9 F 82 18 214/73 H 100 09/27/18 23:18 09/27/18 23:18 09/27/18 23:18 09/27/18 23:18 09/27/18 23:18 - Physical Exam Comments: GENERAL: Well-appearing, well-nourished. No apparent distress. HEENT: Normocephalic, atraumatic. PERRL, EOM intact. CARDIOVASCULAR: Normal S1, S2. Regular rate and rhythm. PULMONARY: No evidence of respiratory distress. Lungs clear to auscultation bilaterally. No wheezing, rales or rhonchi. ABDOMEN: Soft, non-distended, non-tender. EXTREMITIES: Limited ROM in right leg. No gross deformities. SKIN: Warm, dry. No rash NEUROLOGICAL: No focal neurological deficits. Moderate Sedation - Procedure Monitoring Vital Signs: Procedure Monitoring Vital Signs Temperature 97.9 F 09/27/18 23:18 Pulse Rate 82 09/27/18 23:18 Respiratory Rate 18 09/27/18 23:18 Blood Pressure 214/73 H 09/27/18 23:18 O2 Sat by Pulse Oximetry (%) 100 09/27/18 23:18 ED Treatment Course - LABORATORY CBC & Chemistry Diagram: 09/28/18 00:28 09/28/18 00:28 Medical Decision Making - Medical Decision Making 68 yo F w a pmh of HTN, colon cancer x 2 resections Bladder cancer w/ mets to bone (pathologic femur fx)(met. bladder transitional cell CA), anemia, cholelithiasis, new onset diabetes at age 68 secondary to her chemotherapy presents to the ER with an elevated blood glucose and extremely high blood pressure. She states she is not experiencing any pain, lightheadedness, chest pain, back pain, flank pain, shortness of breath or difficulty breathing. She does state that she feels like she is in a dream and things don't seem real. She says she has never felt this way in the past. VS: Hypertensive DDx IBNLT: Hypertensive emergency vs urgency, CVA/TIA, ACS/NH, brain bleed, HHNS vs DKA Plan: Labs, urine, EKG, CXR, Head CT, re-assess. Patient is not allowing us to place an IV and she refuses to allow us to give her a head CT. We told the patient she absolutely must be admitted to the hospital and she adamnatly refused saying she is signing out AMA. Lactic acid elevated, patient does not seem to care and says she is going home and there is nothing we can do to keep her here. - Patient has agreed to allow me to gently hydrate her before sending her home. Will give patient AMA forms. *DC/Admit/Observation/Transfer Diagnosis at time of Disposition: Hypertensive emergency, Hyperglycemia - Discharge Dispostion Disposition: AGAINST MEDICAL ADVICE Condition at time of disposition: Guarded Decision to Admit order: No - Referrals Referrals: Ever Johnson MD [Primary Care Provider] - - Patient Instructions Printed Discharge Instructions: Malignant Hypertension Additional Instructions: WE ADVISED YOU TO STAY IN THE HOSPITAL TO BE TREATED. YOU ARE DECIDING TO LEAVE AGAINST MEDICAL ADVICE. PLEASE FOLLOW UP WITH YOUR PRIMARY CARE DOCTOR IN THE NEXT 24 HOURS TO MAKE SURE YOU ARE GETTING BETTER AND BEING TAKEN CARE OF. COME BACK TO THE ER IF YOUR PAIN WORSENS OR IF YOU HAVE ANY OTHER NEW OR WORSENING CONCERNS. Print Language: JAMAICAN - Post Discharge Activity
[2018-09-27] MEDS ORDERED: NITROGLYCERIN SUBLINGUAL 1/150 0.4 MG TAB ONE (23:50)
[2018-09-27] MEDS ORDERED: NITROGLYCERIN SUBLINGUAL 1/150 0.4 MG TAB SL ONE (23:54)
[2018-09-27] MEDS ORDERED: LOSARTAN POTASSIUM 25 MG TABLET PO ONE (23:54)
[2018-09-28] MEDS ORDERED: INSULIN (LEVEMIR) 100 UNITS/ML UNITS SQ ONE ×2 (00:35→00:39)
[2018-09-28 00:44] LABS: URINE APPEARANCE CLEAR; URINE BILIRUBIN NEGATIVE (<2.0 mg/dL); URINE COLOR STRAW; URINE GLUCOSE (UA) 3+ (NEGATIVE); URINE KETONE NEGATIVE (NEGATIVE); URINE LEUK ESTERASE TRACE (NEGATIVE); URINE NITRITE NEGATIVE (NEGATIVE); URINE PROTEIN NEGATIVE (NEGATIVE); URINE UROBILINOGEN NEGATIVE mg/dL (0.2-1.0)
[2018-09-28 00:48] LABS: BASO % 1.2 % (0-2.0); EOS % 29.9 % (0-4.5); HEMATOCRIT 35.6 % (32.4-45.2); HEMOGLOBIN 11.9 GM/dL (10.7-15.3); LYMPH % 25.4 % (8-40); MCH 27.2 pg (25.7-33.7); MCHC 33.5 g/dl (32.0-36.0); MEAN CELL VOLUME 81.1 fl (80-96); MEAN PLT VOLUME 8.2 fl (7.5-11.1); MONO % 7.3 % (3.8-10.2); NEUT % 36.2 % (42.8-82.8); PLATELET COUNT 303 K/MM3 (134-434); RBC 4.39 M/mm3 (3.60-5.2); RDW 15.5 % (11.6-15.6)
[2018-09-28 00:54] LABS: EPI CELLS RARE /HPF (FEW)
[2018-09-28 01:02] LABS: INR 0.94 (0.83-1.09); PROTHROMBIN TIME (PATIENT) 11.1 SEC (9.7-13.0)
[2018-09-28 01:28] LABS: ALBUMIN 3.8 g/dl (3.4-5.0); ALK PHOS 120 U/L (45-117); ANION GAP 6 MMOL/L (8-16); BILIRUBIN,TOTAL 0.2 mg/dL (0.2-1); BLOOD UREA NITROGEN 18 mg/dL (7-18); CALCIUM 9.8 mg/dL (8.5-10.1); CHLORIDE 99 mmol/L (98-107); CHOLESTEROL 208 mg/dL (50-200); CO2 28 mmol/L (21-32); CREATININE 0.8 mg/dL (0.55-1.3); GLUCOSE,RANDOM 297 mg/dL (74-106); HDL CHOLESTEROL 38 mg/dL (40-60); POTASSIUM 4.5 mmol/L (3.5-5.1); SGOT/AST 60 U/L (15-37); SGPT/ALT 51 U/L (13-61); SODIUM 134 mmol/L (136-145); TOT PROT 7.3 g/dl (6.4-8.2); TRIGLYCERIDES 156 mg/dL (0-150)
[2018-09-28] MEDS ORDERED: SODIUM CHLORIDE 0.9% 500 ML INFUS.BAG IV ONE (01:35)
[2018-09-28 01:49] VITALS: BP 205/85
--- NOTE | 2018-09-28 22:02 | EKG ---
Test Reason : Blood Pressure : / mmHG Vent. Rate : 062 BPM Atrial Rate : 062 BPM P-R Int : 132 ms QRS Dur : 080 ms QT Int : 402 ms P-R-T Axes : 041 -06 027 degrees QTc Int : 408 ms NORMAL SINUS RHYTHM VOLTAGE CRITERIA FOR LEFT VENTRICULAR HYPERTROPHY NONSPECIFIC T WAVE ABNORMALITY ABNORMAL ECG WHEN COMPARED WITH ECG OF 02-AUG-2018 11:29, VENT. RATE HAS DECREASED BY 40 BPM Confirmed by VINCE SANTORO, PARTHA ([id number]) on 09/28/2018 10:02:08 PM Referred By: Confirmed By:PARTHA CLARKE MD
== END 2018-09-28 02:51 | disposition left against medical advice (07) ==
LOC: JER 23:15
DX: I16.9 Hypertensive crisis, unspecified (principal); E11.65 Type 2 diabetes mellitus with hyperglycemia; Z79.4 Long term (current) use of insulin; Z85.038 Personal history of other malignant neoplasm of large intestine; Z85.51 Personal history of malignant neoplasm of bladder; Z85.830 Personal history of malignant neoplasm of bone
CPT/HCPCS: 36415; 80053; 81003; 81015; 82465; 82550; 82553; 83605; 83718; 83721; 84478; 84484; 85025; 85610; 85730; 86850; 86870; 86900; 86901; 86902; 87086; 87186; 93005; 93010; 99285-25

== ENCOUNTER → 2021-08-03 | Day surgery (SDC) | payer BC ==
[2021-08-03 14:45] LABS: BASO % 0.5 % (0-2.0); EOS % 0.5 % (0-4.5); HEMATOCRIT 32.4 % (32.4-45.2); HEMOGLOBIN 10.2 GM/dL (10.7-15.3); LYMPH % 10.4 % (8-40); MCH 21.7 pg (25.7-33.7); MCHC 31.5 g/dl (32.0-36.0); MEAN CELL VOLUME 68.9 fl (80-96); MEAN PLT VOLUME 7.6 fl (7.5-11.1); MONO % 5.4 % (3.8-10.2); NEUT % 83.2 % (42.8-82.8); PLATELET COUNT 478 10^3/uL (134-434); RDW 16.5 % (11.6-15.6); WHITE BLOOD COUNT 10.6 K/mm3 (4.0-10.0)
[2021-08-03 14:49] LABS: INR 1.05 (0.83-1.09); PROTHROMBIN TIME (PATIENT) 11.8 SEC (9.7-13.0)
[2021-08-03 14:51] LABS: ACTIVATED PTT 29.1 SECONDS (25.2-36.5)
[2021-08-03 15:06] LABS: CALCIUM 9.9 mg/dL (8.5-10.1)
[2021-08-03 15:07] LABS: ALBUMIN 3.3 g/dl (3.4-5.0); BLOOD UREA NITROGEN 10.5 mg/dL (7-18)
[2021-08-03 15:10] LABS: CREATININE 0.6 mg/dL (0.55-1.3)
[2021-08-03 15:12] LABS: BILIRUBIN,TOTAL 0.3 mg/dL (0.2-1); TOT PROT 7.1 g/dl (6.4-8.2)
[2021-08-03 15:36] LABS: ANISOCYTOSIS 2+; MACROCYTOSIS 0; PLATELET ESTIMATE NORMAL
== END | disposition home or self-care (01) ==
LOC: JONCCHEMO 07:02
PROVIDERS: ATTEND Internal Medicine Hematology & Oncology
DX: Z53.8 Procedure and treatment not carried out for other reasons (principal)
CPT/HCPCS: 36415; 80053; 82378; 83615; 84439; 84443; 85025; 85610; 85730; 86704; 86705; 86708; 86803; 87517; 96365

== ENCOUNTER 2021-08-04 08:47 | Day surgery (SDC) | payer BC ==
[2021-08-04] MEDS ORDERED: SODIUM CHLORIDE 250 ML IV ONE (10:00)
[2021-08-04] MEDS ORDERED: FOSAPREPITANT DIMEGLUMINE 150 MG in SODIUM CHLORIDE 145 ML IVPB ONE (10:00)
[2021-08-04] MEDS ORDERED: GEMCITABINE HCL IV ONE (10:30)
[2021-08-04] MEDS ORDERED: SODIUM CHLORIDE IV ONE (10:30)
[2021-08-04] MEDS ORDERED: SODIUM CHLORIDE IVPB ONE ×2 (11:00→13:30)
[2021-08-04] MEDS ORDERED: CARBOPLATIN IVPB ONE ×2 (11:00→13:30)
[2021-08-04] MEDS ORDERED: DEXAMETHASONE SOD PHOSPHATE 20 MG/5 ML VIAL IVPB ONE ×2 (12:10)
[2021-08-04] MEDS ORDERED: PALONOSETRON HCL 0.25 MG/5 ML VIAL IVPUSH ONE (12:11)
[2021-08-04] MEDS ORDERED: traMADol HCL 50 MG TABLET PO ONE (12:14)
[2021-08-04] MEDS ORDERED: ACETAMINOPHEN 325 MG TABLET (FP) PO ONE (12:14)
[2021-08-04] MEDS ORDERED: ACETAMINOPHEN 1000 MG/100 ML BAG IVPB ONE (12:15)
[2021-08-04] MEDS ORDERED: DEXAMETHASONE SOD PHOSPHATE 10 MG/1 ML VIAL ONE ×2 (14:13→14:26)
[2021-08-04 17:07] VITALS: TEMP 97.9
[2021-08-04 17:09] VITALS: BP 180/90; PULSE 85
== END 2021-08-04 17:00 | disposition home or self-care (01) ==
LOC: JONCCHEMO 08:47
PROVIDERS: ATTEND Internal Medicine Hematology & Oncology
DX: Z51.11 Encounter for antineoplastic chemotherapy (principal); C67.5 Malignant neoplasm of bladder neck
CPT/HCPCS: 96361; 96367; 96375; 96413; 96417; J0131; J1100; J1453; J2469

== ENCOUNTER → 2021-09-14 | Day surgery (SDC) | payer BC ==
[~2021-09-14] MED LIST: CARBOPLATIN IVPB ONE; DEXAMETHASONE SODIUM PHOSPHATE 10 MG, DIPHENHYDRAMINE 25 MG in SODIUM CHLORIDE 100 ML IVPB ONE; FAMOTIDINE 20 MG/50 ML IVPB 20 MG/50 ML MG IVPB ONE; PACLITAXEL 96 MG in SODIUM CHLORIDE 250 ML IVPB ONE; PALONOSETRON HCL 0.25 MG/5 ML VIAL IVPUSH ONE; SODIUM CHLORIDE 250 ML IV ONE; SODIUM CHLORIDE IVPB ONE
[2021-09-14 14:43] LABS: BASO % 0.2 % (0-2.0); EOS % 0.2 % (0-4.5); HEMATOCRIT 31.3 % (32.4-45.2); HEMOGLOBIN 9.2 GM/dL (10.7-15.3); LYMPH % 8.5 % (8-40); MCH 20.3 pg (25.7-33.7); MCHC 29.4 g/dl (32.0-36.0); MEAN CELL VOLUME 69.3 fl (80-96); MEAN PLT VOLUME 7.3 fl (7.5-11.1); MONO % 10.8 % (3.8-10.2); NEUT % 80.3 % (42.8-82.8); PLATELET COUNT 497 10^3/uL (134-434); RBC 4.52 M/mm3 (3.60-5.2)
[2021-09-14 14:58] LABS: BLOOD UREA NITROGEN 22.5 mg/dL (7-18); CALCIUM 10.7 mg/dL (8.5-10.1)
[2021-09-14 15:01] LABS: CREATININE 0.7 mg/dL (0.55-1.3)
[2021-09-14 15:03] LABS: BILIRUBIN,TOTAL 0.3 mg/dL (0.2-1)
[2021-09-14 15:46] LABS: ANISOCYTOSIS 2+; PLATELET ESTIMATE INCREASED
== END | disposition home or self-care (01) ==
LOC: JONCCHEMO 09:09
PROVIDERS: ATTEND Internal Medicine Hematology & Oncology
DX: Z53.8 Procedure and treatment not carried out for other reasons (principal)
CPT/HCPCS: 36415; 80053; 83735; 84439; 84443; 85025

== ENCOUNTER 2021-10-12 07:42 | Day surgery (SDC) | payer BC ==
[2021-10-12] MEDS ORDERED: SODIUM CHLORIDE 250 ML IV ONE (09:00)
[2021-10-12] MEDS ORDERED: DEXAMETHASONE SODIUM PHOSPHATE 10 MG, DIPHENHYDRAMINE 25 MG in SODIUM CHLORIDE 100 ML IVPB ONE (10:00)
[2021-10-12] MEDS ORDERED: FAMOTIDINE 20 MG/50 ML IVPB 20 MG/50 ML MG IVPB ONE (10:00)
[2021-10-12] MEDS ORDERED: PALONOSETRON HCL 0.25 MG/5 ML VIAL IVPUSH ONE (10:00)
[2021-10-12] MEDS ORDERED: PACLITAXEL 96 MG in SODIUM CHLORIDE 250 ML IVPB ONE (10:30)
[2021-10-12] MEDS ORDERED: CARBOPLATIN IVPB ONE ×2 (11:30→14:30)
[2021-10-12] MEDS ORDERED: SODIUM CHLORIDE IVPB ONE ×2 (11:30→14:30)
[2021-10-12 11:53] LABS: BASO % 0.1 % (0-2.0); EOS % 0.1 % (0-4.5); HEMATOCRIT 32.5 % (32.4-45.2); LYMPH % 6.8 % (8-40); MCH 21.6 pg (25.7-33.7); MCHC 30.7 g/dl (32.0-36.0); MEAN CELL VOLUME 70.1 fl (80-96); MEAN PLT VOLUME 6.9 fl (7.5-11.1); MONO % 6.1 % (3.8-10.2); NEUT % 86.9 % (42.8-82.8); PLATELET COUNT 308 10^3/uL (134-434); RBC 4.64 M/mm3 (3.60-5.2); RDW 21.4 % (11.6-15.6); WHITE BLOOD COUNT 7.6 K/mm3 (4.0-10.0)
[2021-10-12 12:15] LABS: CALCIUM 9.5 mg/dL (8.5-10.1)
[2021-10-12 12:16] LABS: ALBUMIN 2.9 g/dl (3.4-5.0); BLOOD UREA NITROGEN 10.6 mg/dL (7-18)
[2021-10-12 12:20] LABS: TOT PROT 6.5 g/dl (6.4-8.2)
[2021-10-12 12:21] LABS: BILIRUBIN,TOTAL 0.3 mg/dL (0.2-1); CREATININE 0.9 mg/dL (0.55-1.3)
[2021-10-12 12:24] LABS: ANISOCYTOSIS 1+; MACROCYTOSIS 0; PLATELET ESTIMATE NORMAL
[2021-10-12] MEDS ORDERED: SODIUM CHLORIDE 500 ML IV ONE (13:15)
[2021-10-12] MEDS ORDERED: FOSAPREPITANT DIMEGLUMINE 150 MG in SODIUM CHLORIDE 145 ML IVPB ONE (13:30)
[2021-10-12] MEDS ORDERED: DEXAMETHASONE SODIUM PHOSPHATE 10 MG, ONDANSETRON INJECTION 8 MG in SODIUM CHLORIDE 100 ML IVPB ONE (13:30)
[2021-10-12] MEDS ORDERED: GEMCITABINE HCL IV ONE (14:00)
[2021-10-12] MEDS ORDERED: SODIUM CHLORIDE IV ONE (14:00)
[2021-10-12 18:27] VITALS: BP 182/86; PULSE 89; TEMP 98.4
[2021-10-12] MEDS ORDERED: PORTA CATH FLUSH 10 ML IVPUSH ONE (18:27)
== END 2021-10-12 17:15 | disposition home or self-care (01) ==
LOC: JONCCHEMO 07:42
PROVIDERS: ATTEND Internal Medicine Hematology & Oncology
PROC: 3E04305 Introduction of Other Antineoplastic into Central Vein, Percutaneous Approach (ICD-10-PCS; principal; 2021-10-12)
PROC: 3E043GC Introduction of Other Therapeutic Substance into Central Vein, Percutaneous Approach (ICD-10-PCS; 2021-10-12)
PROC: 3E0437Z Introduction of Electrolytic and Water Balance Substance into Central Vein, Percutaneous Approach (ICD-10-PCS; 2021-10-12)
DX: Z51.11 Encounter for antineoplastic chemotherapy (principal); C67.5 Malignant neoplasm of bladder neck
CPT/HCPCS: 36415; 80053; 84439; 84443; 85025; 96361; 96367; 96413; 96417; J1453

== ENCOUNTER 2021-10-19 07:48 | Day surgery (SDC) | payer BC ==
[2021-10-19] MEDS ORDERED: SODIUM CHLORIDE 250 ML IV ONE (10:00)
[2021-10-19] MEDS ORDERED: DEXAMETHASONE SODIUM PHOSPHATE 10 MG, ONDANSETRON INJECTION 8 MG in SODIUM CHLORIDE 100 ML IVPB ONE (10:30)
[2021-10-19] MEDS ORDERED: GEMCITABINE HCL IV ONE (11:00)
[2021-10-19] MEDS ORDERED: SODIUM CHLORIDE IV ONE (11:00)
[2021-10-19 11:31] LABS: EOS % 0.2 % (0-4.5); HEMATOCRIT 30.7 % (32.4-45.2); HEMOGLOBIN 9.6 GM/dL (10.7-15.3); LYMPH % 17.5 % (8-40); MCH 21.7 pg (25.7-33.7); MCHC 31.2 g/dl (32.0-36.0); MEAN CELL VOLUME 69.7 fl (80-96); MEAN PLT VOLUME 6.6 fl (7.5-11.1); MONO % 4.1 % (3.8-10.2); NEUT % 77.2 % (42.8-82.8); PLATELET COUNT 227 10^3/uL (134-434); RBC 4.41 M/mm3 (3.60-5.2); RDW 21.3 % (11.6-15.6)
[2021-10-19 11:57] LABS: BLOOD UREA NITROGEN 8.8 mg/dL (7-18); CALCIUM 9.5 mg/dL (8.5-10.1)
[2021-10-19 11:58] LABS: ALBUMIN 2.8 g/dl (3.4-5.0)
[2021-10-19 12:00] LABS: CREATININE 0.6 mg/dL (0.55-1.3)
[2021-10-19 12:02] LABS: BILIRUBIN,TOTAL 0.3 mg/dL (0.2-1); TOT PROT 6.2 g/dl (6.4-8.2)
[2021-10-19 14:49] LABS: ANISOCYTOSIS 1+
[2021-10-19] MEDS ORDERED: PEGFILGRASTIM (NEULASTA ONPRO) 6 MG/0.6 ML KIT SQ ONE (16:00)
[2021-10-19 17:13] VITALS: TEMP 98.7
[2021-10-19 17:15] VITALS: BP 144/70; PULSE 89
== END 2021-10-19 16:55 | disposition home or self-care (01) ==
LOC: JONCCHEMO 07:48
PROVIDERS: ATTEND Internal Medicine Hematology & Oncology
PROC: 3E04305 Introduction of Other Antineoplastic into Central Vein, Percutaneous Approach (ICD-10-PCS; principal; 2021-10-19)
PROC: 3E013GC Introduction of Other Therapeutic Substance into Subcutaneous Tissue, Percutaneous Approach (ICD-10-PCS; 2021-10-19)
DX: Z51.11 Encounter for antineoplastic chemotherapy (principal); C67.5 Malignant neoplasm of bladder neck
CPT/HCPCS: 36415; 80053; 83735; 84439; 84443; 85025; 96367; 96372; 96413; J2506

== ENCOUNTER 2021-11-02 07:07 | Day surgery (SDC) | payer BC ==
[2021-11-02] MEDS ORDERED: SODIUM CHLORIDE 500 ML IV ONE (10:00)
[2021-11-02] MEDS ORDERED: FOSAPREPITANT DIMEGLUMINE 150 MG in SODIUM CHLORIDE 145 ML IVPB ONE (10:30)
[2021-11-02] MEDS ORDERED: DEXAMETHASONE SODIUM PHOSPHATE 10 MG, ONDANSETRON INJECTION 8 MG in SODIUM CHLORIDE 100 ML IVPB ONE (10:30)
[2021-11-02] MEDS ORDERED: SODIUM CHLORIDE IV ONE (11:00)
[2021-11-02] MEDS ORDERED: GEMCITABINE HCL IV ONE (11:00)
[2021-11-02 11:19] LABS: BASO % 0.7 % (0-2.0); EOS % 0.1 % (0-4.5); HEMATOCRIT 30.6 % (32.4-45.2); HEMOGLOBIN 9.4 GM/dL (10.7-15.3); LYMPH % 11.4 % (8-40); MCHC 30.6 g/dl (32.0-36.0); MEAN CELL VOLUME 71.8 fl (80-96); MEAN PLT VOLUME 7.1 fl (7.5-11.1); MONO % 7.5 % (3.8-10.2); NEUT % 80.3 % (42.8-82.8); PLATELET COUNT 703 10^3/uL (134-434); RBC 4.27 M/mm3 (3.60-5.2); RDW 23.8 % (11.6-15.6); WHITE BLOOD COUNT 10.9 K/mm3 (4.0-10.0)
[2021-11-02] MEDS ORDERED: CARBOPLATIN IVPB ONE (11:30)
[2021-11-02] MEDS ORDERED: SODIUM CHLORIDE IVPB ONE (11:30)
[2021-11-02 11:41] LABS: BLOOD UREA NITROGEN 7.1 mg/dL (7-18); CALCIUM 9.6 mg/dL (8.5-10.1)
[2021-11-02 11:44] LABS: CREATININE 0.5 mg/dL (0.55-1.3)
[2021-11-02 11:46] LABS: ANISOCYTOSIS 2+; BILIRUBIN,TOTAL 0.2 mg/dL (0.2-1); MACROCYTOSIS 0; TOT PROT 6.5 g/dl (6.4-8.2)
[2021-11-02 17:26] VITALS: TEMP 98.4
[2021-11-02 17:45] VITALS: BP 137/68; PULSE 84
[2021-11-02] MEDS ORDERED: PORTA CATH FLUSH 10 ML IVPUSH ONE (17:45)
== END 2021-11-02 17:00 | disposition home or self-care (01) ==
LOC: JONCCHEMO 07:07
PROVIDERS: ATTEND Internal Medicine Hematology & Oncology
PROC: 3E04305 Introduction of Other Antineoplastic into Central Vein, Percutaneous Approach (ICD-10-PCS; principal; 2021-11-02)
PROC: 3E043GC Introduction of Other Therapeutic Substance into Central Vein, Percutaneous Approach (ICD-10-PCS; 2021-11-02)
PROC: 3E0437Z Introduction of Electrolytic and Water Balance Substance into Central Vein, Percutaneous Approach (ICD-10-PCS; 2021-11-02)
DX: Z51.11 Encounter for antineoplastic chemotherapy (principal); C67.5 Malignant neoplasm of bladder neck
CPT/HCPCS: 36415; 80053; 85025; 96367; 96413; 96417; J1453

== ENCOUNTER 2021-11-09 08:28 | Day surgery (SDC) | payer BC ==
[2021-11-09] MEDS ORDERED: SODIUM CHLORIDE 250 ML IV ONE (09:00)
[2021-11-09] MEDS ORDERED: DEXAMETHASONE SODIUM PHOSPHATE 10 MG, ONDANSETRON INJECTION 8 MG in SODIUM CHLORIDE 100 ML IVPB ONE (09:30)
[2021-11-09] MEDS ORDERED: GEMCITABINE HCL IV ONE (10:00)
[2021-11-09] MEDS ORDERED: SODIUM CHLORIDE IV ONE (10:00)
[2021-11-09] MEDS ORDERED: PEGFILGRASTIM (NEULASTA ONPRO) 6 MG/0.6 ML KIT SQ ONE (10:30)
[2021-11-09 11:13] LABS: BASO % 1.2 % (0-2.0); EOS % 0.1 % (0-4.5); HEMATOCRIT 27.6 % (32.4-45.2); HEMOGLOBIN 8.7 GM/dL (10.7-15.3); LYMPH % 14.4 % (8-40); MCH 22.4 pg (25.7-33.7); MCHC 31.4 g/dl (32.0-36.0); MEAN CELL VOLUME 71.3 fl (80-96); MEAN PLT VOLUME 6.9 fl (7.5-11.1); MONO % 8.8 % (3.8-10.2); NEUT % 75.5 % (42.8-82.8); PLATELET COUNT 617 10^3/uL (134-434); RBC 3.87 M/mm3 (3.60-5.2); RDW 22.3 % (11.6-15.6); WHITE BLOOD COUNT 4.2 K/mm3 (4.0-10.0)
[2021-11-09 11:31] LABS: CALCIUM 10.2 mg/dL (8.5-10.1)
[2021-11-09 11:32] LABS: BLOOD UREA NITROGEN 11.7 mg/dL (7-18)
[2021-11-09 11:35] LABS: CREATININE 0.7 mg/dL (0.55-1.3)
[2021-11-09 11:37] LABS: BILIRUBIN,TOTAL 0.2 mg/dL (0.2-1); TOT PROT 6.4 g/dl (6.4-8.2)
[2021-11-09] MEDS ORDERED: SODIUM CHLORIDE 250 ML IV STA (12:00)
[2021-11-09 12:22] LABS: ANISOCYTOSIS 0; MACROCYTOSIS 0; OVALOCYTE 1+
[2021-11-09 15:19] VITALS: BP 131/68; PULSE 89; TEMP 98.6
[2021-11-09] MEDS ORDERED: PORTA CATH FLUSH 10 ML IVPUSH PRN (15:19)
== END 2021-11-09 16:05 | disposition home or self-care (01) ==
LOC: JONCCHEMO 08:28
PROVIDERS: ATTEND Internal Medicine Hematology & Oncology
DX: Z51.11 Encounter for antineoplastic chemotherapy (principal); C67.5 Malignant neoplasm of bladder neck; C79.51 Secondary malignant neoplasm of bone
CPT/HCPCS: 36415; 80053; 83036; 85025; 96367; 96413

== ENCOUNTER → 2021-11-23 | Day surgery (SDC) | payer BC ==
[~2021-11-23] MED LIST changes: -DEXAMETHASONE SODIUM PHOSPHATE 10 MG, DIPHENHYDRAMINE 25 MG in SODIUM CHLORIDE 100 ML IVPB ONE; +DEXAMETHASONE SODIUM PHOSPHATE 10 MG, ONDANSETRON INJECTION 8 MG in SODIUM CHLORIDE 100 ML IVPB ONE; -FAMOTIDINE 20 MG/50 ML IVPB 20 MG/50 ML MG IVPB ONE; +FOSAPREPITANT DIMEGLUMINE 150 MG in SODIUM CHLORIDE 145 ML IVPB ONE; +GEMCITABINE HCL IV ONE; -PACLITAXEL 96 MG in SODIUM CHLORIDE 250 ML IVPB ONE; -PALONOSETRON HCL 0.25 MG/5 ML VIAL IVPUSH ONE; -SODIUM CHLORIDE 250 ML IV ONE; +SODIUM CHLORIDE 500 ML IV ONE; +SODIUM CHLORIDE IV ONE
[2021-11-23 11:37] LABS: BASO % 0.5 % (0-2.0); EOS % 0.3 % (0-4.5); HEMATOCRIT 26.7 % (32.4-45.2); HEMOGLOBIN 8.5 GM/dL (10.7-15.3); LYMPH % 9.5 % (8-40); MCH 23.3 pg (25.7-33.7); MCHC 31.9 g/dl (32.0-36.0); MEAN CELL VOLUME 72.8 fl (80-96); MEAN PLT VOLUME 6.9 fl (7.5-11.1); MONO % 11.7 % (3.8-10.2); PLATELET COUNT 481 10^3/uL (134-434); RBC 3.67 M/mm3 (3.60-5.2); RDW 22.4 % (11.6-15.6); WHITE BLOOD COUNT 6.2 K/mm3 (4.0-10.0)
[2021-11-23 11:49] LABS: ALBUMIN 2.8 g/dl (3.4-5.0); BLOOD UREA NITROGEN 11.5 mg/dL (7-18); CALCIUM 9.3 mg/dL (8.5-10.1)
[2021-11-23 11:52] LABS: CREATININE 0.6 mg/dL (0.55-1.3)
[2021-11-23 11:54] LABS: BILIRUBIN,TOTAL 0.3 mg/dL (0.2-1); TOT PROT 6.1 g/dl (6.4-8.2)
[2021-11-23 12:17] LABS: ANISOCYTOSIS 2+; MACROCYTOSIS 0
== END | disposition home or self-care (01) ==
LOC: JONCCHEMO 07:22
PROVIDERS: ATTEND Internal Medicine Hematology & Oncology
DX: Z53.8 Procedure and treatment not carried out for other reasons (principal)
CPT/HCPCS: 36415; 80053; 85025; 96365

== ENCOUNTER 2021-11-30 06:48 | Day surgery (SDC) | payer BC ==
[2021-11-30] MEDS ORDERED: SODIUM CHLORIDE 500 ML IV ONE (09:00)
[2021-11-30] MEDS ORDERED: DEXAMETHASONE SODIUM PHOSPHATE 10 MG, ONDANSETRON INJECTION 8 MG in SODIUM CHLORIDE 100 ML IVPB ONE (09:30)
[2021-11-30] MEDS ORDERED: FOSAPREPITANT DIMEGLUMINE 150 MG in SODIUM CHLORIDE 145 ML IVPB ONE (09:30)
[2021-11-30] MEDS ORDERED: GEMCITABINE HCL IV ONE (10:00)
[2021-11-30] MEDS ORDERED: SODIUM CHLORIDE IV ONE (10:00)
[2021-11-30] MEDS ORDERED: CARBOPLATIN IVPB ONE (10:30)
[2021-11-30] MEDS ORDERED: SODIUM CHLORIDE IVPB ONE (10:30)
[2021-11-30 12:26] LABS: BASO % 0.8 % (0-2.0); EOS % 0.6 % (0-4.5); HEMATOCRIT 31.3 % (32.4-45.2); HEMOGLOBIN 9.5 GM/dL (10.7-15.3); LYMPH % 8.8 % (8-40); MCH 22.1 pg (25.7-33.7); MCHC 30.3 g/dl (32.0-36.0); MONO % 12.2 % (3.8-10.2); NEUT % 77.6 % (42.8-82.8); PLATELET COUNT 693 10^3/uL (134-434); RBC 4.28 M/mm3 (3.60-5.2); RDW 21.5 % (11.6-15.6); WHITE BLOOD COUNT 9.4 K/mm3 (4.0-10.0)
[2021-11-30 12:41] LABS: BLOOD UREA NITROGEN 15.6 mg/dL (7-18)
[2021-11-30 12:44] LABS: CREATININE 0.8 mg/dL (0.55-1.3)
[2021-11-30 12:46] LABS: BILIRUBIN,TOTAL 0.2 mg/dL (0.2-1); TOT PROT 6.4 g/dl (6.4-8.2)
[2021-11-30] MEDS ORDERED: SODIUM CHLORIDE 500 ML IV STA (13:13)
[2021-11-30] MEDS ORDERED: PANTOPRAZOLE SODIUM 40 MG VIAL IVPB ONE (13:30)
[2021-11-30 18:43] VITALS: BP 167/80; PULSE 102; TEMP 98.6
== END 2021-11-30 17:45 | disposition home or self-care (01) ==
LOC: JONCCHEMO 06:48
PROVIDERS: ATTEND Internal Medicine Hematology & Oncology
DX: Z51.11 Encounter for antineoplastic chemotherapy (principal); C67.5 Malignant neoplasm of bladder neck; C79.51 Secondary malignant neoplasm of bone
CPT/HCPCS: 36415; 80053; 85025; 96361; 96367; 96413; 96417; J1453

== ENCOUNTER 2021-12-07 07:26 | Day surgery (SDC) | payer BC ==
[2021-12-07 11:33] LABS: BASO % 0.7 % (0-2.0); EOS % 0.2 % (0-4.5); HEMATOCRIT 27.2 % (32.4-45.2); HEMOGLOBIN 8.3 GM/dL (10.7-15.3); LYMPH % 14.7 % (8-40); MCH 22.6 pg (25.7-33.7); MCHC 30.7 g/dl (32.0-36.0); MEAN CELL VOLUME 73.7 fl (80-96); MEAN PLT VOLUME 7.2 fl (7.5-11.1); MONO % 10.5 % (3.8-10.2); NEUT % 73.9 % (42.8-82.8); PLATELET COUNT 307 10^3/uL (134-434); RBC 3.69 M/mm3 (3.60-5.2); WHITE BLOOD COUNT 4.6 K/mm3 (4.0-10.0)
[2021-12-07 11:40] LABS: CALCIUM 9.4 mg/dL (8.5-10.1)
[2021-12-07 11:41] LABS: ALBUMIN 2.7 g/dl (3.4-5.0); BLOOD UREA NITROGEN 8.8 mg/dL (7-18)
[2021-12-07 11:44] LABS: CREATININE 0.5 mg/dL (0.55-1.3)
[2021-12-07 11:46] LABS: BILIRUBIN,TOTAL 0.2 mg/dL (0.2-1); TOT PROT 6.2 g/dl (6.4-8.2)
[2021-12-07] MEDS ORDERED: SODIUM CHLORIDE 250 ML IV ONE (12:00)
[2021-12-07] MEDS ORDERED: DEXAMETHASONE SODIUM PHOSPHATE 8 MG, ONDANSETRON INJECTION 8 MG in SODIUM CHLORIDE 100 ML IVPB ONE (12:30)
[2021-12-07] MEDS ORDERED: GEMCITABINE HCL IV ONE (13:00)
[2021-12-07] MEDS ORDERED: SODIUM CHLORIDE IV ONE (13:00)
[2021-12-07 13:51] LABS: ANISOCYTOSIS 1+; MACROCYTOSIS 0; PLATELET ESTIMATE NORMAL
[2021-12-07 17:12] VITALS: BP 137/62; PULSE 78; TEMP 98.5
[2021-12-07] MEDS ORDERED: PORTA CATH FLUSH 10 ML IVPUSH PRN (17:12)
== END 2021-12-07 15:30 | disposition home or self-care (01) ==
LOC: JONCCHEMO 07:26
PROVIDERS: ATTEND Internal Medicine Hematology & Oncology
DX: Z51.11 Encounter for antineoplastic chemotherapy (principal); C67.5 Malignant neoplasm of bladder neck; C79.51 Secondary malignant neoplasm of bone
CPT/HCPCS: 36415; 80053; 82728; 83540; 83550; 85025; 96361; 96367; 96413

== ENCOUNTER 2021-12-12 06:30 | Day surgery (SDC) | payer BC ==
[2021-12-12] MEDS ORDERED: IRON SUCROSE INJECTION 200 MG in SODIUM CHLORIDE 100 ML IVPB ONE (10:00)
[2021-12-12 11:19] LABS: HEMATOCRIT 22.8 % (32.4-45.2); HEMOGLOBIN 7.2 GM/dL (10.7-15.3); MCH 23.4 pg (25.7-33.7); MCHC 31.7 g/dl (32.0-36.0); MEAN CELL VOLUME 73.7 fl (80-96); MEAN PLT VOLUME 6.7 fl (7.5-11.1); PLATELET COUNT 204 10^3/uL (134-434); RDW 20.4 % (11.6-15.6); WHITE BLOOD COUNT 5.6 K/mm3 (4.0-10.0)
[2021-12-12 12:19] LABS: ADD RBC MORPHOLOGY YES
[2021-12-12 12:56] LABS: ANISOCYTOSIS 2+; MACROCYTOSIS 0; TEAR DROP CELLS 1+
[2021-12-12 18:04] VITALS: TEMP 98.3
[2021-12-12] MEDS ORDERED: PORTA CATH FLUSH 10 ML IVPUSH PRN (18:07)
[2021-12-12 19:01] VITALS: BP 154/64; PULSE 84
== END 2021-12-12 18:30 | disposition home or self-care (01) ==
LOC: JONCBLOOD 06:30
PROVIDERS: ATTEND Internal Medicine Hematology & Oncology
PROC: 30233H1 Transfusion of Nonautologous Whole Blood into Peripheral Vein, Percutaneous Approach (ICD-10-PCS; principal; 2021-12-12)
DX: C67.5 Malignant neoplasm of bladder neck (principal); C79.51 Secondary malignant neoplasm of bone
CPT/HCPCS: 36415; 36430; 85025; 86850; 86900; 86901; 86922; P9058

== ENCOUNTER 2021-12-15 04:10 | Day surgery (SDC) | payer BC ==
[2021-12-13 15:56] VITALS: BMI 31.7
[2021-12-15] MEDS ORDERED: LIDOCAINE HCL/PF 2% SDV 5ML VIAL ONE (09:10)
[2021-12-15] MEDS ORDERED: PROPOFOL 20 ML ONE ×2 (09:10→09:12)
[2021-12-15] MEDS ORDERED: MIDAZOLAM HCL 2 MG/2 ML SINGLE DOSE VIAL ONE ×2 (09:10→09:21)
[2021-12-15] MEDS ORDERED: ceFAZolin SODIUM 1 GM VIAL ONE (09:26)
[2021-12-15] MEDS ORDERED: ceFAZolin SODIUM 1 GM VIAL IVPB ONE (09:27)
[2021-12-15] MEDS ORDERED: ONDANSETRON 4 MG/2 ML VIAL ONE (09:34)
[2021-12-15] MEDS ORDERED: LIDOCAINE HCL 1%, 10 MG/ML (20ML VIAL) NR ONE (09:39)
[2021-12-15] MEDS ORDERED: KETOROLAC TROMETHAMINE 30 MG/1 ML VIAL ONE (09:45)
[2021-12-15] MEDS ORDERED: ONDANSETRON 4 MG/2 ML VIAL IVPUSH PRN (10:10)
[2021-12-15] MEDS ORDERED: ACETAMINOPHEN 500 MG TABLET (FP) PO PRN (10:10)
[2021-12-15] MEDS ORDERED: LACTATED RINGERS SOLUTION 1,000 ML IV SCH (10:15)
[2021-12-15 12:27] VITALS: BP 114/54; PULSE 78; TEMP 97.7
== END 2021-12-15 12:43 | disposition home or self-care (01) ==
LOC: JASU-SURG 04:10
PROVIDERS: ATTEND Surgery Vascular Surgery
PROC: 0JPT0WZ Removal of Totally Implantable Vascular Access Device from Trunk Subcutaneous Tissue and Fascia, Open Approach (ICD-10-PCS; principal; 2021-12-15 09:00)
DX: I82.C11 Acute embolism and thrombosis of right internal jugular vein (principal); C67.9 Malignant neoplasm of bladder, unspecified; E11.9 Type 2 diabetes mellitus without complications; Z79.4 Long term (current) use of insulin
CPT/HCPCS: 82962; 94760

== ENCOUNTER 2021-12-23 06:18 | Day surgery (SDC) | payer BC ==
[2021-12-23 12:40] LABS: EOS % 0.5 % (0-4.5); HEMATOCRIT 29.4 % (32.4-45.2); HEMOGLOBIN 9.1 GM/dL (10.7-15.3); LYMPH % 16.4 % (8-40); MCH 23.3 pg (25.7-33.7); MCHC 30.9 g/dl (32.0-36.0); MEAN CELL VOLUME 75.3 fl (80-96); MEAN PLT VOLUME 6.5 fl (7.5-11.1); MONO % 14.2 % (3.8-10.2); NEUT % 67.9 % (42.8-82.8); PLATELET COUNT 1023 10^3/uL (134-434); RDW 21.4 % (11.6-15.6); WHITE BLOOD COUNT 4.3 K/mm3 (4.0-10.0)
[2021-12-23 13:02] LABS: CALCIUM 9.5 mg/dL (8.5-10.1)
[2021-12-23 13:03] LABS: ALBUMIN 3.2 g/dl (3.4-5.0); BLOOD UREA NITROGEN 5.7 mg/dL (7-18); MAGNESIUM 1.8 mg/dL (1.8-2.4)
[2021-12-23 13:06] LABS: CREATININE 0.6 mg/dL (0.55-1.3)
[2021-12-23 13:07] LABS: TOT PROT 6.6 g/dl (6.4-8.2)
[2021-12-23 13:08] LABS: BILIRUBIN,TOTAL 0.5 mg/dL (0.2-1)
[2021-12-23] MEDS ORDERED: FOSAPREPITANT DIMEGLUMINE 150 MG in SODIUM CHLORIDE 145 ML IVPB ONE (13:45)
[2021-12-23] MEDS ORDERED: DEXAMETHASONE INJECTION 8 MG, ONDANSETRON INJECTION 8 MG in SODIUM CHLORIDE 100 ML IVPB ONE (14:00)
[2021-12-23] MEDS ORDERED: SODIUM CHLORIDE 500 ML IV ONE (14:00)
[2021-12-23] MEDS ORDERED: SODIUM CHLORIDE 250 ML IV ONE (14:12)
[2021-12-23 14:30] LABS: ANISOCYTOSIS 1+; MACROCYTOSIS 1+; PLATELET ESTIMATE INCREASED
[2021-12-23] MEDS ORDERED: CARBOPLATIN IVPB ONE (14:30)
[2021-12-23] MEDS ORDERED: GEMCITABINE HCL IV ONE (14:30)
[2021-12-23] MEDS ORDERED: SODIUM CHLORIDE IV ONE (14:30)
[2021-12-23] MEDS ORDERED: SODIUM CHLORIDE IVPB ONE (14:30)
[2021-12-23 17:41] VITALS: PULSE 85; TEMP 98.4
[2021-12-23 17:46] VITALS: BP 140/66
== END 2021-12-23 17:46 | disposition home or self-care (01) ==
LOC: JONCCHEMO 06:18 → JONCNONCHE 06:18 → JONCCHEMO 17:46
PROVIDERS: ATTEND Internal Medicine Hematology & Oncology
DX: Z51.11 Encounter for antineoplastic chemotherapy (principal); C67.5 Malignant neoplasm of bladder neck; C79.51 Secondary malignant neoplasm of bone
CPT/HCPCS: 36415; 80053; 83735; 85025; 96367; 96413; 96417; J1100; J1453

== ENCOUNTER → 2021-12-30 | Day surgery (SDC) | payer BC ==
[~2021-12-30] MED LIST changes: -CARBOPLATIN IVPB ONE; +DEXAMETHASONE INJECTION 8 MG, ONDANSETRON INJECTION 8 MG in SODIUM CHLORIDE 100 ML IVPB ONE; -DEXAMETHASONE SODIUM PHOSPHATE 10 MG, ONDANSETRON INJECTION 8 MG in SODIUM CHLORIDE 100 ML IVPB ONE; -FOSAPREPITANT DIMEGLUMINE 150 MG in SODIUM CHLORIDE 145 ML IVPB ONE; +SODIUM CHLORIDE 250 ML IV ONE; -SODIUM CHLORIDE 500 ML IV ONE; -SODIUM CHLORIDE IVPB ONE
[2021-12-30 12:12] LABS: BASO % 1.1 % (0-2.0); EOS % 0.1 % (0-4.5); HEMATOCRIT 26.8 % (32.4-45.2); HEMOGLOBIN 8.4 GM/dL (10.7-15.3); LYMPH % 28.5 % (8-40); MCH 23.2 pg (25.7-33.7); MCHC 31.3 g/dl (32.0-36.0); MEAN CELL VOLUME 74.1 fl (80-96); MEAN PLT VOLUME 6.6 fl (7.5-11.1); MONO % 13.7 % (3.8-10.2); NEUT % 56.6 % (42.8-82.8); PLATELET COUNT 496 10^3/uL (134-434); RBC 3.62 M/mm3 (3.60-5.2); RDW 20.8 % (11.6-15.6)
[2021-12-30 12:17] LABS: WHITE BLOOD COUNT 1.9 K/mm3 (4.0-10.0)
[2021-12-30 12:39] LABS: CALCIUM 9.7 mg/dL (8.5-10.1)
[2021-12-30 12:40] LABS: ALBUMIN 3.1 g/dl (3.4-5.0); BLOOD UREA NITROGEN 3.7 mg/dL (7-18); MAGNESIUM 1.8 mg/dL (1.8-2.4)
[2021-12-30 12:43] LABS: CREATININE 0.5 mg/dL (0.55-1.3)
[2021-12-30 12:45] LABS: BILIRUBIN,TOTAL 0.2 mg/dL (0.2-1); TOT PROT 6.4 g/dl (6.4-8.2)
[2021-12-30 12:52] LABS: ANISOCYTOSIS 2+; MACROCYTOSIS 0
== END | disposition home or self-care (01) ==
LOC: JONCCHEMO 06:47
PROVIDERS: ATTEND Internal Medicine Hematology & Oncology
DX: Z53.8 Procedure and treatment not carried out for other reasons (principal)
CPT/HCPCS: 36415; 80053; 83735; 85025; 96365

== ENCOUNTER 2022-01-06 07:38 | Day surgery (SDC) | payer BC ==
[2022-01-06 12:20] LABS: BASO % 0.4 % (0-2.0); EOS % 0.3 % (0-4.5); HEMATOCRIT 27.7 % (32.4-45.2); HEMOGLOBIN 8.5 GM/dL (10.7-15.3); LYMPH % 11.4 % (8-40); MCH 22.7 pg (25.7-33.7); MCHC 30.6 g/dl (32.0-36.0); MEAN CELL VOLUME 74.4 fl (80-96); MEAN PLT VOLUME 7.1 fl (7.5-11.1); MONO % 12.5 % (3.8-10.2); NEUT % 75.4 % (42.8-82.8); PLATELET COUNT 247 10^3/uL (134-434); RBC 3.73 M/mm3 (3.60-5.2); RDW 21.1 % (11.6-15.6); WHITE BLOOD COUNT 4.9 K/mm3 (4.0-10.0)
[2022-01-06 12:37] LABS: CALCIUM 9.5 mg/dL (8.5-10.1)
[2022-01-06 12:38] LABS: ALBUMIN 3.1 g/dl (3.4-5.0); BLOOD UREA NITROGEN 7.6 mg/dL (7-18); MAGNESIUM 1.7 mg/dL (1.8-2.4)
[2022-01-06 12:40] LABS: CREATININE 0.6 mg/dL (0.55-1.3)
[2022-01-06 12:41] LABS: ANISOCYTOSIS 2+; MACROCYTOSIS 1+
[2022-01-06 12:42] LABS: BILIRUBIN,TOTAL 0.5 mg/dL (0.2-1); OVALOCYTE 1+; PLATELET ESTIMATE ADEQUATE; TOT PROT 6.3 g/dl (6.4-8.2)
[2022-01-06] MEDS ORDERED: MAGNESIUM SULF 50% (8.12 MEQ/2 ML-1 GM VIAL) IVPB ONE (12:44)
[2022-01-06] MEDS ORDERED: MAGNESIUM SULFATE IN WATER 2 GM/50 ML IVPB IVPB ONE (13:15)
[2022-01-06] MEDS ORDERED: SODIUM CHLORIDE 250 ML IV ONE (13:15)
[2022-01-06] MEDS ORDERED: DEXAMETHASONE INJECTION 8 MG, ONDANSETRON INJECTION 8 MG in SODIUM CHLORIDE 100 ML IVPB ONE (14:00)
[2022-01-06] MEDS ORDERED: SODIUM CHLORIDE IV ONE (14:30)
[2022-01-06] MEDS ORDERED: GEMCITABINE HCL IV ONE (14:30)
[2022-01-06 15:21] VITALS: TEMP 98.6
[2022-01-06 16:50] VITALS: BP 148/58; PULSE 87
== END 2022-01-06 16:50 | disposition home or self-care (01) ==
LOC: JONCCHEMO 07:38
PROVIDERS: ATTEND Internal Medicine Hematology & Oncology
DX: Z51.11 Encounter for antineoplastic chemotherapy (principal); C67.5 Malignant neoplasm of bladder neck; C79.51 Secondary malignant neoplasm of bone
CPT/HCPCS: 36415; 80053; 83735; 85025; 96367; 96413; J1100

== ENCOUNTER → 2022-01-20 | Day surgery (SDC) | payer BC ==
[~2022-01-20] MED LIST changes: +CARBOPLATIN IVPB ONE; -DEXAMETHASONE INJECTION 8 MG, ONDANSETRON INJECTION 8 MG in SODIUM CHLORIDE 100 ML IVPB ONE; +DEXAMETHASONE SODIUM PHOSPHATE 8 MG, ONDANSETRON INJECTION 8 MG in SODIUM CHLORIDE 100 ML IVPB ONE; +FOSAPREPITANT DIMEGLUMINE 150 MG in SODIUM CHLORIDE 145 ML IVPB ONE; -SODIUM CHLORIDE 250 ML IV ONE; +SODIUM CHLORIDE 500 ML IV ONE; +SODIUM CHLORIDE IVPB ONE
[2022-01-20 12:19] LABS: BASO % 0.9 % (0-2.0); EOS % 0.6 % (0-4.5); HEMATOCRIT 27.2 % (32.4-45.2); HEMOGLOBIN 8.3 GM/dL (10.7-15.3); LYMPH % 14.2 % (8-40); MCH 22.2 pg (25.7-33.7); MCHC 30.4 g/dl (32.0-36.0); MEAN PLT VOLUME 7.4 fl (7.5-11.1); MONO % 11.4 % (3.8-10.2); NEUT % 72.9 % (42.8-82.8); PLATELET COUNT 447 10^3/uL (134-434); RBC 3.72 M/mm3 (3.60-5.2); RDW 21.3 % (11.6-15.6); WHITE BLOOD COUNT 5.3 K/mm3 (4.0-10.0)
[2022-01-20 12:46] LABS: ALBUMIN 3.1 g/dl (3.4-5.0); CALCIUM 9.8 mg/dL (8.5-10.1)
[2022-01-20 12:47] LABS: BLOOD UREA NITROGEN 5.7 mg/dL (7-18)
[2022-01-20 12:50] LABS: CREATININE 0.6 mg/dL (0.55-1.3)
[2022-01-20 12:51] LABS: BILIRUBIN,TOTAL 0.4 mg/dL (0.2-1); TOT PROT 6.7 g/dl (6.4-8.2)
[2022-01-20 13:04] LABS: ANISOCYTOSIS 3+; MACROCYTOSIS 0
[2022-01-20 16:02] VITALS: BP 132/70; PULSE 81; TEMP 98.3
== END | disposition home or self-care (01) ==
LOC: JONCCHEMO 08:20
PROVIDERS: ATTEND Internal Medicine Hematology & Oncology
DX: Z51.11 Encounter for antineoplastic chemotherapy (principal); C67.5 Malignant neoplasm of bladder neck; C79.51 Secondary malignant neoplasm of bone
CPT/HCPCS: 36415; 80053; 85025; 96367; 96413; J1453; J2405

== ENCOUNTER 2022-02-03 07:02 | Day surgery (SDC) | payer BC ==
[2022-02-03] MEDS ORDERED: SODIUM CHLORIDE 250 ML IV ONE (10:00)
[2022-02-03] MEDS ORDERED: DEXAMETHASONE SODIUM PHOSPHATE 8 MG, ONDANSETRON INJECTION 8 MG in SODIUM CHLORIDE 100 ML IVPB ONE (10:00)
[2022-02-03] MEDS ORDERED: GEMCITABINE HCL IV ONE (10:30)
[2022-02-03] MEDS ORDERED: SODIUM CHLORIDE IV ONE (10:30)
[2022-02-03 12:17] LABS: BASO % 0.6 % (0-2.0); EOS % 0.6 % (0-4.5); HEMOGLOBIN 8.2 GM/dL (10.7-15.3); LYMPH % 13.9 % (8-40); MCH 21.6 pg (25.7-33.7); MCHC 30.5 g/dl (32.0-36.0); MEAN CELL VOLUME 70.7 fl (80-96); MONO % 12.6 % (3.8-10.2); NEUT % 72.3 % (42.8-82.8); PLATELET COUNT 300 10^3/uL (134-434); RBC 3.82 M/mm3 (3.60-5.2); RDW 20.2 % (11.6-15.6); WHITE BLOOD COUNT 3.7 K/mm3 (4.0-10.0)
[2022-02-03 12:36] LABS: CALCIUM 9.7 mg/dL (8.5-10.1)
[2022-02-03 12:37] LABS: ALBUMIN 3.3 g/dl (3.4-5.0); BLOOD UREA NITROGEN 6.5 mg/dL (7-18); MAGNESIUM 1.8 mg/dL (1.8-2.4)
[2022-02-03 12:40] LABS: CREATININE 0.5 mg/dL (0.55-1.3)
[2022-02-03 12:42] LABS: BILIRUBIN,TOTAL 0.2 mg/dL (0.2-1)
[2022-02-03 14:16] LABS: ANISOCYTOSIS 2+; MACROCYTOSIS 0; OVALOCYTE 2+; TEAR DROP CELLS 2+
[2022-02-03 17:14] VITALS: TEMP 98.2
[2022-02-03 17:28] VITALS: BP 165/65; PULSE 80
[2022-02-10] MEDS ORDERED: TBO-FILGRASTIM 300 MCG/0.5 ML DISP.SYRINGE SQ ONE (13:28)
== END 2022-02-03 17:15 | disposition home or self-care (01) ==
LOC: JONCCHEMO 07:02
PROVIDERS: ATTEND Internal Medicine Hematology & Oncology
PROC: 3E03305 Introduction of Other Antineoplastic into Peripheral Vein, Percutaneous Approach (ICD-10-PCS; principal; 2022-02-03)
PROC: 3E033GC Introduction of Other Therapeutic Substance into Peripheral Vein, Percutaneous Approach (ICD-10-PCS; 2022-02-03)
PROC: 3E0337Z Introduction of Electrolytic and Water Balance Substance into Peripheral Vein, Percutaneous Approach (ICD-10-PCS; 2022-02-03)
DX: Z51.11 Encounter for antineoplastic chemotherapy (principal); C67.5 Malignant neoplasm of bladder neck; C79.51 Secondary malignant neoplasm of bone
CPT/HCPCS: 36415; 80053; 83735; 85025; 96367; 96413

== ENCOUNTER 2022-02-10 07:22 | Day surgery (SDC) | payer BC ==
[2022-02-10 11:07] LABS: HEMOGLOBIN 8.1 GM/dL (10.7-15.3); MCHC 31.3 g/dl (32.0-36.0); MEAN CELL VOLUME 70.3 fl (80-96); MEAN PLT VOLUME 6.6 fl (7.5-11.1); PLATELET COUNT 378 10^3/uL (134-434); RDW 20.5 % (11.6-15.6)
[2022-02-10 11:20] LABS: WHITE BLOOD COUNT 1.5 K/mm3 (4.0-10.0)
[2022-02-10 11:21] LABS: ALBUMIN 3.4 g/dl (3.4-5.0); BLOOD UREA NITROGEN 6.8 mg/dL (7-18); CALCIUM 10.1 mg/dL (8.5-10.1)
[2022-02-10 11:24] LABS: CREATININE 0.6 mg/dL (0.55-1.3)
[2022-02-10 11:25] LABS: TOT PROT 6.9 g/dl (6.4-8.2)
[2022-02-10 11:26] LABS: BILIRUBIN,TOTAL 0.2 mg/dL (0.2-1)
[2022-02-10 12:38] LABS: ANISOCYTOSIS 0; MACROCYTOSIS 0
[2022-02-10] MEDS ORDERED: TBO-FILGRASTIM 300 MCG/0.5 ML DISP.SYRINGE SQ ONE (14:30)
[2022-02-10] MEDS ORDERED: TBO-FILGRASTIM 480 MCG/0.8 ML DISP.SYRIN SQ ONE (17:49)
[2022-02-10 19:11] VITALS: PULSE 73; TEMP 98.5
[2022-02-10 19:14] VITALS: BP 155/73
== END 2022-02-10 19:10 | disposition home or self-care (01) ==
LOC: JONCBLOOD 07:22
PROVIDERS: ATTEND Internal Medicine Hematology & Oncology
PROC: 3E013GC Introduction of Other Therapeutic Substance into Subcutaneous Tissue, Percutaneous Approach (ICD-10-PCS; principal; 2022-02-10)
PROC: 30233H1 Transfusion of Nonautologous Whole Blood into Peripheral Vein, Percutaneous Approach (ICD-10-PCS; 2022-02-10)
DX: D64.81 Anemia due to antineoplastic chemotherapy (principal); C67.5 Malignant neoplasm of bladder neck; C77.8 Secondary and unspecified malignant neoplasm of lymph nodes of multiple regions; C77.0 Secondary and unspecified malignant neoplasm of lymph nodes of head, face and neck; C79.51 Secondary malignant neoplasm of bone; D63.0 Anemia in neoplastic disease
CPT/HCPCS: 36415; 36430; 80053; 85025; 86850; 86900; 86901; 86922; 96372; J1447; P9058

== ENCOUNTER 2022-02-11 16:02 | Day surgery (SDC) | payer BC ==
[~2022-02-11 16:02] MED LIST changes: -CARBOPLATIN IVPB ONE; -DEXAMETHASONE SODIUM PHOSPHATE 8 MG, ONDANSETRON INJECTION 8 MG in SODIUM CHLORIDE 100 ML IVPB ONE; -FOSAPREPITANT DIMEGLUMINE 150 MG in SODIUM CHLORIDE 145 ML IVPB ONE; -GEMCITABINE HCL IV ONE; -SODIUM CHLORIDE 500 ML IV ONE; -SODIUM CHLORIDE IV ONE; -SODIUM CHLORIDE IVPB ONE; +TBO-FILGRASTIM 480 MCG/0.8 ML DISP.SYRIN SQ ONE
[2022-02-11 16:43] VITALS: BP 146/81; PULSE 69; TEMP 98.2
[2022-02-11 17:39] LABS: BASO % 0.3 % (0-2.0); EOS % 0.1 % (0-4.5); HEMATOCRIT 29.4 % (32.4-45.2); HEMOGLOBIN 9.4 GM/dL (10.7-15.3); LYMPH % 5.5 % (8-40); MCH 23.4 pg (25.7-33.7); MCHC 32.1 g/dl (32.0-36.0); MEAN CELL VOLUME 72.8 fl (80-96); MEAN PLT VOLUME 6.1 fl (7.5-11.1); MONO % 8.5 % (3.8-10.2); NEUT % 85.6 % (42.8-82.8); PLATELET COUNT 303 10^3/uL (134-434); RBC 4.03 M/mm3 (3.60-5.2); RDW 22.5 % (11.6-15.6); WHITE BLOOD COUNT 14.6 K/mm3 (4.0-10.0)
== END 2022-02-11 17:38 | disposition home or self-care (01) ==
LOC: JONCCHEMO 16:02 → J7W 16:03 → JONCCHEMO 17:38
PROVIDERS: ATTEND Internal Medicine Hematology & Oncology
PROC: 3E013GC Introduction of Other Therapeutic Substance into Subcutaneous Tissue, Percutaneous Approach (ICD-10-PCS; principal; 2022-02-11)
DX: C67.5 Malignant neoplasm of bladder neck (principal); D64.81 Anemia due to antineoplastic chemotherapy; C77.8 Secondary and unspecified malignant neoplasm of lymph nodes of multiple regions; C77.0 Secondary and unspecified malignant neoplasm of lymph nodes of head, face and neck; C79.51 Secondary malignant neoplasm of bone; D63.0 Anemia in neoplastic disease; Z76.89 Persons encountering health services in other specified circumstances
CPT/HCPCS: 36415; 85025; 96372; J1447

== ENCOUNTER 2022-02-24 07:22 | Day surgery (SDC) | payer BC ==
[2022-02-24 11:26] LABS: BASO % 1.1 % (0-2.0); EOS % 0.7 % (0-4.5); HEMATOCRIT 31.4 % (32.4-45.2); HEMOGLOBIN 9.8 GM/dL (10.7-15.3); LYMPH % 20.6 % (8-40); MCH 22.7 pg (25.7-33.7); MCHC 31.2 g/dl (32.0-36.0); MEAN CELL VOLUME 72.6 fl (80-96); MEAN PLT VOLUME 6.9 fl (7.5-11.1); MONO % 9.6 % (3.8-10.2); PLATELET COUNT 400 10^3/uL (134-434); RBC 4.33 M/mm3 (3.60-5.2); RDW 23.7 % (11.6-15.6); WHITE BLOOD COUNT 4.3 K/mm3 (4.0-10.0)
[2022-02-24] MEDS ORDERED: DEXAMETHASONE SODIUM PHOSPHATE 8 MG, ONDANSETRON INJECTION 8 MG in SODIUM CHLORIDE 100 ML IVPB ONE (11:30)
[2022-02-24] MEDS ORDERED: GEMCITABINE HCL IV ONE (11:30)
[2022-02-24] MEDS ORDERED: SODIUM CHLORIDE IV ONE (11:30)
[2022-02-24 11:50] LABS: CALCIUM 9.8 mg/dL (8.5-10.1)
[2022-02-24 11:51] LABS: ALBUMIN 3.3 g/dl (3.4-5.0); BLOOD UREA NITROGEN 12.2 mg/dL (7-18)
[2022-02-24 11:54] LABS: CREATININE 0.6 mg/dL (0.55-1.3)
[2022-02-24 11:55] LABS: BILIRUBIN,TOTAL 0.4 mg/dL (0.2-1)
[2022-02-24 11:56] LABS: TOT PROT 6.8 g/dl (6.4-8.2)
[2022-02-24 12:31] LABS: ANISOCYTOSIS 2+; MACROCYTOSIS 0; OVALOCYTE 2+; TEAR DROP CELLS 1+
[2022-02-24 15:49] VITALS: TEMP 98.5
[2022-02-24 16:36] VITALS: BP 155/73; PULSE 76; RESP 18
== END 2022-02-24 14:45 | disposition home or self-care (01) ==
LOC: JONCCHEMO 07:22
PROVIDERS: ATTEND Internal Medicine Hematology & Oncology
DX: Z51.11 Encounter for antineoplastic chemotherapy (principal); C67.5 Malignant neoplasm of bladder neck; C77.8 Secondary and unspecified malignant neoplasm of lymph nodes of multiple regions; C77.0 Secondary and unspecified malignant neoplasm of lymph nodes of head, face and neck; C79.51 Secondary malignant neoplasm of bone; D63.0 Anemia in neoplastic disease
CPT/HCPCS: 36415; 80053; 85025; 96367; 96413

== ENCOUNTER 2022-03-03 06:59 | Day surgery (SDC) | payer BC ==
[2022-03-03] MEDS ORDERED: SODIUM CHLORIDE 250 ML IV ONE (09:00)
[2022-03-03] MEDS ORDERED: DEXAMETHASONE SODIUM PHOSPHATE 8 MG, ONDANSETRON INJECTION 8 MG in SODIUM CHLORIDE 100 ML IVPB ONE (09:30)
[2022-03-03] MEDS ORDERED: GEMCITABINE HCL IV ONE (10:00)
[2022-03-03] MEDS ORDERED: SODIUM CHLORIDE IV ONE (10:00)
[2022-03-03 12:57] LABS: BASO % 0.9 % (0-2.0); EOS % 0.3 % (0-4.5); LYMPH % 14.9 % (8-40); MCH 22.5 pg (25.7-33.7); MEAN CELL VOLUME 72.6 fl (80-96); MEAN PLT VOLUME 7.6 fl (7.5-11.1); MONO % 11.6 % (3.8-10.2); NEUT % 72.3 % (42.8-82.8); PLATELET COUNT 306 10^3/uL (134-434); RDW 23.9 % (11.6-15.6); WHITE BLOOD COUNT 3.8 K/mm3 (4.0-10.0)
[2022-03-03 13:31] LABS: CALCIUM 9.8 mg/dL (8.5-10.1)
[2022-03-03 13:32] LABS: BLOOD UREA NITROGEN 9.6 mg/dL (7-18); MAGNESIUM 1.9 mg/dL (1.8-2.4)
[2022-03-03 13:35] LABS: CREATININE 0.6 mg/dL (0.55-1.3)
[2022-03-03 13:37] LABS: BILIRUBIN,TOTAL 0.4 mg/dL (0.2-1); TOT PROT 6.8 g/dl (6.4-8.2)
[2022-03-03 14:18] LABS: ANISOCYTOSIS 1+; TEAR DROP CELLS 1+
== END 2022-03-03 16:00 | disposition home or self-care (01) ==
LOC: JONCCHEMO 06:59
PROVIDERS: ATTEND Internal Medicine Hematology & Oncology
DX: Z53.8 Procedure and treatment not carried out for other reasons (principal)
CPT/HCPCS: 36415; 80053; 83735; 85025

== ENCOUNTER 2022-09-02 22:52 | Inpatient (IN) | payer BC, OTHER ==
[2022-09-02] MEDS ORDERED: MAGNESIUM SULF 50% (8.12 MEQ/2 ML-1 GM VIAL) IVPB ONE (23:11)
[2022-09-02] MEDS ORDERED: ALBUTEROL SO4 2.5/IPRATROPIUM 0.5 INH SOL 3 ML VIAL.NEB. NEB ONE ×2 (23:11→23:34)
[2022-09-02] MEDS ORDERED: methylPREDNISolone NA SUCC 125 MG/2 ML VIAL IVPB ONE (23:11)
[2022-09-02] MEDS ORDERED: LACTATED RINGERS SOLUTION 1000 ML INFUS.BAG IV ONE (23:15)
[2022-09-02] MEDS ORDERED: methylPREDNISolone NA SUCC 125 MG/2 ML VIAL ONE (23:38)
[2022-09-02] MEDS ORDERED: MAGNESIUM 1GM/D5W - 2 GM/200 ML IVPB IVPB ONE (23:38)
[2022-09-03] MEDS ORDERED: SODIUM CHLORIDE 0.9% 500 ML INFUS.BAG IV ONE (00:02)
[2022-09-03 00:54] LABS: POTASSIUM 4.1 mmol/L (3.5-5.1)
[2022-09-03 00:57] LABS: ALBUMIN 3.5 g/dl (3.4-5.0); BLOOD UREA NITROGEN 10.6 mg/dL (7-18); CALCIUM 10.2 mg/dL (8.5-10.1)
[2022-09-03 01:00] LABS: CREATININE 0.5 mg/dL (0.55-1.3)
[2022-09-03 01:03] LABS: BILIRUBIN,TOTAL 0.2 mg/dL (0.2-1); TOT PROT 8.3 g/dl (6.4-8.2)
[2022-09-03 01:41] LABS: BASO % 0.6 % (0-2.0); EOS % 0.1 % (0-4.5); HEMATOCRIT 28.8 % (32.4-45.2); HEMOGLOBIN 8.5 GM/dL (10.7-15.3); LYMPH % 11.5 % (8-40); MCHC 29.4 g/dl (32.0-36.0); MEAN PLT VOLUME 7.3 fl (7.5-11.1); MONO % 5.1 % (3.8-10.2); NEUT % 82.7 % (42.8-82.8); PLATELET COUNT 576 10^3/uL (134-434); RBC 4.64 M/mm3 (3.60-5.2); RDW 17.4 % (11.6-15.6); WHITE BLOOD COUNT 9.4 K/mm3 (4.0-10.0)
[2022-09-03 01:44] LABS: MCH 18.2 pg (25.7-33.7)
[2022-09-03 02:33] LABS: MAGNESIUM 1.7 mg/dL (1.8-2.4)
[2022-09-03] MEDS ORDERED: INSULIN REGULAR HUMAN 100 UNITS/ML *VIAL SQ ONE (03:23)
[2022-09-03] MEDS ORDERED: INSULIN (NOVOLOG) ASPART 100 UNITS/ML 10ML VIAL SQ ONE (03:44)
[2022-09-03] MEDS ORDERED: LABETALOL HCL 5 MG/1 ML (100MG/20 ML VIAL) IVPUSH PRN (04:37)
[2022-09-03] MEDS ORDERED: LABETALOL HCL 20 MG/4 ML VIAL ONE (04:45)
[2022-09-03] MEDS: INSULIN SLIDING SCALE (NOVOLOG) 1 VIAL SQ SCH ×5 (05:03→22:03)
[2022-09-03] MEDS: ALBUTEROL SO4 2.5/IPRATROPIUM 0.5 INH SOL 3 ML VIAL.NEB. NEB SCH ×4 (05:45→20:24)
[2022-09-03 06:22] LABS: ANISOCYTOSIS 2+; MACROCYTOSIS 1+; OVALOCYTE 2+; TARGET CELLS 2+; TEAR DROP CELLS 2+
[2022-09-03] MEDS: LEVOTHYROXINE SODIUM 100 MCG 5 ML VIAL IVPUSH SCH (08:00)
[2022-09-03] MEDS: PANTOPRAZOLE SODIUM 40 MG VIAL IVPUSH SCH (09:51)
[2022-09-03] MEDS: ENOXAPARIN NA (PORCINE) 40 MG/0.4 ML DISP.SYRIN SQ SCH (09:51)
[2022-09-03] MEDS: FUROSEMIDE 40 MG/4 ML INJECTABLE VIAL IVPUSH SCH (09:51)
[2022-09-03] MEDS: DEXAMETHASONE SOD PHOSPHATE 10 MG/1 ML VIAL IVPUSH SCH ×2 (09:51→22:02)
[2022-09-03] MEDS: MUPIROCIN 2% TOPICAL OINTMENT FOR DECOLONIZATION NS SCH ×2 (09:52→22:02)
[2022-09-03] MEDS: INSULIN (LEVEMIR) 100 UNITS/ML UNITS SQ SCH ×2 (10:04→22:02)
[2022-09-03] MEDS: LABETALOL HCL 20 MG/4 ML VIAL IVPUSH PRN ×2 (15:28→22:11)
[2022-09-03] MEDS ORDERED: CHLORHEXIDINE GLUCONATE 4% CLEANSER FOR DECOLONIZATION TP SCH (22:00)
[2022-09-04] MEDS: ALBUTEROL SO4 2.5/IPRATROPIUM 0.5 INH SOL 3 ML VIAL.NEB. NEB SCH ×8 (00:06→23:55)
[2022-09-04] MEDS: INSULIN SLIDING SCALE (NOVOLOG) 1 VIAL SQ SCH ×2 (06:05→10:24)
[2022-09-04] MEDS: LEVOTHYROXINE SODIUM 100 MCG 5 ML VIAL IVPUSH SCH (06:32)
[2022-09-04 07:35] LABS: BASO % 0.1 % (0-2.0); HEMATOCRIT 26.8 % (32.4-45.2); HEMOGLOBIN 7.8 GM/dL (10.7-15.3); LYMPH % 8.6 % (8-40); MCHC 29.3 g/dl (32.0-36.0); MEAN CELL VOLUME 61.9 fl (80-96); MEAN PLT VOLUME 7.2 fl (7.5-11.1); MONO % 3.6 % (3.8-10.2); NEUT % 87.7 % (42.8-82.8); PLATELET COUNT 489 10^3/uL (134-434); RBC 4.33 M/mm3 (3.60-5.2); RDW 17.2 % (11.6-15.6); WHITE BLOOD COUNT 6.7 K/mm3 (4.0-10.0)
[2022-09-04 07:37] LABS: MCH 18.1 pg (25.7-33.7)
[2022-09-04 07:38] LABS: INR 1.08 (0.83-1.09); PROTHROMBIN TIME (PATIENT) 12.4 SEC (9.7-13.0)
[2022-09-04 07:41] LABS: ACTIVATED PTT 31.6 SECONDS (25.2-36.5)
[2022-09-04 07:52] LABS: POTASSIUM 4.8 mmol/L (3.5-5.1)
[2022-09-04 08:05] LABS: CALCIUM 10.3 mg/dL (8.5-10.1)
[2022-09-04 08:06] LABS: ALBUMIN 2.9 g/dl (3.4-5.0); BLOOD UREA NITROGEN 28.4 mg/dL (7-18); MAGNESIUM 2.3 mg/dL (1.8-2.4)
[2022-09-04 08:07] LABS: CREATININE 0.8 mg/dL (0.55-1.3)
[2022-09-04 08:08] LABS: PHOSPHOROUS 3.6 mg/dL (2.5-4.9)
[2022-09-04 08:10] LABS: BILIRUBIN,TOTAL 0.2 mg/dL (0.2-1); TOT PROT 6.9 g/dl (6.4-8.2)
[2022-09-04] MEDS: FUROSEMIDE 40 MG/4 ML INJECTABLE VIAL IVPUSH SCH (10:14)
[2022-09-04] MEDS: PANTOPRAZOLE SODIUM 40 MG VIAL IVPUSH SCH (10:14)
[2022-09-04] MEDS: ENOXAPARIN NA (PORCINE) 40 MG/0.4 ML DISP.SYRIN SQ SCH (10:14)
[2022-09-04] MEDS: DEXAMETHASONE SOD PHOSPHATE 10 MG/1 ML VIAL IVPUSH SCH ×2 (10:14→21:41)
[2022-09-04] MEDS: INSULIN (LEVEMIR) 100 UNITS/ML UNITS SQ SCH ×2 (10:24→21:40)
[2022-09-04] MEDS: MUPIROCIN 2% TOPICAL OINTMENT FOR DECOLONIZATION NS SCH (10:33)
[2022-09-04] MEDS ORDERED: LEVOTHYROXINE NA 150 MCG TABLET PO SCH (11:45)
[2022-09-04] MEDS ORDERED: LOSARTAN POTASSIUM 50 MG TABLET PO SCH (11:45)
[2022-09-04] MEDS ORDERED: NIFEdipine E.R. 30 MG TABLET PO SCH (11:45)
[2022-09-04] MEDS ORDERED: LOPERAMIDE HCL 2 MG CAPSULE PO ONE (14:43)
[2022-09-04] MEDS ORDERED: INSULIN SLIDING SCALE (NOVOLOG) 1 VIAL SQ SCH (16:30)
[2022-09-04] MEDS ORDERED: ZOLPIDEM TARTRATE 5 MG TABLET PO PRN ×2 (17:39→22:00)
[2022-09-04] MEDS: LOSARTAN POTASSIUM 50 MG TABLET PO SCH (21:40)
[2022-09-04] MEDS ORDERED: INSULIN (LEVEMIR) 100 UNITS/ML UNITS SQ SCH (22:00)
[2022-09-04] MEDS ORDERED: CHLORHEXIDINE GLUCONATE 4% CLEANSER FOR DECOLONIZATION TP SCH (22:00)
[2022-09-04] MEDS ORDERED: MUPIROCIN 2% TOPICAL OINTMENT FOR DECOLONIZATION NS SCH (22:00)
[2022-09-05] MEDS: ALBUTEROL SO4 2.5/IPRATROPIUM 0.5 INH SOL 3 ML VIAL.NEB. NEB SCH ×5 (03:48→20:55)
[2022-09-05] MEDS: INSULIN SLIDING SCALE (NOVOLOG) 1 VIAL SQ SCH ×3 (06:20→15:59)
[2022-09-05] MEDS ORDERED: FUROSEMIDE 40 MG TABLET (FP) PO SCH (10:00)
[2022-09-05] MEDS: LOSARTAN POTASSIUM 50 MG TABLET PO SCH ×2 (10:51→22:56)
[2022-09-05] MEDS: FUROSEMIDE 40 MG TABLET (FP) PO SCH (10:51)
[2022-09-05] MEDS: NIFEdipine E.R. 30 MG TABLET PO SCH (10:51)
[2022-09-05] MEDS: LEVOTHYROXINE NA 150 MCG TABLET PO SCH (10:51)
[2022-09-05] MEDS: DEXAMETHASONE SOD PHOSPHATE 10 MG/1 ML VIAL IVPUSH SCH ×2 (10:52→22:56)
[2022-09-05] MEDS: ENOXAPARIN NA (PORCINE) 40 MG/0.4 ML DISP.SYRIN SQ SCH (10:59)
[2022-09-05 11:01] LABS: BASO % 0.1 % (0-2.0); EOS % 0.2 % (0-4.5); HEMATOCRIT 26.6 % (32.4-45.2); HEMOGLOBIN 8.1 GM/dL (10.7-15.3); LYMPH % 10.5 % (8-40); MCH 18.4 pg (25.7-33.7); MCHC 30.4 g/dl (32.0-36.0); MEAN CELL VOLUME 60.5 fl (80-96); MONO % 7.9 % (3.8-10.2); NEUT % 81.3 % (42.8-82.8); PLATELET COUNT 512 10^3/uL (134-434); RDW 17.4 % (11.6-15.6); WHITE BLOOD COUNT 8.9 K/mm3 (4.0-10.0)
[2022-09-05] MEDS: INSULIN (LEVEMIR) 100 UNITS/ML UNITS SQ SCH ×2 (11:04→22:56)
[2022-09-05] MEDS: PANTOPRAZOLE SODIUM 40 MG VIAL IVPUSH SCH (11:05)
[2022-09-05 11:19] LABS: POTASSIUM 4.5 mmol/L (3.5-5.1)
[2022-09-05 11:23] LABS: BLOOD UREA NITROGEN 28.7 mg/dL (7-18); CALCIUM 10.7 mg/dL (8.5-10.1)
[2022-09-05 11:24] LABS: ALBUMIN 3.1 g/dl (3.4-5.0); MAGNESIUM 2.3 mg/dL (1.8-2.4)
[2022-09-05 11:26] LABS: CREATININE 0.8 mg/dL (0.55-1.3); PHOSPHOROUS 2.8 mg/dL (2.5-4.9)
[2022-09-05 11:28] LABS: BILIRUBIN,TOTAL 0.2 mg/dL (0.2-1); TOT PROT 7.3 g/dl (6.4-8.2)
[2022-09-06] MEDS: ALBUTEROL SO4 2.5/IPRATROPIUM 0.5 INH SOL 3 ML VIAL.NEB. NEB SCH ×6 (04:10→20:00)
[2022-09-06] MEDS: INSULIN SLIDING SCALE (NOVOLOG) 1 VIAL SQ SCH ×3 (07:03→16:53)
[2022-09-06] MEDS: LEVOTHYROXINE NA 150 MCG TABLET PO SCH (10:33)
[2022-09-06] MEDS: LOSARTAN POTASSIUM 50 MG TABLET PO SCH ×2 (10:34→21:44)
[2022-09-06] MEDS: NIFEdipine E.R. 30 MG TABLET PO SCH (10:34)
[2022-09-06] MEDS: PANTOPRAZOLE SODIUM 40 MG VIAL IVPUSH SCH (10:34)
[2022-09-06] MEDS: FUROSEMIDE 40 MG TABLET (FP) PO SCH (10:34)
[2022-09-06] MEDS: DEXAMETHASONE SOD PHOSPHATE 10 MG/1 ML VIAL IVPUSH SCH ×3 (10:34→21:44)
[2022-09-06] MEDS: ENOXAPARIN NA (PORCINE) 40 MG/0.4 ML DISP.SYRIN SQ SCH (10:35)
[2022-09-06] MEDS: INSULIN (LEVEMIR) 100 UNITS/ML UNITS SQ SCH ×2 (10:53→21:45)
[2022-09-06] MEDS ORDERED: RACEPINEPHRINE IH SOL 2.25% 11.25 MG/0.5 ML VIAL NEB ONE (11:25)
[2022-09-07] MEDS: ALBUTEROL SO4 2.5/IPRATROPIUM 0.5 INH SOL 3 ML VIAL.NEB. NEB SCH ×4 (00:36→11:45)
[2022-09-07] MEDS: INSULIN SLIDING SCALE (NOVOLOG) 1 VIAL SQ SCH ×3 (06:04→18:21)
[2022-09-07] MEDS: DEXAMETHASONE SOD PHOSPHATE 10 MG/1 ML VIAL IVPUSH SCH ×3 (06:05→21:25)
[2022-09-07] MEDS: ENOXAPARIN NA (PORCINE) 40 MG/0.4 ML DISP.SYRIN SQ SCH (09:13)
[2022-09-07] MEDS: FUROSEMIDE 40 MG TABLET (FP) PO SCH (09:13)
[2022-09-07] MEDS: INSULIN (LEVEMIR) 100 UNITS/ML UNITS SQ SCH ×2 (09:13→21:25)
[2022-09-07] MEDS: LOSARTAN POTASSIUM 50 MG TABLET PO SCH ×2 (09:13→21:25)
[2022-09-07] MEDS: NIFEdipine E.R. 30 MG TABLET PO SCH (09:13)
[2022-09-07] MEDS: PANTOPRAZOLE SODIUM 40 MG VIAL IVPUSH SCH (09:13)
[2022-09-07] MEDS: LEVOTHYROXINE NA 150 MCG TABLET PO SCH (09:13)
[2022-09-07] MEDS ORDERED: DEXMEDETOMIDINE PREMIX 400 MCG/100 ML BAG IVPB SCH ×2 (13:45)
[2022-09-07] MEDS ORDERED: ALPRAZolam 0.25 MG TABLET PO ONE (14:28)
[2022-09-07] MEDS: RACEPINEPHRINE IH SOL 2.25% 11.25 MG/0.5 ML VIAL NEB PRN (20:42)
[2022-09-07] MEDS: ALBUTEROL SO4 2.5/IPRATROPIUM 0.5 INH SOL 3 ML VIAL.NEB. NEB PRN (20:43)
[2022-09-07] MEDS ORDERED: CHLORHEXIDINE GLUCONATE 4% CLEANSER FOR DECOLONIZATION TP SCH ×2 (22:00)
[2022-09-07] MEDS ORDERED: MUPIROCIN 2% TOPICAL OINTMENT FOR DECOLONIZATION NS SCH ×2 (22:00)
[2022-09-07] MEDS ORDERED: ZOLPIDEM TARTRATE 5 MG TABLET PO PRN (23:00)
[2022-09-08] MEDS: RACEPINEPHRINE IH SOL 2.25% 11.25 MG/0.5 ML VIAL NEB PRN ×3 (03:03→08:00)
[2022-09-08] MEDS: ALBUTEROL SO4 2.5/IPRATROPIUM 0.5 INH SOL 3 ML VIAL.NEB. NEB PRN ×2 (03:03→06:30)
[2022-09-08] MEDS: DEXAMETHASONE SOD PHOSPHATE 10 MG/1 ML VIAL IVPUSH SCH ×3 (06:46→21:52)
[2022-09-08] MEDS: INSULIN SLIDING SCALE (NOVOLOG) 1 VIAL SQ SCH ×3 (06:46→18:36)
[2022-09-08 07:44] LABS: POTASSIUM 4.3 mmol/L (3.5-5.1)
[2022-09-08 07:48] LABS: ALBUMIN 3.5 g/dl (3.4-5.0); CALCIUM 11.2 mg/dL (8.5-10.1)
[2022-09-08 07:49] LABS: BLOOD UREA NITROGEN 30.3 mg/dL (7-18); MAGNESIUM 2.1 mg/dL (1.8-2.4)
[2022-09-08 07:51] LABS: PHOSPHOROUS 4.3 mg/dL (2.5-4.9)
[2022-09-08 07:52] LABS: CREATININE 0.8 mg/dL (0.55-1.3)
[2022-09-08 07:53] LABS: BILIRUBIN,TOTAL 0.3 mg/dL (0.2-1); TOT PROT 8.2 g/dl (6.4-8.2)
[2022-09-08] MEDS ORDERED: ALPRAZolam 1 MG TABLET PO PRN (08:06)
[2022-09-08 08:21] LABS: HEMATOCRIT 31.7 % (32.4-45.2); HEMOGLOBIN 9.5 GM/dL (10.7-15.3); MCHC 30.1 g/dl (32.0-36.0); MEAN CELL VOLUME 61.1 fl (80-96); MEAN PLT VOLUME 8.4 fl (7.5-11.1); PLATELET COUNT 602 10^3/uL (134-434); RBC 5.19 M/mm3 (3.60-5.2); RDW 17.5 % (11.6-15.6)
[2022-09-08 08:31] LABS: MCH 18.4 pg (25.7-33.7)
[2022-09-08] MEDS ORDERED: FUROSEMIDE 40 MG TABLET (FP) PO SCH (10:00)
[2022-09-08] MEDS ORDERED: NIFEdipine E.R. 30 MG TABLET PO SCH (10:00)
[2022-09-08] MEDS ORDERED: RAPID SEQUENCE INTUBATION KIT NR ONE (10:17)
[2022-09-08] MEDS ORDERED: LORazepam 2 MG/ML SDV VIAL IVPUSH ONE (10:25)
[2022-09-08] MEDS ORDERED: PROPOFOL 1,000,000 MCG/100 ML VIAL ONE (10:29)
[2022-09-08] MEDS: PROPOFOL 1,000,000 MCG/100 ML VIAL IVPB SCH (10:30)
[2022-09-08] MEDS ORDERED: MIDAZOLAM IN 0.9 % SOD.CHLORID 1 MG/1 ML PLAST..BAG ONE (10:34)
[2022-09-08] MEDS ORDERED: MIDAZOLAM 100 MG in SODIUM CHLORIDE 100 ML IVPB SCH (10:45)
[2022-09-08] MEDS: MIDAZOLAM IN 0.9 % SOD.CHLORID 100 MG/100 ML PLAST..BAG IVPB SCH (11:00)
[2022-09-08] MEDS ORDERED: SODIUM CHLORIDE 1,000 ML IV STA (11:34)
[2022-09-08] MEDS ORDERED: LACTATED RINGERS SOLUTION 1,000 ML/1,000 ML INFUS.BAG IV STA (11:35)
[2022-09-08] MEDS: LOSARTAN POTASSIUM 50 MG TABLET PO SCH ×2 (13:03→21:52)
[2022-09-08] MEDS: MUPIROCIN 2% TOPICAL OINTMENT FOR DECOLONIZATION NS SCH ×2 (13:03→21:52)
[2022-09-08] MEDS: INSULIN (LEVEMIR) 100 UNITS/ML UNITS SQ SCH (13:04)
[2022-09-08] MEDS: ENOXAPARIN NA (PORCINE) 40 MG/0.4 ML DISP.SYRIN SQ SCH (13:05)
[2022-09-08] MEDS: LEVOTHYROXINE NA 150 MCG TABLET PO SCH (13:06)
[2022-09-08] MEDS: PANTOPRAZOLE SODIUM 40 MG VIAL IVPUSH SCH (13:06)
[2022-09-08] MEDS: NOREPINEPHRINE 0.9 % NACL 8 MG/250 ML BAG IVPB SCH (19:15)
[2022-09-08] MEDS: LACTATED RINGERS SOLUTION 1,000 ML/1,000 ML INFUS.BAG IV SCH (21:51)
[2022-09-08] MEDS: CHLORHEXIDINE GLUCONATE 4% CLEANSER FOR DECOLONIZATION TP SCH (21:52)
[2022-09-09] MEDS: DEXAMETHASONE SOD PHOSPHATE 10 MG/1 ML VIAL IVPUSH SCH ×3 (05:59→22:26)
[2022-09-09] MEDS: MIDAZOLAM IN 0.9 % SOD.CHLORID 100 MG/100 ML PLAST..BAG IVPB SCH (05:59)
[2022-09-09] MEDS: INSULIN SLIDING SCALE (NOVOLOG) 1 VIAL SQ SCH ×5 (06:28→23:23)
[2022-09-09 07:25] LABS: HEMATOCRIT 26.7 % (32.4-45.2); HEMOGLOBIN 8.1 GM/dL (10.7-15.3); MCHC 30.3 g/dl (32.0-36.0); MEAN CELL VOLUME 59.5 fl (80-96); MEAN PLT VOLUME 8.4 fl (7.5-11.1); PLATELET COUNT 389 10^3/uL (134-434); RBC 4.48 M/mm3 (3.60-5.2); RDW 17.4 % (11.6-15.6); WHITE BLOOD COUNT 15.8 K/mm3 (4.0-10.0)
[2022-09-09 08:00] LABS: POTASSIUM 3.4 mmol/L (3.5-5.1)
[2022-09-09 08:01] LABS: CALCIUM 9.7 mg/dL (8.5-10.1)
[2022-09-09 08:02] LABS: BLOOD UREA NITROGEN 34.1 mg/dL (7-18); MAGNESIUM 1.5 mg/dL (1.8-2.4)
[2022-09-09 08:05] LABS: CREATININE 0.8 mg/dL (0.55-1.3); PHOSPHOROUS 2.6 mg/dL (2.5-4.9)
[2022-09-09] MEDS ORDERED: methylPREDNISolone NA SUCC 40 MG/1 ML VIAL IVPUSH SCH (09:00)
[2022-09-09] MEDS ORDERED: POTASSIUM CHLORIDE 20 MEQ PREMIX IVPB 100 ML IVPB SCH (09:00)
[2022-09-09] MEDS: ENOXAPARIN NA (PORCINE) 40 MG/0.4 ML DISP.SYRIN SQ SCH (09:13)
[2022-09-09] MEDS: PANTOPRAZOLE SODIUM 40 MG VIAL IVPUSH SCH (09:13)
[2022-09-09] MEDS ORDERED: MAGNESIUM 1GM/D5W - 1 GM/100 ML IVPB IVPB ONE (09:15)
[2022-09-09] MEDS: FENTANYL NS IVPB 500 MCG/100 ML BAG IVPB SCH ×2 (09:23→23:14)
[2022-09-09] MEDS ORDERED: ACETAMINOPHEN 1000 MG/100 ML BAG IVPB PRN (10:00)
[2022-09-09] MEDS: LOSARTAN POTASSIUM 50 MG TABLET PO SCH ×2 (10:10→22:26)
[2022-09-09] MEDS: LEVOTHYROXINE NA 150 MCG TABLET PO SCH (10:10)
[2022-09-09] MEDS: KCL 20 MEQ PREMIX BAG 100 ML IVPB SCH ×3 (10:34→14:30)
[2022-09-09] MEDS: MUPIROCIN 2% TOPICAL OINTMENT FOR DECOLONIZATION NS SCH ×2 (13:30→22:26)
[2022-09-09] MEDS: LACTATED RINGERS SOLUTION 1,000 ML/1,000 ML INFUS.BAG IV SCH (22:25)
[2022-09-09] MEDS: CHLORHEXIDINE GLUCONATE 4% CLEANSER FOR DECOLONIZATION TP SCH (22:26)
[2022-09-09] MEDS: PROPOFOL 1,000,000 MCG/100 ML VIAL IVPB SCH (23:13)
[2022-09-10] MEDS: INSULIN SLIDING SCALE (NOVOLOG) 1 VIAL SQ SCH ×4 (05:54→22:59)
[2022-09-10] MEDS: DEXAMETHASONE SOD PHOSPHATE 10 MG/1 ML VIAL IVPUSH SCH ×3 (05:55→22:58)
[2022-09-10 07:28] LABS: HEMATOCRIT 25.5 % (32.4-45.2); HEMOGLOBIN 7.8 GM/dL (10.7-15.3); MCHC 30.5 g/dl (32.0-36.0); MEAN PLT VOLUME 8.2 fl (7.5-11.1); PLATELET COUNT 328 10^3/uL (134-434); RBC 4.25 M/mm3 (3.60-5.2); RDW 17.9 % (11.6-15.6); WHITE BLOOD COUNT 23.4 K/mm3 (4.0-10.0)
[2022-09-10 07:35] LABS: MCH 18.3 pg (25.7-33.7)
[2022-09-10 07:43] LABS: POTASSIUM 4.1 mmol/L (3.5-5.1)
[2022-09-10 07:49] LABS: CALCIUM 10.1 mg/dL (8.5-10.1)
[2022-09-10 07:50] LABS: BLOOD UREA NITROGEN 38.6 mg/dL (7-18); MAGNESIUM 1.9 mg/dL (1.8-2.4)
[2022-09-10] MEDS: NOREPINEPHRINE 0.9 % NACL 8 MG/250 ML BAG IVPB SCH (07:51)
[2022-09-10 07:52] LABS: PHOSPHOROUS 3.1 mg/dL (2.5-4.9)
[2022-09-10 07:53] LABS: CREATININE 0.8 mg/dL (0.55-1.3)
[2022-09-10 07:56] LABS: BILIRUBIN,TOTAL 0.5 mg/dL (0.2-1)
[2022-09-10 08:07] LABS: ALBUMIN 2.2 g/dl (3.4-5.0); TOT PROT 5.7 g/dl (6.4-8.2)
[2022-09-10] MEDS: PANTOPRAZOLE SODIUM 40 MG VIAL IVPUSH SCH (09:16)
[2022-09-10] MEDS: LOSARTAN POTASSIUM 50 MG TABLET PO SCH ×2 (09:16→23:01)
[2022-09-10] MEDS: ENOXAPARIN NA (PORCINE) 40 MG/0.4 ML DISP.SYRIN SQ SCH (09:16)
[2022-09-10] MEDS: LEVOTHYROXINE NA 150 MCG TABLET PO SCH (09:16)
[2022-09-10] MEDS: MUPIROCIN 2% TOPICAL OINTMENT FOR DECOLONIZATION NS SCH ×2 (09:17→22:58)
[2022-09-10 09:19] LABS: ANISOCYTOSIS 3+; MACROCYTOSIS 0
[2022-09-10] MEDS: PIPERACILLIN/TAZOB 3.375 GM 3.375 GM in DEXTROSE 5%-WATER - 50 ML IVPB SCH ×2 (12:57→17:49)
[2022-09-10] MEDS: PROPOFOL 1,000,000 MCG/100 ML VIAL IVPB SCH ×2 (16:49→20:47)
[2022-09-10] MEDS: FENTANYL NS IVPB 500 MCG/100 ML BAG IVPB SCH (20:46)
[2022-09-10] MEDS: LACTATED RINGERS SOLUTION 1,000 ML/1,000 ML INFUS.BAG IV SCH (22:57)
[2022-09-10] MEDS: CHLORHEXIDINE GLUCONATE 4% CLEANSER FOR DECOLONIZATION TP SCH (22:58)
[2022-09-11] MEDS: PIPERACILLIN/TAZOB 3.375 GM 3.375 GM in DEXTROSE 5%-WATER - 50 ML IVPB SCH ×3 (02:37→17:29)
[2022-09-11] MEDS: PROPOFOL 1,000,000 MCG/100 ML VIAL IVPB SCH ×4 (02:55→20:19)
[2022-09-11] MEDS: DEXAMETHASONE SOD PHOSPHATE 10 MG/1 ML VIAL IVPUSH SCH ×3 (06:02→21:56)
[2022-09-11] MEDS: INSULIN SLIDING SCALE (NOVOLOG) 1 VIAL SQ SCH ×4 (06:02→18:27)
[2022-09-11 07:18] LABS: HEMATOCRIT 24.4 % (32.4-45.2); HEMOGLOBIN 7.2 GM/dL (10.7-15.3); MCHC 29.6 g/dl (32.0-36.0); MEAN CELL VOLUME 60.9 fl (80-96); MEAN PLT VOLUME 8.2 fl (7.5-11.1); PLATELET COUNT 303 10^3/uL (134-434); RBC 4.01 M/mm3 (3.60-5.2); RDW 17.8 % (11.6-15.6); WHITE BLOOD COUNT 20.9 K/mm3 (4.0-10.0)
[2022-09-11 08:16] LABS: CHLORIDE 100 mmol/L (98-107); POTASSIUM 4.9 mmol/L (3.5-5.1); SODIUM 138 mmol/L (136-145)
[2022-09-11 08:24] LABS: ANION GAP 7 MMOL/L (8-16); CALCIUM 9.9 mg/dL (8.5-10.1); CO2 31 mmol/L (21-32)
[2022-09-11 08:25] LABS: BLOOD UREA NITROGEN 48.6 mg/dL (7-18); MAGNESIUM 2.3 mg/dL (1.8-2.4)
[2022-09-11 08:28] LABS: CREATININE 0.9 mg/dL (0.55-1.3); GLUCOSE,RANDOM 476 mg/dL (74-106); PHOSPHOROUS 2.8 mg/dL (2.5-4.9)
[2022-09-11] MEDS: MUPIROCIN 2% TOPICAL OINTMENT FOR DECOLONIZATION NS SCH (11:09)
[2022-09-11] MEDS: PANTOPRAZOLE SODIUM 40 MG VIAL IVPUSH SCH (11:09)
[2022-09-11] MEDS: ENOXAPARIN NA (PORCINE) 40 MG/0.4 ML DISP.SYRIN SQ SCH (11:11)
[2022-09-11] MEDS: LOSARTAN POTASSIUM 50 MG TABLET NGT SCH ×2 (11:12→21:55)
[2022-09-11] MEDS: LEVOTHYROXINE NA 150 MCG TABLET PO SCH ×2 (11:13→13:20)
[2022-09-11] MEDS: INSULIN (LEVEMIR) 100 UNITS/ML UNITS SQ SCH ×2 (11:13→23:31)
[2022-09-11] MEDS: MIDAZOLAM IN 0.9 % SOD.CHLORID 100 MG/100 ML PLAST..BAG IVPB SCH (14:21)
[2022-09-11] MEDS: LEVOTHYROXINE SODIUM 100 MCG 5 ML VIAL IVPUSH SCH ×2 (14:22→14:43)
[2022-09-11] MEDS: FENTANYL NS IVPB 500 MCG/100 ML BAG IVPB SCH (16:22)
[2022-09-11] MEDS: LACTATED RINGERS SOLUTION 1,000 ML/1,000 ML INFUS.BAG IV SCH ×2 (16:24→20:20)
[2022-09-11] MEDS ORDERED: INSULIN (NOVOLOG) ASPART 100 UNITS/ML 10ML VIAL SQ ONE (16:58)
[2022-09-11] MEDS ORDERED: INSULIN DRIP - PLEASE ORDER UNDER SETS NR ONE (19:15)
[2022-09-11] MEDS ORDERED: INSULIN REGULAR 100 UNITS in SODIUM CHLORIDE 99 ML IVPB SCH (19:45)
[2022-09-11] MEDS: CHLORHEXIDINE GLUCONATE 4% CLEANSER FOR DECOLONIZATION TP SCH (21:56)
[2022-09-11] MEDS ORDERED: LACTATED RINGERS SOLUTION 1000 ML INFUS.BAG IV ONE (23:56)
[2022-09-12 00:29] LABS: POTASSIUM 4.1 mmol/L (3.5-5.1)
[2022-09-12 00:30] LABS: CALCIUM 10.3 mg/dL (8.5-10.1)
[2022-09-12 00:31] LABS: BLOOD UREA NITROGEN 52.3 mg/dL (7-18); MAGNESIUM 2.4 mg/dL (1.8-2.4)
[2022-09-12 00:34] LABS: PHOSPHOROUS 2.4 mg/dL (2.5-4.9)
[2022-09-12] MEDS: PIPERACILLIN/TAZOB 3.375 GM 3.375 GM in DEXTROSE 5%-WATER - 50 ML IVPB SCH ×3 (02:00→18:03)
[2022-09-12] MEDS: INSULIN (LEVEMIR) 100 UNITS/ML UNITS SQ SCH ×2 (06:53→21:27)
[2022-09-12] MEDS: DEXAMETHASONE SOD PHOSPHATE 10 MG/1 ML VIAL IVPUSH SCH ×3 (06:53→21:25)
[2022-09-12] MEDS: MIDAZOLAM IN 0.9 % SOD.CHLORID 100 MG/100 ML PLAST..BAG IVPB SCH (06:54)
[2022-09-12 07:25] LABS: HEMATOCRIT 23.7 % (32.4-45.2); MCHC 29.3 g/dl (32.0-36.0); MEAN CELL VOLUME 60.6 fl (80-96); MEAN PLT VOLUME 8.8 fl (7.5-11.1); PLATELET COUNT 312 10^3/uL (134-434); RBC 3.91 M/mm3 (3.60-5.2); RDW 17.4 % (11.6-15.6); WHITE BLOOD COUNT 18.1 K/mm3 (4.0-10.0)
[2022-09-12 07:33] LABS: MCH 17.8 pg (25.7-33.7)
[2022-09-12 07:34] LABS: HEMOGLOBIN 6.9 GM/dL (10.7-15.3)
[2022-09-12 07:38] LABS: POTASSIUM 4.6 mmol/L (3.5-5.1)
[2022-09-12 07:40] LABS: CALCIUM 10.3 mg/dL (8.5-10.1)
[2022-09-12 07:42] LABS: BLOOD UREA NITROGEN 58.3 mg/dL (7-18)
[2022-09-12 07:43] LABS: CREATININE 0.9 mg/dL (0.55-1.3)
[2022-09-12] MEDS: ENOXAPARIN NA (PORCINE) 40 MG/0.4 ML DISP.SYRIN SQ SCH (10:29)
[2022-09-12] MEDS: PANTOPRAZOLE SODIUM 40 MG VIAL IVPUSH SCH (10:29)
[2022-09-12] MEDS: LEVOTHYROXINE SODIUM IVPUSH SCH (10:30)
[2022-09-12] MEDS: AMINO ACIDS/PROTEIN HYDROLYS 30 ML LIQUID.PKT PO SCH (10:43)
[2022-09-12] MEDS: FENTANYL NS IVPB 500 MCG/100 ML BAG IVPB SCH ×2 (10:43→22:00)
[2022-09-12 15:43] VITALS: BMI 32.0
[2022-09-12] MEDS: LOSARTAN POTASSIUM 50 MG TABLET NGT SCH (18:03)
[2022-09-12] MEDS: LACTATED RINGERS SOLUTION 1,000 ML/1,000 ML INFUS.BAG IV SCH (20:24)
[2022-09-12] MEDS: CHLORHEXIDINE GLUCONATE 4% CLEANSER FOR DECOLONIZATION TP SCH (21:25)
[2022-09-12] MEDS: INSULIN SLIDING SCALE (NOVOLOG) 1 VIAL SQ SCH (23:30)
[2022-09-12] MEDS: DEXTROSE 5%-0.45% SALINE 1,000 ML IV SCH (23:30)
[2022-09-13] MEDS: PIPERACILLIN/TAZOB 3.375 GM 3.375 GM in DEXTROSE 5%-WATER - 50 ML IVPB SCH ×3 (01:36→18:06)
[2022-09-13 04:57] LABS: HEMATOCRIT 23.2 % (32.4-45.2); MCHC 29.8 g/dl (32.0-36.0); MEAN CELL VOLUME 60.7 fl (80-96); MEAN PLT VOLUME 8.2 fl (7.5-11.1); PLATELET COUNT 307 10^3/uL (134-434); RBC 3.83 M/mm3 (3.60-5.2); RDW 17.8 % (11.6-15.6); WHITE BLOOD COUNT 11.7 K/mm3 (4.0-10.0)
[2022-09-13 05:01] LABS: MCH 18.1 pg (25.7-33.7)
[2022-09-13 05:02] LABS: HEMOGLOBIN 6.9 GM/dL (10.7-15.3)
[2022-09-13 05:07] LABS: INR 0.93 (0.83-1.09); PROTHROMBIN TIME (PATIENT) 10.8 SEC (9.7-13.0)
[2022-09-13 05:18] LABS: POTASSIUM 4.7 mmol/L (3.5-5.1)
[2022-09-13 05:21] LABS: BLOOD UREA NITROGEN 50.4 mg/dL (7-18); MAGNESIUM 2.4 mg/dL (1.8-2.4)
[2022-09-13 05:24] LABS: CREATININE 0.7 mg/dL (0.55-1.3); PHOSPHOROUS 2.7 mg/dL (2.5-4.9)
[2022-09-13 05:25] LABS: BILIRUBIN,TOTAL 0.3 mg/dL (0.2-1)
[2022-09-13 05:28] LABS: ALBUMIN 1.7 g/dl (3.4-5.0)
[2022-09-13] MEDS: INSULIN SLIDING SCALE (NOVOLOG) 1 VIAL SQ SCH ×4 (05:48→22:45)
[2022-09-13] MEDS: DEXAMETHASONE SOD PHOSPHATE 10 MG/1 ML VIAL IVPUSH SCH ×3 (05:48→22:11)
[2022-09-13] MEDS: INSULIN (LEVEMIR) 100 UNITS/ML UNITS SQ SCH ×2 (06:43→22:11)
[2022-09-13] MEDS ORDERED: ACETAMINOPHEN 1000 MG/100 ML BAG IVPB ONE (08:32)
[2022-09-13] MEDS: PROPOFOL 1,000,000 MCG/100 ML VIAL IVPB SCH ×2 (09:06→15:39)
[2022-09-13] MEDS: FENTANYL NS IVPB 500 MCG/100 ML BAG IVPB SCH ×3 (09:11→14:28)
[2022-09-13] MEDS: PANTOPRAZOLE SODIUM 40 MG VIAL IVPUSH SCH (09:14)
[2022-09-13] MEDS: AMINO ACIDS/PROTEIN HYDROLYS 30 ML LIQUID.PKT PO SCH (09:16)
[2022-09-13] MEDS: ENOXAPARIN NA (PORCINE) 40 MG/0.4 ML DISP.SYRIN SQ SCH (09:16)
[2022-09-13] MEDS: DEXTROSE 5%-0.45% SALINE 1,000 ML IV SCH ×2 (10:07→22:45)
[2022-09-13 10:13] LABS: ANISOCYTOSIS 1+; MACROCYTOSIS 0; OVALOCYTE 1+
[2022-09-13] MEDS: LEVOTHYROXINE SODIUM IVPUSH SCH (10:17)
[2022-09-13] MEDS ORDERED: FUROSEMIDE 40 MG/4 ML INJECTABLE VIAL ONE (11:14)
[2022-09-13] MEDS ORDERED: FENTANYL NS IVPB 500 MCG/100 ML BAG IVPB ONE (14:15)
[2022-09-13] MEDS: DEXMEDETOMIDINE PREMIX 400 MCG/100 ML BAG IVPB SCH (15:38)
[2022-09-13] MEDS ORDERED: ROCURONIUM BROMIDE 50 MG/5 ML SYRINGE ONE (16:09)
[2022-09-13] MEDS ORDERED: LIDOCAINE 1%/EPI 1:100000 (20 ML MULTI DOSE VIAL) IJ ONE (16:28)
[2022-09-13] MEDS ORDERED: ePHEDrine SULFATE 50 MG/1 ML AMPULE ONE (16:28)
[2022-09-13] MEDS ORDERED: hydrALAZINE HCL 20 MG/ML VIAL IVPUSH ONE (18:24)
[2022-09-13] MEDS ORDERED: hydrALAZINE HCL 20 MG/ML VIAL ONE (18:28)
[2022-09-13] MEDS: CHLORHEXIDINE GLUCONATE 4% CLEANSER FOR DECOLONIZATION TP SCH (22:11)
[2022-09-14] MEDS: PIPERACILLIN/TAZOB 3.375 GM 3.375 GM in DEXTROSE 5%-WATER - 50 ML IVPB SCH ×3 (02:31→18:04)
[2022-09-14] MEDS: DEXAMETHASONE SOD PHOSPHATE 10 MG/1 ML VIAL IVPUSH SCH ×3 (05:35→21:48)
[2022-09-14] MEDS: INSULIN SLIDING SCALE (NOVOLOG) 1 VIAL SQ SCH ×4 (06:08→21:31)
[2022-09-14] MEDS: INSULIN (LEVEMIR) 100 UNITS/ML UNITS SQ SCH ×2 (06:08→21:31)
[2022-09-14 07:03] LABS: BASO % 0.1 % (0-2.0); HEMATOCRIT 27.7 % (32.4-45.2); HEMOGLOBIN 8.3 GM/dL (10.7-15.3); LYMPH % 6.3 % (8-40); MEAN CELL VOLUME 62.4 fl (80-96); MEAN PLT VOLUME 8.3 fl (7.5-11.1); MONO % 6.7 % (3.8-10.2); NEUT % 86.9 % (42.8-82.8); PLATELET COUNT 294 10^3/uL (134-434); RBC 4.44 M/mm3 (3.60-5.2); RDW 19.3 % (11.6-15.6); WHITE BLOOD COUNT 11.8 K/mm3 (4.0-10.0)
[2022-09-14 07:04] LABS: POTASSIUM 4.3 mmol/L (3.5-5.1)
[2022-09-14 07:08] LABS: CALCIUM 9.7 mg/dL (8.5-10.1)
[2022-09-14 07:09] LABS: ALBUMIN 1.7 g/dl (3.4-5.0); BLOOD UREA NITROGEN 32.4 mg/dL (7-18)
[2022-09-14 07:12] LABS: CREATININE 0.6 mg/dL (0.55-1.3); PHOSPHOROUS 2.7 mg/dL (2.5-4.9)
[2022-09-14 07:13] LABS: BILIRUBIN,TOTAL 0.5 mg/dL (0.2-1)
[2022-09-14 07:18] LABS: MCH 18.7 pg (25.7-33.7)
[2022-09-14] MEDS: FENTANYL NS IVPB 500 MCG/100 ML BAG IVPB SCH ×2 (07:47→10:36)
[2022-09-14] MEDS: AMINO ACIDS/PROTEIN HYDROLYS 30 ML LIQUID.PKT PO SCH (08:10)
[2022-09-14 09:26] LABS: ANISOCYTOSIS 0; MACROCYTOSIS 0
[2022-09-14] MEDS: DEXTROSE 5%-0.45% SALINE 1,000 ML IV SCH (10:32)
[2022-09-14] MEDS: PROPOFOL 1,000,000 MCG/100 ML VIAL IVPB SCH (10:33)
[2022-09-14] MEDS: PANTOPRAZOLE SODIUM 40 MG VIAL IVPUSH SCH (10:34)
[2022-09-14] MEDS: LEVOTHYROXINE SODIUM IVPUSH SCH (10:36)
[2022-09-14] MEDS: ENOXAPARIN NA (PORCINE) 40 MG/0.4 ML DISP.SYRIN SQ SCH (14:07)
[2022-09-14] MEDS: LEVOTHYROXINE NA 150 MCG TABLET PO SCH (14:50)
[2022-09-14] MEDS ORDERED: hydrALAZINE HCL 20 MG/ML VIAL IVPUSH ONE (15:37)
[2022-09-14] MEDS ORDERED: LABETALOL HCL 5 MG/1 ML (100MG/20 ML VIAL) IVPUSH ONE (16:05)
[2022-09-14] MEDS ORDERED: LABETALOL HCL 20 MG/4 ML VIAL ONE (16:08)
[2022-09-14 17:00] LABS: ARTERIAL BLD GAS O2 SATURATION 98.1 % (95-98); ARTERIAL BLOOD GAS BASE EXCESS -2.9 mmol/L (-2-2); ARTERIAL BLOOD GAS PO2 145.8 mmHg (80-100)
[2022-09-14 17:02] LABS: ALLENS TEST POSITIVE
[2022-09-14 17:03] LABS: VENT RATE 16
[2022-09-14 17:04] LABS: ARTERIAL BLOOD GAS pH 7.156 (7.350-7.450)
[2022-09-14] MEDS: DEXMEDETOMIDINE PREMIX 400 MCG/100 ML BAG IVPB SCH (18:00)
[2022-09-14] MEDS: NICARDIPINE 25 MG in DEXTROSE 5%-WATER - 240 ML IVPB SCH (18:00)
[2022-09-14 18:47] LABS: ARTERIAL BLD GAS O2 SATURATION 98.9 % (95-98); ARTERIAL BLOOD GAS BASE EXCESS 1.5 mmol/L (-2-2); ARTERIAL BLOOD GAS PO2 149.6 mmHg (80-100); ARTERIAL BLOOD GAS pH 7.386 (7.350-7.450)
[2022-09-14 18:48] LABS: ALLENS TEST POSITIVE
[2022-09-14 18:49] LABS: VENT MODE VOL. A/C; VENT RATE 14
[2022-09-14] MEDS: LOSARTAN POTASSIUM 50 MG TABLET NGT SCH (21:46)
[2022-09-14] MEDS: CHLORHEXIDINE GLUCONATE 4% CLEANSER FOR DECOLONIZATION TP SCH (21:46)
[2022-09-15] MEDS: PIPERACILLIN/TAZOB 3.375 GM 3.375 GM in DEXTROSE 5%-WATER - 50 ML IVPB SCH ×3 (02:29→17:23)
[2022-09-15] MEDS: INSULIN SLIDING SCALE (NOVOLOG) 1 VIAL SQ SCH ×4 (06:00→22:57)
[2022-09-15] MEDS: INSULIN (LEVEMIR) 100 UNITS/ML UNITS SQ SCH ×2 (07:08→21:19)
[2022-09-15 07:17] LABS: HEMATOCRIT 27.1 % (32.4-45.2); HEMOGLOBIN 8.1 GM/dL (10.7-15.3); MCHC 29.7 g/dl (32.0-36.0); MEAN CELL VOLUME 63.4 fl (80-96); MEAN PLT VOLUME 8.7 fl (7.5-11.1); PLATELET COUNT 304 10^3/uL (134-434); RBC 4.28 M/mm3 (3.60-5.2)
[2022-09-15 07:22] LABS: MCH 18.8 pg (25.7-33.7)
[2022-09-15 07:38] LABS: POTASSIUM 4.1 mmol/L (3.5-5.1)
[2022-09-15 07:40] LABS: ALBUMIN 1.7 g/dl (3.4-5.0); CALCIUM 10.1 mg/dL (8.5-10.1)
[2022-09-15 07:41] LABS: BLOOD UREA NITROGEN 27.7 mg/dL (7-18); MAGNESIUM 2.1 mg/dL (1.8-2.4)
[2022-09-15 07:44] LABS: CREATININE 0.6 mg/dL (0.55-1.3); PHOSPHOROUS 2.4 mg/dL (2.5-4.9)
[2022-09-15 07:45] LABS: BILIRUBIN,TOTAL 0.4 mg/dL (0.2-1)
[2022-09-15] MEDS: AMINO ACIDS/PROTEIN HYDROLYS 30 ML LIQUID.PKT PO SCH (08:29)
[2022-09-15 09:22] LABS: ANISOCYTOSIS 2+; MACROCYTOSIS 0; TARGET CELLS 1+
[2022-09-15] MEDS: FENTANYL NS IVPB 500 MCG/100 ML BAG IVPB SCH (10:14)
[2022-09-15] MEDS: ENOXAPARIN NA (PORCINE) 40 MG/0.4 ML DISP.SYRIN SQ SCH (10:16)
[2022-09-15] MEDS: PANTOPRAZOLE SODIUM 40 MG VIAL IVPUSH SCH (10:17)
[2022-09-15] MEDS: DEXAMETHASONE SOD PHOSPHATE 10 MG/1 ML VIAL IVPUSH SCH ×2 (10:17→21:20)
[2022-09-15] MEDS: PROPOFOL 1,000,000 MCG/100 ML VIAL IVPB SCH (10:18)
[2022-09-15] MEDS: LOSARTAN POTASSIUM 50 MG TABLET NGT SCH ×2 (10:23→21:20)
[2022-09-15] MEDS: LEVOTHYROXINE SODIUM IVPUSH SCH (10:24)
[2022-09-15] MEDS ORDERED: LABETALOL HCL 20 MG/4 ML VIAL IVPUSH PRN (14:14)
[2022-09-15] MEDS ORDERED: LABETALOL HCL 20 MG/4 ML VIAL ONE (14:16)
[2022-09-15] MEDS ORDERED: LABETALOL HCL 20 MG/4 ML VIAL IVPUSH ONE (14:45)
[2022-09-15] MEDS: DEXMEDETOMIDINE PREMIX 400 MCG/100 ML BAG IVPB SCH (17:22)
[2022-09-15] MEDS: NICARDIPINE 25 MG in DEXTROSE 5%-WATER - 240 ML IVPB SCH (17:22)
[2022-09-15] MEDS ORDERED: NAPH,MB-DB/K PH,MBDB POWDER PACKET GT ONE (18:37)
[2022-09-15] MEDS: amLODIPine BESYLATE 5 MG TABLET (FP) GT SCH (19:02)
[2022-09-15] MEDS: CHLORHEXIDINE GLUCONATE 4% CLEANSER FOR DECOLONIZATION TP SCH (21:20)
[2022-09-16] MEDS: PIPERACILLIN/TAZOB 3.375 GM 3.375 GM in DEXTROSE 5%-WATER - 50 ML IVPB SCH ×2 (01:49→09:14)
[2022-09-16] MEDS: INSULIN SLIDING SCALE (NOVOLOG) 1 VIAL SQ SCH ×4 (06:24→23:30)
[2022-09-16] MEDS: INSULIN (LEVEMIR) 100 UNITS/ML UNITS SQ SCH ×2 (06:24→21:11)
[2022-09-16] MEDS ORDERED: PIPERACILLIN/TAZOBACTAM 3.375 GM VIAL IVPB ONE ×2 (09:06→09:11)
[2022-09-16] MEDS: LEVOTHYROXINE SODIUM IVPUSH SCH (09:13)
[2022-09-16] MEDS: ENOXAPARIN NA (PORCINE) 40 MG/0.4 ML DISP.SYRIN SQ SCH (09:13)
[2022-09-16] MEDS: LOSARTAN POTASSIUM 50 MG TABLET NGT SCH ×2 (09:14→21:10)
[2022-09-16] MEDS: PANTOPRAZOLE SODIUM 40 MG VIAL IVPUSH SCH (09:14)
[2022-09-16] MEDS: DEXAMETHASONE SOD PHOSPHATE 10 MG/1 ML VIAL IVPUSH SCH ×2 (09:15→21:10)
[2022-09-16] MEDS: amLODIPine BESYLATE 5 MG TABLET (FP) GT SCH (09:15)
[2022-09-16] MEDS: AMINO ACIDS/PROTEIN HYDROLYS 30 ML LIQUID.PKT PO SCH (09:16)
[2022-09-16] MEDS ORDERED: NIFEdipine E.R. 30 MG TABLET PO SCH (10:00)
[2022-09-16 13:02] LABS: BASO % 0.1 % (0-2.0); HEMATOCRIT 26.4 % (32.4-45.2); HEMOGLOBIN 7.9 GM/dL (10.7-15.3); LYMPH % 3.4 % (8-40); MCHC 29.7 g/dl (32.0-36.0); MEAN CELL VOLUME 63.3 fl (80-96); MEAN PLT VOLUME 7.8 fl (7.5-11.1); MONO % 4.4 % (3.8-10.2); NEUT % 92.1 % (42.8-82.8); PLATELET COUNT 308 10^3/uL (134-434); RBC 4.18 M/mm3 (3.60-5.2); RDW 19.2 % (11.6-15.6); WHITE BLOOD COUNT 13.1 K/mm3 (4.0-10.0)
[2022-09-16 13:08] LABS: MCH 18.8 pg (25.7-33.7)
[2022-09-16 13:13] LABS: ARTERIAL BLD GAS O2 SATURATION 98.8 % (95-98); ARTERIAL BLOOD GAS PO2 132.8 mmHg (80-100); ARTERIAL BLOOD GAS pH 7.447 (7.350-7.450)
[2022-09-16 13:19] LABS: POTASSIUM 4.5 mmol/L (3.5-5.1)
[2022-09-16 14:00] LABS: ALBUMIN 1.8 g/dl (3.4-5.0); BLOOD UREA NITROGEN 29.2 mg/dL (7-18)
[2022-09-16 14:02] LABS: CALCIUM 9.7 mg/dL (8.5-10.1); CREATININE 0.6 mg/dL (0.55-1.3); MAGNESIUM 1.9 mg/dL (1.8-2.4)
[2022-09-16 14:04] LABS: BILIRUBIN,TOTAL 0.5 mg/dL (0.2-1)
[2022-09-16 14:06] LABS: ANISOCYTOSIS 0; MACROCYTOSIS 0
[2022-09-16] MEDS: CHLORHEXIDINE GLUCONATE 4% CLEANSER FOR DECOLONIZATION TP SCH (21:11)
[2022-09-17] MEDS: INSULIN SLIDING SCALE (NOVOLOG) 1 VIAL SQ SCH ×4 (06:18→22:30)
[2022-09-17] MEDS: INSULIN (LEVEMIR) 100 UNITS/ML UNITS SQ SCH ×2 (06:19→21:35)
[2022-09-17 08:25] LABS: POTASSIUM 4.7 mmol/L (3.5-5.1)
[2022-09-17 08:27] LABS: ALBUMIN 1.6 g/dl (3.4-5.0); BLOOD UREA NITROGEN 28.6 mg/dL (7-18); CALCIUM 9.1 mg/dL (8.5-10.1); MAGNESIUM 1.7 mg/dL (1.8-2.4)
[2022-09-17 08:31] LABS: CREATININE 0.5 mg/dL (0.55-1.3)
[2022-09-17 08:32] LABS: BILIRUBIN,TOTAL 0.2 mg/dL (0.2-1); TOT PROT 4.7 g/dl (6.4-8.2)
[2022-09-17] MEDS: AMINO ACIDS/PROTEIN HYDROLYS 30 ML LIQUID.PKT PO SCH (08:47)
[2022-09-17] MEDS ORDERED: PHYTONADIONE 10 MG/1 ML AMP IVPB ONE (09:02)
[2022-09-17] MEDS: DEXAMETHASONE SOD PHOSPHATE 10 MG/1 ML VIAL IVPUSH SCH (09:48)
[2022-09-17] MEDS: LOSARTAN POTASSIUM 50 MG TABLET NGT SCH ×2 (09:48→21:12)
[2022-09-17] MEDS: ENOXAPARIN NA (PORCINE) 40 MG/0.4 ML DISP.SYRIN SQ SCH (09:48)
[2022-09-17] MEDS: amLODIPine BESYLATE 5 MG TABLET (FP) GT SCH (09:48)
[2022-09-17] MEDS: LEVOTHYROXINE SODIUM IVPUSH SCH (09:54)
[2022-09-17] MEDS: PANTOPRAZOLE SODIUM 40 MG VIAL IVPUSH SCH (09:54)
[2022-09-17 13:31] LABS: EOS % 0.1 % (0-4.5); HEMATOCRIT 24.2 % (32.4-45.2); HEMOGLOBIN 7.1 GM/dL (10.7-15.3); LYMPH % 4.3 % (8-40); MCHC 29.2 g/dl (32.0-36.0); MEAN CELL VOLUME 63.8 fl (80-96); MEAN PLT VOLUME 7.5 fl (7.5-11.1); MONO % 3.6 % (3.8-10.2); PLATELET COUNT 310 10^3/uL (134-434); RDW 19.4 % (11.6-15.6); WHITE BLOOD COUNT 15.3 K/mm3 (4.0-10.0)
[2022-09-17 13:33] LABS: MCH 18.6 pg (25.7-33.7)
[2022-09-17 13:58] LABS: ANISOCYTOSIS 3+; MACROCYTOSIS 0
[2022-09-17] MEDS ORDERED: LOPERAMIDE HCL 2 MG CAPSULE GT ONE (18:15)
[2022-09-17] MEDS: CHLORHEXIDINE GLUCONATE 4% CLEANSER FOR DECOLONIZATION TP SCH (21:14)
[2022-09-17] MEDS ORDERED: DEXAMETHASONE SOD PHOSPHATE 4 MG/1 ML VIAL IVPUSH ONE (22:00)
[2022-09-18] MEDS: INSULIN SLIDING SCALE (NOVOLOG) 1 VIAL SQ SCH ×4 (06:26→23:02)
[2022-09-18] MEDS: INSULIN (LEVEMIR) 100 UNITS/ML UNITS SQ SCH ×2 (06:27→22:27)
[2022-09-18 07:16] LABS: HEMATOCRIT 19.9 % (32.4-45.2); MCHC 29.9 g/dl (32.0-36.0); MEAN CELL VOLUME 63.5 fl (80-96); MEAN PLT VOLUME 7.5 fl (7.5-11.1); PLATELET COUNT 305 10^3/uL (134-434); RBC 3.13 M/mm3 (3.60-5.2); RDW 19.6 % (11.6-15.6); WHITE BLOOD COUNT 11.5 K/mm3 (4.0-10.0)
[2022-09-18 07:20] LABS: HEMOGLOBIN 5.9 GM/dL (10.7-15.3)
[2022-09-18 07:28] LABS: INR 0.99 (0.83-1.09); PROTHROMBIN TIME (PATIENT) 11.5 SEC (9.7-13.0)
[2022-09-18 07:34] LABS: POTASSIUM 4.5 mmol/L (3.5-5.1)
[2022-09-18 07:39] LABS: ALBUMIN 1.6 g/dl (3.4-5.0)
[2022-09-18 07:40] LABS: BLOOD UREA NITROGEN 28.4 mg/dL (7-18); CALCIUM 9.1 mg/dL (8.5-10.1); MAGNESIUM 1.9 mg/dL (1.8-2.4)
[2022-09-18 07:42] LABS: PHOSPHOROUS 2.4 mg/dL (2.5-4.9)
[2022-09-18 07:43] LABS: CREATININE 0.5 mg/dL (0.55-1.3)
[2022-09-18 07:44] LABS: BILIRUBIN,TOTAL 0.2 mg/dL (0.2-1); TOT PROT 4.6 g/dl (6.4-8.2)
[2022-09-18 08:53] LABS: ANISOCYTOSIS 2+; MACROCYTOSIS 0
[2022-09-18] MEDS: PANTOPRAZOLE SODIUM 40 MG VIAL IVPUSH SCH ×2 (09:04→22:27)
[2022-09-18] MEDS: LOSARTAN POTASSIUM 50 MG TABLET NGT SCH ×2 (09:04→22:27)
[2022-09-18] MEDS: AMINO ACIDS/PROTEIN HYDROLYS 30 ML LIQUID.PKT PO SCH (09:05)
[2022-09-18] MEDS: amLODIPine BESYLATE 5 MG TABLET (FP) GT SCH (09:05)
[2022-09-18] MEDS: LEVOTHYROXINE SODIUM IVPUSH SCH (09:06)
[2022-09-18 09:07] LABS: EOS % 0.1 % (0-4.5); LYMPH % 7.8 % (8-40); MCHC 30.9 g/dl (32.0-36.0); MEAN CELL VOLUME 63.3 fl (80-96); MEAN PLT VOLUME 7.6 fl (7.5-11.1); MONO % 3.8 % (3.8-10.2); NEUT % 88.3 % (42.8-82.8); PLATELET COUNT 286 10^3/uL (134-434); RDW 19.4 % (11.6-15.6)
[2022-09-18 09:08] LABS: MCH 19.6 pg (25.7-33.7)
[2022-09-18 09:26] LABS: HEMOGLOBIN 5.9 GM/dL (10.7-15.3)
[2022-09-18] MEDS ORDERED: DEXAMETHASONE SOD PHOSPHATE 10 MG/1 ML VIAL IVPUSH SCH (10:00)
[2022-09-18] MEDS: DEXAMETHASONE SOD PHOSPHATE 10 MG/1 ML VIAL IVPUSH SCH (10:01)
[2022-09-18 22:00] LABS: EOS % 0.2 % (0-4.5); HEMOGLOBIN 8.2 GM/dL (10.7-15.3); LYMPH % 13.5 % (8-40); MCHC 31.6 g/dl (32.0-36.0); MEAN CELL VOLUME 69.8 fl (80-96); MEAN PLT VOLUME 7.7 fl (7.5-11.1); MONO % 4.8 % (3.8-10.2); NEUT % 81.5 % (42.8-82.8); PLATELET COUNT 287 10^3/uL (134-434); RBC 3.73 M/mm3 (3.60-5.2); RDW 26.7 % (11.6-15.6); WHITE BLOOD COUNT 11.7 K/mm3 (4.0-10.0)
[2022-09-18] MEDS: CHLORHEXIDINE GLUCONATE 4% CLEANSER FOR DECOLONIZATION TP SCH (22:00)
[2022-09-18] MEDS ORDERED: DEXTROSE 50%-WATER 25 GM/50 ML DISP.SYRIN ONE (22:18)
[2022-09-18] MEDS ORDERED: DEXTROSE 50%-WATER 25 GM/50 ML DISP.SYRIN IVPUSH ONE (22:19)
[2022-09-19] MEDS ORDERED: DEXTROSE 50%-WATER 25 GM/50 ML DISP.SYRIN ONE (05:03)
[2022-09-19] MEDS: INSULIN SLIDING SCALE (NOVOLOG) 1 VIAL SQ SCH ×4 (05:12→23:30)
[2022-09-19 06:35] LABS: BASO % 0.2 % (0-2.0); EOS % 0.2 % (0-4.5); HEMATOCRIT 29.1 % (32.4-45.2); HEMOGLOBIN 9.2 GM/dL (10.7-15.3); LYMPH % 5.1 % (8-40); MCH 22.2 pg (25.7-33.7); MCHC 31.6 g/dl (32.0-36.0); MEAN CELL VOLUME 70.3 fl (80-96); MEAN PLT VOLUME 8.5 fl (7.5-11.1); MONO % 5.1 % (3.8-10.2); NEUT % 89.4 % (42.8-82.8); PLATELET COUNT 270 10^3/uL (134-434); RBC 4.15 M/mm3 (3.60-5.2); RDW 25.9 % (11.6-15.6); WHITE BLOOD COUNT 11.6 K/mm3 (4.0-10.0)
[2022-09-19] MEDS: INSULIN (LEVEMIR) 100 UNITS/ML UNITS SQ SCH (06:45)
[2022-09-19] MEDS ORDERED: DEXTROSE 50%-WATER - 25 GM/50 ML VIAL IVPUSH ONE (06:51)
[2022-09-19 07:06] LABS: CALCIUM 9.4 mg/dL (8.5-10.1)
[2022-09-19 07:07] LABS: ALBUMIN 1.8 g/dl (3.4-5.0); BLOOD UREA NITROGEN 23.2 mg/dL (7-18)
[2022-09-19 07:10] LABS: CREATININE 0.3 mg/dL (0.55-1.3)
[2022-09-19 07:11] LABS: TOT PROT 4.9 g/dl (6.4-8.2)
[2022-09-19 07:12] LABS: BILIRUBIN,TOTAL 0.4 mg/dL (0.2-1)
[2022-09-19] MEDS ORDERED: DEXTROSE 5%-NORMAL SALINE 1,000 ML IV SCH ×2 (07:45)
[2022-09-19] MEDS: AMINO ACIDS/PROTEIN HYDROLYS 30 ML LIQUID.PKT PO SCH (07:52)
[2022-09-19] MEDS: PANTOPRAZOLE SODIUM 40 MG VIAL IVPUSH SCH ×2 (09:23→21:23)
[2022-09-19] MEDS: LEVOTHYROXINE SODIUM IVPUSH SCH (09:24)
[2022-09-19] MEDS: DEXAMETHASONE SOD PHOSPHATE 10 MG/1 ML VIAL IVPUSH SCH (09:24)
[2022-09-19] MEDS ORDERED: IRON SUCROSE INJECTION 300 MG in SODIUM CHLORIDE 250 ML IVPB ONE (10:00)
[2022-09-19] MEDS: LOSARTAN POTASSIUM 50 MG TABLET NGT SCH ×2 (10:10→21:25)
[2022-09-19] MEDS: amLODIPine BESYLATE 5 MG TABLET (FP) GT SCH (10:10)
[2022-09-19] MEDS: DEXTROSE 5%-NORMAL SALINE 1,000 ML IV SCH (14:00)
[2022-09-19] MEDS: POTASSIUM CHLORIDE 10 MEQ in AMINO ACIDS 4.25%/D5W 1,000 ML IV SCH (15:19)
[2022-09-19] MEDS: CHLORHEXIDINE GLUCONATE 4% CLEANSER FOR DECOLONIZATION TP SCH (21:25)
[2022-09-20] MEDS: POTASSIUM CHLORIDE 10 MEQ in AMINO ACIDS 4.25%/D5W 1,000 ML IV SCH ×4 (03:00→17:31)
[2022-09-20] MEDS: DEXTROSE 5%-NORMAL SALINE 1,000 ML IV SCH (03:42)
[2022-09-20] MEDS: INSULIN SLIDING SCALE (NOVOLOG) 1 VIAL SQ SCH ×4 (06:36→23:29)
[2022-09-20 08:04] LABS: HEMATOCRIT 26.1 % (32.4-45.2); HEMOGLOBIN 8.3 GM/dL (10.7-15.3); MCH 22.5 pg (25.7-33.7); MCHC 31.6 g/dl (32.0-36.0); MEAN CELL VOLUME 71.2 fl (80-96); MEAN PLT VOLUME 7.3 fl (7.5-11.1); PLATELET COUNT 261 10^3/uL (134-434); RBC 3.67 M/mm3 (3.60-5.2); RDW 26.9 % (11.6-15.6); WHITE BLOOD COUNT 12.5 K/mm3 (4.0-10.0)
[2022-09-20 08:21] LABS: POTASSIUM 4.2 mmol/L (3.5-5.1)
[2022-09-20 08:23] LABS: CALCIUM 8.8 mg/dL (8.5-10.1)
[2022-09-20 08:25] LABS: ALBUMIN 1.6 g/dl (3.4-5.0); BLOOD UREA NITROGEN 19.4 mg/dL (7-18)
[2022-09-20 08:27] LABS: CREATININE 0.4 mg/dL (0.55-1.3)
[2022-09-20 08:29] LABS: TOT PROT 4.5 g/dl (6.4-8.2)
[2022-09-20 08:30] LABS: BILIRUBIN,TOTAL 0.5 mg/dL (0.2-1)
[2022-09-20] MEDS ORDERED: DEXAMETHASONE SOD PHOSPHATE 10 MG/1 ML VIAL IVPUSH SCH (10:00)
[2022-09-20] MEDS ORDERED: MINERAL OIL ENEMA 133 ML ENEMA RC ONE (10:00)
[2022-09-20] MEDS: amLODIPine BESYLATE 5 MG TABLET (FP) GT SCH (11:02)
[2022-09-20] MEDS: PANTOPRAZOLE SODIUM 40 MG VIAL IVPUSH SCH ×2 (11:02→22:11)
[2022-09-20] MEDS: LOSARTAN POTASSIUM 50 MG TABLET NGT SCH ×2 (11:02→22:11)
[2022-09-20] MEDS: LEVOTHYROXINE SODIUM IVPUSH SCH (11:03)
[2022-09-20] MEDS: AMINO ACIDS/PROTEIN HYDROLYS 30 ML LIQUID.PKT PO SCH (11:08)
[2022-09-20] MEDS ORDERED: INSULIN (NOVOLOG) ASPART 100 UNITS/ML 10ML VIAL ONE (12:15)
[2022-09-20] MEDS ORDERED: LACTATED RINGERS SOLUTION 1,000 ML IV SCH (17:00)
[2022-09-21] MEDS: POTASSIUM CHLORIDE 10 MEQ in AMINO ACIDS 4.25%/D5W 1,000 ML IV SCH ×2 (03:51→14:31)
[2022-09-21] MEDS: INSULIN SLIDING SCALE (NOVOLOG) 1 VIAL SQ SCH ×4 (06:34→23:27)
[2022-09-21] MEDS ORDERED: DEXAMETHASONE SOD PHOSPHATE 10 MG/1 ML VIAL IVPUSH SCH (10:00)
[2022-09-21] MEDS: PANTOPRAZOLE SODIUM 40 MG VIAL IVPUSH SCH ×2 (10:25→22:51)
[2022-09-21] MEDS: LEVOTHYROXINE SODIUM IVPUSH SCH (10:28)
[2022-09-21] MEDS: LOSARTAN POTASSIUM 50 MG TABLET NGT SCH ×2 (10:31→22:51)
[2022-09-21] MEDS: amLODIPine BESYLATE 5 MG TABLET (FP) GT SCH (10:31)
[2022-09-21] MEDS: AMINO ACIDS/PROTEIN HYDROLYS 30 ML LIQUID.PKT PO SCH (10:31)
[2022-09-21 12:21] LABS: HEMATOCRIT 23.3 % (32.4-45.2); HEMOGLOBIN 7.5 GM/dL (10.7-15.3); MCH 22.3 pg (25.7-33.7); MEAN CELL VOLUME 69.7 fl (80-96); MEAN PLT VOLUME 7.2 fl (7.5-11.1); PLATELET COUNT 255 10^3/uL (134-434); RBC 3.35 M/mm3 (3.60-5.2); RDW 27.8 % (11.6-15.6); WHITE BLOOD COUNT 11.7 K/mm3 (4.0-10.0)
[2022-09-21 12:44] LABS: POTASSIUM 3.8 mmol/L (3.5-5.1)
[2022-09-21] MEDS: ENOXAPARIN NA (PORCINE) 40 MG/0.4 ML DISP.SYRIN SQ SCH (12:48)
[2022-09-21 12:50] LABS: ALBUMIN 1.7 g/dl (3.4-5.0); CALCIUM 9.2 mg/dL (8.5-10.1)
[2022-09-21 12:51] LABS: BLOOD UREA NITROGEN 14.6 mg/dL (7-18)
[2022-09-21 12:54] LABS: CREATININE 0.4 mg/dL (0.55-1.3)
[2022-09-21 12:56] LABS: TOT PROT 4.5 g/dl (6.4-8.2)
[2022-09-21 12:58] LABS: BILIRUBIN,TOTAL 0.5 mg/dL (0.2-1)
[2022-09-21 13:07] LABS: ANISOCYTOSIS 3+; MACROCYTOSIS 0; OVALOCYTE 1+
[2022-09-21] MEDS: POLYETHYLENE GLYCOL (HEALTHYLAX) 3350 17 GM PACKET NGT SCH (22:51)
[2022-09-22] MEDS: POTASSIUM CHLORIDE 10 MEQ in AMINO ACIDS 4.25%/D5W 1,000 ML IV SCH ×2 (03:40→18:44)
[2022-09-22] MEDS: INSULIN SLIDING SCALE (NOVOLOG) 1 VIAL SQ SCH ×4 (06:59→23:06)
[2022-09-22 09:47] LABS: POTASSIUM 3.9 mmol/L (3.5-5.1)
[2022-09-22 09:50] LABS: BLOOD UREA NITROGEN 16.3 mg/dL (7-18); CALCIUM 8.8 mg/dL (8.5-10.1)
[2022-09-22 09:51] LABS: ALBUMIN 1.6 g/dl (3.4-5.0)
[2022-09-22 09:54] LABS: CREATININE 0.4 mg/dL (0.55-1.3)
[2022-09-22 09:55] LABS: BILIRUBIN,TOTAL 0.5 mg/dL (0.2-1); TOT PROT 4.5 g/dl (6.4-8.2)
[2022-09-22] MEDS: ENOXAPARIN NA (PORCINE) 40 MG/0.4 ML DISP.SYRIN SQ SCH (11:01)
[2022-09-22] MEDS: POLYETHYLENE GLYCOL (HEALTHYLAX) 3350 17 GM PACKET NGT SCH ×2 (11:01→22:53)
[2022-09-22] MEDS: PANTOPRAZOLE SODIUM 40 MG VIAL IVPUSH SCH ×2 (11:02→22:53)
[2022-09-22] MEDS: AMINO ACIDS/PROTEIN HYDROLYS 30 ML LIQUID.PKT PO SCH (11:02)
[2022-09-22] MEDS: amLODIPine BESYLATE 5 MG TABLET (FP) GT SCH (11:03)
[2022-09-22] MEDS: LOSARTAN POTASSIUM 50 MG TABLET NGT SCH ×2 (11:03→22:53)
[2022-09-22] MEDS: LEVOTHYROXINE SODIUM IVPUSH SCH (11:04)
[2022-09-22 11:34] LABS: BASO % 0.3 % (0-2.0); EOS % 0.3 % (0-4.5); HEMATOCRIT 22.4 % (32.4-45.2); HEMOGLOBIN 7.1 GM/dL (10.7-15.3); LYMPH % 7.4 % (8-40); MCH 22.5 pg (25.7-33.7); MCHC 31.9 g/dl (32.0-36.0); MEAN CELL VOLUME 70.7 fl (80-96); MEAN PLT VOLUME 7.4 fl (7.5-11.1); MONO % 6.8 % (3.8-10.2); NEUT % 85.2 % (42.8-82.8); PLATELET COUNT 245 10^3/uL (134-434); RBC 3.16 M/mm3 (3.60-5.2); RDW 27.7 % (11.6-15.6)
[2022-09-23] MEDS: POTASSIUM CHLORIDE 10 MEQ in AMINO ACIDS 4.25%/D5W 1,000 ML IV SCH ×2 (02:01→17:16)
[2022-09-23] MEDS: INSULIN SLIDING SCALE (NOVOLOG) 1 VIAL SQ SCH ×4 (06:25→22:29)
[2022-09-23] MEDS: POLYETHYLENE GLYCOL (HEALTHYLAX) 3350 17 GM PACKET NGT SCH ×2 (10:20→22:01)
[2022-09-23] MEDS: ENOXAPARIN NA (PORCINE) 40 MG/0.4 ML DISP.SYRIN SQ SCH (10:20)
[2022-09-23] MEDS: amLODIPine BESYLATE 5 MG TABLET (FP) GT SCH (10:21)
[2022-09-23] MEDS: PANTOPRAZOLE SODIUM 40 MG VIAL IVPUSH SCH ×2 (10:21→22:00)
[2022-09-23] MEDS: LOSARTAN POTASSIUM 50 MG TABLET NGT SCH ×2 (10:21→22:00)
[2022-09-23] MEDS: LEVOTHYROXINE SODIUM IVPUSH SCH (10:22)
[2022-09-23] MEDS: AMINO ACIDS/PROTEIN HYDROLYS 30 ML LIQUID.PKT PO SCH (10:45)
[2022-09-24] MEDS: INSULIN SLIDING SCALE (NOVOLOG) 1 VIAL SQ SCH ×4 (05:26→23:30)
[2022-09-24] MEDS: POTASSIUM CHLORIDE 10 MEQ in AMINO ACIDS 4.25%/D5W 1,000 ML IV SCH ×3 (05:27→15:03)
[2022-09-24 09:01] LABS: BASO % 0.2 % (0-2.0); EOS % 0.2 % (0-4.5); HEMATOCRIT 22.3 % (32.4-45.2); HEMOGLOBIN 7.4 GM/dL (10.7-15.3); LYMPH % 7.6 % (8-40); MCH 23.5 pg (25.7-33.7); MCHC 33.2 g/dl (32.0-36.0); MEAN CELL VOLUME 70.9 fl (80-96); MEAN PLT VOLUME 7.1 fl (7.5-11.1); MONO % 9.3 % (3.8-10.2); NEUT % 82.7 % (42.8-82.8); PLATELET COUNT 259 10^3/uL (134-434); RBC 3.14 M/mm3 (3.60-5.2); RDW 29.4 % (11.6-15.6); WHITE BLOOD COUNT 7.8 K/mm3 (4.0-10.0)
[2022-09-24 09:19] LABS: POTASSIUM 4.3 mmol/L (3.5-5.1)
[2022-09-24 09:27] LABS: ALBUMIN 1.7 g/dl (3.4-5.0); CALCIUM 8.8 mg/dL (8.5-10.1)
[2022-09-24 09:30] LABS: CREATININE 0.5 mg/dL (0.55-1.3)
[2022-09-24 09:32] LABS: BILIRUBIN,TOTAL 0.4 mg/dL (0.2-1); TOT PROT 4.7 g/dl (6.4-8.2)
[2022-09-24] MEDS: PANTOPRAZOLE SODIUM 40 MG VIAL IVPUSH SCH ×2 (10:05→21:11)
[2022-09-24] MEDS: amLODIPine BESYLATE 5 MG TABLET (FP) GT SCH (10:05)
[2022-09-24] MEDS: LEVOTHYROXINE SODIUM IVPUSH SCH (10:05)
[2022-09-24] MEDS: LOSARTAN POTASSIUM 50 MG TABLET NGT SCH ×2 (10:05→21:11)
[2022-09-24] MEDS: ENOXAPARIN NA (PORCINE) 40 MG/0.4 ML DISP.SYRIN SQ SCH (10:05)
[2022-09-24] MEDS: POLYETHYLENE GLYCOL (HEALTHYLAX) 3350 17 GM PACKET NGT SCH ×2 (10:05→21:11)
[2022-09-24] MEDS: AMINO ACIDS/PROTEIN HYDROLYS 30 ML LIQUID.PKT PO SCH (10:05)
[2022-09-25] MEDS: POTASSIUM CHLORIDE 10 MEQ in AMINO ACIDS 4.25%/D5W 1,000 ML IV SCH (04:37)
[2022-09-25] MEDS: INSULIN SLIDING SCALE (NOVOLOG) 1 VIAL SQ SCH ×4 (06:09→22:05)
[2022-09-25] MEDS ORDERED: INSULIN (LEVEMIR) 100 UNITS/ML UNITS SQ ONE ×2 (08:54→09:00)
[2022-09-25] MEDS ORDERED: INSULIN (NOVOLOG) ASPART 100 UNITS/ML 10ML VIAL SQ ONE (09:00)
[2022-09-25 09:23] LABS: BASO % 0.4 % (0-2.0); HEMATOCRIT 25.6 % (32.4-45.2); HEMOGLOBIN 7.9 GM/dL (10.7-15.3); LYMPH % 3.6 % (8-40); MCH 22.6 pg (25.7-33.7); MEAN PLT VOLUME 7.9 fl (7.5-11.1); MONO % 5.6 % (3.8-10.2); NEUT % 90.4 % (42.8-82.8); PLATELET COUNT 298 10^3/uL (134-434); RBC 3.51 M/mm3 (3.60-5.2); RDW 29.1 % (11.6-15.6)
[2022-09-25 09:44] LABS: CHLORIDE 99 mmol/L (98-107); POTASSIUM 4.5 mmol/L (3.5-5.1); SODIUM 134 mmol/L (136-145)
[2022-09-25 09:55] LABS: CALCIUM 9.6 mg/dL (8.5-10.1)
[2022-09-25 09:56] LABS: ALBUMIN 1.9 g/dl (3.4-5.0); ANION GAP 15 MMOL/L (8-16); BLOOD UREA NITROGEN 30.8 mg/dL (7-18); CO2 20 mmol/L (21-32)
[2022-09-25 09:58] LABS: SGPT/ALT 13 U/L (13-61)
[2022-09-25 09:59] LABS: CREATININE 0.6 mg/dL (0.55-1.3); SGOT/AST 11 U/L (15-37)
[2022-09-25 10:00] LABS: BILIRUBIN,TOTAL 0.4 mg/dL (0.2-1); TOT PROT 5.3 g/dl (6.4-8.2)
[2022-09-25 10:01] LABS: ALK PHOS 142 U/L (45-117)
[2022-09-25 10:10] LABS: GLUCOSE,RANDOM 562 mg/dL (74-106)
[2022-09-25] MEDS: ENOXAPARIN NA (PORCINE) 40 MG/0.4 ML DISP.SYRIN SQ SCH (10:27)
[2022-09-25] MEDS: LOSARTAN POTASSIUM 50 MG TABLET NGT SCH ×2 (10:27→22:06)
[2022-09-25] MEDS: AMINO ACIDS/PROTEIN HYDROLYS 30 ML LIQUID.PKT PO SCH (10:27)
[2022-09-25] MEDS: PANTOPRAZOLE SODIUM 40 MG VIAL IVPUSH SCH ×2 (10:27→22:06)
[2022-09-25] MEDS: amLODIPine BESYLATE 5 MG TABLET (FP) GT SCH (10:27)
[2022-09-25] MEDS: LEVOTHYROXINE SODIUM IVPUSH SCH (10:28)
[2022-09-25] MEDS: POLYETHYLENE GLYCOL (HEALTHYLAX) 3350 17 GM PACKET NGT SCH (10:33)
[2022-09-25 10:40] LABS: ANISOCYTOSIS 3+; MACROCYTOSIS 0
[2022-09-25] MEDS ORDERED: ACETAMINOPHEN 1000 MG/100 ML BAG IVPB PRN (15:46)
[2022-09-25] MEDS ORDERED: SODIUM CHLORIDE 1,000 ML IV SCH (16:00)
[2022-09-25] MEDS: INSULIN (LEVEMIR) 100 UNITS/ML UNITS SQ SCH (22:06)
[2022-09-26] MEDS: INSULIN SLIDING SCALE (NOVOLOG) 1 VIAL SQ SCH ×4 (01:43→21:17)
[2022-09-26] MEDS ORDERED: EPINEPHrine/PF 1 MG/1 ML (1:1,000) AMPULE ONE (05:43)
[2022-09-26 09:12] LABS: BASO % 0.2 % (0-2.0); HEMATOCRIT 29.4 % (32.4-45.2); HEMOGLOBIN 9.4 GM/dL (10.7-15.3); LYMPH % 1.4 % (8-40); MCH 23.7 pg (25.7-33.7); MEAN PLT VOLUME 7.3 fl (7.5-11.1); NEUT % 89.4 % (42.8-82.8); PLATELET COUNT 353 10^3/uL (134-434); RBC 3.98 M/mm3 (3.60-5.2); RDW 28.6 % (11.6-15.6); WHITE BLOOD COUNT 11.1 K/mm3 (4.0-10.0)
[2022-09-26 09:26] LABS: CHLORIDE 102 mmol/L (98-107); POTASSIUM 4.6 mmol/L (3.5-5.1); SODIUM 135 mmol/L (136-145)
[2022-09-26 09:32] LABS: ANION GAP 10 MMOL/L (8-16); CALCIUM 9.4 mg/dL (8.5-10.1); CO2 23 mmol/L (21-32)
[2022-09-26 09:33] LABS: ALBUMIN 1.7 g/dl (3.4-5.0); BLOOD UREA NITROGEN 45.4 mg/dL (7-18); MAGNESIUM 1.9 mg/dL (1.8-2.4)
[2022-09-26 09:35] LABS: CREATININE 1.2 mg/dL (0.55-1.3); PHOSPHOROUS 4.1 mg/dL (2.5-4.9); SGPT/ALT 40 U/L (13-61)
[2022-09-26 09:36] LABS: SGOT/AST 77 U/L (15-37)
[2022-09-26 09:37] LABS: BILIRUBIN,TOTAL 0.5 mg/dL (0.2-1); TOT PROT 4.9 g/dl (6.4-8.2)
[2022-09-26 09:38] LABS: ALK PHOS 140 U/L (45-117)
[2022-09-26 09:40] LABS: GLUCOSE,RANDOM 467 mg/dL (74-106)
[2022-09-26] MEDS: amLODIPine BESYLATE 5 MG TABLET (FP) GT SCH (09:52)
[2022-09-26] MEDS: AMINO ACIDS/PROTEIN HYDROLYS 30 ML LIQUID.PKT PO SCH (09:52)
[2022-09-26] MEDS: MUPIROCIN 2% TOPICAL OINTMENT FOR DECOLONIZATION NS SCH ×2 (09:52→21:24)
[2022-09-26] MEDS: LOSARTAN POTASSIUM 50 MG TABLET NGT SCH ×2 (09:52→21:18)
[2022-09-26] MEDS: PANTOPRAZOLE SODIUM 40 MG VIAL IVPUSH SCH ×2 (09:52→21:24)
[2022-09-26] MEDS: INSULIN (LEVEMIR) 100 UNITS/ML UNITS SQ SCH ×3 (09:53→22:00)
[2022-09-26] MEDS: ENOXAPARIN NA (PORCINE) 40 MG/0.4 ML DISP.SYRIN SQ SCH (09:54)
[2022-09-26] MEDS: LEVOTHYROXINE SODIUM IVPUSH SCH (12:19)
[2022-09-26 16:02] LABS: ARTERIAL BLD GAS O2 SATURATION 99.1 % (95-98); ARTERIAL BLOOD GAS BASE EXCESS 1.9 mmol/L (-2-2); ARTERIAL BLOOD GAS PO2 155.3 mmHg (80-100); ARTERIAL BLOOD GAS pH 7.437 (7.350-7.450)
[2022-09-26 16:07] LABS: ALLENS TEST POSITIVE
[2022-09-26 16:08] LABS: VENT MODE A/C; VENT RATE 16
[2022-09-26] MEDS: LACTATED RINGERS SOLUTION 1,000 ML/1,000 ML INFUS.BAG IV SCH (17:34)
[2022-09-26] MEDS: PIPERACILLIN/TAZOB 3.375 GM 3.375 GM in DEXTROSE 5%-WATER - 50 ML IVPB SCH ×2 (17:34→17:35)
[2022-09-26] MEDS ORDERED: ACETAMINOPHEN 1000 MG/100 ML BAG IVPB ONE (17:59)
[2022-09-26 19:17] LABS: BASO % 0.6 % (0-2.0); EOS % 0.2 % (0-4.5); HEMATOCRIT 28.5 % (32.4-45.2); HEMOGLOBIN 9.3 GM/dL (10.7-15.3); LYMPH % 7.8 % (8-40); MCH 23.9 pg (25.7-33.7); MCHC 32.5 g/dl (32.0-36.0); MEAN CELL VOLUME 73.5 fl (80-96); MEAN PLT VOLUME 7.5 fl (7.5-11.1); MONO % 8.7 % (3.8-10.2); NEUT % 82.7 % (42.8-82.8); PLATELET COUNT 380 10^3/uL (134-434); RBC 3.88 M/mm3 (3.60-5.2); RDW 28.9 % (11.6-15.6); WHITE BLOOD COUNT 7.8 K/mm3 (4.0-10.0)
[2022-09-26 19:27] LABS: ADD RBC MORPHOLOGY YES
[2022-09-26] MEDS: CHLORHEXIDINE GLUCONATE 4% CLEANSER FOR DECOLONIZATION TP SCH (21:19)
[2022-09-27] MEDS: PIPERACILLIN/TAZOB 3.375 GM 3.375 GM in DEXTROSE 5%-WATER - 50 ML IVPB SCH ×3 (01:24→17:11)
[2022-09-27] MEDS: INSULIN SLIDING SCALE (NOVOLOG) 1 VIAL SQ SCH ×4 (01:47→20:05)
[2022-09-27] MEDS ORDERED: DEXTROSE 50%-WATER 25 GM/50 ML DISP.SYRIN IVPUSH ONE (07:44)
[2022-09-27] MEDS: AMINO ACIDS/PROTEIN HYDROLYS 30 ML LIQUID.PKT PO SCH (08:17)
[2022-09-27] MEDS: INSULIN (LEVEMIR) 100 UNITS/ML UNITS SQ SCH (09:39)
[2022-09-27] MEDS: ENOXAPARIN NA (PORCINE) 40 MG/0.4 ML DISP.SYRIN SQ SCH (10:10)
[2022-09-27] MEDS: PANTOPRAZOLE SODIUM 40 MG VIAL IVPUSH SCH ×2 (10:10→23:04)
[2022-09-27] MEDS: amLODIPine BESYLATE 5 MG TABLET (FP) GT SCH (10:10)
[2022-09-27] MEDS: LOSARTAN POTASSIUM 50 MG TABLET NGT SCH ×2 (10:10→23:05)
[2022-09-27] MEDS: MUPIROCIN 2% TOPICAL OINTMENT FOR DECOLONIZATION NS SCH ×2 (10:11→23:05)
[2022-09-27] MEDS: LACTATED RINGERS SOLUTION 1,000 ML/1,000 ML INFUS.BAG IV SCH (10:12)
[2022-09-27] MEDS: LEVOTHYROXINE SODIUM IVPUSH SCH (10:15)
[2022-09-27] MEDS ORDERED: ACETAMINOPHEN 1000 MG/100 ML BAG IVPB PRN (10:34)
[2022-09-27] MEDS ORDERED: oxyCODONE HCL 5 MG TABLET GT PRN (10:34)
[2022-09-27 10:46] LABS: BASO % 0.3 % (0-2.0); EOS % 1.1 % (0-4.5); HEMATOCRIT 23.5 % (32.4-45.2); HEMOGLOBIN 7.9 GM/dL (10.7-15.3); MCH 24.4 pg (25.7-33.7); MCHC 33.5 g/dl (32.0-36.0); MEAN CELL VOLUME 72.6 fl (80-96); MEAN PLT VOLUME 7.1 fl (7.5-11.1); MONO % 8.8 % (3.8-10.2); NEUT % 79.8 % (42.8-82.8); PLATELET COUNT 338 10^3/uL (134-434); RBC 3.23 M/mm3 (3.60-5.2); RDW 28.6 % (11.6-15.6); WHITE BLOOD COUNT 5.6 K/mm3 (4.0-10.0)
[2022-09-27 11:03] LABS: POTASSIUM 4.1 mmol/L (3.5-5.1)
[2022-09-27 11:09] LABS: CALCIUM 9.2 mg/dL (8.5-10.1)
[2022-09-27 11:10] LABS: ALBUMIN 1.5 g/dl (3.4-5.0); BLOOD UREA NITROGEN 48.8 mg/dL (7-18); MAGNESIUM 1.9 mg/dL (1.8-2.4)
[2022-09-27 11:13] LABS: CREATININE 0.9 mg/dL (0.55-1.3)
[2022-09-27 11:14] LABS: PHOSPHOROUS 3.2 mg/dL (2.5-4.9)
[2022-09-27 11:15] LABS: BILIRUBIN,TOTAL 0.3 mg/dL (0.2-1); TOT PROT 4.4 g/dl (6.4-8.2)
[2022-09-27] MEDS ORDERED: DEXTROSE 50%-WATER - 25 GM/50 ML VIAL IVPUSH ONE (16:42)
[2022-09-27] MEDS ORDERED: DEXTROSE 50%-WATER 25 GM/50 ML DISP.SYRIN ONE (16:46)
[2022-09-27] MEDS: CHLORHEXIDINE GLUCONATE 4% CLEANSER FOR DECOLONIZATION TP SCH (23:05)
[2022-09-28] MEDS: LACTATED RINGERS SOLUTION 1,000 ML/1,000 ML INFUS.BAG IV SCH ×2 (02:30→18:23)
[2022-09-28] MEDS: INSULIN SLIDING SCALE (NOVOLOG) 1 VIAL SQ SCH ×4 (03:04→18:23)
[2022-09-28] MEDS: PIPERACILLIN/TAZOB 3.375 GM 3.375 GM in DEXTROSE 5%-WATER - 50 ML IVPB SCH ×3 (03:06→18:48)
[2022-09-28 06:19] LABS: BASO % 0.5 % (0-2.0); EOS % 1.7 % (0-4.5); HEMATOCRIT 28.7 % (32.4-45.2); HEMOGLOBIN 9.2 GM/dL (10.7-15.3); LYMPH % 10.2 % (8-40); MCH 23.8 pg (25.7-33.7); MEAN CELL VOLUME 74.4 fl (80-96); MEAN PLT VOLUME 7.3 fl (7.5-11.1); MONO % 10.6 % (3.8-10.2); PLATELET COUNT 396 10^3/uL (134-434); RBC 3.85 M/mm3 (3.60-5.2)
[2022-09-28] MEDS: INSULIN (LEVEMIR) 100 UNITS/ML UNITS SQ SCH (06:29)
[2022-09-28 07:28] LABS: POTASSIUM 4.3 mmol/L (3.5-5.1)
[2022-09-28 07:29] LABS: CALCIUM 9.1 mg/dL (8.5-10.1)
[2022-09-28 07:33] LABS: CREATININE 0.7 mg/dL (0.55-1.3); PHOSPHOROUS 2.8 mg/dL (2.5-4.9)
[2022-09-28] MEDS: LEVOTHYROXINE SODIUM IVPUSH SCH (10:05)
[2022-09-28] MEDS: PANTOPRAZOLE SODIUM 40 MG VIAL IVPUSH SCH ×2 (10:07→21:04)
[2022-09-28] MEDS: LOSARTAN POTASSIUM 50 MG TABLET NGT SCH ×2 (10:09→21:04)
[2022-09-28] MEDS: amLODIPine BESYLATE 5 MG TABLET (FP) GT SCH (10:09)
[2022-09-28] MEDS: MUPIROCIN 2% TOPICAL OINTMENT FOR DECOLONIZATION NS SCH ×2 (10:10→21:03)
[2022-09-28] MEDS: AMINO ACIDS/PROTEIN HYDROLYS 30 ML LIQUID.PKT PO SCH (10:10)
[2022-09-28] MEDS: ENOXAPARIN NA (PORCINE) 40 MG/0.4 ML DISP.SYRIN SQ SCH (10:14)
[2022-09-28] MEDS: CHLORHEXIDINE GLUCONATE 4% CLEANSER FOR DECOLONIZATION TP SCH (21:04)
[2022-09-29] MEDS: INSULIN SLIDING SCALE (NOVOLOG) 1 VIAL SQ SCH ×4 (01:00→17:51)
[2022-09-29] MEDS: PIPERACILLIN/TAZOB 3.375 GM 3.375 GM in DEXTROSE 5%-WATER - 50 ML IVPB SCH ×3 (02:17→17:51)
[2022-09-29] MEDS: INSULIN (LEVEMIR) 100 UNITS/ML UNITS SQ SCH (06:10)
[2022-09-29] MEDS: LACTATED RINGERS SOLUTION 1,000 ML/1,000 ML INFUS.BAG IV SCH ×3 (06:36→20:00)
[2022-09-29] MEDS: amLODIPine BESYLATE 5 MG TABLET (FP) GT SCH (09:44)
[2022-09-29] MEDS: PANTOPRAZOLE SODIUM 40 MG VIAL IVPUSH SCH ×2 (09:44→22:13)
[2022-09-29] MEDS: LOSARTAN POTASSIUM 50 MG TABLET NGT SCH ×2 (09:44→22:05)
[2022-09-29] MEDS: AMINO ACIDS/PROTEIN HYDROLYS 30 ML LIQUID.PKT PO SCH (09:44)
[2022-09-29] MEDS: ENOXAPARIN NA (PORCINE) 40 MG/0.4 ML DISP.SYRIN SQ SCH (09:45)
[2022-09-29] MEDS: LEVOTHYROXINE SODIUM IVPUSH SCH (10:01)
[2022-09-29] MEDS: MUPIROCIN 2% TOPICAL OINTMENT FOR DECOLONIZATION NS SCH ×2 (10:01→22:05)
[2022-09-29] MEDS: LOPERAMIDE HCL 2 MG CAPSULE PO SCH ×2 (11:11→22:05)
[2022-09-29] MEDS: BANATROL PLUS POWDER PACKET PO SCH ×2 (15:30→22:00)
[2022-09-29] MEDS: CHLORHEXIDINE GLUCONATE 4% CLEANSER FOR DECOLONIZATION TP SCH (22:05)
[2022-09-30] MEDS: INSULIN SLIDING SCALE (NOVOLOG) 1 VIAL SQ SCH ×4 (00:58→17:18)
[2022-09-30] MEDS: PIPERACILLIN/TAZOB 3.375 GM 3.375 GM in DEXTROSE 5%-WATER - 50 ML IVPB SCH ×3 (01:00→17:17)
[2022-09-30] MEDS: INSULIN (LEVEMIR) 100 UNITS/ML UNITS SQ SCH (06:00)
[2022-09-30] MEDS: PANTOPRAZOLE SODIUM 40 MG VIAL IVPUSH SCH ×2 (09:51→21:28)
[2022-09-30] MEDS: amLODIPine BESYLATE 5 MG TABLET (FP) GT SCH (09:51)
[2022-09-30] MEDS: ENOXAPARIN NA (PORCINE) 40 MG/0.4 ML DISP.SYRIN SQ SCH (09:52)
[2022-09-30] MEDS: BANATROL PLUS POWDER PACKET PO SCH ×2 (09:52→21:28)
[2022-09-30] MEDS: AMINO ACIDS/PROTEIN HYDROLYS 30 ML LIQUID.PKT PO SCH (09:52)
[2022-09-30] MEDS: LOPERAMIDE HCL 2 MG CAPSULE PO SCH ×2 (09:52→21:29)
[2022-09-30] MEDS: MUPIROCIN 2% TOPICAL OINTMENT FOR DECOLONIZATION NS SCH ×2 (09:52→21:28)
[2022-09-30] MEDS: LEVOTHYROXINE SODIUM IVPUSH SCH (09:53)
[2022-09-30] MEDS: LOSARTAN POTASSIUM 50 MG TABLET NGT SCH ×2 (09:55→21:29)
[2022-09-30] MEDS: CHLORHEXIDINE GLUCONATE 4% CLEANSER FOR DECOLONIZATION TP SCH (21:29)
[2022-10-01] MEDS: INSULIN SLIDING SCALE (NOVOLOG) 1 VIAL SQ SCH ×4 (01:08→18:26)
[2022-10-01] MEDS: PIPERACILLIN/TAZOB 3.375 GM 3.375 GM in DEXTROSE 5%-WATER - 50 ML IVPB SCH ×3 (01:09→19:45)
[2022-10-01] MEDS: INSULIN (LEVEMIR) 100 UNITS/ML UNITS SQ SCH ×2 (06:37→22:46)
[2022-10-01 07:52] LABS: HEMATOCRIT 22.4 % (32.4-45.2); HEMOGLOBIN 7.3 GM/dL (10.7-15.3); MCH 24.1 pg (25.7-33.7); MCHC 32.5 g/dl (32.0-36.0); MEAN CELL VOLUME 74.1 fl (80-96); MEAN PLT VOLUME 7.5 fl (7.5-11.1); PLATELET COUNT 492 10^3/uL (134-434); RBC 3.02 M/mm3 (3.60-5.2); RDW 28.7 % (11.6-15.6); WHITE BLOOD COUNT 3.5 K/mm3 (4.0-10.0)
[2022-10-01 08:00] LABS: POTASSIUM 4.2 mmol/L (3.5-5.1)
[2022-10-01 08:04] LABS: BLOOD UREA NITROGEN 17.2 mg/dL (7-18)
[2022-10-01 08:05] LABS: ALBUMIN 1.4 g/dl (3.4-5.0)
[2022-10-01 08:06] LABS: MAGNESIUM 1.7 mg/dL (1.8-2.4)
[2022-10-01 08:08] LABS: CREATININE 0.5 mg/dL (0.55-1.3); PHOSPHOROUS 1.8 mg/dL (2.5-4.9)
[2022-10-01 08:09] LABS: TOT PROT 4.7 g/dl (6.4-8.2)
[2022-10-01] MEDS ORDERED: MAGNESIUM 1GM/D5W - 1 GM/100 ML IVPB IVPB ONE (08:10)
[2022-10-01] MEDS ORDERED: NAPH,MB-DB/K PH,MBDB POWDER PACKET PO ONE (08:10)
[2022-10-01 08:13] LABS: BILIRUBIN,TOTAL 0.2 mg/dL (0.2-1)
[2022-10-01] MEDS: AMINO ACIDS/PROTEIN HYDROLYS 30 ML LIQUID.PKT PO SCH (08:36)
[2022-10-01] MEDS: LEVOTHYROXINE SODIUM IVPUSH SCH (09:34)
[2022-10-01] MEDS: PANTOPRAZOLE SODIUM 40 MG VIAL IVPUSH SCH ×2 (09:35→22:31)
[2022-10-01] MEDS: BANATROL PLUS POWDER PACKET PO SCH ×2 (09:35→22:31)
[2022-10-01] MEDS: LOSARTAN POTASSIUM 50 MG TABLET NGT SCH ×2 (09:35→22:31)
[2022-10-01] MEDS: amLODIPine BESYLATE 5 MG TABLET (FP) GT SCH (09:35)
[2022-10-01] MEDS: ENOXAPARIN NA (PORCINE) 40 MG/0.4 ML DISP.SYRIN SQ SCH (09:35)
[2022-10-01] MEDS ORDERED: INSULIN (LEVEMIR) 100 UNITS/ML UNITS SQ SCH (10:00)
[2022-10-01] MEDS: CHLORHEXIDINE GLUCONATE 4% CLEANSER FOR DECOLONIZATION TP SCH (22:32)
[2022-10-02] MEDS: INSULIN SLIDING SCALE (NOVOLOG) 1 VIAL SQ SCH ×4 (00:10→18:22)
[2022-10-02] MEDS: PIPERACILLIN/TAZOB 3.375 GM 3.375 GM in DEXTROSE 5%-WATER - 50 ML IVPB SCH ×3 (01:29→18:23)
[2022-10-02] MEDS: INSULIN (LEVEMIR) 100 UNITS/ML UNITS SQ SCH ×2 (06:00→21:50)
[2022-10-02 07:20] LABS: BASO % 0.8 % (0-2.0); EOS % 2.8 % (0-4.5); HEMATOCRIT 21.9 % (32.4-45.2); HEMOGLOBIN 7.1 GM/dL (10.7-15.3); LYMPH % 16.3 % (8-40); MCH 23.9 pg (25.7-33.7); MCHC 32.3 g/dl (32.0-36.0); MEAN CELL VOLUME 73.9 fl (80-96); MEAN PLT VOLUME 7.5 fl (7.5-11.1); NEUT % 66.1 % (42.8-82.8); PLATELET COUNT 587 10^3/uL (134-434); RBC 2.96 M/mm3 (3.60-5.2); WHITE BLOOD COUNT 3.6 K/mm3 (4.0-10.0)
[2022-10-02 07:43] LABS: POTASSIUM 4.4 mmol/L (3.5-5.1)
[2022-10-02 07:49] LABS: ALBUMIN 1.4 g/dl (3.4-5.0); BLOOD UREA NITROGEN 15.4 mg/dL (7-18)
[2022-10-02 07:52] LABS: BILIRUBIN,TOTAL 0.2 mg/dL (0.2-1); CREATININE 0.5 mg/dL (0.55-1.3)
[2022-10-02 07:53] LABS: TOT PROT 4.7 g/dl (6.4-8.2)
[2022-10-02] MEDS: amLODIPine BESYLATE 5 MG TABLET (FP) GT SCH (09:05)
[2022-10-02] MEDS: AMINO ACIDS/PROTEIN HYDROLYS 30 ML LIQUID.PKT PO SCH (09:05)
[2022-10-02] MEDS: BANATROL PLUS POWDER PACKET PO SCH ×2 (09:05→21:36)
[2022-10-02] MEDS: PANTOPRAZOLE SODIUM 40 MG VIAL IVPUSH SCH ×2 (09:05→21:30)
[2022-10-02] MEDS: ENOXAPARIN NA (PORCINE) 40 MG/0.4 ML DISP.SYRIN SQ SCH (09:05)
[2022-10-02] MEDS: LOSARTAN POTASSIUM 50 MG TABLET NGT SCH ×2 (09:05→21:30)
[2022-10-02] MEDS: LEVOTHYROXINE SODIUM IVPUSH SCH (09:31)
[2022-10-02] MEDS: DIPHENOXYLATE 2.5/ATROPINE.025 1 COMBO TABLET PO SCH ×2 (15:18→21:30)
[2022-10-02] MEDS: CHLORHEXIDINE GLUCONATE 4% CLEANSER FOR DECOLONIZATION TP SCH (21:31)
[2022-10-03] MEDS: PIPERACILLIN/TAZOB 3.375 GM 3.375 GM in DEXTROSE 5%-WATER - 50 ML IVPB SCH ×2 (01:04→09:55)
[2022-10-03] MEDS: INSULIN SLIDING SCALE (NOVOLOG) 1 VIAL SQ SCH ×5 (01:11→23:42)
[2022-10-03] MEDS: INSULIN (LEVEMIR) 100 UNITS/ML UNITS SQ SCH ×2 (06:45→21:14)
[2022-10-03 08:18] LABS: HEMATOCRIT 22.7 % (32.4-45.2); HEMOGLOBIN 7.2 GM/dL (10.7-15.3); MCH 23.7 pg (25.7-33.7); MCHC 31.9 g/dl (32.0-36.0); MEAN CELL VOLUME 74.3 fl (80-96); MEAN PLT VOLUME 7.8 fl (7.5-11.1); PLATELET COUNT 669 10^3/uL (134-434); RBC 3.05 M/mm3 (3.60-5.2); RDW 27.4 % (11.6-15.6); WHITE BLOOD COUNT 3.9 K/mm3 (4.0-10.0)
[2022-10-03] MEDS: AMINO ACIDS/PROTEIN HYDROLYS 30 ML LIQUID.PKT PO SCH (09:00)
[2022-10-03] MEDS: PANTOPRAZOLE SODIUM 40 MG VIAL IVPUSH SCH ×2 (10:32→21:14)
[2022-10-03] MEDS: LEVOTHYROXINE SODIUM 100 MCG 5 ML VIAL IVPUSH SCH (10:32)
[2022-10-03] MEDS: LOSARTAN POTASSIUM 50 MG TABLET NGT SCH ×2 (10:32→21:14)
[2022-10-03] MEDS: ENOXAPARIN NA (PORCINE) 40 MG/0.4 ML DISP.SYRIN SQ SCH (10:32)
[2022-10-03] MEDS: amLODIPine BESYLATE 5 MG TABLET (FP) GT SCH (10:32)
[2022-10-03] MEDS: BANATROL PLUS POWDER PACKET PO SCH ×2 (14:31→21:14)
[2022-10-03] MEDS: DIPHENOXYLATE 2.5/ATROPINE.025 1 COMBO TABLET PO SCH ×3 (14:32→21:15)
[2022-10-03] MEDS: CHLORHEXIDINE GLUCONATE 4% CLEANSER FOR DECOLONIZATION TP SCH (21:14)
[2022-10-04] MEDS: DIPHENOXYLATE 2.5/ATROPINE.025 1 COMBO TABLET PO SCH ×3 (05:23→22:06)
[2022-10-04] MEDS: INSULIN SLIDING SCALE (NOVOLOG) 1 VIAL SQ SCH ×3 (05:46→17:30)
[2022-10-04] MEDS: INSULIN (LEVEMIR) 100 UNITS/ML UNITS SQ SCH ×2 (06:17→22:07)
[2022-10-04 07:02] LABS: BASO % 0.6 % (0-2.0); EOS % 2.2 % (0-4.5); HEMATOCRIT 23.2 % (32.4-45.2); HEMOGLOBIN 7.3 GM/dL (10.7-15.3); LYMPH % 12.9 % (8-40); MCH 22.8 pg (25.7-33.7); MCHC 31.3 g/dl (32.0-36.0); MEAN CELL VOLUME 72.8 fl (80-96); MEAN PLT VOLUME 7.1 fl (7.5-11.1); NEUT % 74.3 % (42.8-82.8); PLATELET COUNT 684 10^3/uL (134-434); RBC 3.19 M/mm3 (3.60-5.2); RDW 26.8 % (11.6-15.6); WHITE BLOOD COUNT 4.8 K/mm3 (4.0-10.0)
[2022-10-04 07:26] LABS: POTASSIUM 4.7 mmol/L (3.5-5.1)
[2022-10-04 07:33] LABS: BLOOD UREA NITROGEN 15.8 mg/dL (7-18)
[2022-10-04 07:35] LABS: CALCIUM 9.1 mg/dL (8.5-10.1)
[2022-10-04 07:36] LABS: ALBUMIN 1.4 g/dl (3.4-5.0)
[2022-10-04 07:39] LABS: CREATININE 0.4 mg/dL (0.55-1.3)
[2022-10-04 07:41] LABS: BILIRUBIN,TOTAL 0.2 mg/dL (0.2-1); TOT PROT 4.6 g/dl (6.4-8.2)
[2022-10-04] MEDS: AMINO ACIDS/PROTEIN HYDROLYS 30 ML LIQUID.PKT PO SCH (08:05)
[2022-10-04] MEDS: BANATROL PLUS POWDER PACKET PO SCH ×2 (09:24→22:06)
[2022-10-04] MEDS: LOSARTAN POTASSIUM 50 MG TABLET NGT SCH ×2 (09:25→22:06)
[2022-10-04] MEDS: ENOXAPARIN NA (PORCINE) 40 MG/0.4 ML DISP.SYRIN SQ SCH (09:25)
[2022-10-04] MEDS: ESCITALOPRAM OXALATE 10 MG TABLET NGT SCH (09:25)
[2022-10-04] MEDS: amLODIPine BESYLATE 5 MG TABLET (FP) GT SCH (09:25)
[2022-10-04] MEDS: PANTOPRAZOLE SODIUM 40 MG VIAL IVPUSH SCH ×2 (09:25→22:06)
[2022-10-04] MEDS: LEVOTHYROXINE SODIUM 100 MCG 5 ML VIAL IVPUSH SCH (09:25)
[2022-10-04 10:25] LABS: ANISOCYTOSIS 3+; MACROCYTOSIS 0
[2022-10-04] MEDS ORDERED: ACETAMINOPHEN 1000 MG/100 ML BAG IVPB ONE (16:20)
[2022-10-04] MEDS: CHLORHEXIDINE GLUCONATE 4% CLEANSER FOR DECOLONIZATION TP SCH (22:07)
[2022-10-05] MEDS: DIPHENOXYLATE 2.5/ATROPINE.025 1 COMBO TABLET PO SCH ×3 (05:25→23:10)
[2022-10-05] MEDS: INSULIN SLIDING SCALE (NOVOLOG) 1 VIAL SQ SCH ×5 (05:25→23:37)
[2022-10-05] MEDS: PANTOPRAZOLE SODIUM 40 MG VIAL IVPUSH SCH ×2 (10:00→22:32)
[2022-10-05] MEDS: LEVOTHYROXINE SODIUM 100 MCG 5 ML VIAL IVPUSH SCH (12:49)
[2022-10-05] MEDS: AMINO ACIDS/PROTEIN HYDROLYS 30 ML LIQUID.PKT PO SCH (12:49)
[2022-10-05] MEDS: LOSARTAN POTASSIUM 50 MG TABLET NGT SCH ×2 (12:50→22:31)
[2022-10-05] MEDS: BANATROL PLUS POWDER PACKET PO SCH ×2 (12:50→22:31)
[2022-10-05] MEDS: ESCITALOPRAM OXALATE 10 MG TABLET NGT SCH (12:50)
[2022-10-05] MEDS: amLODIPine BESYLATE 5 MG TABLET (FP) GT SCH (12:50)
[2022-10-05] MEDS: INSULIN (LEVEMIR) 100 UNITS/ML UNITS SQ SCH ×2 (22:30→22:31)
[2022-10-06] MEDS: INSULIN (LEVEMIR) 100 UNITS/ML UNITS SQ SCH ×2 (06:22→22:33)
[2022-10-06] MEDS: INSULIN SLIDING SCALE (NOVOLOG) 1 VIAL SQ SCH ×4 (06:23→23:24)
[2022-10-06 07:12] LABS: BASO % 0.3 % (0-2.0); EOS % 0.9 % (0-4.5); HEMATOCRIT 25.4 % (32.4-45.2); HEMOGLOBIN 7.9 GM/dL (10.7-15.3); LYMPH % 9.9 % (8-40); MCH 22.6 pg (25.7-33.7); MCHC 30.9 g/dl (32.0-36.0); MEAN PLT VOLUME 6.7 fl (7.5-11.1); MONO % 7.1 % (3.8-10.2); NEUT % 81.8 % (42.8-82.8); PLATELET COUNT 763 10^3/uL (134-434); RBC 3.48 M/mm3 (3.60-5.2); RDW 26.5 % (11.6-15.6)
[2022-10-06 07:30] LABS: POTASSIUM 4.7 mmol/L (3.5-5.1)
[2022-10-06 07:33] LABS: ALBUMIN 1.6 g/dl (3.4-5.0); BLOOD UREA NITROGEN 16.1 mg/dL (7-18); CALCIUM 9.5 mg/dL (8.5-10.1)
[2022-10-06 07:36] LABS: CREATININE 0.4 mg/dL (0.55-1.3)
[2022-10-06 07:38] LABS: BILIRUBIN,TOTAL 0.5 mg/dL (0.2-1); TOT PROT 5.2 g/dl (6.4-8.2)
[2022-10-06 08:53] LABS: ANISOCYTOSIS 2+; MACROCYTOSIS 0
[2022-10-06] MEDS: amLODIPine BESYLATE 5 MG TABLET (FP) GT SCH (10:45)
[2022-10-06] MEDS: AMINO ACIDS/PROTEIN HYDROLYS 30 ML LIQUID.PKT PO SCH (10:45)
[2022-10-06] MEDS: DIPHENOXYLATE 2.5/ATROPINE.025 1 COMBO TABLET PO SCH ×4 (10:45→22:34)
[2022-10-06] MEDS: LOSARTAN POTASSIUM 50 MG TABLET NGT SCH ×2 (10:46→22:34)
[2022-10-06] MEDS: ESCITALOPRAM OXALATE 10 MG TABLET NGT SCH (10:46)
[2022-10-06] MEDS: LEVOTHYROXINE SODIUM 100 MCG 5 ML VIAL IVPUSH SCH (10:46)
[2022-10-06] MEDS: BANATROL PLUS POWDER PACKET PO SCH ×2 (10:46→22:33)
[2022-10-06] MEDS: PANTOPRAZOLE SODIUM 40 MG VIAL IVPUSH SCH ×2 (10:47→22:34)
[2022-10-06] MEDS: SCOPOLAMINE HYDROBROMIDE 1 PATCH PATCH.TD72 TD SCH (22:33)
[2022-10-07] MEDS: INSULIN SLIDING SCALE (NOVOLOG) 1 VIAL SQ SCH ×3 (05:44→19:58)
[2022-10-07] MEDS: INSULIN (LEVEMIR) 100 UNITS/ML UNITS SQ SCH ×2 (06:10→22:21)
[2022-10-07] MEDS: BANATROL PLUS POWDER PACKET PO SCH ×2 (11:34→22:20)
[2022-10-07] MEDS: AMINO ACIDS/PROTEIN HYDROLYS 30 ML LIQUID.PKT PO SCH (11:34)
[2022-10-07] MEDS: DIPHENOXYLATE 2.5/ATROPINE.025 1 COMBO TABLET PO SCH ×4 (11:35→22:20)
[2022-10-07] MEDS: LOSARTAN POTASSIUM 50 MG TABLET NGT SCH ×2 (11:35→22:20)
[2022-10-07] MEDS: amLODIPine BESYLATE 5 MG TABLET (FP) GT SCH (11:35)
[2022-10-07] MEDS: ESCITALOPRAM OXALATE 10 MG TABLET NGT SCH (11:35)
[2022-10-07] MEDS: LEVOTHYROXINE SODIUM 100 MCG 5 ML VIAL IVPUSH SCH (11:36)
[2022-10-07] MEDS: PANTOPRAZOLE SODIUM 40 MG VIAL IVPUSH SCH ×2 (11:36→22:21)
[2022-10-07] MEDS: AZITHROMYCIN 250 MG TABLET PO SCH (22:21)
[2022-10-08] MEDS: INSULIN (LEVEMIR) 100 UNITS/ML UNITS SQ SCH ×3 (00:23→21:59)
[2022-10-08] MEDS: INSULIN SLIDING SCALE (NOVOLOG) 1 VIAL SQ SCH ×5 (01:08→23:59)
[2022-10-08] MEDS: AMINO ACIDS/PROTEIN HYDROLYS 30 ML LIQUID.PKT PO SCH (08:15)
[2022-10-08] MEDS ORDERED: morphine CARPU-JECT 2 MG/1 ML DISP.SYRIN IVPUSH PRN (09:00)
[2022-10-08] MEDS: AZITHROMYCIN 250 MG TABLET PO SCH (09:34)
[2022-10-08] MEDS: DIPHENOXYLATE 2.5/ATROPINE.025 1 COMBO TABLET PO SCH ×4 (09:34→22:41)
[2022-10-08] MEDS: PANTOPRAZOLE SODIUM 40 MG VIAL IVPUSH SCH ×2 (09:34→22:01)
[2022-10-08] MEDS: ESCITALOPRAM OXALATE 10 MG TABLET NGT SCH (09:34)
[2022-10-08] MEDS: LOSARTAN POTASSIUM 50 MG TABLET NGT SCH (09:34)
[2022-10-08] MEDS: amLODIPine BESYLATE 5 MG TABLET (FP) GT SCH (09:35)
[2022-10-08] MEDS: BANATROL PLUS POWDER PACKET PO SCH (09:36)
[2022-10-08] MEDS: LEVOTHYROXINE SODIUM 100 MCG 5 ML VIAL IVPUSH SCH (09:36)
[2022-10-08 09:53] LABS: POTASSIUM 5.7 mmol/L (3.5-5.1)
[2022-10-08 09:55] LABS: ALBUMIN 1.9 g/dl (3.4-5.0)
[2022-10-08 09:56] LABS: BLOOD UREA NITROGEN 29.1 mg/dL (7-18)
[2022-10-08 09:57] LABS: CREATININE 0.6 mg/dL (0.55-1.3)
[2022-10-08 09:59] LABS: BILIRUBIN,TOTAL 0.4 mg/dL (0.2-1); TOT PROT 5.5 g/dl (6.4-8.2)
[2022-10-08] MEDS ORDERED: SODIUM ZIRCONIUM CYCLOSILICATE (LOKELMA) 5 GM PACKET PO SCH (12:15)
[2022-10-08] MEDS ORDERED: SODIUM CHLORIDE 0.45% 1,000 ML IV SCH (12:15)
[2022-10-09] MEDS: INSULIN SLIDING SCALE (NOVOLOG) 1 VIAL SQ SCH ×3 (05:51→18:20)
[2022-10-09] MEDS: INSULIN (LEVEMIR) 100 UNITS/ML UNITS SQ SCH (06:00)
[2022-10-09] MEDS: SODIUM ZIRCONIUM CYCLOSILICATE (LOKELMA) 5 GM PACKET NGT SCH (11:48)
[2022-10-09] MEDS: AMINO ACIDS/PROTEIN HYDROLYS 30 ML LIQUID.PKT PO SCH (11:48)
[2022-10-09] MEDS: LOSARTAN POTASSIUM 50 MG TABLET NGT SCH (11:49)
[2022-10-09] MEDS: amLODIPine BESYLATE 5 MG TABLET (FP) GT SCH (11:49)
[2022-10-09] MEDS: PANTOPRAZOLE SODIUM 40 MG VIAL IVPUSH SCH ×2 (11:49→21:24)
[2022-10-09] MEDS: DIPHENOXYLATE 2.5/ATROPINE.025 1 COMBO TABLET PO SCH ×4 (11:49→21:25)
[2022-10-09] MEDS: ESCITALOPRAM OXALATE 10 MG TABLET NGT SCH (11:49)
[2022-10-09] MEDS: AZITHROMYCIN 250 MG TABLET PO SCH (11:49)
[2022-10-09 12:48] LABS: BASO % 0.1 % (0-2.0); EOS % 0.3 % (0-4.5); HEMOGLOBIN 7.2 GM/dL (10.7-15.3); LYMPH % 5.5 % (8-40); MCH 22.8 pg (25.7-33.7); MCHC 31.3 g/dl (32.0-36.0); MEAN CELL VOLUME 72.7 fl (80-96); MEAN PLT VOLUME 6.9 fl (7.5-11.1); MONO % 5.7 % (3.8-10.2); NEUT % 88.4 % (42.8-82.8); PLATELET COUNT 557 10^3/uL (134-434); RBC 3.16 M/mm3 (3.60-5.2); RDW 26.9 % (11.6-15.6); WHITE BLOOD COUNT 12.2 K/mm3 (4.0-10.0)
[2022-10-09] MEDS: ACETYLCYSTEINE 20% 200MG/ML 4 ML VIAL *FOR ORAL / INH USE ONLY NEB SCH ×3 (12:54→20:00)
[2022-10-09] MEDS: ALBUTEROL SO4 0.083% IH SOL 2.5 MG/3 ML VIAL.NEB. NEB SCH ×3 (12:56→20:00)
[2022-10-09 13:03] LABS: POTASSIUM 5.4 mmol/L (3.5-5.1)
[2022-10-09 13:05] LABS: CALCIUM 10.2 mg/dL (8.5-10.1)
[2022-10-09 13:07] LABS: ALBUMIN 1.6 g/dl (3.4-5.0); BLOOD UREA NITROGEN 31.9 mg/dL (7-18)
[2022-10-09 13:09] LABS: CREATININE 0.6 mg/dL (0.55-1.3)
[2022-10-09 13:11] LABS: BILIRUBIN,TOTAL 0.2 mg/dL (0.2-1)
[2022-10-09 13:28] LABS: ANISOCYTOSIS 2+; MACROCYTOSIS 1+
[2022-10-09] MEDS: LEVOTHYROXINE SODIUM 100 MCG 5 ML VIAL IVPUSH SCH (14:09)
[2022-10-09] MEDS ORDERED: SODIUM CHLORIDE 1,000 ML IV SCH (15:15)
[2022-10-09] MEDS ORDERED: AMINO ACIDS 4.25%/D5W 1,000 ML IV SCH (21:15)
[2022-10-09] MEDS: SCOPOLAMINE HYDROBROMIDE 1 PATCH PATCH.TD72 TD SCH (21:24)
[2022-10-10] MEDS: INSULIN SLIDING SCALE (NOVOLOG) 1 VIAL SQ SCH ×5 (00:55→23:26)
[2022-10-10] MEDS: ACETYLCYSTEINE 20% 200MG/ML 4 ML VIAL *FOR ORAL / INH USE ONLY NEB SCH ×4 (08:41→20:30)
[2022-10-10] MEDS: ALBUTEROL SO4 0.083% IH SOL 2.5 MG/3 ML VIAL.NEB. NEB SCH (08:41)
[2022-10-10 08:56] LABS: BASO % 0.3 % (0-2.0); EOS % 0.1 % (0-4.5); HEMATOCRIT 21.8 % (32.4-45.2); LYMPH % 8.4 % (8-40); MCHC 31.4 g/dl (32.0-36.0); MEAN CELL VOLUME 73.2 fl (80-96); MEAN PLT VOLUME 6.6 fl (7.5-11.1); MONO % 6.1 % (3.8-10.2); NEUT % 85.1 % (42.8-82.8); PLATELET COUNT 508 10^3/uL (134-434); RBC 2.98 M/mm3 (3.60-5.2); RDW 26.7 % (11.6-15.6); WHITE BLOOD COUNT 9.9 K/mm3 (4.0-10.0)
[2022-10-10 09:08] LABS: HEMOGLOBIN 6.8 GM/dL (10.7-15.3)
[2022-10-10 09:27] LABS: POTASSIUM 4.9 mmol/L (3.5-5.1)
[2022-10-10] MEDS: PANTOPRAZOLE SODIUM 40 MG VIAL IVPUSH SCH ×2 (09:30→21:45)
[2022-10-10] MEDS: LEVOTHYROXINE SODIUM 100 MCG 5 ML VIAL IVPUSH SCH (09:30)
[2022-10-10 09:33] LABS: CALCIUM 9.8 mg/dL (8.5-10.1)
[2022-10-10 09:35] LABS: ALBUMIN 1.4 g/dl (3.4-5.0); BLOOD UREA NITROGEN 20.6 mg/dL (7-18)
[2022-10-10 09:37] LABS: BILIRUBIN,TOTAL 0.1 mg/dL (0.2-1); CREATININE 0.3 mg/dL (0.55-1.3); TOT PROT 4.6 g/dl (6.4-8.2)
[2022-10-10] MEDS ORDERED: METOPROLOL TARTRATE 5 MG/5 ML VIAL IVPUSH ONE (11:22)
[2022-10-10 11:37] LABS: HEMOGLOBIN 8.5 GM/dL (10.7-15.3); WHITE BLOOD COUNT 9.9 K/mm3 (4.0-10.0)
[2022-10-10 11:38] LABS: MCH 22.9 pg (25.7-33.7); MCHC 31.4 g/dl (32.0-36.0); MEAN PLT VOLUME 6.5 fl (7.5-11.1); PLATELET COUNT 647 10^3/uL (134-434); RDW 26.5 % (11.6-15.6)
[2022-10-10 11:39] LABS: ARTERIAL BLD GAS O2 SATURATION 92.4 % (95-98); ARTERIAL BLOOD GAS BASE EXCESS 5.3 mmol/L (-2-2); ARTERIAL BLOOD GAS PO2 78.6 mmHg (80-100); ARTERIAL BLOOD GAS pH 7.223 (7.350-7.450)
[2022-10-10 11:40] LABS: ALLENS TEST POSITIVE
[2022-10-10 11:49] LABS: ACTIVATED PTT 32.7 SECONDS (25.2-36.5)
[2022-10-10 12:01] LABS: POTASSIUM 4.6 mmol/L (3.5-5.1)
[2022-10-10 12:05] LABS: ALBUMIN 1.7 g/dl (3.4-5.0); BLOOD UREA NITROGEN 19.4 mg/dL (7-18); CALCIUM 9.9 mg/dL (8.5-10.1); MAGNESIUM 1.7 mg/dL (1.8-2.4)
[2022-10-10 12:08] LABS: CREATININE 0.4 mg/dL (0.55-1.3); INR 1.04 (0.83-1.09); PHOSPHOROUS 4.3 mg/dL (2.5-4.9); PROTHROMBIN TIME (PATIENT) 12.1 SEC (9.7-13.0)
[2022-10-10 12:10] LABS: BILIRUBIN,TOTAL 0.3 mg/dL (0.2-1); TOT PROT 5.6 g/dl (6.4-8.2)
[2022-10-10] MEDS: ALBUTEROL SO4 0.042% IH SOL 1.25 MG/3 ML VIAL.NEB NEB SCH ×3 (12:32→20:30)
[2022-10-10 12:41] LABS: ANISOCYTOSIS 2+
[2022-10-10 14:41] LABS: RETICULOCYTES 2.08 % (0.5-1.5)
[2022-10-10] MEDS: AMINO ACIDS/PROTEIN HYDROLYS 30 ML LIQUID.PKT PO SCH (16:54)
[2022-10-10] MEDS: ESCITALOPRAM OXALATE 10 MG TABLET NGT SCH (16:55)
[2022-10-10] MEDS: DIPHENOXYLATE 2.5/ATROPINE.025 1 COMBO TABLET PO SCH ×3 (16:55→21:44)
[2022-10-10] MEDS: SODIUM ZIRCONIUM CYCLOSILICATE (LOKELMA) 5 GM PACKET NGT SCH (16:55)
[2022-10-10] MEDS: LOSARTAN POTASSIUM 50 MG TABLET NGT SCH (16:55)
[2022-10-10] MEDS: amLODIPine BESYLATE 5 MG TABLET (FP) GT SCH (16:55)
[2022-10-10] MEDS: AZITHROMYCIN 250 MG TABLET PO SCH (16:56)
[2022-10-11] MEDS ORDERED: ACETAMINOPHEN 1000 MG/100 ML BAG IVPB ONE (04:30)
[2022-10-11] MEDS: INSULIN SLIDING SCALE (NOVOLOG) 1 VIAL SQ SCH ×3 (06:19→17:47)
[2022-10-11] MEDS: ACETYLCYSTEINE 20% 200MG/ML 4 ML VIAL *FOR ORAL / INH USE ONLY NEB SCH ×4 (08:33→20:00)
[2022-10-11] MEDS: ALBUTEROL SO4 0.042% IH SOL 1.25 MG/3 ML VIAL.NEB NEB SCH ×4 (08:33→21:26)
[2022-10-11 08:44] LABS: HEMATOCRIT 24.6 % (32.4-45.2); HEMOGLOBIN 7.8 GM/dL (10.7-15.3); MCHC 31.8 g/dl (32.0-36.0); MEAN CELL VOLUME 72.3 fl (80-96); MEAN PLT VOLUME 6.8 fl (7.5-11.1); PLATELET COUNT 462 10^3/uL (134-434); RDW 26.2 % (11.6-15.6); WHITE BLOOD COUNT 7.9 K/mm3 (4.0-10.0)
[2022-10-11] MEDS: LEVOTHYROXINE SODIUM 100 MCG 5 ML VIAL IVPUSH SCH (10:15)
[2022-10-11] MEDS: PANTOPRAZOLE SODIUM 40 MG VIAL IVPUSH SCH ×2 (10:15→21:27)
[2022-10-11] MEDS: AMINO ACIDS/PROTEIN HYDROLYS 30 ML LIQUID.PKT PO SCH (11:54)
[2022-10-11] MEDS: AZITHROMYCIN 250 MG TABLET PO SCH (11:55)
[2022-10-11] MEDS: amLODIPine BESYLATE 5 MG TABLET (FP) GT SCH (11:55)
[2022-10-11] MEDS: DIPHENOXYLATE 2.5/ATROPINE.025 1 COMBO TABLET PO SCH ×4 (11:55→21:26)
[2022-10-11] MEDS: ESCITALOPRAM OXALATE 10 MG TABLET NGT SCH (11:55)
[2022-10-11] MEDS: LOSARTAN POTASSIUM 50 MG TABLET NGT SCH (11:55)
[2022-10-12] MEDS: INSULIN SLIDING SCALE (NOVOLOG) 1 VIAL SQ SCH ×4 (00:02→17:39)
[2022-10-12] MEDS: ACETYLCYSTEINE 20% 200MG/ML 4 ML VIAL *FOR ORAL / INH USE ONLY NEB SCH ×4 (08:16→20:42)
[2022-10-12] MEDS: ALBUTEROL SO4 0.042% IH SOL 1.25 MG/3 ML VIAL.NEB NEB SCH ×4 (08:16→20:42)
[2022-10-12 08:38] LABS: BASO % 0.6 % (0-2.0); EOS % 0.3 % (0-4.5); HEMATOCRIT 24.7 % (32.4-45.2); HEMOGLOBIN 8.1 GM/dL (10.7-15.3); LYMPH % 9.9 % (8-40); MCH 24.1 pg (25.7-33.7); MCHC 32.7 g/dl (32.0-36.0); MEAN CELL VOLUME 73.7 fl (80-96); MEAN PLT VOLUME 7.2 fl (7.5-11.1); MONO % 8.1 % (3.8-10.2); NEUT % 81.1 % (42.8-82.8); PLATELET COUNT 469 10^3/uL (134-434); RBC 3.34 M/mm3 (3.60-5.2); WHITE BLOOD COUNT 7.8 K/mm3 (4.0-10.0)
[2022-10-12 08:49] LABS: POTASSIUM 3.6 mmol/L (3.5-5.1)
[2022-10-12 08:55] LABS: ALBUMIN 1.7 g/dl (3.4-5.0); BLOOD UREA NITROGEN 16.4 mg/dL (7-18); CALCIUM 9.8 mg/dL (8.5-10.1)
[2022-10-12 08:58] LABS: CREATININE 0.4 mg/dL (0.55-1.3)
[2022-10-12 09:00] LABS: BILIRUBIN,TOTAL 0.7 mg/dL (0.2-1); TOT PROT 5.1 g/dl (6.4-8.2)
[2022-10-12] MEDS: PANTOPRAZOLE SODIUM 40 MG VIAL IVPUSH SCH (11:05)
[2022-10-12] MEDS: AMINO ACIDS/PROTEIN HYDROLYS 30 ML LIQUID.PKT PO SCH (11:10)
[2022-10-12] MEDS: LOSARTAN POTASSIUM 50 MG TABLET NGT SCH (11:12)
[2022-10-12] MEDS: ESCITALOPRAM OXALATE 10 MG TABLET NGT SCH (11:12)
[2022-10-12] MEDS: amLODIPine BESYLATE 5 MG TABLET (FP) GT SCH (11:13)
[2022-10-12] MEDS: DIPHENOXYLATE 2.5/ATROPINE.025 1 COMBO TABLET PO SCH ×3 (11:13→17:39)
[2022-10-12] MEDS: AZITHROMYCIN 250 MG TABLET PO SCH (11:13)
[2022-10-12] MEDS: LEVOTHYROXINE SODIUM 100 MCG 5 ML VIAL IVPUSH SCH (11:15)
[2022-10-12] MEDS ORDERED: POTASSIUM CHLORIDE 20 MEQ in AMINO ACIDS 4.25%/D5W 1,000 ML IV SCH (12:30)
[2022-10-12] MEDS: POTASSIUM CHLORIDE 20 MEQ in AMINO ACIDS 4.25%/D5W 1,000 ML IV SCH (17:30)
[2022-10-12] MEDS ORDERED: ACETAMINOPHEN 1000 MG/100 ML BAG IVPB PRN (19:25)
[2022-10-13] MEDS: INSULIN SLIDING SCALE (NOVOLOG) 1 VIAL SQ SCH ×5 (00:02→21:19)
[2022-10-13] MEDS: PANTOPRAZOLE SODIUM 40 MG VIAL IVPUSH SCH ×3 (00:02→21:12)
[2022-10-13] MEDS: SCOPOLAMINE HYDROBROMIDE 1 PATCH PATCH.TD72 TD SCH (00:02)
[2022-10-13] MEDS: DIPHENOXYLATE 2.5/ATROPINE.025 1 COMBO TABLET PO SCH (00:02)
[2022-10-13 08:05] LABS: BASO % 0.5 % (0-2.0); EOS % 0.4 % (0-4.5); HEMATOCRIT 23.2 % (32.4-45.2); HEMOGLOBIN 7.4 GM/dL (10.7-15.3); LYMPH % 11.6 % (8-40); MCH 23.2 pg (25.7-33.7); MCHC 31.9 g/dl (32.0-36.0); MEAN CELL VOLUME 72.7 fl (80-96); MEAN PLT VOLUME 6.9 fl (7.5-11.1); MONO % 9.9 % (3.8-10.2); NEUT % 77.6 % (42.8-82.8); PLATELET COUNT 363 10^3/uL (134-434); RDW 25.6 % (11.6-15.6)
[2022-10-13 08:29] LABS: POTASSIUM 3.2 mmol/L (3.5-5.1)
[2022-10-13 08:31] LABS: ALBUMIN 1.6 g/dl (3.4-5.0); CALCIUM 9.3 mg/dL (8.5-10.1); MAGNESIUM 1.5 mg/dL (1.8-2.4)
[2022-10-13 08:32] LABS: BLOOD UREA NITROGEN 21.8 mg/dL (7-18)
[2022-10-13 08:34] LABS: CREATININE 0.5 mg/dL (0.55-1.3)
[2022-10-13] MEDS: AMINO ACIDS/PROTEIN HYDROLYS 30 ML LIQUID.PKT PO SCH (08:34)
[2022-10-13 08:36] LABS: TOT PROT 4.8 g/dl (6.4-8.2)
[2022-10-13 08:37] LABS: BILIRUBIN,TOTAL 0.4 mg/dL (0.2-1)
[2022-10-13] MEDS: ALBUTEROL SO4 0.042% IH SOL 1.25 MG/3 ML VIAL.NEB NEB SCH ×4 (09:04→21:00)
[2022-10-13] MEDS: ACETYLCYSTEINE 20% 200MG/ML 4 ML VIAL *FOR ORAL / INH USE ONLY NEB SCH ×4 (09:04→21:00)
[2022-10-13 09:30] LABS: ANISOCYTOSIS 2+; MACROCYTOSIS 1+; OVALOCYTE 1+
[2022-10-13] MEDS: LEVOTHYROXINE SODIUM 100 MCG 5 ML VIAL IVPUSH SCH (09:34)
[2022-10-13] MEDS: POTASSIUM CHLORIDE 20 MEQ in AMINO ACIDS 4.25%/D5W 1,000 ML IV SCH ×2 (09:34→18:29)
[2022-10-13] MEDS: amLODIPine BESYLATE 5 MG TABLET (FP) GT SCH (09:41)
[2022-10-13] MEDS: ESCITALOPRAM OXALATE 10 MG TABLET NGT SCH (09:41)
[2022-10-13] MEDS: LOSARTAN POTASSIUM 50 MG TABLET NGT SCH (09:41)
[2022-10-13] MEDS ORDERED: MAGNESIUM 2GM/50ML STERILE WATER IVPB IVPB ONE (16:23)
[2022-10-13] MEDS: KCL 10 MEQ IVPB 10 MEQ/100 ML INFUS.BAG IVPB SCH ×3 (16:38→18:41)
[2022-10-13] MEDS: FAT EMULSION/OLIVE/SOY (CLINOLIPID) 250 ML EMULSION IV SCH (21:15)
[2022-10-14] MEDS: INSULIN SLIDING SCALE (NOVOLOG) 1 VIAL SQ SCH ×4 (06:01→21:45)
[2022-10-14] MEDS: ACETYLCYSTEINE 20% 200MG/ML 4 ML VIAL *FOR ORAL / INH USE ONLY NEB SCH ×4 (07:53→20:42)
[2022-10-14] MEDS: ALBUTEROL SO4 0.042% IH SOL 1.25 MG/3 ML VIAL.NEB NEB SCH ×4 (07:54→20:42)
[2022-10-14] MEDS: AMINO ACIDS/PROTEIN HYDROLYS 30 ML LIQUID.PKT PO SCH (08:15)
[2022-10-14] MEDS: POTASSIUM CHLORIDE 20 MEQ in AMINO ACIDS 4.25%/D5W 1,000 ML IV SCH (09:39)
[2022-10-14] MEDS: PANTOPRAZOLE SODIUM 40 MG VIAL IVPUSH SCH ×2 (09:39→21:29)
[2022-10-14] MEDS: LEVOTHYROXINE SODIUM 100 MCG 5 ML VIAL IVPUSH SCH (09:41)
[2022-10-14] MEDS: amLODIPine BESYLATE 5 MG TABLET (FP) GT SCH (09:41)
[2022-10-14] MEDS: ESCITALOPRAM OXALATE 10 MG TABLET NGT SCH (09:41)
[2022-10-14] MEDS: LOSARTAN POTASSIUM 50 MG TABLET NGT SCH (09:44)
[2022-10-14 11:16] LABS: BASO % 0.5 % (0-2.0); EOS % 0.1 % (0-4.5); HEMOGLOBIN 8.3 GM/dL (10.7-15.3); LYMPH % 8.7 % (8-40); MCH 23.9 pg (25.7-33.7); MEAN CELL VOLUME 74.8 fl (80-96); MEAN PLT VOLUME 7.3 fl (7.5-11.1); MONO % 7.8 % (3.8-10.2); NEUT % 82.9 % (42.8-82.8); PLATELET COUNT 407 10^3/uL (134-434); RBC 3.47 M/mm3 (3.60-5.2); RDW 25.8 % (11.6-15.6); WHITE BLOOD COUNT 8.5 K/mm3 (4.0-10.0)
[2022-10-14] MEDS ORDERED: ACETAMINOPHEN 1000 MG/100 ML BAG IVPB PRN (11:16)
[2022-10-14 11:49] LABS: POTASSIUM 3.9 mmol/L (3.5-5.1)
[2022-10-14 11:54] LABS: ALBUMIN 1.8 g/dl (3.4-5.0); CALCIUM 9.6 mg/dL (8.5-10.1)
[2022-10-14 11:55] LABS: BLOOD UREA NITROGEN 22.2 mg/dL (7-18); MAGNESIUM 1.7 mg/dL (1.8-2.4)
[2022-10-14 11:58] LABS: CREATININE 0.5 mg/dL (0.55-1.3)
[2022-10-14 11:59] LABS: BILIRUBIN,TOTAL 0.7 mg/dL (0.2-1); TOT PROT 5.5 g/dl (6.4-8.2)
[2022-10-14] MEDS: FAT EMULSION/OLIVE/SOY (CLINOLIPID) 250 ML EMULSION IV SCH (21:50)
[2022-10-15] MEDS: POTASSIUM CHLORIDE 20 MEQ in AMINO ACIDS 4.25%/D5W 1,000 ML IV SCH ×2 (01:33→16:35)
[2022-10-15] MEDS: INSULIN SLIDING SCALE (NOVOLOG) 1 VIAL SQ SCH ×4 (06:02→21:51)
[2022-10-15] MEDS: AMINO ACIDS/PROTEIN HYDROLYS 30 ML LIQUID.PKT PO SCH (08:23)
[2022-10-15] MEDS: ALBUTEROL SO4 0.042% IH SOL 1.25 MG/3 ML VIAL.NEB NEB SCH ×4 (09:00→20:35)
[2022-10-15] MEDS: ACETYLCYSTEINE 20% 200MG/ML 4 ML VIAL *FOR ORAL / INH USE ONLY NEB SCH ×4 (09:00→20:35)
[2022-10-15] MEDS: ESCITALOPRAM OXALATE 10 MG TABLET NGT SCH (09:48)
[2022-10-15] MEDS: LOSARTAN POTASSIUM 50 MG TABLET NGT SCH (09:48)
[2022-10-15] MEDS: PANTOPRAZOLE SODIUM 40 MG VIAL IVPUSH SCH ×2 (09:49→21:36)
[2022-10-15] MEDS: LEVOTHYROXINE SODIUM 100 MCG 5 ML VIAL IVPUSH SCH (09:49)
[2022-10-15] MEDS: amLODIPine BESYLATE 5 MG TABLET (FP) GT SCH (09:49)
[2022-10-15] MEDS: SCOPOLAMINE HYDROBROMIDE 1 PATCH PATCH.TD72 TD SCH (21:52)
[2022-10-15] MEDS: FAT EMULSION/OLIVE/SOY (CLINOLIPID) 250 ML EMULSION IV SCH (22:08)
[2022-10-16] MEDS: INSULIN SLIDING SCALE (NOVOLOG) 1 VIAL SQ SCH ×4 (06:11→21:43)
[2022-10-16] MEDS ORDERED: hydrALAZINE HCL 20 MG/ML VIAL IVPUSH ONE (07:04)
[2022-10-16] MEDS ORDERED: LABETALOL HCL 20 MG/4 ML VIAL ONE (07:18)
[2022-10-16] MEDS ORDERED: LABETALOL HCL 5 MG/1 ML (100MG/20 ML VIAL) IVPUSH ONE (07:45)
[2022-10-16 08:04] LABS: HEMATOCRIT 30.3 % (32.4-45.2); HEMOGLOBIN 9.2 GM/dL (10.7-15.3); MCH 22.6 pg (25.7-33.7); MCHC 30.4 g/dl (32.0-36.0); MEAN CELL VOLUME 74.5 fl (80-96); MEAN PLT VOLUME 7.3 fl (7.5-11.1); PLATELET COUNT 477 10^3/uL (134-434); RBC 4.06 M/mm3 (3.60-5.2); RDW 25.8 % (11.6-15.6); WHITE BLOOD COUNT 14.6 K/mm3 (4.0-10.0)
[2022-10-16 08:08] LABS: INR 1.23 (0.83-1.09); PROTHROMBIN TIME (PATIENT) 14.2 SEC (9.7-13.0)
[2022-10-16 08:11] LABS: ACTIVATED PTT 30.7 SECONDS (25.2-36.5)
[2022-10-16 08:14] LABS: CHLORIDE 102 mmol/L (98-107); POTASSIUM 4.3 mmol/L (3.5-5.1); SODIUM 136 mmol/L (136-145)
[2022-10-16 08:19] LABS: ANION GAP 6 MMOL/L (8-16); CALCIUM 10.1 mg/dL (8.5-10.1); CO2 28 mmol/L (21-32)
[2022-10-16 08:20] LABS: BLOOD UREA NITROGEN 24.6 mg/dL (7-18); MAGNESIUM 1.6 mg/dL (1.8-2.4)
[2022-10-16 08:22] LABS: CREATININE 0.5 mg/dL (0.55-1.3)
[2022-10-16 08:23] LABS: PHOSPHOROUS 2.4 mg/dL (2.5-4.9); SGOT/AST 15 U/L (15-37); SGPT/ALT 13 U/L (13-61)
[2022-10-16 08:24] LABS: BILIRUBIN,TOTAL 0.5 mg/dL (0.2-1); TOT PROT 6.2 g/dl (6.4-8.2)
[2022-10-16] MEDS: POTASSIUM CHLORIDE 20 MEQ in AMINO ACIDS 4.25%/D5W 1,000 ML IV SCH ×3 (08:26→22:18)
[2022-10-16 08:42] LABS: ALK PHOS 215 U/L (45-117); GLUCOSE,RANDOM 444 mg/dL (74-106)
[2022-10-16] MEDS: ACETYLCYSTEINE 20% 200MG/ML 4 ML VIAL *FOR ORAL / INH USE ONLY NEB SCH ×4 (08:42→20:11)
[2022-10-16] MEDS: ALBUTEROL SO4 0.042% IH SOL 1.25 MG/3 ML VIAL.NEB NEB SCH ×4 (08:42→21:11)
[2022-10-16 09:04] LABS: ANISOCYTOSIS 3+; MACROCYTOSIS 0
[2022-10-16] MEDS: AMINO ACIDS/PROTEIN HYDROLYS 30 ML LIQUID.PKT PO SCH (09:27)
[2022-10-16] MEDS ORDERED: MAGNESIUM 1GM/D5W - 1 GM/100 ML IVPB IVPB ONE (11:00)
[2022-10-16] MEDS: LOSARTAN POTASSIUM 50 MG TABLET NGT SCH (11:22)
[2022-10-16] MEDS: amLODIPine BESYLATE 5 MG TABLET (FP) GT SCH (11:23)
[2022-10-16] MEDS: ESCITALOPRAM OXALATE 10 MG TABLET NGT SCH (11:23)
[2022-10-16] MEDS: PANTOPRAZOLE SODIUM 40 MG VIAL IVPUSH SCH ×2 (11:23→21:43)
[2022-10-16] MEDS: LEVOTHYROXINE SODIUM 100 MCG 5 ML VIAL IVPUSH SCH (11:28)
[2022-10-16] MEDS ORDERED: hydrALAZINE HCL 20 MG/ML VIAL IVPUSH SCH ×2 (11:30→14:00)
[2022-10-16] MEDS ORDERED: INSULIN SLIDING SCALE (NOVOLOG) 1 VIAL SQ ONE (12:44)
[2022-10-16] MEDS: hydrALAZINE HCL 20 MG/ML VIAL IVPUSH SCH ×2 (14:55→21:37)
[2022-10-16] MEDS ORDERED: predniSONE 40 MG, predniSONE 10 MG GT ONE (20:00)
[2022-10-16] MEDS ORDERED: FAT EMULSIONS 250 ML IV SCH (22:00)
[2022-10-16] MEDS ORDERED: FAT EMULSION/OLIVE/SOY/PHOSPHO 250 ML IV SCH (22:00)
[2022-10-17] MEDS ORDERED: predniSONE 40 MG, predniSONE 10 MG GT ONE ×3 (02:00→20:00)
[2022-10-17] MEDS: POTASSIUM CHLORIDE 20 MEQ in AMINO ACIDS 4.25%/D5W 1,000 ML IV SCH ×2 (04:09→13:29)
[2022-10-17] MEDS: hydrALAZINE HCL 20 MG/ML VIAL IVPUSH SCH ×3 (06:59→22:28)
[2022-10-17] MEDS: INSULIN SLIDING SCALE (NOVOLOG) 1 VIAL SQ SCH ×4 (07:27→22:29)
[2022-10-17] MEDS ORDERED: ACETAMINOPHEN 1000 MG/100 ML BAG IVPB PRN (07:40)
[2022-10-17] MEDS: AMINO ACIDS/PROTEIN HYDROLYS 30 ML LIQUID.PKT PO SCH (08:08)
[2022-10-17 08:26] LABS: BASO % 0.2 % (0-2.0); EOS % 0.1 % (0-4.5); HEMATOCRIT 24.2 % (32.4-45.2); HEMOGLOBIN 7.5 GM/dL (10.7-15.3); LYMPH % 5.1 % (8-40); MCH 23.6 pg (25.7-33.7); MCHC 30.8 g/dl (32.0-36.0); MEAN CELL VOLUME 76.5 fl (80-96); MEAN PLT VOLUME 7.7 fl (7.5-11.1); MONO % 7.7 % (3.8-10.2); NEUT % 86.9 % (42.8-82.8); PLATELET COUNT 341 10^3/uL (134-434); RBC 3.17 M/mm3 (3.60-5.2); RDW 25.1 % (11.6-15.6); WHITE BLOOD COUNT 10.7 K/mm3 (4.0-10.0)
[2022-10-17] MEDS: ACETYLCYSTEINE 20% 200MG/ML 4 ML VIAL *FOR ORAL / INH USE ONLY NEB SCH ×4 (08:34→20:30)
[2022-10-17] MEDS: ALBUTEROL SO4 0.042% IH SOL 1.25 MG/3 ML VIAL.NEB NEB SCH ×4 (08:36→20:30)
[2022-10-17 08:44] LABS: CHLORIDE 100 mmol/L (98-107); POTASSIUM 4.8 mmol/L (3.5-5.1); SODIUM 134 mmol/L (136-145)
[2022-10-17 08:46] LABS: CALCIUM 10.1 mg/dL (8.5-10.1)
[2022-10-17 08:47] LABS: ALBUMIN 1.6 g/dl (3.4-5.0); ANION GAP 13 MMOL/L (8-16); BLOOD UREA NITROGEN 29.4 mg/dL (7-18); CO2 21 mmol/L (21-32); MAGNESIUM 1.7 mg/dL (1.8-2.4)
[2022-10-17 08:50] LABS: CREATININE 0.5 mg/dL (0.55-1.3); SGOT/AST 13 U/L (15-37); SGPT/ALT 11 U/L (13-61)
[2022-10-17 08:51] LABS: BILIRUBIN,TOTAL 0.5 mg/dL (0.2-1); TOT PROT 5.2 g/dl (6.4-8.2)
[2022-10-17 08:58] LABS: ALK PHOS 176 U/L (45-117); GLUCOSE,RANDOM 564 mg/dL (74-106)
[2022-10-17] MEDS: LEVOTHYROXINE SODIUM 100 MCG 5 ML VIAL IVPUSH SCH (09:20)
[2022-10-17] MEDS: PANTOPRAZOLE SODIUM 40 MG VIAL IVPUSH SCH ×2 (09:20→22:29)
[2022-10-17] MEDS ORDERED: INSULIN (NOVOLOG) ASPART 100 UNITS/ML 10ML VIAL SQ ONE (10:00)
[2022-10-17] MEDS: ESCITALOPRAM OXALATE 10 MG TABLET NGT SCH (10:22)
[2022-10-17] MEDS: amLODIPine BESYLATE 5 MG TABLET (FP) GT SCH (10:22)
[2022-10-17] MEDS: LOSARTAN POTASSIUM 50 MG TABLET NGT SCH (10:22)
[2022-10-17] MEDS ORDERED: INSULIN (LEVEMIR) 100 UNITS/ML UNITS SQ SCH (12:00)
[2022-10-17] MEDS ORDERED: MAGNESIUM SULF 50% (8.12 MEQ/2 ML-1 GM VIAL) IVPB ONE (14:03)
[2022-10-17] MEDS: HYDROCORTISONE SOD SUCCINATE 100 MG/2 ML VIAL IVPUSH ONE ×2 (18:29→19:32)
[2022-10-17] MEDS ORDERED: SODIUM CHLORIDE 0.45% 1,000 ML IV SCH (20:15)
[2022-10-17] MEDS: SODIUM CHLORIDE 0.45% 1,000 ML IV SCH (20:19)
[2022-10-17] MEDS: INSULIN (LEVEMIR) 100 UNITS/ML UNITS SQ SCH (22:29)
[2022-10-18] MEDS ORDERED: predniSONE 40 MG, predniSONE 10 MG GT ONE (02:00)
[2022-10-18] MEDS: hydrALAZINE HCL 20 MG/ML VIAL IVPUSH SCH ×3 (06:21→21:17)
[2022-10-18] MEDS: INSULIN SLIDING SCALE (NOVOLOG) 1 VIAL SQ SCH ×4 (06:24→21:16)
[2022-10-18] MEDS: ACETYLCYSTEINE 20% 200MG/ML 4 ML VIAL *FOR ORAL / INH USE ONLY NEB SCH ×4 (08:02→20:05)
[2022-10-18] MEDS: ALBUTEROL SO4 0.042% IH SOL 1.25 MG/3 ML VIAL.NEB NEB SCH ×4 (08:02→20:05)
[2022-10-18] MEDS: AMINO ACIDS/PROTEIN HYDROLYS 30 ML LIQUID.PKT PO SCH (08:35)
[2022-10-18] MEDS: ESCITALOPRAM OXALATE 10 MG TABLET NGT SCH (09:12)
[2022-10-18] MEDS: LOSARTAN POTASSIUM 50 MG TABLET NGT SCH (09:12)
[2022-10-18] MEDS: amLODIPine BESYLATE 5 MG TABLET (FP) GT SCH (09:12)
[2022-10-18] MEDS: INSULIN (LEVEMIR) 100 UNITS/ML UNITS SQ SCH ×2 (09:51→21:15)
[2022-10-18 09:53] LABS: HEMATOCRIT 24.6 % (32.4-45.2); HEMOGLOBIN 7.8 GM/dL (10.7-15.3); MCH 23.8 pg (25.7-33.7); MCHC 31.8 g/dl (32.0-36.0); MEAN PLT VOLUME 7.8 fl (7.5-11.1); PLATELET COUNT 328 10^3/uL (134-434); RBC 3.28 M/mm3 (3.60-5.2); RDW 25.6 % (11.6-15.6); WHITE BLOOD COUNT 8.8 K/mm3 (4.0-10.0)
[2022-10-18] MEDS: PANTOPRAZOLE SODIUM 40 MG VIAL IVPUSH SCH ×2 (10:11→21:01)
[2022-10-18] MEDS: LEVOTHYROXINE SODIUM 100 MCG 5 ML VIAL IVPUSH SCH (10:11)
[2022-10-18 10:18] LABS: POTASSIUM 4.5 mmol/L (3.5-5.1)
[2022-10-18 10:20] LABS: CALCIUM 10.4 mg/dL (8.5-10.1)
[2022-10-18 10:21] LABS: ALBUMIN 1.8 g/dl (3.4-5.0); BLOOD UREA NITROGEN 27.5 mg/dL (7-18)
[2022-10-18 10:24] LABS: CREATININE 0.5 mg/dL (0.55-1.3)
[2022-10-18 10:26] LABS: BILIRUBIN,TOTAL 0.4 mg/dL (0.2-1); TOT PROT 5.5 g/dl (6.4-8.2)
[2022-10-18] MEDS: SODIUM CHLORIDE 0.45% 1,000 ML IV SCH (11:37)
[2022-10-18 11:53] LABS: ANISOCYTOSIS 3+; MACROCYTOSIS 0
[2022-10-18] MEDS ORDERED: ENOXAPARIN NA (PORCINE) 100 MG/1 ML DISP.SYRIN SQ SCH (13:00)
[2022-10-18] MEDS ORDERED: GLUCAGON 1 MG KIT ONE (13:13)
[2022-10-18] MEDS ORDERED: DEXAMETHASONE SOD PHOSPHATE 10 MG/1 ML VIAL IVPUSH ONE (13:30)
[2022-10-18] MEDS ORDERED: FENTANYL CITRATE/PF 50 MCG/ML VIAL ONE ×2 (14:33→14:54)
[2022-10-18] MEDS ORDERED: MIDAZOLAM HCL 2 MG/2 ML SINGLE DOSE VIAL ONE (14:33)
[2022-10-18] MEDS: FENTANYL CITRATE/PF 50 MCG/ML VIAL IVPUSH SCH ×2 (14:40→14:55)
[2022-10-18] MEDS: MIDAZOLAM HCL 2 MG/2 ML SINGLE DOSE VIAL IVPUSH SCH ×2 (14:40→14:53)
[2022-10-18] MEDS: ACETAMINOPHEN 1000 MG/100 ML BAG IVPB PRN (21:01)
[2022-10-18] MEDS: SCOPOLAMINE HYDROBROMIDE 1 PATCH PATCH.TD72 TD SCH (21:26)
[2022-10-19] MEDS: METOPROLOL TARTRATE 25 MG TABLET (FP) NGT SCH ×3 (00:39→22:49)
[2022-10-19] MEDS: SODIUM CHLORIDE 0.45% 1,000 ML IV SCH (05:28)
[2022-10-19] MEDS: INSULIN (LEVEMIR) 100 UNITS/ML UNITS SQ SCH ×2 (06:18→22:50)
[2022-10-19] MEDS: INSULIN SLIDING SCALE (NOVOLOG) 1 VIAL SQ SCH ×4 (06:21→22:50)
[2022-10-19] MEDS: ACETAMINOPHEN 1000 MG/100 ML BAG IVPB PRN ×2 (06:21→17:29)
[2022-10-19] MEDS: ACETYLCYSTEINE 20% 200MG/ML 4 ML VIAL *FOR ORAL / INH USE ONLY NEB SCH (08:06)
[2022-10-19] MEDS: ALBUTEROL SO4 0.042% IH SOL 1.25 MG/3 ML VIAL.NEB NEB SCH (08:07)
[2022-10-19 08:38] LABS: BASO % 0.2 % (0-2.0); HEMATOCRIT 25.6 % (32.4-45.2); HEMOGLOBIN 8.1 GM/dL (10.7-15.3); LYMPH % 6.3 % (8-40); MCHC 31.8 g/dl (32.0-36.0); MEAN CELL VOLUME 72.4 fl (80-96); MONO % 7.9 % (3.8-10.2); NEUT % 85.6 % (42.8-82.8); PLATELET COUNT 418 10^3/uL (134-434); RBC 3.53 M/mm3 (3.60-5.2); RDW 25.7 % (11.6-15.6); WHITE BLOOD COUNT 9.2 K/mm3 (4.0-10.0)
[2022-10-19 08:55] LABS: POTASSIUM 4.3 mmol/L (3.5-5.1)
[2022-10-19 08:58] LABS: CALCIUM 10.7 mg/dL (8.5-10.1)
[2022-10-19 08:59] LABS: ALBUMIN 1.8 g/dl (3.4-5.0)
[2022-10-19 09:02] LABS: CREATININE 0.7 mg/dL (0.55-1.3)
[2022-10-19 09:04] LABS: BILIRUBIN,TOTAL 0.2 mg/dL (0.2-1); TOT PROT 5.8 g/dl (6.4-8.2)
[2022-10-19] MEDS: amLODIPine BESYLATE 5 MG TABLET (FP) GT SCH (09:34)
[2022-10-19] MEDS: AMINO ACIDS/PROTEIN HYDROLYS 30 ML LIQUID.PKT PO SCH (09:34)
[2022-10-19] MEDS: PANTOPRAZOLE SODIUM 40 MG VIAL IVPUSH SCH ×2 (09:34→22:49)
[2022-10-19] MEDS: ESCITALOPRAM OXALATE 10 MG TABLET NGT SCH (09:34)
[2022-10-19] MEDS: LOSARTAN POTASSIUM 50 MG TABLET NGT SCH (09:35)
[2022-10-19 09:36] LABS: ANISOCYTOSIS 2+; MACROCYTOSIS 0
[2022-10-19] MEDS: LEVOTHYROXINE SODIUM 100 MCG 5 ML VIAL IVPUSH SCH (09:36)
[2022-10-19] MEDS ORDERED: INSULIN SLIDING SCALE (NOVOLOG) 1 VIAL SQ ONE (15:52)
[2022-10-19] MEDS: DEXTROSE 5%-0.45% SALINE 1,000 ML IV SCH (16:35)
[2022-10-19] MEDS ORDERED: DEXTROSE 50%-WATER 25 GM/50 ML DISP.SYRIN ONE (18:38)
[2022-10-19] MEDS ORDERED: DEXTROSE 50%-WATER 25 GM/50 ML DISP.SYRIN IVPUSH ONE (18:44)
[2022-10-20] MEDS ORDERED: HEPARIN NA (PORCINE) 5,000 UNITS/ML 1ML VIAL IVPUSH PRN (01:53)
[2022-10-20] MEDS: HEPARIN SOD,PORK IN 0.45% NACL 25,000 UNITS/500 ML INFUS.BAG IVPB SCH (03:01)
[2022-10-20] MEDS: INSULIN SLIDING SCALE (NOVOLOG) 1 VIAL SQ SCH ×4 (06:10→21:05)
[2022-10-20] MEDS ORDERED: INSULIN (LEVEMIR) 100 UNITS/ML UNITS SQ SCH (07:00)
[2022-10-20] MEDS: HEPARIN NA (PORCINE) 5,000 UNITS/ML 1ML VIAL IVPUSH PRN ×2 (11:32→21:06)
[2022-10-20] MEDS: ACETYLCYSTEINE 20% 200MG/ML 4 ML VIAL *FOR ORAL / INH USE ONLY NEB SCH ×4 (11:49→20:05)
[2022-10-20] MEDS: AMINO ACIDS/PROTEIN HYDROLYS 30 ML LIQUID.PKT PO SCH (13:52)
[2022-10-20] MEDS: ESCITALOPRAM OXALATE 10 MG TABLET NGT SCH (13:52)
[2022-10-20] MEDS: amLODIPine BESYLATE 5 MG TABLET (FP) GT SCH (13:52)
[2022-10-20] MEDS: PANTOPRAZOLE SODIUM 40 MG VIAL IVPUSH SCH ×2 (13:52→21:05)
[2022-10-20] MEDS: METOPROLOL TARTRATE 25 MG TABLET (FP) NGT SCH ×2 (13:52→22:58)
[2022-10-20] MEDS: LOSARTAN POTASSIUM 50 MG TABLET NGT SCH (13:52)
[2022-10-20] MEDS: LEVOTHYROXINE SODIUM 100 MCG 5 ML VIAL IVPUSH SCH (15:21)
[2022-10-20] MEDS: DEXTROSE 5%-0.45% SALINE 1,000 ML IV SCH (17:55)
[2022-10-21] MEDS: HEPARIN SOD,PORK IN 0.45% NACL 25,000 UNITS/500 ML INFUS.BAG IVPB SCH (05:12)
[2022-10-21] MEDS: HEPARIN NA (PORCINE) 5,000 UNITS/ML 1ML VIAL IVPUSH PRN (05:19)
[2022-10-21] MEDS: INSULIN SLIDING SCALE (NOVOLOG) 1 VIAL SQ SCH ×3 (06:22→16:27)
[2022-10-21] MEDS: ACETYLCYSTEINE 20% 200MG/ML 4 ML VIAL *FOR ORAL / INH USE ONLY NEB SCH ×5 (08:30→20:20)
[2022-10-21] MEDS: ALBUTEROL SO4 2.5/IPRATROPIUM 0.5 INH SOL 3 ML VIAL.NEB. NEB PRN ×2 (08:31→11:53)
[2022-10-21] MEDS: AMINO ACIDS/PROTEIN HYDROLYS 30 ML LIQUID.PKT PO SCH (09:00)
[2022-10-21] MEDS: ESCITALOPRAM OXALATE 10 MG TABLET NGT SCH (10:36)
[2022-10-21] MEDS: PANTOPRAZOLE SODIUM 40 MG VIAL IVPUSH SCH ×2 (10:37→22:50)
[2022-10-21] MEDS: LEVOTHYROXINE SODIUM 100 MCG 5 ML VIAL IVPUSH SCH (10:37)
[2022-10-21] MEDS: METOPROLOL TARTRATE 25 MG TABLET (FP) NGT SCH ×2 (12:18→22:50)
[2022-10-21] MEDS: amLODIPine BESYLATE 5 MG TABLET (FP) GT SCH (12:18)
[2022-10-21] MEDS: LOSARTAN POTASSIUM 50 MG TABLET NGT SCH (12:18)
[2022-10-21] MEDS ORDERED: ALBUTEROL SO4 2.5/IPRATROPIUM 0.5 INH SOL 3 ML VIAL.NEB. NEB PRN (14:09)
[2022-10-21 15:11] LABS: HEMATOCRIT 26.9 % (32.4-45.2); HEMOGLOBIN 8.3 GM/dL (10.7-15.3); MEAN CELL VOLUME 74.1 fl (80-96); MEAN PLT VOLUME 6.9 fl (7.5-11.1); PLATELET COUNT 442 10^3/uL (134-434); RBC 3.63 M/mm3 (3.60-5.2); RDW 25.7 % (11.6-15.6); WHITE BLOOD COUNT 11.3 K/mm3 (4.0-10.0)
[2022-10-21 15:26] LABS: CHLORIDE 102 mmol/L (98-107); POTASSIUM 4.2 mmol/L (3.5-5.1); SODIUM 135 mmol/L (136-145)
[2022-10-21 15:28] LABS: ANION GAP 9 MMOL/L (8-16); CO2 24 mmol/L (21-32)
[2022-10-21 15:29] LABS: ALBUMIN 1.9 g/dl (3.4-5.0); BLOOD UREA NITROGEN 35.7 mg/dL (7-18)
[2022-10-21 15:32] LABS: CREATININE 0.8 mg/dL (0.55-1.3); SGOT/AST 11 U/L (15-37); SGPT/ALT 13 U/L (13-61)
[2022-10-21 15:33] LABS: BILIRUBIN,TOTAL 0.4 mg/dL (0.2-1); TOT PROT 5.7 g/dl (6.4-8.2)
[2022-10-21 15:34] LABS: ALK PHOS 189 U/L (45-117)
[2022-10-21 15:39] LABS: GLUCOSE,RANDOM 475 mg/dL (74-106)
[2022-10-21] MEDS: ALBUTEROL SO4 0.042% IH SOL 1.25 MG/3 ML VIAL.NEB NEB SCH ×2 (15:41→20:20)
[2022-10-21 15:43] LABS: ANISOCYTOSIS 3+; MACROCYTOSIS 0
[2022-10-21] MEDS: SCOPOLAMINE HYDROBROMIDE 1 PATCH PATCH.TD72 TD SCH (22:50)
[2022-10-21] MEDS: INSULIN (LEVEMIR) 100 UNITS/ML UNITS SQ SCH (22:50)
[2022-10-22] MEDS: INSULIN (LEVEMIR) 100 UNITS/ML UNITS SQ SCH ×3 (00:38→22:40)
[2022-10-22] MEDS: INSULIN SLIDING SCALE (NOVOLOG) 1 VIAL SQ SCH ×5 (01:21→22:40)
[2022-10-22] MEDS: HEPARIN SOD,PORK IN 0.45% NACL 25,000 UNITS/500 ML INFUS.BAG IVPB SCH (03:21)
[2022-10-22] MEDS ORDERED: INSULIN (LEVEMIR) 100 UNITS/ML UNITS SQ SCH ×2 (07:00→17:07)
[2022-10-22] MEDS: ALBUTEROL SO4 0.042% IH SOL 1.25 MG/3 ML VIAL.NEB NEB SCH ×4 (08:12→20:00)
[2022-10-22] MEDS: ACETYLCYSTEINE 20% 200MG/ML 4 ML VIAL *FOR ORAL / INH USE ONLY NEB SCH ×4 (08:12→20:00)
[2022-10-22 09:10] LABS: HEMATOCRIT 22.3 % (32.4-45.2); HEMOGLOBIN 7.2 GM/dL (10.7-15.3); MCH 23.4 pg (25.7-33.7); MCHC 32.1 g/dl (32.0-36.0); MEAN PLT VOLUME 6.8 fl (7.5-11.1); PLATELET COUNT 365 10^3/uL (134-434); RBC 3.05 M/mm3 (3.60-5.2); RDW 26.1 % (11.6-15.6)
[2022-10-22] MEDS: METOPROLOL TARTRATE 25 MG TABLET (FP) NGT SCH ×2 (09:54→22:41)
[2022-10-22] MEDS: PANTOPRAZOLE SODIUM 40 MG VIAL IVPUSH SCH ×2 (09:54→22:39)
[2022-10-22] MEDS: amLODIPine BESYLATE 5 MG TABLET (FP) GT SCH (09:54)
[2022-10-22] MEDS: AMINO ACIDS/PROTEIN HYDROLYS 30 ML LIQUID.PKT PO SCH (09:54)
[2022-10-22] MEDS: LOSARTAN POTASSIUM 50 MG TABLET NGT SCH (09:54)
[2022-10-22] MEDS: ESCITALOPRAM OXALATE 10 MG TABLET NGT SCH (09:54)
[2022-10-22] MEDS: LEVOTHYROXINE SODIUM 100 MCG 5 ML VIAL IVPUSH SCH (09:55)
[2022-10-22] MEDS ORDERED: INSULIN SLIDING SCALE (NOVOLOG) 1 VIAL SQ ONE ×2 (11:35→17:49)
[2022-10-22] MEDS ORDERED: INSULIN (LEVEMIR) 100 UNITS/ML UNITS SQ ONE ×2 (17:15→17:49)
[2022-10-23] MEDS: HEPARIN SOD,PORK IN 0.45% NACL 25,000 UNITS/500 ML INFUS.BAG IVPB SCH ×2 (02:00→23:04)
[2022-10-23] MEDS: INSULIN (LEVEMIR) 100 UNITS/ML UNITS SQ SCH ×2 (06:18→22:04)
[2022-10-23] MEDS: INSULIN SLIDING SCALE (NOVOLOG) 1 VIAL SQ SCH ×4 (06:19→22:03)
[2022-10-23] MEDS: LEVOTHYROXINE NA 125 MCG TABLET (FP) GT SCH (06:19)
[2022-10-23] MEDS: ACETYLCYSTEINE 20% 200MG/ML 4 ML VIAL *FOR ORAL / INH USE ONLY NEB SCH ×4 (07:26→20:00)
[2022-10-23] MEDS: ALBUTEROL SO4 0.042% IH SOL 1.25 MG/3 ML VIAL.NEB NEB SCH ×4 (07:27→20:00)
[2022-10-23 08:53] LABS: HEMATOCRIT 22.6 % (32.4-45.2); HEMOGLOBIN 7.2 GM/dL (10.7-15.3); MCH 23.6 pg (25.7-33.7); MCHC 31.8 g/dl (32.0-36.0); MEAN CELL VOLUME 74.2 fl (80-96); MEAN PLT VOLUME 7.4 fl (7.5-11.1); PLATELET COUNT 381 10^3/uL (134-434); RBC 3.05 M/mm3 (3.60-5.2); RDW 25.8 % (11.6-15.6); WHITE BLOOD COUNT 7.4 K/mm3 (4.0-10.0)
[2022-10-23] MEDS: amLODIPine BESYLATE 5 MG TABLET (FP) GT SCH (11:05)
[2022-10-23] MEDS: PANTOPRAZOLE SODIUM 40 MG VIAL IVPUSH SCH ×2 (11:05→21:42)
[2022-10-23] MEDS: AMINO ACIDS/PROTEIN HYDROLYS 30 ML LIQUID.PKT PO SCH (11:05)
[2022-10-23] MEDS: METOPROLOL TARTRATE 25 MG TABLET (FP) NGT SCH ×2 (11:06→21:42)
[2022-10-23] MEDS: ESCITALOPRAM OXALATE 10 MG TABLET NGT SCH (11:06)
[2022-10-23] MEDS: LOSARTAN POTASSIUM 50 MG TABLET NGT SCH (11:06)
[2022-10-23] MEDS ORDERED: LABETALOL HCL 5 MG/1 ML (100MG/20 ML VIAL) IVPUSH ONE (15:41)
[2022-10-23] MEDS ORDERED: VANCOMYCIN/WATER 1,250 MG/250 ML BAG (RESTRICTED TO ID ONLY) IVPB SCH (21:15)
[2022-10-23] MEDS: VANCOMYCIN/WATER 1250 MG 1,250 MG/250 ML BAG IVPB SCH (21:42)
[2022-10-23] MEDS: PIPERACILLIN/TAZOB 4.5 GM 4.5 GM in DEXTROSE 5%-WATER 100 ML IVPB SCH (21:45)
[2022-10-23 22:04] LABS: BASO % 0.3 % (0-2.0); EOS % 0.1 % (0-4.5); HEMATOCRIT 27.8 % (32.4-45.2); HEMOGLOBIN 8.5 GM/dL (10.7-15.3); LYMPH % 5.3 % (8-40); MCH 22.7 pg (25.7-33.7); MCHC 30.4 g/dl (32.0-36.0); MEAN CELL VOLUME 74.5 fl (80-96); MEAN PLT VOLUME 7.2 fl (7.5-11.1); MONO % 5.3 % (3.8-10.2); PLATELET COUNT 535 10^3/uL (134-434); RBC 3.73 M/mm3 (3.60-5.2); RDW 26.1 % (11.6-15.6); WHITE BLOOD COUNT 17.8 K/mm3 (4.0-10.0)
[2022-10-23 22:36] LABS: POTASSIUM 5.4 mmol/L (3.5-5.1)
[2022-10-23 22:38] LABS: ANISOCYTOSIS 3+; CALCIUM 11.2 mg/dL (8.5-10.1); MACROCYTOSIS 0; TARGET CELLS 1+; TEAR DROP CELLS 1+
[2022-10-23 22:39] LABS: BLOOD UREA NITROGEN 29.8 mg/dL (7-18)
[2022-10-23 22:42] LABS: CREATININE 0.6 mg/dL (0.55-1.3)
[2022-10-23 22:44] LABS: BILIRUBIN,TOTAL 0.2 mg/dL (0.2-1); TOT PROT 6.5 g/dl (6.4-8.2)
[2022-10-23] MEDS: HEPARIN NA (PORCINE) 5,000 UNITS/ML 1ML VIAL IVPUSH PRN (23:04)
[2022-10-24] MEDS: HEPARIN SOD,PORK IN 0.45% NACL 25,000 UNITS/500 ML INFUS.BAG IVPB SCH (02:00)
[2022-10-24] MEDS: PIPERACILLIN/TAZOB 4.5 GM 4.5 GM in DEXTROSE 5%-WATER 100 ML IVPB SCH ×4 (03:15→22:31)
[2022-10-24] MEDS: LEVOTHYROXINE NA 125 MCG TABLET (FP) GT SCH (06:02)
[2022-10-24] MEDS: INSULIN SLIDING SCALE (NOVOLOG) 1 VIAL SQ SCH ×4 (06:02→22:33)
[2022-10-24] MEDS: INSULIN (LEVEMIR) 100 UNITS/ML UNITS SQ SCH ×2 (06:02→22:32)
[2022-10-24] MEDS: ACETYLCYSTEINE 20% 200MG/ML 4 ML VIAL *FOR ORAL / INH USE ONLY NEB SCH ×4 (07:54→20:05)
[2022-10-24] MEDS: ALBUTEROL SO4 0.042% IH SOL 1.25 MG/3 ML VIAL.NEB NEB SCH ×4 (07:54→20:15)
[2022-10-24] MEDS: AMINO ACIDS/PROTEIN HYDROLYS 30 ML LIQUID.PKT PO SCH (09:25)
[2022-10-24] MEDS: amLODIPine BESYLATE 5 MG TABLET (FP) GT SCH (10:27)
[2022-10-24] MEDS: LOSARTAN POTASSIUM 50 MG TABLET NGT SCH (10:27)
[2022-10-24] MEDS: PANTOPRAZOLE SODIUM 40 MG VIAL IVPUSH SCH ×2 (10:27→22:31)
[2022-10-24] MEDS: ESCITALOPRAM OXALATE 10 MG TABLET NGT SCH (10:27)
[2022-10-24] MEDS: METOPROLOL TARTRATE 25 MG TABLET (FP) NGT SCH ×2 (10:27→22:32)
[2022-10-24 10:46] LABS: HEMATOCRIT 25.7 % (32.4-45.2); HEMOGLOBIN 7.7 GM/dL (10.7-15.3); MCH 23.1 pg (25.7-33.7); MCHC 30.2 g/dl (32.0-36.0); MEAN CELL VOLUME 76.4 fl (80-96); MEAN PLT VOLUME 7.5 fl (7.5-11.1); PLATELET COUNT 391 10^3/uL (134-434); RBC 3.36 M/mm3 (3.60-5.2); RDW 25.7 % (11.6-15.6); WHITE BLOOD COUNT 8.8 K/mm3 (4.0-10.0)
[2022-10-24 10:59] LABS: CHLORIDE 108 mmol/L (98-107); SODIUM 144 mmol/L (136-145)
[2022-10-24 11:01] LABS: ALBUMIN 1.8 g/dl (3.4-5.0); ANION GAP 2 MMOL/L (8-16); BLOOD UREA NITROGEN 32.9 mg/dL (7-18); CALCIUM 11.1 mg/dL (8.5-10.1); CO2 34 mmol/L (21-32)
[2022-10-24 11:04] LABS: SGPT/ALT 9 U/L (13-61)
[2022-10-24 11:05] LABS: CREATININE 0.6 mg/dL (0.55-1.3); SGOT/AST 7 U/L (15-37)
[2022-10-24 11:07] LABS: ALK PHOS 188 U/L (45-117); BILIRUBIN,TOTAL 0.2 mg/dL (0.2-1); TOT PROT 5.9 g/dl (6.4-8.2)
[2022-10-24 11:16] LABS: GLUCOSE,RANDOM 485 mg/dL (74-106)
[2022-10-24] MEDS: VANCOMYCIN/WATER 1250 MG 1,250 MG/250 ML BAG IVPB SCH (11:48)
[2022-10-24] MEDS: APIXABAN 5 MG TABLET GT SCH ×2 (13:32→22:32)
[2022-10-24] MEDS: SODIUM CHLORIDE 0.45% 1,000 ML IV SCH (16:13)
[2022-10-24] MEDS: SODIUM ZIRCONIUM CYCLOSILICATE (LOKELMA) 5 GM PACKET GT SCH (16:14)
[2022-10-24] MEDS ORDERED: SODIUM ZIRCONIUM CYCLOSILICATE (LOKELMA) 5 GM PACKET GT ONE (22:00)
[2022-10-24] MEDS: SCOPOLAMINE HYDROBROMIDE 1 PATCH PATCH.TD72 TD SCH (22:31)
[2022-10-25] MEDS: PIPERACILLIN/TAZOB 4.5 GM 4.5 GM in DEXTROSE 5%-WATER 100 ML IVPB SCH ×3 (03:40→17:36)
[2022-10-25] MEDS: INSULIN SLIDING SCALE (NOVOLOG) 1 VIAL SQ SCH ×4 (06:13→21:30)
[2022-10-25] MEDS: INSULIN (LEVEMIR) 100 UNITS/ML UNITS SQ SCH ×2 (06:14→21:24)
[2022-10-25] MEDS: LEVOTHYROXINE NA 125 MCG TABLET (FP) GT SCH (06:14)
[2022-10-25] MEDS: SODIUM CHLORIDE 0.45% 1,000 ML IV SCH ×3 (06:16→17:36)
[2022-10-25] MEDS ORDERED: INSULIN (LEVEMIR) 100 UNITS/ML UNITS SQ ONE (06:57)
[2022-10-25] MEDS: AMINO ACIDS/PROTEIN HYDROLYS 30 ML LIQUID.PKT PO SCH (08:02)
[2022-10-25] MEDS: ACETYLCYSTEINE 20% 200MG/ML 4 ML VIAL *FOR ORAL / INH USE ONLY NEB SCH ×4 (08:15→20:59)
[2022-10-25] MEDS: ALBUTEROL SO4 0.042% IH SOL 1.25 MG/3 ML VIAL.NEB NEB SCH ×4 (08:15→20:59)
[2022-10-25 08:39] LABS: HEMATOCRIT 23.6 % (32.4-45.2); HEMOGLOBIN 7.3 GM/dL (10.7-15.3); MCH 23.2 pg (25.7-33.7); MCHC 30.7 g/dl (32.0-36.0); MEAN CELL VOLUME 75.5 fl (80-96); MEAN PLT VOLUME 7.6 fl (7.5-11.1); PLATELET COUNT 370 10^3/uL (134-434); RBC 3.13 M/mm3 (3.60-5.2); RDW 25.5 % (11.6-15.6); WHITE BLOOD COUNT 10.7 K/mm3 (4.0-10.0)
[2022-10-25 08:55] LABS: POTASSIUM 5.4 mmol/L (3.5-5.1)
[2022-10-25 09:06] LABS: CALCIUM 11.1 mg/dL (8.5-10.1)
[2022-10-25 09:07] LABS: ALBUMIN 1.7 g/dl (3.4-5.0); BLOOD UREA NITROGEN 40.4 mg/dL (7-18)
[2022-10-25 09:10] LABS: CREATININE 0.7 mg/dL (0.55-1.3)
[2022-10-25 09:11] LABS: BILIRUBIN,TOTAL 0.3 mg/dL (0.2-1); TOT PROT 5.6 g/dl (6.4-8.2)
[2022-10-25] MEDS: PANTOPRAZOLE SODIUM 40 MG VIAL IVPUSH SCH ×2 (09:48→21:21)
[2022-10-25] MEDS: METOPROLOL TARTRATE 25 MG TABLET (FP) NGT SCH ×2 (09:48→21:21)
[2022-10-25] MEDS: amLODIPine BESYLATE 5 MG TABLET (FP) GT SCH (09:48)
[2022-10-25] MEDS: ESCITALOPRAM OXALATE 10 MG TABLET NGT SCH (09:48)
[2022-10-25] MEDS: APIXABAN 5 MG TABLET GT SCH ×2 (09:48→21:21)
[2022-10-25] MEDS: SODIUM ZIRCONIUM CYCLOSILICATE (LOKELMA) 5 GM PACKET GT SCH (12:46)
[2022-10-25] MEDS: methylPREDNISolone NA SUCC 40 MG/1 ML VIAL IVPUSH SCH ×2 (15:01→21:21)
[2022-10-25] MEDS: DIPHENOXYLATE 2.5/ATROPINE.025 1 COMBO TABLET PO SCH ×2 (15:01→23:06)
[2022-10-26] MEDS: PIPERACILLIN/TAZOB 4.5 GM 4.5 GM in DEXTROSE 5%-WATER 100 ML IVPB SCH ×3 (01:20→12:27)
[2022-10-26] MEDS: methylPREDNISolone NA SUCC 40 MG/1 ML VIAL IVPUSH SCH ×2 (03:24→10:25)
[2022-10-26] MEDS: INSULIN SLIDING SCALE (NOVOLOG) 1 VIAL SQ SCH ×4 (06:25→22:04)
[2022-10-26] MEDS: INSULIN (LEVEMIR) 100 UNITS/ML UNITS SQ SCH ×2 (06:26→22:03)
[2022-10-26] MEDS: LEVOTHYROXINE NA 125 MCG TABLET (FP) GT SCH (06:27)
[2022-10-26] MEDS: DIPHENOXYLATE 2.5/ATROPINE.025 1 COMBO TABLET PO SCH ×3 (06:27→22:02)
[2022-10-26] MEDS: ALBUTEROL SO4 0.042% IH SOL 1.25 MG/3 ML VIAL.NEB NEB SCH ×2 (07:34→11:37)
[2022-10-26] MEDS: ACETYLCYSTEINE 20% 200MG/ML 4 ML VIAL *FOR ORAL / INH USE ONLY NEB SCH ×4 (07:34→23:00)
[2022-10-26 09:43] LABS: HEMATOCRIT 21.3 % (32.4-45.2); MCH 23.1 pg (25.7-33.7); MCHC 30.8 g/dl (32.0-36.0); MEAN CELL VOLUME 74.9 fl (80-96); MEAN PLT VOLUME 7.8 fl (7.5-11.1); PLATELET COUNT 333 10^3/uL (134-434); RBC 2.84 M/mm3 (3.60-5.2); RDW 25.2 % (11.6-15.6); WHITE BLOOD COUNT 6.5 K/mm3 (4.0-10.0)
[2022-10-26 10:03] LABS: HEMOGLOBIN 6.6 GM/dL (10.7-15.3)
[2022-10-26 10:08] LABS: POTASSIUM 5.7 mmol/L (3.5-5.1)
[2022-10-26 10:10] LABS: ALBUMIN 1.6 g/dl (3.4-5.0); CALCIUM 11.2 mg/dL (8.5-10.1)
[2022-10-26 10:13] LABS: CREATININE 0.8 mg/dL (0.55-1.3)
[2022-10-26 10:14] LABS: TOT PROT 5.3 g/dl (6.4-8.2)
[2022-10-26 10:15] LABS: BILIRUBIN,TOTAL 0.2 mg/dL (0.2-1)
[2022-10-26 10:16] LABS: BLOOD UREA NITROGEN 49.8 mg/dL (7-18)
[2022-10-26] MEDS: SODIUM ZIRCONIUM CYCLOSILICATE (LOKELMA) 5 GM PACKET GT SCH ×2 (10:24→22:02)
[2022-10-26] MEDS: AMINO ACIDS/PROTEIN HYDROLYS 30 ML LIQUID.PKT PO SCH (10:24)
[2022-10-26] MEDS: PANTOPRAZOLE SODIUM 40 MG VIAL IVPUSH SCH ×4 (10:25→22:16)
[2022-10-26] MEDS: APIXABAN 5 MG TABLET GT SCH ×2 (10:26→22:02)
[2022-10-26] MEDS: amLODIPine BESYLATE 5 MG TABLET (FP) GT SCH (10:26)
[2022-10-26] MEDS: ESCITALOPRAM OXALATE 10 MG TABLET NGT SCH (10:26)
[2022-10-26] MEDS: METOPROLOL TARTRATE 25 MG TABLET (FP) NGT SCH ×2 (10:27→22:02)
[2022-10-26 10:37] LABS: ANISOCYTOSIS 1+; MACROCYTOSIS 1+
[2022-10-26] MEDS ORDERED: ALBUTEROL SO4 0.083% IH SOL 2.5 MG/3 ML VIAL.NEB. NEB PRN ×2 (20:24→20:34)
[2022-10-26] MEDS ORDERED: ALBUTEROL SO4 0.042% IH SOL 1.25 MG/3 ML VIAL.NEB NEB ONE (22:00)
[2022-10-26] MEDS: SODIUM CHLORIDE 0.45% 1,000 ML IV SCH (22:16)
[2022-10-27] MEDS: INSULIN SLIDING SCALE (NOVOLOG) 1 VIAL SQ SCH ×4 (06:18→21:54)
[2022-10-27] MEDS: DIPHENOXYLATE 2.5/ATROPINE.025 1 COMBO TABLET PO SCH ×3 (06:18→22:37)
[2022-10-27] MEDS: LEVOTHYROXINE NA 125 MCG TABLET (FP) GT SCH (06:18)
[2022-10-27] MEDS: INSULIN (LEVEMIR) 100 UNITS/ML UNITS SQ SCH ×2 (06:19→21:52)
[2022-10-27] MEDS: ALBUTEROL SO4 0.042% IH SOL 1.25 MG/3 ML VIAL.NEB NEB SCH ×4 (08:05→20:26)
[2022-10-27] MEDS: ACETYLCYSTEINE 20% 200MG/ML 4 ML VIAL *FOR ORAL / INH USE ONLY NEB SCH ×4 (08:05→20:26)
[2022-10-27 09:09] LABS: BASO % 0.2 % (0-2.0); EOS % 0.3 % (0-4.5); HEMATOCRIT 22.9 % (32.4-45.2); HEMOGLOBIN 7.3 GM/dL (10.7-15.3); LYMPH % 8.1 % (8-40); MCH 23.7 pg (25.7-33.7); MCHC 31.9 g/dl (32.0-36.0); MEAN CELL VOLUME 74.3 fl (80-96); MEAN PLT VOLUME 8.4 fl (7.5-11.1); MONO % 7.1 % (3.8-10.2); NEUT % 84.3 % (42.8-82.8); PLATELET COUNT 381 10^3/uL (134-434); RBC 3.08 M/mm3 (3.60-5.2); RDW 25.3 % (11.6-15.6); WHITE BLOOD COUNT 8.3 K/mm3 (4.0-10.0)
[2022-10-27 09:32] LABS: POTASSIUM 5.4 mmol/L (3.5-5.1)
[2022-10-27 09:43] LABS: ALBUMIN 1.8 g/dl (3.4-5.0); BLOOD UREA NITROGEN 60.2 mg/dL (7-18); CALCIUM 12.1 mg/dL (8.5-10.1)
[2022-10-27 09:46] LABS: CREATININE 0.7 mg/dL (0.55-1.3); TOT PROT 5.9 g/dl (6.4-8.2)
[2022-10-27 09:48] LABS: BILIRUBIN,TOTAL 0.2 mg/dL (0.2-1)
[2022-10-27 09:51] LABS: ANISOCYTOSIS 2+; MACROCYTOSIS 1+
[2022-10-27] MEDS: PANTOPRAZOLE SODIUM 40 MG VIAL IVPUSH SCH ×2 (11:01→22:02)
[2022-10-27] MEDS: APIXABAN 5 MG TABLET GT SCH ×2 (11:11→22:01)
[2022-10-27] MEDS: AMINO ACIDS/PROTEIN HYDROLYS 30 ML LIQUID.PKT PO SCH (11:11)
[2022-10-27] MEDS: METOPROLOL TARTRATE 25 MG TABLET (FP) NGT SCH ×2 (11:11→22:01)
[2022-10-27] MEDS: amLODIPine BESYLATE 5 MG TABLET (FP) GT SCH (11:12)
[2022-10-27] MEDS: ESCITALOPRAM OXALATE 10 MG TABLET NGT SCH (11:12)
[2022-10-27] MEDS ORDERED: IRON SUCROSE INJECTION 100 MG in SODIUM CHLORIDE 95 ML IVPB ONE (12:00)
[2022-10-27] MEDS: SODIUM ZIRCONIUM CYCLOSILICATE (LOKELMA) 5 GM PACKET GT SCH ×2 (13:04→21:58)
[2022-10-27] MEDS ORDERED: TRIPLE LUMEN FLUSH 4 ML ML IVPUSH PRN (14:47)
[2022-10-27] MEDS: SCOPOLAMINE HYDROBROMIDE 1 PATCH PATCH.TD72 TD SCH (21:56)
[2022-10-28] MEDS: LEVOTHYROXINE NA 125 MCG TABLET (FP) GT SCH (06:42)
[2022-10-28] MEDS: DIPHENOXYLATE 2.5/ATROPINE.025 1 COMBO TABLET PO SCH ×3 (06:42→21:57)
[2022-10-28] MEDS: INSULIN SLIDING SCALE (NOVOLOG) 1 VIAL SQ SCH ×4 (06:43→21:58)
[2022-10-28] MEDS: INSULIN (LEVEMIR) 100 UNITS/ML UNITS SQ SCH ×2 (06:44→21:58)
[2022-10-28] MEDS: ALBUTEROL SO4 0.042% IH SOL 1.25 MG/3 ML VIAL.NEB NEB SCH ×4 (09:00→20:30)
[2022-10-28] MEDS: ACETYLCYSTEINE 20% 200MG/ML 4 ML VIAL *FOR ORAL / INH USE ONLY NEB SCH ×4 (09:00→20:30)
[2022-10-28] MEDS: PANTOPRAZOLE SODIUM 40 MG VIAL IVPUSH SCH ×2 (10:23→21:57)
[2022-10-28] MEDS: ESCITALOPRAM OXALATE 10 MG TABLET NGT SCH (10:23)
[2022-10-28] MEDS: SODIUM ZIRCONIUM CYCLOSILICATE (LOKELMA) 5 GM PACKET GT SCH ×2 (10:23→21:57)
[2022-10-28] MEDS: AMINO ACIDS/PROTEIN HYDROLYS 30 ML LIQUID.PKT PO SCH (10:23)
[2022-10-28] MEDS: METOPROLOL TARTRATE 25 MG TABLET (FP) NGT SCH ×2 (10:23→21:57)
[2022-10-28] MEDS: amLODIPine BESYLATE 5 MG TABLET (FP) GT SCH (10:23)
[2022-10-28] MEDS: APIXABAN 5 MG TABLET GT SCH ×2 (10:24→21:57)
[2022-10-28 11:31] LABS: POTASSIUM 5.2 mmol/L (3.5-5.1)
[2022-10-28 11:36] LABS: ALBUMIN 1.7 g/dl (3.4-5.0); BLOOD UREA NITROGEN 65.5 mg/dL (7-18)
[2022-10-28 11:38] LABS: CREATININE 0.7 mg/dL (0.55-1.3)
[2022-10-28 11:39] LABS: BILIRUBIN,TOTAL 0.2 mg/dL (0.2-1); TOT PROT 5.3 g/dl (6.4-8.2)
[2022-10-29] MEDS ORDERED: ALBUTEROL SO4 0.083% IH SOL 2.5 MG/3 ML VIAL.NEB. NEB SCH (06:30)
[2022-10-29] MEDS ORDERED: methylPREDNISolone NA SUCC 125 MG/2 ML VIAL IVPUSH ONE (06:45)
[2022-10-29] MEDS: LEVOTHYROXINE NA 125 MCG TABLET (FP) GT SCH (06:55)
[2022-10-29] MEDS: DIPHENOXYLATE 2.5/ATROPINE.025 1 COMBO TABLET PO SCH ×3 (06:55→21:27)
[2022-10-29] MEDS: INSULIN SLIDING SCALE (NOVOLOG) 1 VIAL SQ SCH ×4 (06:56→21:27)
[2022-10-29] MEDS: INSULIN (LEVEMIR) 100 UNITS/ML UNITS SQ SCH ×2 (06:56→21:28)
[2022-10-29] MEDS: ALBUTEROL SO4 0.042% IH SOL 1.25 MG/3 ML VIAL.NEB NEB SCH ×4 (07:52→21:14)
[2022-10-29] MEDS: AMINO ACIDS/PROTEIN HYDROLYS 30 ML LIQUID.PKT PO SCH (08:47)
[2022-10-29 09:01] LABS: BASO % 0.2 % (0-2.0); HEMATOCRIT 29.3 % (32.4-45.2); LYMPH % 11.8 % (8-40); MCH 23.6 pg (25.7-33.7); MCHC 30.6 g/dl (32.0-36.0); MEAN CELL VOLUME 77.3 fl (80-96); MEAN PLT VOLUME 8.9 fl (7.5-11.1); MONO % 4.3 % (3.8-10.2); NEUT % 83.7 % (42.8-82.8); PLATELET COUNT 423 10^3/uL (134-434); RBC 3.79 M/mm3 (3.60-5.2); RDW 22.8 % (11.6-15.6); WHITE BLOOD COUNT 14.3 K/mm3 (4.0-10.0)
[2022-10-29] MEDS: ESCITALOPRAM OXALATE 10 MG TABLET NGT SCH (09:13)
[2022-10-29 09:15] LABS: POTASSIUM 5.8 mmol/L (3.5-5.1)
[2022-10-29] MEDS: methylPREDNISolone NA SUCC 40 MG/1 ML VIAL IVPUSH SCH ×2 (09:15→18:00)
[2022-10-29] MEDS: amLODIPine BESYLATE 5 MG TABLET (FP) GT SCH (09:15)
[2022-10-29] MEDS: SODIUM ZIRCONIUM CYCLOSILICATE (LOKELMA) 5 GM PACKET GT SCH ×2 (09:15→21:27)
[2022-10-29] MEDS: PANTOPRAZOLE SODIUM 40 MG VIAL IVPUSH SCH ×2 (09:15→21:28)
[2022-10-29] MEDS: APIXABAN 5 MG TABLET GT SCH ×2 (09:16→21:27)
[2022-10-29 09:17] LABS: CALCIUM 10.9 mg/dL (8.5-10.1)
[2022-10-29 09:19] LABS: ALBUMIN 1.9 g/dl (3.4-5.0); BLOOD UREA NITROGEN 62.6 mg/dL (7-18)
[2022-10-29 09:22] LABS: CREATININE 0.7 mg/dL (0.55-1.3); TOT PROT 6.1 g/dl (6.4-8.2)
[2022-10-29 09:23] LABS: BILIRUBIN,TOTAL 0.2 mg/dL (0.2-1)
[2022-10-29] MEDS: METOPROLOL TARTRATE 25 MG TABLET (FP) NGT SCH ×2 (09:33→21:27)
[2022-10-30] MEDS: methylPREDNISolone NA SUCC 40 MG/1 ML VIAL IVPUSH SCH ×2 (02:13→09:26)
[2022-10-30] MEDS: DIPHENOXYLATE 2.5/ATROPINE.025 1 COMBO TABLET PO SCH ×3 (06:12→22:02)
[2022-10-30] MEDS: LEVOTHYROXINE NA 125 MCG TABLET (FP) GT SCH (06:12)
[2022-10-30] MEDS: INSULIN SLIDING SCALE (NOVOLOG) 1 VIAL SQ SCH ×4 (06:12→22:02)
[2022-10-30] MEDS: INSULIN (LEVEMIR) 100 UNITS/ML UNITS SQ SCH ×2 (06:12→22:02)
[2022-10-30] MEDS: ALBUTEROL SO4 0.042% IH SOL 1.25 MG/3 ML VIAL.NEB NEB SCH ×4 (07:45→19:48)
[2022-10-30] MEDS: AMINO ACIDS/PROTEIN HYDROLYS 30 ML LIQUID.PKT PO SCH (08:45)
[2022-10-30] MEDS: ESCITALOPRAM OXALATE 10 MG TABLET NGT SCH (09:27)
[2022-10-30] MEDS: APIXABAN 5 MG TABLET GT SCH ×2 (09:27→22:02)
[2022-10-30] MEDS: PANTOPRAZOLE SODIUM 40 MG VIAL IVPUSH SCH ×2 (09:29→22:02)
[2022-10-30 09:53] LABS: BASO % 0.1 % (0-2.0); HEMATOCRIT 23.3 % (32.4-45.2); HEMOGLOBIN 7.3 GM/dL (10.7-15.3); LYMPH % 6.5 % (8-40); MCH 24.1 pg (25.7-33.7); MCHC 31.5 g/dl (32.0-36.0); MEAN CELL VOLUME 76.3 fl (80-96); MEAN PLT VOLUME 8.8 fl (7.5-11.1); MONO % 3.6 % (3.8-10.2); NEUT % 89.8 % (42.8-82.8); PLATELET COUNT 295 10^3/uL (134-434); RBC 3.05 M/mm3 (3.60-5.2); RDW 23.2 % (11.6-15.6); WHITE BLOOD COUNT 8.5 K/mm3 (4.0-10.0)
[2022-10-30 10:11] LABS: CHLORIDE 105 mmol/L (98-107); POTASSIUM 5.6 mmol/L (3.5-5.1); SODIUM 144 mmol/L (136-145)
[2022-10-30 10:13] LABS: ALBUMIN 1.7 g/dl (3.4-5.0); ANION GAP 2 MMOL/L (8-16); BLOOD UREA NITROGEN 75.1 mg/dL (7-18); CALCIUM 11.2 mg/dL (8.5-10.1); CO2 37 mmol/L (21-32)
[2022-10-30 10:17] LABS: CREATININE 0.8 mg/dL (0.55-1.3); SGOT/AST 11 U/L (15-37); SGPT/ALT 14 U/L (13-61)
[2022-10-30 10:18] LABS: BILIRUBIN,TOTAL 0.2 mg/dL (0.2-1); TOT PROT 5.4 g/dl (6.4-8.2)
[2022-10-30 10:19] LABS: ALK PHOS 153 U/L (45-117)
[2022-10-30 10:21] LABS: GLUCOSE,RANDOM 416 mg/dL (74-106)
[2022-10-30] MEDS: amLODIPine BESYLATE 5 MG TABLET (FP) GT SCH (10:35)
[2022-10-30] MEDS: METOPROLOL TARTRATE 25 MG TABLET (FP) NGT SCH (10:41)
[2022-10-30] MEDS: SODIUM ZIRCONIUM CYCLOSILICATE (LOKELMA) 5 GM PACKET GT SCH ×2 (11:57→22:01)
[2022-10-30] MEDS ORDERED: FUROSEMIDE 40 MG/5 ML UNIT-DOSE CUP GT ONE (15:47)
[2022-10-30] MEDS: SODIUM CHLORIDE 0.45% 1,000 ML IV SCH (16:33)
[2022-10-30 18:03] LABS: GLUCOSE,RANDOM 468 mg/dL (74-106)
[2022-10-30] MEDS: SCOPOLAMINE HYDROBROMIDE 1 PATCH PATCH.TD72 TD SCH (22:02)
[2022-10-31] MEDS: ALBUTEROL SO4 2.5/IPRATROPIUM 0.5 INH SOL 3 ML VIAL.NEB. NEB SCH ×4 (03:00→03:45)
[2022-10-31] MEDS: INSULIN (LEVEMIR) 100 UNITS/ML UNITS SQ SCH ×2 (06:29→22:53)
[2022-10-31] MEDS: DIPHENOXYLATE 2.5/ATROPINE.025 1 COMBO TABLET PO SCH ×3 (06:29→22:56)
[2022-10-31] MEDS: LEVOTHYROXINE NA 125 MCG TABLET (FP) GT SCH (06:29)
[2022-10-31] MEDS: SODIUM CHLORIDE 0.45% 1,000 ML IV SCH (06:29)
[2022-10-31] MEDS: INSULIN SLIDING SCALE (NOVOLOG) 1 VIAL SQ SCH ×4 (06:29→22:54)
[2022-10-31] MEDS: ALBUTEROL SO4 0.042% IH SOL 1.25 MG/3 ML VIAL.NEB NEB SCH ×4 (07:40→20:49)
[2022-10-31] MEDS: AMINO ACIDS/PROTEIN HYDROLYS 30 ML LIQUID.PKT PO SCH (09:00)
[2022-10-31 09:08] LABS: HEMATOCRIT 25.1 % (32.4-45.2); HEMOGLOBIN 7.8 GM/dL (10.7-15.3); MCH 23.8 pg (25.7-33.7); MEAN CELL VOLUME 76.9 fl (80-96); MEAN PLT VOLUME 8.5 fl (7.5-11.1); PLATELET COUNT 319 10^3/uL (134-434); RBC 3.27 M/mm3 (3.60-5.2); RDW 23.1 % (11.6-15.6); WHITE BLOOD COUNT 14.7 K/mm3 (4.0-10.0)
[2022-10-31 09:18] LABS: CHLORIDE 100 mmol/L (98-107); POTASSIUM 4.1 mmol/L (3.5-5.1); SODIUM 141 mmol/L (136-145)
[2022-10-31 09:24] LABS: ALBUMIN 1.8 g/dl (3.4-5.0); ANION GAP 3 MMOL/L (8-16); CALCIUM 11.1 mg/dL (8.5-10.1); CO2 37 mmol/L (21-32)
[2022-10-31] MEDS: PANTOPRAZOLE SODIUM 40 MG VIAL IVPUSH SCH ×2 (09:24→22:57)
[2022-10-31] MEDS: ESCITALOPRAM OXALATE 10 MG TABLET NGT SCH (09:25)
[2022-10-31 09:27] LABS: CREATININE 0.9 mg/dL (0.55-1.3); SGOT/AST 8 U/L (15-37); SGPT/ALT 14 U/L (13-61)
[2022-10-31 09:29] LABS: BILIRUBIN,TOTAL 0.2 mg/dL (0.2-1); TOT PROT 5.5 g/dl (6.4-8.2)
[2022-10-31 09:30] LABS: ALK PHOS 148 U/L (45-117)
[2022-10-31 09:43] LABS: GLUCOSE,RANDOM 430 mg/dL (74-106)
[2022-10-31] MEDS: amLODIPine BESYLATE 5 MG TABLET (FP) GT SCH (10:30)
[2022-10-31] MEDS ORDERED: INSULIN SLIDING SCALE (NOVOLOG) 1 VIAL SQ ONE (10:55)
[2022-10-31] MEDS: SODIUM ZIRCONIUM CYCLOSILICATE (LOKELMA) 5 GM PACKET GT SCH (11:20)
[2022-10-31 11:54] LABS: ANISOCYTOSIS 3+; MACROCYTOSIS 0; OVALOCYTE 2+
[2022-11-01] MEDS: DIPHENOXYLATE 2.5/ATROPINE.025 1 COMBO TABLET PO SCH ×3 (06:23→22:33)
[2022-11-01] MEDS: INSULIN (LEVEMIR) 100 UNITS/ML UNITS SQ SCH ×2 (06:23→22:27)
[2022-11-01] MEDS: INSULIN SLIDING SCALE (NOVOLOG) 1 VIAL SQ SCH ×4 (06:23→22:33)
[2022-11-01] MEDS: LEVOTHYROXINE NA 125 MCG TABLET (FP) GT SCH (06:40)
[2022-11-01] MEDS: ALBUTEROL SO4 0.042% IH SOL 1.25 MG/3 ML VIAL.NEB NEB SCH ×2 (08:05→11:45)
[2022-11-01] MEDS: AMINO ACIDS/PROTEIN HYDROLYS 30 ML LIQUID.PKT PO SCH (08:28)
[2022-11-01] MEDS: PANTOPRAZOLE SODIUM 40 MG VIAL IVPUSH SCH ×2 (09:23→22:36)
[2022-11-01] MEDS: amLODIPine BESYLATE 5 MG TABLET (FP) GT SCH (09:23)
[2022-11-01] MEDS: ESCITALOPRAM OXALATE 10 MG TABLET NGT SCH (09:23)
[2022-11-01 09:33] LABS: BASO % 0.1 % (0-2.0); EOS % 0.2 % (0-4.5); HEMATOCRIT 24.1 % (32.4-45.2); HEMOGLOBIN 7.6 GM/dL (10.7-15.3); LYMPH % 5.3 % (8-40); MCH 24.2 pg (25.7-33.7); MCHC 31.4 g/dl (32.0-36.0); MEAN CELL VOLUME 77.1 fl (80-96); MEAN PLT VOLUME 8.8 fl (7.5-11.1); MONO % 4.6 % (3.8-10.2); NEUT % 89.8 % (42.8-82.8); PLATELET COUNT 282 10^3/uL (134-434); RBC 3.13 M/mm3 (3.60-5.2); RDW 22.7 % (11.6-15.6); WHITE BLOOD COUNT 9.3 K/mm3 (4.0-10.0)
[2022-11-01 09:55] LABS: POTASSIUM 4.7 mmol/L (3.5-5.1)
[2022-11-01 10:09] LABS: ALBUMIN 1.8 g/dl (3.4-5.0)
[2022-11-01 10:10] LABS: BLOOD UREA NITROGEN 81.5 mg/dL (7-18); CALCIUM 11.5 mg/dL (8.5-10.1)
[2022-11-01 10:13] LABS: CREATININE 0.7 mg/dL (0.55-1.3); TOT PROT 5.7 g/dl (6.4-8.2)
[2022-11-01 10:14] LABS: BILIRUBIN,TOTAL 0.2 mg/dL (0.2-1)
[2022-11-01 10:15] LABS: ARTERIAL BLD GAS O2 SATURATION 99.7 % (95-98); ARTERIAL BLOOD GAS BASE EXCESS 7.3 mmol/L (-2-2); ARTERIAL BLOOD GAS PO2 377.4 mmHg (80-100); ARTERIAL BLOOD GAS pH 7.245 (7.350-7.450)
[2022-11-01 10:16] LABS: ALLENS TEST POSITIVE; VENT MODE A/C; VENT RATE 20
[2022-11-01] MEDS: ALBUTEROL SO4 2.5/IPRATROPIUM 0.5 INH SOL 3 ML VIAL.NEB. NEB SCH ×3 (11:45→20:00)
[2022-11-01] MEDS ORDERED: ALBUTEROL SO4 0.083% IH SOL 2.5 MG/3 ML VIAL.NEB. NEB SCH ×2 (16:00)
[2022-11-01] MEDS: methylPREDNISolone NA SUCC 40 MG/1 ML VIAL IVPUSH SCH (18:47)
[2022-11-02] MEDS: methylPREDNISolone NA SUCC 40 MG/1 ML VIAL IVPUSH SCH ×3 (02:24→22:00)
[2022-11-02] MEDS: DIPHENOXYLATE 2.5/ATROPINE.025 1 COMBO TABLET PO SCH ×3 (05:39→21:26)
[2022-11-02] MEDS: INSULIN SLIDING SCALE (NOVOLOG) 1 VIAL SQ SCH ×4 (06:25→21:20)
[2022-11-02] MEDS: INSULIN (LEVEMIR) 100 UNITS/ML UNITS SQ SCH ×2 (06:26→21:18)
[2022-11-02] MEDS: LEVOTHYROXINE NA 125 MCG TABLET (FP) GT SCH (06:26)
[2022-11-02] MEDS: ALBUTEROL SO4 2.5/IPRATROPIUM 0.5 INH SOL 3 ML VIAL.NEB. NEB SCH ×4 (08:05→20:30)
[2022-11-02] MEDS: AMINO ACIDS/PROTEIN HYDROLYS 30 ML LIQUID.PKT PO SCH (08:34)
[2022-11-02] MEDS: amLODIPine BESYLATE 5 MG TABLET (FP) GT SCH (09:08)
[2022-11-02] MEDS: PANTOPRAZOLE SODIUM 40 MG VIAL IVPUSH SCH ×2 (09:08→22:00)
[2022-11-02] MEDS: ESCITALOPRAM OXALATE 10 MG TABLET NGT SCH (09:08)
[2022-11-02] MEDS: SODIUM ZIRCONIUM CYCLOSILICATE (LOKELMA) 5 GM PACKET PO SCH (09:08)
[2022-11-03] MEDS ORDERED: ALBUTEROL SO4 2.5/IPRATROPIUM 0.5 INH SOL 3 ML VIAL.NEB. NEB ONE (01:22)
[2022-11-03] MEDS: DIPHENOXYLATE 2.5/ATROPINE.025 1 COMBO TABLET PO SCH ×2 (06:21→14:00)
[2022-11-03] MEDS: INSULIN (LEVEMIR) 100 UNITS/ML UNITS SQ SCH ×2 (06:22→21:58)
[2022-11-03] MEDS: SCOPOLAMINE HYDROBROMIDE 1 PATCH PATCH.TD72 TD SCH (06:22)
[2022-11-03] MEDS: INSULIN SLIDING SCALE (NOVOLOG) 1 VIAL SQ SCH ×4 (06:23→22:00)
[2022-11-03] MEDS: LEVOTHYROXINE NA 125 MCG TABLET (FP) GT SCH (07:03)
[2022-11-03] MEDS: ALBUTEROL SO4 2.5/IPRATROPIUM 0.5 INH SOL 3 ML VIAL.NEB. NEB SCH ×4 (08:19→20:05)
[2022-11-03] MEDS: AMINO ACIDS/PROTEIN HYDROLYS 30 ML LIQUID.PKT PO SCH (08:43)
[2022-11-03] MEDS: ESCITALOPRAM OXALATE 10 MG TABLET NGT SCH (09:09)
[2022-11-03] MEDS: PANTOPRAZOLE SODIUM 40 MG VIAL IVPUSH SCH (09:09)
[2022-11-03] MEDS: amLODIPine BESYLATE 5 MG TABLET (FP) GT SCH (09:09)
[2022-11-03] MEDS: SODIUM ZIRCONIUM CYCLOSILICATE (LOKELMA) 5 GM PACKET PO SCH (09:22)
[2022-11-03] MEDS: methylPREDNISolone NA SUCC 40 MG/1 ML VIAL IVPUSH SCH ×2 (10:54→18:35)
[2022-11-03] MEDS ORDERED: ACETAMINOPHEN 1000 MG/100 ML BAG IVPB PRN (17:41)
[2022-11-03] MEDS: ACETAMINOPHEN 500 MG TABLET (FP) PEG PRN (18:02)
[2022-11-03 20:25] LABS: POTASSIUM 4.9 mmol/L (3.5-5.1)
[2022-11-03 20:27] LABS: CALCIUM 11.8 mg/dL (8.5-10.1)
[2022-11-03 20:28] LABS: ALBUMIN 1.7 g/dl (3.4-5.0); BLOOD UREA NITROGEN 95.6 mg/dL (7-18)
[2022-11-03 20:31] LABS: CREATININE 1.1 mg/dL (0.55-1.3)
[2022-11-03 20:32] LABS: TOT PROT 5.1 g/dl (6.4-8.2)
[2022-11-03 20:33] LABS: BILIRUBIN,TOTAL 0.3 mg/dL (0.2-1)
[2022-11-04] MEDS: methylPREDNISolone NA SUCC 40 MG/1 ML VIAL IVPUSH SCH ×3 (00:02→11:28)
[2022-11-04] MEDS: DIPHENOXYLATE 2.5/ATROPINE.025 1 COMBO TABLET PO SCH ×4 (00:03→22:43)
[2022-11-04] MEDS: PANTOPRAZOLE SODIUM 40 MG VIAL IVPUSH SCH ×4 (00:05→22:43)
[2022-11-04] MEDS: ACETAMINOPHEN 500 MG TABLET (FP) PEG PRN ×3 (05:45→20:30)
[2022-11-04] MEDS: LEVOTHYROXINE NA 125 MCG TABLET (FP) GT SCH (06:09)
[2022-11-04] MEDS: ALBUTEROL SO4 2.5/IPRATROPIUM 0.5 INH SOL 3 ML VIAL.NEB. NEB SCH ×4 (07:54→20:02)
[2022-11-04] MEDS: INSULIN SLIDING SCALE (NOVOLOG) 1 VIAL SQ SCH ×4 (08:51→22:56)
[2022-11-04] MEDS: INSULIN (LEVEMIR) 100 UNITS/ML UNITS SQ SCH ×3 (09:06→22:43)
[2022-11-04] MEDS: ESCITALOPRAM OXALATE 10 MG TABLET NGT SCH (09:06)
[2022-11-04] MEDS: amLODIPine BESYLATE 5 MG TABLET (FP) GT SCH (09:06)
[2022-11-04] MEDS: AMINO ACIDS/PROTEIN HYDROLYS 30 ML LIQUID.PKT GT SCH (09:06)
[2022-11-04] MEDS: SODIUM ZIRCONIUM CYCLOSILICATE (LOKELMA) 5 GM PACKET PO SCH (11:23)
[2022-11-04] MEDS: PIPERACILLIN/TAZOB 3.375 GM 3.375 GM in DEXTROSE 5%-WATER - 50 ML IVPB SCH ×2 (13:23→18:36)
[2022-11-05] MEDS: PIPERACILLIN/TAZOB 3.375 GM 3.375 GM in DEXTROSE 5%-WATER - 50 ML IVPB SCH ×3 (02:09→17:06)
[2022-11-05] MEDS: INSULIN SLIDING SCALE (NOVOLOG) 1 VIAL SQ SCH ×4 (06:50→22:48)
[2022-11-05] MEDS: DIPHENOXYLATE 2.5/ATROPINE.025 1 COMBO TABLET PO SCH ×3 (06:50→22:41)
[2022-11-05] MEDS: LEVOTHYROXINE NA 125 MCG TABLET (FP) GT SCH (06:50)
[2022-11-05] MEDS: ALBUTEROL SO4 2.5/IPRATROPIUM 0.5 INH SOL 3 ML VIAL.NEB. NEB SCH ×4 (08:27→20:27)
[2022-11-05] MEDS: INSULIN (LEVEMIR) 100 UNITS/ML UNITS SQ SCH ×2 (09:52→22:52)
[2022-11-05] MEDS: amLODIPine BESYLATE 5 MG TABLET (FP) GT SCH (09:56)
[2022-11-05] MEDS: PANTOPRAZOLE SODIUM 40 MG VIAL IVPUSH SCH ×2 (09:56→22:41)
[2022-11-05] MEDS: ESCITALOPRAM OXALATE 10 MG TABLET NGT SCH (09:56)
[2022-11-05] MEDS: SODIUM ZIRCONIUM CYCLOSILICATE (LOKELMA) 5 GM PACKET PO SCH (09:56)
[2022-11-05] MEDS: AMINO ACIDS/PROTEIN HYDROLYS 30 ML LIQUID.PKT GT SCH (09:56)
[2022-11-05] MEDS: ACETAMINOPHEN 500 MG TABLET (FP) PEG PRN ×2 (13:08→20:26)
[2022-11-05 16:46] LABS: BASO % 0.5 % (0-2.0); HEMATOCRIT 17.1 % (32.4-45.2); LYMPH % 5.1 % (8-40); MCH 23.3 pg (25.7-33.7); MCHC 30.6 g/dl (32.0-36.0); MEAN CELL VOLUME 75.9 fl (80-96); MEAN PLT VOLUME 9.3 fl (7.5-11.1); MONO % 4.6 % (3.8-10.2); NEUT % 89.8 % (42.8-82.8); PLATELET COUNT 152 10^3/uL (134-434); RBC 2.25 M/mm3 (3.60-5.2); RDW 22.3 % (11.6-15.6); WHITE BLOOD COUNT 13.8 K/mm3 (4.0-10.0)
[2022-11-05 16:48] LABS: HEMOGLOBIN 5.2 GM/dL (10.7-15.3)
[2022-11-05 16:57] LABS: CHLORIDE 103 mmol/L (98-107); SODIUM 144 mmol/L (136-145)
[2022-11-05 16:59] LABS: ALBUMIN 1.6 g/dl (3.4-5.0)
[2022-11-05 17:00] LABS: ANION GAP 5 MMOL/L (8-16); CO2 36 mmol/L (21-32); GLUCOSE,RANDOM 358 mg/dL (74-106)
[2022-11-05 17:02] LABS: CREATININE 1.5 mg/dL (0.55-1.3)
[2022-11-05 17:03] LABS: SGOT/AST 139 U/L (15-37); SGPT/ALT 114 U/L (13-61)
[2022-11-05 17:04] LABS: BILIRUBIN,TOTAL 0.3 mg/dL (0.2-1); TOT PROT 4.9 g/dl (6.4-8.2)
[2022-11-05 17:05] LABS: ALK PHOS 81 U/L (45-117)
[2022-11-05 17:19] LABS: ANISOCYTOSIS 3+; MACROCYTOSIS 0; OVALOCYTE 1+; TARGET CELLS 2+
[2022-11-05 17:44] LABS: BLOOD UREA NITROGEN 130.4 mg/dL (7-18)
[2022-11-05] MEDS ORDERED: INSULIN SLIDING SCALE (NOVOLOG) 1 VIAL SQ ONE (18:13)
[2022-11-05] MEDS ORDERED: INSULIN (LEVEMIR) 100 UNITS/ML UNITS SQ ONE (18:13)
[2022-11-05] MEDS: SCOPOLAMINE HYDROBROMIDE 1 PATCH PATCH.TD72 TD SCH (22:41)
[2022-11-06] MEDS ORDERED: ACETAMINOPHEN 650 MG/20.3 ML ORAL SOLUTION (CUPS) GT ONE (00:19)
[2022-11-06] MEDS ORDERED: SODIUM CHLORIDE 0.9% 500 ML INFUS.BAG IV ONE (02:24)
[2022-11-06] MEDS: PIPERACILLIN/TAZOB 3.375 GM 3.375 GM in DEXTROSE 5%-WATER - 50 ML IVPB SCH ×3 (03:45→18:03)
[2022-11-06] MEDS: INSULIN SLIDING SCALE (NOVOLOG) 1 VIAL SQ SCH ×4 (08:45→22:12)
[2022-11-06] MEDS: DIPHENOXYLATE 2.5/ATROPINE.025 1 COMBO TABLET PO SCH ×4 (08:45→22:27)
[2022-11-06] MEDS: ACETAMINOPHEN 500 MG TABLET (FP) PEG PRN ×2 (08:53→14:46)
[2022-11-06] MEDS: ALBUTEROL SO4 2.5/IPRATROPIUM 0.5 INH SOL 3 ML VIAL.NEB. NEB SCH ×4 (08:56→19:28)
[2022-11-06] MEDS: AMINO ACIDS/PROTEIN HYDROLYS 30 ML LIQUID.PKT GT SCH (08:59)
[2022-11-06] MEDS: LEVOTHYROXINE NA 125 MCG TABLET (FP) GT SCH (08:59)
[2022-11-06] MEDS: PANTOPRAZOLE SODIUM 40 MG VIAL IVPUSH SCH ×2 (09:02→22:05)
[2022-11-06] MEDS: SODIUM ZIRCONIUM CYCLOSILICATE (LOKELMA) 5 GM PACKET PO SCH (09:03)
[2022-11-06] MEDS: INSULIN (LEVEMIR) 100 UNITS/ML UNITS SQ SCH ×2 (09:03→22:47)
[2022-11-06] MEDS: ESCITALOPRAM OXALATE 10 MG TABLET NGT SCH (09:04)
[2022-11-06] MEDS: SODIUM CHLORIDE 0.45% 1,000 ML IV SCH (11:02)
[2022-11-06 11:46] LABS: HEMATOCRIT 22.3 % (32.4-45.2); MCH 24.1 pg (25.7-33.7); MCHC 31.6 g/dl (32.0-36.0); MEAN CELL VOLUME 76.4 fl (80-96); MEAN PLT VOLUME 9.6 fl (7.5-11.1); PLATELET COUNT 143 10^3/uL (134-434); RBC 2.92 M/mm3 (3.60-5.2); RDW 22.3 % (11.6-15.6); WHITE BLOOD COUNT 14.5 K/mm3 (4.0-10.0)
[2022-11-06 12:12] LABS: CHLORIDE 106 mmol/L (98-107); SODIUM 145 mmol/L (136-145)
[2022-11-06 12:17] LABS: ANION GAP 4 MMOL/L (8-16); ANISOCYTOSIS 3+; CALCIUM 11.3 mg/dL (8.5-10.1); CO2 35 mmol/L (21-32); GLUCOSE,RANDOM 93 mg/dL (74-106); MACROCYTOSIS 0; PLATELET ESTIMATE DECREASED
[2022-11-06 12:18] LABS: ALBUMIN 1.6 g/dl (3.4-5.0)
[2022-11-06 12:20] LABS: SGPT/ALT 165 U/L (13-61)
[2022-11-06 12:21] LABS: CREATININE 1.5 mg/dL (0.55-1.3); SGOT/AST 156 U/L (15-37)
[2022-11-06 12:22] LABS: BILIRUBIN,TOTAL 0.7 mg/dL (0.2-1); TOT PROT 4.9 g/dl (6.4-8.2)
[2022-11-06] MEDS ORDERED: INSULIN SLIDING SCALE (NOVOLOG) 1 VIAL SQ ONE (12:22)
[2022-11-06 12:23] LABS: ALK PHOS 70 U/L (45-117)
[2022-11-06 12:38] LABS: BLOOD UREA NITROGEN 133.2 mg/dL (7-18)
[2022-11-07] MEDS: SODIUM CHLORIDE 0.45% 1,000 ML IV SCH (00:53)
[2022-11-07] MEDS: PIPERACILLIN/TAZOB 3.375 GM 3.375 GM in DEXTROSE 5%-WATER - 50 ML IVPB SCH ×3 (01:32→17:41)
[2022-11-07] MEDS: DIPHENOXYLATE 2.5/ATROPINE.025 1 COMBO TABLET PO SCH (05:32)
[2022-11-07] MEDS: LEVOTHYROXINE NA 125 MCG TABLET (FP) GT SCH (06:02)
[2022-11-07] MEDS: INSULIN SLIDING SCALE (NOVOLOG) 1 VIAL SQ SCH ×4 (06:02→22:06)
[2022-11-07] MEDS: ALBUTEROL SO4 2.5/IPRATROPIUM 0.5 INH SOL 3 ML VIAL.NEB. NEB SCH ×4 (07:55→21:00)
[2022-11-07] MEDS: AMINO ACIDS/PROTEIN HYDROLYS 30 ML LIQUID.PKT GT SCH (08:49)
[2022-11-07 08:56] LABS: BASO % 0.3 % (0-2.0); EOS % 0.3 % (0-4.5); HEMATOCRIT 17.7 % (32.4-45.2); LYMPH % 7.1 % (8-40); MCH 24.5 pg (25.7-33.7); MCHC 32.4 g/dl (32.0-36.0); MEAN CELL VOLUME 75.7 fl (80-96); MEAN PLT VOLUME 9.7 fl (7.5-11.1); MONO % 2.5 % (3.8-10.2); NEUT % 89.8 % (42.8-82.8); PLATELET COUNT 124 10^3/uL (134-434); RBC 2.34 M/mm3 (3.60-5.2); RDW 22.3 % (11.6-15.6); WHITE BLOOD COUNT 7.6 K/mm3 (4.0-10.0)
[2022-11-07] MEDS: SODIUM ZIRCONIUM CYCLOSILICATE (LOKELMA) 5 GM PACKET PO SCH (09:17)
[2022-11-07] MEDS: ESCITALOPRAM OXALATE 10 MG TABLET NGT SCH (09:18)
[2022-11-07] MEDS: PANTOPRAZOLE SODIUM 40 MG VIAL IVPUSH SCH ×2 (09:18→21:54)
[2022-11-07 09:20] LABS: CHLORIDE 104 mmol/L (98-107); POTASSIUM 3.9 mmol/L (3.5-5.1); SODIUM 142 mmol/L (136-145)
[2022-11-07 09:24] LABS: ALBUMIN 1.3 g/dl (3.4-5.0); ANION GAP 5 MMOL/L (8-16); CALCIUM 11.1 mg/dL (8.5-10.1); CO2 33 mmol/L (21-32); GLUCOSE,RANDOM 207 mg/dL (74-106)
[2022-11-07 09:27] LABS: CREATININE 1.6 mg/dL (0.55-1.3); SGOT/AST 101 U/L (15-37); SGPT/ALT 135 U/L (13-61)
[2022-11-07 09:29] LABS: TOT PROT 4.4 g/dl (6.4-8.2)
[2022-11-07 09:29] LABS: HEMOGLOBIN 5.7 GM/dL (10.7-15.3)
[2022-11-07 09:30] LABS: ALK PHOS 78 U/L (45-117)
[2022-11-07 09:31] LABS: BILIRUBIN,TOTAL 0.4 mg/dL (0.2-1); BLOOD UREA NITROGEN 152.2 mg/dL (7-18)
[2022-11-07] MEDS: ACETAMINOPHEN 500 MG TABLET (FP) PEG PRN (10:21)
[2022-11-07] MEDS: INSULIN (LEVEMIR) 100 UNITS/ML UNITS SQ SCH ×2 (10:25→22:06)
[2022-11-07] MEDS ORDERED: FUROSEMIDE 40 MG/4 ML INJECTABLE VIAL IVPUSH ONE (12:45)
[2022-11-07] MEDS ORDERED: ACETAMINOPHEN 1000 MG/100 ML BAG IVPB PRN (14:25)
[2022-11-08] MEDS: PIPERACILLIN/TAZOB 3.375 GM 3.375 GM in DEXTROSE 5%-WATER - 50 ML IVPB SCH ×3 (02:02→19:42)
[2022-11-08] MEDS: LEVOTHYROXINE NA 125 MCG TABLET (FP) GT SCH (06:07)
[2022-11-08] MEDS: INSULIN SLIDING SCALE (NOVOLOG) 1 VIAL SQ SCH ×4 (06:08→23:53)
[2022-11-08] MEDS: ALBUTEROL SO4 2.5/IPRATROPIUM 0.5 INH SOL 3 ML VIAL.NEB. NEB SCH ×4 (08:30→20:00)
[2022-11-08] MEDS: AMINO ACIDS/PROTEIN HYDROLYS 30 ML LIQUID.PKT GT SCH (09:35)
[2022-11-08] MEDS: PANTOPRAZOLE SODIUM 40 MG VIAL IVPUSH SCH ×2 (09:36→23:54)
[2022-11-08] MEDS: ESCITALOPRAM OXALATE 10 MG TABLET NGT SCH (09:36)
[2022-11-08] MEDS ORDERED: FUROSEMIDE 40 MG/5 ML UNIT-DOSE CUP PO SCH (10:00)
[2022-11-08] MEDS: INSULIN (LEVEMIR) 100 UNITS/ML UNITS SQ SCH ×2 (10:56→23:52)
[2022-11-08 12:14] LABS: HEMATOCRIT 17.9 % (32.4-45.2); MCHC 32.9 g/dl (32.0-36.0); MEAN PLT VOLUME 9.2 fl (7.5-11.1); PLATELET COUNT 139 10^3/uL (134-434); RBC 2.35 M/mm3 (3.60-5.2); RDW 21.7 % (11.6-15.6); WHITE BLOOD COUNT 7.1 K/mm3 (4.0-10.0)
[2022-11-08 12:20] LABS: HEMOGLOBIN 5.9 GM/dL (10.7-15.3)
[2022-11-08 12:31] LABS: CHLORIDE 104 mmol/L (98-107); POTASSIUM 3.9 mmol/L (3.5-5.1); SODIUM 141 mmol/L (136-145)
[2022-11-08 12:34] LABS: CALCIUM 10.6 mg/dL (8.5-10.1)
[2022-11-08 12:35] LABS: ALBUMIN 1.1 g/dl (3.4-5.0); ANION GAP 4 MMOL/L (8-16); CO2 33 mmol/L (21-32); GLUCOSE,RANDOM 145 mg/dL (74-106)
[2022-11-08 12:38] LABS: CREATININE 1.9 mg/dL (0.55-1.3); SGOT/AST 51 U/L (15-37); SGPT/ALT 91 U/L (13-61)
[2022-11-08 12:40] LABS: BILIRUBIN,TOTAL 0.4 mg/dL (0.2-1); TOT PROT 4.2 g/dl (6.4-8.2)
[2022-11-08 12:41] LABS: ALK PHOS 97 U/L (45-117); BLOOD UREA NITROGEN 158.2 mg/dL (7-18)
[2022-11-08] MEDS: FUROSEMIDE 40 MG/4 ML INJECTABLE VIAL IVPUSH SCH (13:05)
[2022-11-08 13:41] LABS: EPI CELLS 7 /uL (0-25.1); HYALINE CASTS 4 /uL (0-3.1); URINE APPEARANCE TURBID; URINE BILIRUBIN NEGATIVE (NEGATIVE); URINE COLOR YELLOW; URINE GLUCOSE (UA) NEGATIVE (NEGATIVE); URINE KETONE NEGATIVE (NEGATIVE); URINE LEUK ESTERASE 3+ (NEGATIVE); URINE NITRITE NEGATIVE (NEGATIVE); URINE PROTEIN 2+ (NEGATIVE); URINE UROBILINOGEN 0.2 mg/dL (0.2-1.0); URINE WBC 2187 /uL (0-25.8)
[2022-11-08 14:04] LABS: URINE BACTERIA MANY /uL (0-1359); URINE RBC 348.3 /uL (0-23.9); YEAST MANY (NEGATIVE)
[2022-11-08] MEDS ORDERED: ACETAMINOPHEN 1000 MG/100 ML BAG IVPB ONE (16:15)
[2022-11-09] MEDS: SCOPOLAMINE HYDROBROMIDE 1 PATCH PATCH.TD72 TD SCH (02:08)
[2022-11-09] MEDS: PIPERACILLIN/TAZOB 3.375 GM 3.375 GM in DEXTROSE 5%-WATER - 50 ML IVPB SCH ×3 (02:10→18:21)
[2022-11-09] MEDS: INSULIN SLIDING SCALE (NOVOLOG) 1 VIAL SQ SCH ×4 (07:06→22:30)
[2022-11-09] MEDS: LEVOTHYROXINE NA 125 MCG TABLET (FP) GT SCH (07:08)
[2022-11-09] MEDS: ALBUTEROL SO4 2.5/IPRATROPIUM 0.5 INH SOL 3 ML VIAL.NEB. NEB SCH ×4 (08:05→20:30)
[2022-11-09] MEDS: FUROSEMIDE 40 MG/4 ML INJECTABLE VIAL IVPUSH SCH (12:28)
[2022-11-09] MEDS: PANTOPRAZOLE SODIUM 40 MG VIAL IVPUSH SCH ×2 (12:28→22:30)
[2022-11-09] MEDS: ESCITALOPRAM OXALATE 10 MG TABLET NGT SCH (12:28)
[2022-11-09] MEDS: INSULIN (LEVEMIR) 100 UNITS/ML UNITS SQ SCH (13:26)
[2022-11-09] MEDS: AMINO ACIDS/PROTEIN HYDROLYS 30 ML LIQUID.PKT GT SCH (13:26)
[2022-11-09] MEDS ORDERED: ACETYLCYSTEINE 20% 200MG/ML 4 ML VIAL *FOR ORAL / INH USE ONLY NEB ONE (19:07)
[2022-11-10] MEDS: INSULIN (LEVEMIR) 100 UNITS/ML UNITS SQ SCH ×3 (02:00→22:35)
[2022-11-10] MEDS: PIPERACILLIN/TAZOB 3.375 GM 3.375 GM in DEXTROSE 5%-WATER - 50 ML IVPB SCH ×2 (02:10→09:28)
[2022-11-10] MEDS: INSULIN SLIDING SCALE (NOVOLOG) 1 VIAL SQ SCH ×4 (06:41→22:35)
[2022-11-10] MEDS: LEVOTHYROXINE NA 125 MCG TABLET (FP) GT SCH (06:42)
[2022-11-10] MEDS: ALBUTEROL SO4 2.5/IPRATROPIUM 0.5 INH SOL 3 ML VIAL.NEB. NEB SCH ×3 (09:15→15:15)
[2022-11-10] MEDS: ESCITALOPRAM OXALATE 10 MG TABLET NGT SCH (09:28)
[2022-11-10] MEDS: AMINO ACIDS/PROTEIN HYDROLYS 30 ML LIQUID.PKT GT SCH (09:28)
[2022-11-10] MEDS: FUROSEMIDE 40 MG/4 ML INJECTABLE VIAL IVPUSH SCH (10:41)
[2022-11-10] MEDS: PANTOPRAZOLE SODIUM 40 MG VIAL IVPUSH SCH ×2 (10:41→22:35)
[2022-11-10 11:56] LABS: HEMATOCRIT 16.8 % (32.4-45.2); MCH 25.3 pg (25.7-33.7); MCHC 33.1 g/dl (32.0-36.0); MEAN CELL VOLUME 76.4 fl (80-96); MEAN PLT VOLUME 8.7 fl (7.5-11.1); PLATELET COUNT 242 10^3/uL (134-434); RDW 19.6 % (11.6-15.6); WHITE BLOOD COUNT 7.9 K/mm3 (4.0-10.0)
[2022-11-10 11:59] LABS: HEMOGLOBIN 5.6 GM/dL (10.7-15.3)
[2022-11-10 12:12] LABS: CHLORIDE 102 mmol/L (98-107); POTASSIUM 4.7 mmol/L (3.5-5.1); SODIUM 143 mmol/L (136-145)
[2022-11-10 12:16] LABS: ALBUMIN 1.1 g/dl (3.4-5.0); ANION GAP 6 MMOL/L (8-16); CO2 34 mmol/L (21-32); GLUCOSE,RANDOM 145 mg/dL (74-106)
[2022-11-10 12:19] LABS: SGOT/AST 38 U/L (15-37); SGPT/ALT 56 U/L (13-61)
[2022-11-10 12:20] LABS: BILIRUBIN,TOTAL 0.3 mg/dL (0.2-1); CREATININE 2.4 mg/dL (0.55-1.3); TOT PROT 4.1 g/dl (6.4-8.2)
[2022-11-10 12:22] LABS: ALK PHOS 99 U/L (45-117)
[2022-11-10 12:26] LABS: BLOOD UREA NITROGEN 205.4 mg/dL (7-18)
[2022-11-10 12:39] LABS: ANISOCYTOSIS 1+; MACROCYTOSIS 0
[2022-11-10] MEDS ORDERED: ACETAMINOPHEN 1000 MG/100 ML BAG IVPB PRN (17:16)
[2022-11-11] MEDS: LEVOTHYROXINE NA 125 MCG TABLET (FP) GT SCH (06:38)
[2022-11-11] MEDS: INSULIN SLIDING SCALE (NOVOLOG) 1 VIAL SQ SCH ×4 (06:42→23:10)
[2022-11-11] MEDS: ESCITALOPRAM OXALATE 10 MG TABLET NGT SCH (10:25)
[2022-11-11] MEDS: AMINO ACIDS/PROTEIN HYDROLYS 30 ML LIQUID.PKT GT SCH (10:25)
[2022-11-11] MEDS: PANTOPRAZOLE SODIUM 40 MG VIAL IVPUSH SCH ×2 (10:25→23:03)
[2022-11-11] MEDS: FUROSEMIDE 40 MG/4 ML INJECTABLE VIAL IVPUSH SCH (10:27)
[2022-11-11] MEDS: INSULIN (LEVEMIR) 100 UNITS/ML UNITS SQ SCH ×3 (10:29→23:02)
[2022-11-11 11:54] LABS: CHLORIDE 101 mmol/L (98-107); POTASSIUM 4.9 mmol/L (3.5-5.1); SODIUM 138 mmol/L (136-145)
[2022-11-11 11:56] LABS: ALBUMIN 1.2 g/dl (3.4-5.0); ANION GAP 5 MMOL/L (8-16); CO2 33 mmol/L (21-32); GLUCOSE,RANDOM 246 mg/dL (74-106)
[2022-11-11 11:59] LABS: CREATININE 2.7 mg/dL (0.55-1.3); SGOT/AST 28 U/L (15-37); SGPT/ALT 46 U/L (13-61)
[2022-11-11 12:01] LABS: BILIRUBIN,TOTAL 0.3 mg/dL (0.2-1); TOT PROT 4.1 g/dl (6.4-8.2)
[2022-11-11 12:02] LABS: ALK PHOS 96 U/L (45-117)
[2022-11-11 12:28] LABS: BLOOD UREA NITROGEN 208.6 mg/dL (7-18)
[2022-11-11] MEDS: SCOPOLAMINE HYDROBROMIDE 1 PATCH PATCH.TD72 TD SCH (23:03)
[2022-11-12] MEDS: LEVOTHYROXINE NA 125 MCG TABLET (FP) GT SCH (06:14)
[2022-11-12] MEDS: INSULIN SLIDING SCALE (NOVOLOG) 1 VIAL SQ SCH ×3 (06:24→17:52)
[2022-11-12] MEDS: AMINO ACIDS/PROTEIN HYDROLYS 30 ML LIQUID.PKT GT SCH (08:10)
[2022-11-12 08:53] LABS: MCH 26.8 pg (25.7-33.7); MCHC 33.7 g/dl (32.0-36.0); MEAN CELL VOLUME 79.5 fl (80-96); PLATELET COUNT 303 10^3/uL (134-434); RBC 1.89 M/mm3 (3.60-5.2); RDW 19.1 % (11.6-15.6); WHITE BLOOD COUNT 9.6 K/mm3 (4.0-10.0)
[2022-11-12 09:00] LABS: CHLORIDE 99 mmol/L (98-107); POTASSIUM 4.7 mmol/L (3.5-5.1); SODIUM 140 mmol/L (136-145)
[2022-11-12 09:03] LABS: CALCIUM 9.7 mg/dL (8.5-10.1)
[2022-11-12 09:04] LABS: ALBUMIN 1.3 g/dl (3.4-5.0); ANION GAP 10 MMOL/L (8-16); CO2 31 mmol/L (21-32); GLUCOSE,RANDOM 188 mg/dL (74-106)
[2022-11-12 09:07] LABS: CREATININE 2.9 mg/dL (0.55-1.3); SGOT/AST 26 U/L (15-37); SGPT/ALT 36 U/L (13-61)
[2022-11-12 09:08] LABS: BILIRUBIN,TOTAL 0.5 mg/dL (0.2-1); TOT PROT 4.4 g/dl (6.4-8.2)
[2022-11-12 09:10] LABS: ALK PHOS 96 U/L (45-117)
[2022-11-12 09:15] LABS: BLOOD UREA NITROGEN 216.4 mg/dL (7-18)
[2022-11-12 09:39] LABS: HEMOGLOBIN 5.1 GM/dL (10.7-15.3)
[2022-11-12] MEDS: ESCITALOPRAM OXALATE 10 MG TABLET NGT SCH (10:50)
[2022-11-12] MEDS: INSULIN (LEVEMIR) 100 UNITS/ML UNITS SQ SCH (11:43)
[2022-11-12 11:44] LABS: ANISOCYTOSIS 0; MACROCYTOSIS 0
[2022-11-12] MEDS: PANTOPRAZOLE SODIUM 40 MG VIAL IVPUSH SCH (12:00)
[2022-11-12] MEDS: amLODIPine BESYLATE 5 MG TABLET (FP) GT SCH (13:08)
[2022-11-12] MEDS: FUROSEMIDE 40 MG/4 ML INJECTABLE VIAL IVPUSH SCH (13:08)
[2022-11-12] MEDS ORDERED: ATROPINE SO4 0.4 MG/1 ML VIAL IVPUSH ONE (15:46)
[2022-11-12 16:18] VITALS: PULSE 86; RESP 15
[2022-11-12 17:52] VITALS: BP 112/59; TEMP 98.7
== END 2022-11-12 20:30 | disposition expired | DRG 4 ==
LOC: JER 22:52 → JERBED 09-03 03:16 → JICU 09-03 04:26 → J5S 09-04 17:31 → J6S 09-05 21:35 → JICU 09-07 13:52 → J7W 09-19 20:12 → JICU 09-26 05:58 → J2W 10-01 15:32 → J5S 10-05 20:53
PROVIDERS: ADMIT Internal Medicine Pulmonary Disease; ATTEND Internal Medicine
PROC: 5A1955Z Respiratory Ventilation, Greater than 96 Consecutive Hours (ICD-10-PCS; 2022-09-08)
PROC: 0BH17EZ Insertion of Endotracheal Airway into Trachea, Via Natural or Artificial Opening (ICD-10-PCS; 2022-09-08)
PROC: 05HN33Z Insertion of Infusion Device into Left Internal Jugular Vein, Percutaneous Approach (ICD-10-PCS; 2022-09-08)
PROC: B544ZZA Ultrasonography of Left Jugular Veins, Guidance (ICD-10-PCS; 2022-09-08)
PROC: 0BJ08ZZ Inspection of Tracheobronchial Tree, Via Natural or Artificial Opening Endoscopic (ICD-10-PCS; 2022-09-13)
PROC: 0B113Z4 Bypass Trachea to Cutaneous, Percutaneous Approach (ICD-10-PCS; principal; 2022-09-13 13:00)
PROC: 05HF33Z Insertion of Infusion Device into Left Cephalic Vein, Percutaneous Approach (ICD-10-PCS; 2022-09-15)
PROC: B54NZZA Ultrasonography of Left Upper Extremity Veins, Guidance (ICD-10-PCS; 2022-09-15)
PROC: 30233N1 Transfusion of Nonautologous Red Blood Cells into Peripheral Vein, Percutaneous Approach (ICD-10-PCS; 2022-09-18)
PROC: 0DJ08ZZ Inspection of Upper Intestinal Tract, Via Natural or Artificial Opening Endoscopic (ICD-10-PCS; 2022-09-20)
PROC: 0DBP8ZX Excision of Rectum, Via Natural or Artificial Opening Endoscopic, Diagnostic (ICD-10-PCS; 2022-09-20)
PROC: 5A12012 Performance of Cardiac Output, Single, Manual (ICD-10-PCS; 2022-09-26)
PROC: 05HD33Z Insertion of Infusion Device into Right Cephalic Vein, Percutaneous Approach (ICD-10-PCS; 2022-10-01)
PROC: B54MZZA Ultrasonography of Right Upper Extremity Veins, Guidance (ICD-10-PCS; 2022-10-01)
PROC: 0DH67UZ Insertion of Feeding Device into Stomach, Via Natural or Artificial Opening (ICD-10-PCS; 2022-10-17)
PROC: 3E0G76Z Introduction of Nutritional Substance into Upper GI, Via Natural or Artificial Opening (ICD-10-PCS; 2022-10-17)
PROC: 0DH63UZ Insertion of Feeding Device into Stomach, Percutaneous Approach (ICD-10-PCS; 2022-10-18)
DX: C79.89 Secondary malignant neoplasm of other specified sites (principal); J96.01 Acute respiratory failure with hypoxia; I63.89 Other cerebral infarction; J18.9 Pneumonia, unspecified organism; K62.6 Ulcer of anus and rectum; K92.2 Gastrointestinal hemorrhage, unspecified; N17.9 Acute kidney failure, unspecified; I82.621 Acute embolism and thrombosis of deep veins of right upper extremity; C79.51 Secondary malignant neoplasm of bone; C78.7 Secondary malignant neoplasm of liver and intrahepatic bile duct; C79.70 Secondary malignant neoplasm of unspecified adrenal gland; I10 Essential (primary) hypertension; D64.9 Anemia, unspecified; E03.9 Hypothyroidism, unspecified; D72.829 Elevated white blood cell count, unspecified; E86.0 Dehydration; J38.01 Paralysis of vocal cords and larynx, unilateral; K29.60 Other gastritis without bleeding; R19.7 Diarrhea, unspecified; I46.9 Cardiac arrest, cause unspecified; T17.990A Other foreign object in respiratory tract, part unspecified in causing asphyxiation, initial encounter; X58.XXXA Exposure to other specified factors, initial encounter; Y93.89 Activity, other specified; Y92.230 Patient room in hospital as the place of occurrence of the external cause; Y99.8 Other external cause status; E87.5 Hyperkalemia; E09.9 Drug or chemical induced diabetes mellitus without complications; T45.1X5A Adverse effect of antineoplastic and immunosuppressive drugs, initial encounter; R22.1 Localized swelling, mass and lump, neck; E83.52 Hypercalcemia; I16.0 Hypertensive urgency; R79.89 Other specified abnormal findings of blood chemistry
CPT/HCPCS: 0241U-QW; 31500; 36415; 36430; 36511; 36569; 36600; 43752; 49440; 70450-TC; 70490-TC; 71045-TC-FY; 71046-TC-FY; 71250-TC; 74018-TC-FY; 74176-TC; 77001-TC-FY; 80048; 80053; 80061; 81003; 82272; 82310; 82436; 82570; 82607; 82728; 82746; 82803; 82947; 82962; 83540; 83550; 83605; 83735; 83970; 83993; 84100; 84132; 84133; 84155; 84165; 84300; 84439; 84443; 84466; 84484; 84540; 85025; 85027; 85045; 85610; 85730; 86850; 86900; 86901; 86922; 87040; 87045; 87046; 87070; 87077; 87086; 87186; 87205; 87207; 87324; 87328; 87329; 87449; 88305-TC; 93005; 93010; 93306-TC; 93970-TC; 93971; 94002; 94640; 94760; 97116-GP; 97162-GP; 99291; 99292; C1751; C1769; J1100; J1644; J1756; P9016; P9038; P9058